=== PATIENT | female | born 1995 | race Caucasian/White ===

== ENCOUNTER 2016-11-17 00:47 | Inpatient (IN) | payer OTHER, MEDICAID ==
[~2016-11-17] VITALS: Ht 180.3 cm; Wt 94.6 kg
[2016-11-17] VITALS (20 sets, daily range): BP systolic 88–141; BP diastolic 58–81; PULSE 94–137; RESP 18–20; TEMP 97.5–99.2; O2SAT 97–100
[2016-11-17 01:10] LABS: AUTOMATED NEUTROPHIL # 8.4 TH/MM3 (1.8-7.7); BASOPHIL # 0.1 TH/MM3 (0-0.2); BASOPHIL % 0.9 % (0.0-2.0); EOSINOPHIL # 0.2 TH/MM3 (0-0.4); EOSINOPHIL % 1.4 % (0.0-4.0); HEMATOCRIT 27.2 % (35.0-46.0); HEMO FLAGS DIFF FINAL; I-STAT POTASSIUM 2.5 MMOL/L (3.5-4.9); I-STAT SODIUM 144 MMOL/L (138-146); LYMPH % 25.1 % (9.0-44.0); LYMPHOCYTE # 3.2 TH/MM3 (1.0-4.8); MEAN CELL VOLUME 86.9 FL (80.0-100.0); MEAN CORPUSCULAR HEMOGLOBIN 29.7 PG (27.0-34.0); MEAN CORPUSCULAR HGB CONC 34.2 % (32.0-36.0); MONO % 5.9 % (0.0-8.0); NEUT % 66.7 % (16.0-70.0); PLATELET COUNT 218 TH/MM3 (150-450); RED BLOOD COUNT 3.14 MIL/MM3 (4.00-5.30); RED CELL DISTRIBUTION WIDTH 13.2 % (11.6-17.2); WHITE BLOOD COUNT 12.6 TH/MM3 (4.0-11.0)
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
[2016-11-17] MEDS ORDERED: VANCOMYCIN HCL 1000 MG VIAL OTHER ONE (01:15)
[2016-11-17] MEDS ORDERED: ceFAZolin 2 GM PREMIX 50 ML IV STA (01:20)
[2016-11-17] MEDS ORDERED: HYDROmorphone HCL PF 1 MG/ML VIAL IV PUSH ONE (01:20)
[2016-11-17] MEDS ORDERED: GENTAMICIN/SOD CHL 80 MG/100 ML IV ONE (01:20)
[2016-11-17 01:21] LABS: APTT (PATIENT) 25.6 SEC (24.3-30.1); INTERNATIONAL NORMALIZED RATIO 1.1 RATIO; PROTHROMBIN TIME - PATIENT 12.1 SEC (9.8-11.6)
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
[2016-11-17 01:29] LABS: BETA HCG QUANT LESS THAN 1 MIU/ML (0-5)
[2016-11-17 01:30] LABS: ALCOHOL LESS THAN 3 MG/DL (0-5)
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
[2016-11-17] MEDS ORDERED: VANCOMYCIN HCL 1000 MG VIAL ONE (01:45)
[2016-11-17 01:46] LABS: AUTOMATED NEUTROPHIL # 11.7 TH/MM3 (1.8-7.7); BASOPHIL # 0.1 TH/MM3 (0-0.2); BASOPHIL % 0.4 % (0.0-2.0); EOSINOPHIL # 0.2 TH/MM3 (0-0.4); EOSINOPHIL % 1.1 % (0.0-4.0); HEMATOCRIT 24.7 % (35.0-46.0); HEMO FLAGS DIFF FINAL; LYMPH % 13.5 % (9.0-44.0); MEAN CELL VOLUME 87.4 FL (80.0-100.0); MEAN CORPUSCULAR HEMOGLOBIN 29.5 PG (27.0-34.0); MEAN CORPUSCULAR HGB CONC 33.8 % (32.0-36.0); MONO % 7.1 % (0.0-8.0); NEUT % 77.9 % (16.0-70.0); PLATELET COUNT 177 TH/MM3 (150-450); RED BLOOD COUNT 2.83 MIL/MM3 (4.00-5.30); RED CELL DISTRIBUTION WIDTH 13.5 % (11.6-17.2); WHITE BLOOD COUNT 15.1 TH/MM3 (4.0-11.0)
[2016-11-17 01:46] LABS: BLOOD GAS BASE EXCESS -6.2 mmol/L (-2-2); BLOOD GAS CARBOXYHEMOGLOBIN 3.1 % (0-4); BLOOD GAS HCO3 19 mmol/L (22-26); BLOOD GAS METHEMOGLOBIN 1.2 % (0-2); BLOOD GAS O2 HGB SATURATION 95 % (90-100); BLOOD GAS OXYGEN CONTENT 12.8 Vol % (12.0-20.0); BLOOD GAS PCO2 35 mmHg (38-42); BLOOD GAS PO2 234 mmHg (61-120); BLOOD GAS TOTAL HGB 9.2 G/DL (12.0-16.0); CRITICAL VALUE NO; FIO2 50 %; STAT YES; TEMP CORR TO 98.6
[2016-11-17] MEDS ORDERED: TRANEXAMIC ACID INJ 1,000 MG/10 ML AMP ONE (01:46)
[2016-11-17 02:01] LABS: APTT (PATIENT) 26.8 SEC (24.3-30.1); INTERNATIONAL NORMALIZED RATIO 1.1 RATIO; PROTHROMBIN TIME - PATIENT 12.2 SEC (9.8-11.6)
[2016-11-17 02:09] LABS: BICARBONATE 22.1 MEQ/L (21.0-32.0)
[2016-11-17 02:15] LABS: POTASSIUM 2.9 MEQ/L (3.5-5.1)
[2016-11-17 02:37] LABS: CALCIUM-PROTEIN CORRECTED 7.8 MG/DL (8.5-10.1)
[2016-11-17 02:51] LABS: BLOOD GAS BASE EXCESS -5.9 mmol/L (-2-2); BLOOD GAS CARBOXYHEMOGLOBIN 2.5 % (0-4); BLOOD GAS HCO3 19 mmol/L (22-26); BLOOD GAS METHEMOGLOBIN 1.2 % (0-2); BLOOD GAS O2 HGB SATURATION 96 % (90-100); BLOOD GAS PCO2 41 mmHg (38-42); BLOOD GAS PO2 241 mmHg (61-120); BLOOD GAS TOTAL HGB 9.2 G/DL (12.0-16.0); CRITICAL VALUE NO; DRAW SITE ALINE; FIO2 50 %; OXYGEN DEVICE VENTILATOR; STAT NO; TEMP CORR TO 98.6; ULNAR PULSE PRESENT; VENT SETTINGS OR SETTINGS
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
[2016-11-17] MEDS ORDERED: SODIUM CHLOR 0.9% 1000 ML INJ 1,000 ML IV SCH (03:47)
[2016-11-17] MEDS ORDERED: PROPOFOL 1000 MG/100 ML INJ 100 ML ONE (03:48)
[2016-11-17 03:58] LABS: BLOOD GAS BASE EXCESS -5.6 mmol/L (-2-2); BLOOD GAS CARBOXYHEMOGLOBIN 2.7 % (0-4); BLOOD GAS HCO3 20 mmol/L (22-26); BLOOD GAS METHEMOGLOBIN 1.2 % (0-2); BLOOD GAS O2 HGB SATURATION 96 % (90-100); BLOOD GAS OXYGEN CONTENT 15.1 Vol % (12.0-20.0); BLOOD GAS PCO2 42 mmHg (38-42); BLOOD GAS PO2 249 mmHg (61-120); BLOOD GAS TOTAL HGB 10.8 G/DL (12.0-16.0); CRITICAL VALUE YES; DRAW SITE ALINE; FIO2 50 %; OXYGEN DEVICE VENTILATOR; STAT NO; TEMP CORR TO 98.6; ULNAR PULSE PRESENT; VENT SETTINGS OR
[2016-11-17] MEDS ORDERED: ICU - POTASSIUM CHLORIDE/AQUEOUS SOLN 20 MEQ/100 ML IVPB IV PRN (04:00)
[2016-11-17] MEDS ORDERED: ICU - MAGNESIUM SULFATE 4 GM/NS 100 ML IV PRN ×2 (04:00)
[2016-11-17] MEDS ORDERED: NALOXONE HCL 0.4 MG/ML AMP IV PRN (04:00)
[2016-11-17] MEDS ORDERED: ONDANSETRON HCL 4 MG/2 ML VIAL IV PRN (04:00)
[2016-11-17] MEDS ORDERED: ICU - POTASSIUM PHOSPHATE MONOBASIC 500 MG TAB PO PRN (04:00)
[2016-11-17] MEDS ORDERED: ICU - POTASSIUM CHLORIDE/AQUEOUS SOLN 40 MEQ/100 ML IVPB IV PRN (04:00)
[2016-11-17] MEDS ORDERED: ICU - D/C ICU ELECTROLYTE ORDERS PRN (04:00)
[2016-11-17] MEDS ORDERED: POTASSIUM CHLORIDE 25 MEQ EFFERVESCENT TAB PO PRN (04:00)
[2016-11-17] MEDS ORDERED: SODIUM CHLORIDE 0.9% FLUSH 10 ML FLUSH IV FLUSH PRN (04:00)
[2016-11-17] MEDS ORDERED: ICU - CALL ORDERING PHYSICIAN PRN (04:00)
[2016-11-17] MEDS ORDERED: ICU - POTASSIUM PHOSPHATE 30 MMOL/NS 250 ML IV PRN ×2 (04:00)
[2016-11-17] MEDS: GENTAMICIN INJ 100 MG in SODIUM CHLORIDE 0.9% INJ 100 ML IV SCH ×3 (04:00→21:29)
[2016-11-17] MEDS ORDERED: ICU - SODIUM PHOSPHATE 30 MMOL/NS 250 ML IV PRN ×2 (04:00)
[2016-11-17] MEDS ORDERED: ICU - MAGNESIUM OXIDE 400 MG TAB PO PRN (04:00)
[2016-11-17] MEDS ORDERED: Post-op Orders (for Pharmacy) MISC XX ONE (04:00)
[2016-11-17] MEDS ORDERED: MIDAZOLAM HCL 2 MG/2 ML VIAL ONE (04:25)
[2016-11-17] MEDS ORDERED: fentaNYL CITRATE 250 MCG/5 ML AMP ONE (04:25)
[2016-11-17 04:27] LABS: HEMATOCRIT 32.3 % (35.0-46.0); PLATELET COUNT 178 TH/MM3 (150-450); REVIEW FLAG FINAL
--- NOTE | 2016-11-17 04:42 | RADRPT ---
EXAM DATE/TIME: 11/17/2016 02:28 [facility] COMPARISON: TIBIA/FIBULA RIGHT (AP/LAT), November 17, 2016, 0:41. INDICATIONS : Reduction and external fixation of aa open right tibia/Fibula fracture, MEDICAL HISTORY : None. SURGICAL HISTORY : None. ENCOUNTER: Subsequent ACUITY: 1 day PAIN SCORE: Non-responsive. LOCATION: Right tibia FINDINGS: 2 intraoperative images of the right tibia and fibula. Comminuted tibia and fibular fractures again s een. More anatomic alignment is seen than on comparison study. CONCLUSION: Comminuted tibia and fibular fractures. Avery Vaca MD on November 17, 2016 at 4:40 Board Certified Radiologist. This report was verified electronically.
--- NOTE | 2016-11-17 04:43 | RADRPT ---
EXAM DATE/TIME: 11/17/2016 02:28 [facility] COMPARISON: No previous studies available for comparison. INDICATIONS : Reduction with external fixation of an open Left Tibia/Fibula fracture. MEDICAL HISTORY : None. SURGICAL HISTORY : None. ENCOUNTER: Subsequent ACUITY: 1 day PAIN SCORE: Non-responsive. LOCATION: Left tibia FINDINGS: Single intraoperative image of the left tibia and fibula. Tibia and fibula shaft fractures again iden tified with approximately one bone width displacement. CONCLUSION: Tibia and fibula fractures again identified. Avery Vaca MD on November 17, 2016 at 4:41 Board Certified Radiologist. This report was verified electronically.
[2016-11-17 04:45] LABS: BICARBONATE 22.7 MEQ/L (21.0-32.0); POTASSIUM 3.8 MEQ/L (3.5-5.1)
[2016-11-17] MEDS: fentaNYL DRIP 250 ML IV SCH ×3 (04:47→23:07)
[2016-11-17 05:10] LABS: BLOOD GAS CARBOXYHEMOGLOBIN 1.7 % (0-4); BLOOD GAS HCO3 19 mmol/L (22-26); BLOOD GAS O2 HGB SATURATION 97 % (90-100); BLOOD GAS OXYGEN CONTENT 14.9 Vol % (12.0-20.0); BLOOD GAS PCO2 34 mmHg (38-42); BLOOD GAS PO2 299 mmHg (61-120); BLOOD GAS TOTAL HGB 10.3 G/DL (12.0-16.0); CRITICAL VALUE NO; DRAW SITE ALINE; FIO2 60 %; OXYGEN DEVICE VENTILATOR; STAT NO; TEMP CORR TO 98.6; VENT SETTINGS AC/18/550/PEEP5
--- NOTE | 2016-11-17 05:11 | RADRPT ---
EXAM DATE/TIME: 11/17/2016 04:13 [facility] COMPARISON: CHEST SINGLE AP, November 17, 2016, 0:41. INDICATIONS : Intubation. MEDICAL HISTORY : None. SURGICAL HISTORY : None. ENCOUNTER: Subsequent ACUITY: 1 day PAIN SCORE: Non-responsive. LOCATION: chest FINDINGS: Single AP view of the chest. Endotracheal tube is now in place with the tip 4.7 cm above the jace. Nasogastric tube is in place with the tip below the field of view of the radiograph. Side-port is in the distal esophagus. The lungs are clear. Cardiomediastinal silhouette within normal limits. No evid ence of pleural effusion or pneumothorax. CONCLUSION: No acute cardiopulmonary disease identified. Avery Vaca MD on November 17, 2016 at 5:08 Board Certified Radiologist. This report was verified electronically.
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
[2016-11-17 05:12] LABS: CALCIUM-PROTEIN CORRECTED 9.2 MG/DL (8.5-10.1); CKMB 24.7 NG/ML (0.5-3.6)
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
[2016-11-17] MEDS ORDERED: MIDAZOLAM HCL 5 MG/ML VIAL (1 ML) ONE ×2 (05:29→06:04)
--- NOTE | 2016-11-17 06:39 | RADRPT ---
EXAM DATE/TIME: 11/17/2016 05:45 [facility] COMPARISON: CHEST SINGLE AP, November 17, 2016, 4:13. INDICATIONS : Right subclavian central line placement. MEDICAL HISTORY : None. SURGICAL HISTORY : None. ENCOUNTER: Subsequent ACUITY: 1 day PAIN SCORE: Non-responsive. LOCATION: Right chest FINDINGS: Single AP view of the chest. Right subclavian central venous catheter is in place with the tip in the region of the cavoatrial junction. No evidence of pneumothorax. Lungs are clear. No evidence of pleu ral effusion. Endotracheal tube and nasogastric tube remain in place. CONCLUSION: Right subclavian central venous catheter in place with the tip in the region of the cavoatrial juncti on. Avery Vaca MD on November 17, 2016 at 6:36 Board Certified Radiologist. This report was verified electronically.
[2016-11-17] MEDS ORDERED: RESP: ALBUTEROL 2.5 MG/IPRATROPIUM 0.5 MG NEB (PRN) NEB (07:15)
[2016-11-17] MEDS: CHLORHEXIDINE 0.12% (ORAL KIT) 15 ML CUP MT SCH ×2 (08:00→20:00)
[2016-11-17] MEDS ORDERED: CHLORHEXIDINE 0.12% (ORAL KIT) 15 ML CUP MT SCH (08:00)
[2016-11-17] MEDS: PROPOFOL 1000 MG/100 ML INJ 100 ML IV SCH ×2 (08:26→08:28)
[2016-11-17] MEDS: MIDAZOLAM 100 MG/100 ML INJ 100 ML IV SCH (08:26)
[2016-11-17] MEDS: LACTATED RINGER'S 1000 ML INJ 1,000 ML IV SCH ×3 (09:00→22:53)
[2016-11-17] MEDS: SODIUM CHLORIDE 0.9% FLUSH 10 ML FLUSH IV FLUSH SCH ×2 (09:00→21:20)
[2016-11-17] MEDS ORDERED: LACTATED RINGER'S 1000 ML INJ 1,000 ML IV ONE ×2 (09:00→10:30)
[2016-11-17] MEDS: LACTULOSE SYRUP 20 GM/30 ML CUP PO SCH (09:00)
[2016-11-17] MEDS ORDERED: SODIUM CHLORID 0.9% 500 ML INJ 500 ML IV ONE ×2 (09:00→12:00)
[2016-11-17 10:00] LABS: AUTOMATED NEUTROPHIL # 7.7 TH/MM3 (1.8-7.7); BASOPHIL % 0.2 % (0.0-2.0); EOSINOPHIL % 0.2 % (0.0-4.0); HEMATOCRIT 27.3 % (35.0-46.0); HEMO FLAGS DIFF FINAL; LYMPH % 9.6 % (9.0-44.0); LYMPHOCYTE # 0.9 TH/MM3 (1.0-4.8); MEAN CELL VOLUME 87.8 FL (80.0-100.0); MEAN CORPUSCULAR HEMOGLOBIN 30.5 PG (27.0-34.0); MEAN CORPUSCULAR HGB CONC 34.7 % (32.0-36.0); MONO % 10.9 % (0.0-8.0); NEUT % 79.1 % (16.0-70.0); PLATELET COUNT 174 TH/MM3 (150-450); RED BLOOD COUNT 3.11 MIL/MM3 (4.00-5.30); RED CELL DISTRIBUTION WIDTH 15.1 % (11.6-17.2); WHITE BLOOD COUNT 9.8 TH/MM3 (4.0-11.0)
[2016-11-17 10:10] LABS: APTT (PATIENT) 30.4 SEC (24.3-30.1); INTERNATIONAL NORMALIZED RATIO 1.1 RATIO; PROTHROMBIN TIME - PATIENT 12.4 SEC (9.8-11.6)
[2016-11-17] MEDS ORDERED: NOREPINEPHRINE-DEXTROSE DRIP 250 ML IV ONE ×2 (10:29→14:09)
[2016-11-17] MEDS: MAGNESIUM SULFATE 1 GM PREMIX 100 ML IV ONE ×2 (10:38→11:34)
[2016-11-17] MEDS: PANTOPRAZOLE SODIUM 40 MG VIAL IV SCH (11:32)
[2016-11-17] MEDS: ENOXAPARIN SODIUM 30 MG/0.3 ML SYRINGE SQ SCH ×2 (11:33→22:55)
[2016-11-17] MEDS: CLOPIDOGREL 75 MG TAB PO SCH (11:34)
[2016-11-17] MEDS: DOCUSATE SODIUM 50 MG/SENNA 8.6 MG TAB PO SCH ×2 (11:37→21:29)
[2016-11-17] MEDS ORDERED: NORMOSOL R INJ 2,000 ML IV ONE (12:00)
[2016-11-17] MEDS ORDERED: ePHEDrine/NS 25 MG/5 ML SYR IV ONE (12:00)
[2016-11-17] MEDS ORDERED: ONDANSETRON HCL 4 MG/2 ML VIAL IV PUSH ONE (12:00)
[2016-11-17] MEDS ORDERED: CALCIUM CHLORIDE 10% SOLN 13.6 MEQ/10 ML SYR IV ONE (12:00)
[2016-11-17] MEDS ORDERED: LACTATED RINGER'S 1000 ML INJ 4,000 ML IV ONE (12:00)
[2016-11-17] MEDS ORDERED: VECURONIUM BROMIDE 10 MG VIAL IV ONE (12:00)
[2016-11-17] MEDS ORDERED: DEXMEDETOMIDINE HCL 200 MCG/2 ML VIAL IV ONE (12:00)
[2016-11-17] MEDS ORDERED: PROPOFOL 200 MG/20 ML AMP IV ONE (12:00)
[2016-11-17] MEDS ORDERED: ALBUMIN HUMAN 25% 25 GM/100 ML BAGP IV ONE (14:00)
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
[2016-11-17 16:32] LABS: BLOOD GAS VENOUS BASE EXCESS -3.1 mmol/L (-2-2); BLOOD GAS VENOUS HCO3 23 mmol/L (22-26); BLOOD GAS VENOUS O2 CONTENT 6.4 Vol % (9.0-17.0); BLOOD GAS VENOUS O2 HGB SAT 55 % (70-76); BLOOD GAS VENOUS PCO2 49 mmHg (44-48); BLOOD GAS VENOUS PO2 32 mmHg (35-40); BLOOD GAS VENOUS pH 7.29 (7.360-7.400); TEMP CORR TO 98.6
[2016-11-17 16:33] LABS: CRITICAL VALUE YES; DRAW SITE CENTRAL LINE; FIO2 40 %; OXYGEN DEVICE VENTILATOR; STAT NO; VENT SETTINGS 550/AC18/PEEP5
[2016-11-17] MEDS ORDERED: SODIUM CHLOR 0.9% 250 ML INJ 250 ML IV ONE (16:45)
[2016-11-17] MEDS ORDERED: NOREPINEPHRINE 4 MG/D5W 250 ML IV SCH (16:45)
[2016-11-17 17:02] LABS: HEMATOCRIT 23.9 % (35.0-46.0); REVIEW FLAG FINAL
[2016-11-17] MEDS: ALBUMIN HUMAN 25% 12.5 GM/50 ML BAGP IV SCH ×2 (18:33→22:55)
[2016-11-17 22:24] LABS: HEMATOCRIT 24.6 % (35.0-46.0); REVIEW FLAG FINAL
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
[2016-11-18] VITALS (18 sets, daily range): BP systolic 99–120; BP diastolic 49–64; PULSE 105–121; RESP 18; TEMP 98.4–100.1; O2SAT 98–100
[2016-11-18] MEDS ORDERED: DEXTROSE 50% IN WATER 50 ML VIAL(D50) IV PRN
[2016-11-18] MEDS ORDERED: GLUCAGON 1 MG/ML VIAL OTHER PRN
[2016-11-18] MEDS: MIDAZOLAM 100 MG/100 ML INJ 100 ML IV SCH ×2 (01:31→14:57)
[2016-11-18] MEDS: GENTAMICIN INJ 100 MG in SODIUM CHLORIDE 0.9% INJ 100 ML IV SCH ×3 (04:08→19:35)
[2016-11-18] MEDS: LACTATED RINGER'S 1000 ML INJ 1,000 ML IV SCH ×3 (04:08→18:57)
[2016-11-18] MEDS: ALBUMIN HUMAN 25% 12.5 GM/50 ML BAGP IV SCH ×4 (04:08→23:35)
[2016-11-18 05:08] LABS: AUTOMATED NEUTROPHIL # 5.6 TH/MM3 (1.8-7.7); BASOPHIL # 0.1 TH/MM3 (0-0.2); BASOPHIL % 0.7 % (0.0-2.0); EOSINOPHIL # 0.1 TH/MM3 (0-0.4); EOSINOPHIL % 1.9 % (0.0-4.0); HEMATOCRIT 22.8 % (35.0-46.0); HEMO FLAGS DIFF FINAL; LYMPH % 15.5 % (9.0-44.0); LYMPHOCYTE # 1.2 TH/MM3 (1.0-4.8); MEAN CELL VOLUME 88.2 FL (80.0-100.0); MEAN CORPUSCULAR HEMOGLOBIN 30.7 PG (27.0-34.0); MEAN CORPUSCULAR HGB CONC 34.8 % (32.0-36.0); MONO % 9.6 % (0.0-8.0); NEUT % 72.3 % (16.0-70.0); PLATELET COUNT 104 TH/MM3 (150-450); RED BLOOD COUNT 2.58 MIL/MM3 (4.00-5.30); RED CELL DISTRIBUTION WIDTH 14.7 % (11.6-17.2); WHITE BLOOD COUNT 7.8 TH/MM3 (4.0-11.0)
[2016-11-18 05:16] LABS: INTERNATIONAL NORMALIZED RATIO 1.2 RATIO; PROTHROMBIN TIME - PATIENT 13.2 SEC (9.8-11.6)
[2016-11-18 05:42] LABS: INDIRECT BILIRUBIN 0.4 MG/DL (0.0-0.8)
[2016-11-18 05:43] LABS: BICARBONATE 23.3 MEQ/L (21.0-32.0); TOTAL BILIRUBIN ADULT 0.6 MG/DL (0.2-1.0)
[2016-11-18] MEDS: INSULIN ASPART SUPPLEMENTAL SCALE SQ SCH ×5 (05:48→23:35)
[2016-11-18 06:13] LABS: CKMB 26.5 NG/ML (0.5-3.6)
[2016-11-18] MEDS: PANTOPRAZOLE SODIUM 40 MG VIAL IV SCH (06:43)
--- NOTE | 2016-11-18 06:47 | PD.ORT.PN ---
Subjective Subjective Remarks s/p open bilateral tibia fxs s/p exfix with fasciotomy - POD 1 -intubated. awake and alert. responds to commands. Objective Vitals Vital Signs Date Time Temp Pulse Resp B/P Pulse Ox O2 Delivery O2 Flow Rate FiO2 11/18/16 06:15 99.3 115 18 110/55 100 11/18/16 06:00 110/55 11/18/16 04:03 100 40 11/18/16 04:00 40 11/18/16 04:00 121 11/18/16 04:00 99.1 121 18 110/59 100 107/58 11/18/16 02:00 114 11/18/16 00:00 114 11/18/16 00:00 40 11/18/16 00:00 99.3 114 18 112/64 100 11/17/16 23:54 100 40 11/17/16 22:00 105 11/17/16 20:22 100 40 11/17/16 20:00 98.9 105 20 136/71 100 11/17/16 20:00 40 11/17/16 20:00 105 11/17/16 18:35 99.2 105 18 128/74 100 11/17/16 18:20 99.2 101 18 102/58 100 11/17/16 18:00 101 11/17/16 17:04 100 40 11/17/16 16:00 105 11/17/16 16:00 40 11/17/16 16:00 98.7 105 18 141/81 100 11/17/16 14:10 100 40 11/17/16 14:00 109 11/17/16 12:00 96 11/17/16 12:00 40 11/17/16 12:00 97.8 96 18 128/74 100 11/17/16 10:52 100 40 11/17/16 10:00 108 11/17/16 08:14 100 40 11/17/16 08:00 97.5 102 18 88/62 100 11/17/16 08:00 119 11/17/16 07:00 100 Mechanical Ventilator 60 I/O 11/17/16 11/17/16 11/17/16 11/18/16 11/18/16 11/18/16 07:00 15:00 23:00 07:00 15:00 23:00 Intake Total 7376 ml 2352 ml Output Total 425 ml 380 ml Balance 6951 ml 1972 ml Intake IV Total 7276 ml 2062 ml Albumin 100 ml Packed Cells 250 ml Other 40 ml Output Urine Total 325 ml 280 ml Gastric Drainage Total 100 ml 100 ml # Bowel Movements 0 0 Result Diagram: 11/18/16 0430 11/18/16 0430 Other Results Laboratory Tests Test 11/17/16 11/18/16 09:42 04:30 Prothrombin Time 12.4 SEC 13.2 SEC (9.8-11.6) (9.8-11.6) Prothromb Time International 1.1 RATIO 1.2 RATIO Ratio Objective Remarks LLE: +exfix. +cap refill distally. RLE: +exfix. +cap refill distally. Assessment & Plan Assessment and Plan 1) Bilateral Open Tibia Fxs s/p exfix with fasciotomy 2) Right Tibial Artery injury -Dr Jordan to take patient today for artery repair revision of right leg -plan for OR tomorrow for Bilateral tibias -NPO after MN -sign consents Onur Swain Nov 18, 2016 06:47
[2016-11-18 07:55] LABS: CALCIUM-PROTEIN CORRECTED 8.2 MG/DL (8.5-10.1)
[2016-11-18] MEDS: CHLORHEXIDINE 0.12% (ORAL KIT) 15 ML CUP MT SCH ×2 (08:37→19:35)
[2016-11-18] MEDS: DOCUSATE SODIUM 50 MG/SENNA 8.6 MG TAB PO SCH ×2 (08:37→19:36)
[2016-11-18] MEDS: SODIUM CHLORIDE 0.9% FLUSH 10 ML FLUSH IV FLUSH SCH ×2 (08:37→19:36)
[2016-11-18] MEDS: LACTULOSE SYRUP 20 GM/30 ML CUP PO SCH (08:37)
[2016-11-18] MEDS: fentaNYL DRIP 250 ML IV SCH ×2 (08:38→18:55)
[2016-11-18] MEDS ORDERED: FUROSEMIDE 40 MG/4 ML VIAL IV PUSH ONE ×2 (10:00→21:00)
[2016-11-18] MEDS: CLOPIDOGREL 75 MG TAB PO SCH (10:31)
[2016-11-18] MEDS: ENOXAPARIN SODIUM 30 MG/0.3 ML SYRINGE SQ SCH ×2 (10:31→23:35)
[2016-11-18] MEDS ORDERED: SODIUM CHLORID 0.9% 500 ML INJ 500 ML IV ONE (12:00)
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
[2016-11-18 14:19] LABS: BASOPHIL # 0.1 TH/MM3 (0-0.2); BASOPHIL % 0.6 % (0.0-2.0); EOSINOPHIL # 0.3 TH/MM3 (0-0.4); EOSINOPHIL % 3.9 % (0.0-4.0); LYMPH % 16.6 % (9.0-44.0); LYMPHOCYTE # 1.4 TH/MM3 (1.0-4.8); MEAN CORPUSCULAR HEMOGLOBIN 29.8 PG (27.0-34.0); MEAN CORPUSCULAR HGB CONC 33.9 % (32.0-36.0); MONO % 9.3 % (0.0-8.0); NEUT % 69.6 % (16.0-70.0); PLATELET COUNT 85 TH/MM3 (150-450); RED BLOOD COUNT 3.18 MIL/MM3 (4.00-5.30); RED CELL DISTRIBUTION WIDTH 15.4 % (11.6-17.2); WHITE BLOOD COUNT 8.6 TH/MM3 (4.0-11.0)
[2016-11-18 14:26] LABS: HEMO FLAGS AUTO DIFF
[2016-11-18] MEDS ORDERED: HYDROmorphone HCL PF 2 MG/ML VIAL ONE (16:35)
[2016-11-18 16:51] LABS: BANDS 17 % (0-6); EOSINOPHILS 2 % (0-4); METAMYELOCYTES 2 % (0-1); NEUTROPHIL # MANUAL DIFF 6.5 TH/MM3 (1.8-7.7); PLATELET ESTIMATE SMEAR LOW (NORMAL); PLATELET MORPHOLOGY NORMAL (NORMAL); POLYS (SEG NEUTROPHILS) 57 % (16-70); WBC DIFF SAMPLE 100
[2016-11-18 16:52] LABS: SCAN/DIFF FINAL DIFF MANUAL
[2016-11-18] MEDS ORDERED: fentaNYL CITRATE 250 MCG/5 ML AMP ONE (18:12)
[2016-11-18 19:13] LABS: HEMATOCRIT 24.6 % (35.0-46.0)
[2016-11-18 19:19] LABS: REVIEW FLAG FINAL
[2016-11-18 19:33] LABS: BICARBONATE 24.1 MEQ/L (21.0-32.0); MAGNESIUM 1.6 MG/DL (1.5-2.5); POTASSIUM 3.6 MEQ/L (3.5-5.1); TOTAL BILIRUBIN ADULT 0.8 MG/DL (0.2-1.0)
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
[2016-11-18] MEDS: ICU - MAGNESIUM SULFATE 2 GM/NS 100 ML IV PRN ×2 (20:33)
[2016-11-19] VITALS (18 sets, daily range): BP systolic 82–126; BP diastolic 45–69; PULSE 49–119; RESP 18–20; TEMP 97.5–99.4; O2SAT 100
[2016-11-19] MEDS: LACTATED RINGER'S 1000 ML INJ 1,000 ML IV SCH ×3 (01:09→17:49)
[2016-11-19 04:02] LABS: AUTOMATED NEUTROPHIL # 4.4 TH/MM3 (1.8-7.7); BASOPHIL % 0.7 % (0.0-2.0); EOSINOPHIL # 0.3 TH/MM3 (0-0.4); EOSINOPHIL % 4.8 % (0.0-4.0); HEMATOCRIT 21.7 % (35.0-46.0); LYMPH % 18.1 % (9.0-44.0); LYMPHOCYTE # 1.2 TH/MM3 (1.0-4.8); MEAN CELL VOLUME 87.7 FL (80.0-100.0); MEAN CORPUSCULAR HEMOGLOBIN 29.9 PG (27.0-34.0); MEAN CORPUSCULAR HGB CONC 34.1 % (32.0-36.0); MONO % 7.9 % (0.0-8.0); NEUT % 68.5 % (16.0-70.0); PLATELET COUNT 81 TH/MM3 (150-450); RED BLOOD COUNT 2.48 MIL/MM3 (4.00-5.30); RED CELL DISTRIBUTION WIDTH 15.2 % (11.6-17.2); WHITE BLOOD COUNT 6.5 TH/MM3 (4.0-11.0)
[2016-11-19] MEDS: ALBUMIN HUMAN 25% 12.5 GM/50 ML BAGP IV SCH (04:04)
[2016-11-19 04:06] LABS: HEMO FLAGS AUTO DIFF
[2016-11-19] MEDS ORDERED: ALBUMIN HUMAN 5% 25 GM/500 ML BOTTLE ONE (04:11)
[2016-11-19] MEDS ORDERED: ALBUMIN HUMAN 5% 25 GM/500 ML BOTTLE IV ONE (04:15)
[2016-11-19] MEDS: GENTAMICIN INJ 100 MG in SODIUM CHLORIDE 0.9% INJ 100 ML IV SCH ×3 (04:17→21:09)
[2016-11-19 05:15] LABS: BICARBONATE 29.3 MEQ/L (21.0-32.0); CALCIUM-PROTEIN CORRECTED 8.7 MG/DL (8.5-10.1); MAGNESIUM 1.9 MG/DL (1.5-2.5); POTASSIUM 3.4 MEQ/L (3.5-5.1); TOTAL BILIRUBIN ADULT 0.6 MG/DL (0.2-1.0)
[2016-11-19 05:26] LABS: PLATELET ESTIMATE SMEAR LOW (NORMAL); PLATELET MORPHOLOGY NORMAL (NORMAL); SCAN/DIFF AUTO DIFF CONFIRMED
[2016-11-19 05:37] LABS: CKMB 11.5 NG/ML (0.5-3.6)
[2016-11-19] MEDS: INSULIN ASPART SUPPLEMENTAL SCALE SQ SCH ×3 (05:54→17:49)
[2016-11-19] MEDS: ICU - MAGNESIUM SULFATE 2 GM/NS 100 ML IV PRN ×2 (06:02)
[2016-11-19 06:18] LABS: BLOOD GAS BASE EXCESS -0.4 mmol/L (-2-2); BLOOD GAS CARBOXYHEMOGLOBIN 1.6 % (0-4); BLOOD GAS HCO3 24 mmol/L (22-26); BLOOD GAS METHEMOGLOBIN 0.8 % (0-2); BLOOD GAS O2 HGB SATURATION 97 % (90-100); BLOOD GAS OXYGEN CONTENT 15.1 Vol % (12.0-20.0); BLOOD GAS PCO2 43 mmHg (38-42); BLOOD GAS PO2 173 mmHg (61-120); BLOOD GAS TOTAL HGB 10.8 G/DL (12.0-16.0); TEMP CORR TO 98.6
[2016-11-19 06:19] LABS: CRITICAL VALUE NO; OXYGEN DEVICE VENTILATOR; VENT SETTINGS AC 18/550/5 PEEP
[2016-11-19 06:20] LABS: DRAW SITE A; FIO2 35 %; STAT NO
[2016-11-19] MEDS: PANTOPRAZOLE SODIUM 40 MG VIAL IV SCH (06:38)
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
--- NOTE | 2016-11-19 06:50 | RADRPT ---
EXAM DATE/TIME: 11/19/2016 05:03 [facility] COMPARISON: CHEST SINGLE AP, November 17, 2016, 5:45. INDICATIONS : Short of breath. MEDICAL HISTORY : None. SURGICAL HISTORY : None. ENCOUNTER: Initial ACUITY: 1 day PAIN SCORE: Non-responsive. LOCATION: Bilateral chest FINDINGS: Lungs remain clear. No pleural effusion seen. No pneumothorax. Heart size stable, normal. Endotracheal tube tip is approximately 4 cm above the jace. Nasogastric tube courses into the stoma ch. There is a right subclavian central venous catheter again seen, tip in the superior vena cava. CONCLUSION: Lungs remain clear. No change lines and tubes as above. Shane Gonzalez MD on November 19, 2016 at 6:48 Board Certified Radiologist. This report was verified electronically.
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
[2016-11-19] MEDS: DOCUSATE SODIUM 50 MG/SENNA 8.6 MG TAB PO SCH ×2 (08:24→20:14)
[2016-11-19] MEDS: CHLORHEXIDINE 0.12% (ORAL KIT) 15 ML CUP MT SCH ×2 (08:24→20:00)
[2016-11-19] MEDS: LACTULOSE SYRUP 20 GM/30 ML CUP PO SCH (08:24)
[2016-11-19] MEDS: SODIUM CHLORIDE 0.9% FLUSH 10 ML FLUSH IV FLUSH SCH ×2 (08:24→20:14)
[2016-11-19] MEDS: CLOPIDOGREL 75 MG TAB PO SCH (08:45)
[2016-11-19] MEDS: ENOXAPARIN SODIUM 30 MG/0.3 ML SYRINGE SQ SCH (08:45)
[2016-11-19] MEDS: MIDAZOLAM 100 MG/100 ML INJ 100 ML IV SCH ×2 (10:02→21:09)
[2016-11-19 10:45] LABS: HEMATOCRIT 23.7 % (35.0-46.0)
[2016-11-19 10:47] LABS: REVIEW FLAG FINAL
[2016-11-19] MEDS ORDERED: PHENYLEPH/NS 1000 MCG/10 ML SYR IV ONE (12:00)
[2016-11-19] MEDS ORDERED: PROPOFOL 200 MG/20 ML AMP IV ONE (12:00)
[2016-11-19] MEDS ORDERED: ONDANSETRON HCL 4 MG/2 ML VIAL IV PUSH ONE (12:00)
[2016-11-19] MEDS ORDERED: LACTATED RINGER'S 1000 ML INJ 1,000 ML IV ONE (12:00)
[2016-11-19] MEDS: NOREPINEPHRINE 4 MG/D5W 250 ML IV SCH ×2 (12:26→21:10)
[2016-11-19] MEDS ORDERED: GENTAMICIN SULFATE 80 MG/2 ML VIAL IRRIGATION ONE (13:15)
[2016-11-19] MEDS ORDERED: ACETAMINOPHEN 1000 MG/100 ML VIAL IV ONE (13:25)
[2016-11-19] MEDS ORDERED: HYDROmorphone HCL PF 2 MG/ML VIAL ONE (13:25)
[2016-11-19] MEDS ORDERED: D5-1/2 NS + KCL 20 MEQ INJ 1,000 ML IV SCH (14:47)
--- NOTE | 2016-11-19 14:55 | PD.OP ---
cc: Emery Llanes MD Operative Report Date of Surgery: Nov 19, 2016 Preoperative Diagnosis: Open displaced left tibia shaft fracture, open fasciotomies left leg Postoperative Diagnosis: Procedure: Removal of external fixation, Irrigation debridement of open tibia fracture, intramedullary nail fixation left tibia, and complex closure left leg fasciotomies Surgeon: Emery Llanes [employer] Instructor(s): Onur Swain PA-C The surgical procedure was assisted by my physician ortho assistant. My P.A. presence was necessary throughout this case for the manipulation and positioning of the surgical extremity. My P.A. was assisting me throughout the duration of this procedure. The skill set of a physician ortho assistant was medically necessary to complete this procedure. During the surgical case the neurosurgical nurse practitioner was working at the back table and the physician ortho assistant was directly assisting me. Operation and Findings: Implants: synthes 10 mm x [405]mm tibial nail Plan of activity: Toe-touch weightbearing left leg Patient was seen and examined preoperatively. An informed consent was obtained from patients family after detailed discussion of risk and benefits. Risks of surgery include bleeding, infection, painful hardware, nonunion, malunion, leg length discrepancy, need for hardware removal, and medical complications associated with anesthesia including blood clots, stroke, heart attack, and were discussed. Operative site was marked. Patient was brought to the operating room placed on or table. Patient received IV antibiotics and was given IV sedation GETA. Timeout procedure was performed. Procedure began with removal of the external fixation. Clamps were loosened. Clamps and bars were now removed. A drill was now used to remove the pins. Next, the operative leg was prepped with alcohol Hibiclens and draped in usual sterile fashion. Procedure began with irrigation debridement of the open fracture. Skin and subcutaneous tissue and fascia were sharply debrided. Scalpel and rongeur were used to debride tissue. Curettes were used to debride the bone. Overall the wound was relatively clean. 3 L of sterile saline were now used to thoroughly irrigate soft tissue and bone. Next, attention was turned towards reduction of fracture. The tibia fracture was segmental.. Multiple clamps were placed. Traction was applied. Fractures were reduced. There was comminution of the fracture. The fracture reduced and excellent alignment was achieved. Next a 3 cm incision was made proximal to the patella. Quadriceps tendon was split in line with fibers. Cannulas were placed in the patellofemoral joint to protect the articular surface at all times. A guidepin was placed into the tibia and advanced in the tibial canal. Fluoroscopy was used to confirm appropriate guidepin placement. An opening reamer was used to open the tibial canal. A ball-tipped guidewire was advanced down the tibial canal. Guidepin was passed across the fracture site into the center of the distal tibia. Fluoroscopy confirmed guidepin placement. The nail length was now measured. The fracture was now held in a reduced position and the canal was reamed. The canal was reamed up to appropriate size. A Synthes nail was now selected. Next the nail was fully seated. Using perfect elim ira technique 3 distal interlocking screws were placed. Using the insertion handle as a guide 2 proximal interlocking screws were placed. Fluoroscopy confirmed excellent of fracture with well-placed hardware. Incisions and the knee joint were thoroughly irrigated with sterile saline. Fascia was closed with #1 PDS, subcutaneous tissues closed with 3-0 PDS and skin was closed with jonathan. Next attention was turned to closure fasciotomies. The medial fasciotomy was closed first. Subcutaneous tissues closed with 3-0 PDS. Skin was now closed with 3-0 nylon. A comminution of retention suture and vertical mattress sutures were utilized. A portion of the lateral fasciotomy was also closed. The distal portion was not completely closable. Retention sutures and vertical mattress sutures were used to reapproximate skin. Calf was palpably soft. Sterile dressings were applied. A wound VAC dressing was placed over the remaining open portion of the fasciotomy. Patient was transferred to intensive care in stable condition. Patient will need repeat irrigation debridement of right leg, possible internal fixation of right tibia, and completion of wound closure of left leg later this week. Emery Llanes MD Nov 19, 2016 14:55
[2016-11-19] MEDS ORDERED: fentaNYL CITRATE 250 MCG/5 ML AMP ONE (14:59)
--- NOTE | 2016-11-19 15:00 | RADRPT ---
EXAM DATE/TIME: 11/19/2016 14:21 [facility] COMPARISON: TIBIA/FIBULA LEFT (AP/LAT), November 17, 2016, 0:41. INDICATIONS : ORIF left tibia IM nail. MEDICAL HISTORY : None. SURGICAL HISTORY : None. ENCOUNTER: Subsequent ACUITY: 3 days PAIN SCORE: Non-responsive. LOCATION: Left tibia. CONCLUSION: Fluoroscopic images during placement of intramedullary lilliam in the left tibia fixating fractures. Fibu lar fracture is again seen. Fantasma Vargas MD on November 19, 2016 at 14:57 Board Certified Radiologist. This report was verified electronically.
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
[2016-11-19] MEDS ORDERED: IOHEXOL 350 MG/ML 10 ML VIAL (for RAD DIAG) IV ONE (17:38)
[2016-11-19] MEDS: fentaNYL DRIP 250 ML IV SCH (17:44)
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
[2016-11-19 20:01] LABS: POTASSIUM 3.7 MEQ/L (3.5-5.1)
[2016-11-19 20:06] LABS: MAGNESIUM 2.2 MG/DL (1.5-2.5)
[2016-11-19 21:21] LABS: HEMATOCRIT 25.5 % (35.0-46.0)
[2016-11-20] VITALS (15 sets, daily range): BP systolic 104–134; BP diastolic 50–74; PULSE 62–124; RESP 12–20; TEMP 97.5–98.7; O2SAT 98–100
[2016-11-20] MEDS: fentaNYL DRIP 250 ML IV SCH (01:55)
[2016-11-20] MEDS: GENTAMICIN INJ 100 MG in SODIUM CHLORIDE 0.9% INJ 100 ML IV SCH ×3 (04:36→20:31)
[2016-11-20] MEDS: PANTOPRAZOLE SODIUM 40 MG VIAL IV SCH (04:36)
[2016-11-20 05:09] LABS: AUTOMATED NEUTROPHIL # 6.7 TH/MM3 (1.8-7.7); BASOPHIL % 0.2 % (0.0-2.0); EOSINOPHIL % 0.1 % (0.0-4.0); HEMATOCRIT 24.7 % (35.0-46.0); LYMPH % 5.1 % (9.0-44.0); LYMPHOCYTE # 0.4 TH/MM3 (1.0-4.8); MEAN CELL VOLUME 85.9 FL (80.0-100.0); MEAN CORPUSCULAR HEMOGLOBIN 30.5 PG (27.0-34.0); MEAN CORPUSCULAR HGB CONC 35.5 % (32.0-36.0); MONO % 8.9 % (0.0-8.0); NEUT % 85.7 % (16.0-70.0); PLATELET COUNT 96 TH/MM3 (150-450); RED BLOOD COUNT 2.88 MIL/MM3 (4.00-5.30); RED CELL DISTRIBUTION WIDTH 16.6 % (11.6-17.2); WHITE BLOOD COUNT 7.9 TH/MM3 (4.0-11.0)
[2016-11-20 05:10] LABS: HEMO FLAGS AUTO DIFF
[2016-11-20 05:21] LABS: BLOOD GAS BASE EXCESS 1.6 mmol/L (-2-2); BLOOD GAS CARBOXYHEMOGLOBIN 1.4 % (0-4); BLOOD GAS HCO3 26 mmol/L (22-26); BLOOD GAS METHEMOGLOBIN 0.8 % (0-2); BLOOD GAS O2 HGB SATURATION 97 % (90-100); BLOOD GAS OXYGEN CONTENT 14.3 Vol % (12.0-20.0); BLOOD GAS PCO2 40 mmHg (38-42); BLOOD GAS PO2 179 mmHg (61-120); BLOOD GAS TOTAL HGB 10.2 G/DL (12.0-16.0); CRITICAL VALUE NO; DRAW SITE ART LINE; FIO2 35 %; OXYGEN DEVICE VENTILATOR; STAT NO; TEMP CORR TO 98.6; VENT SETTINGS AC/18/550/PEEP5
[2016-11-20 05:33] LABS: ALT (GPT) 19 U/L (10-53); ANION GAP 7 MEQ/L (5-15); AST (GOT) 35 U/L (15-37); BICARBONATE 29.5 MEQ/L (21.0-32.0); BLOOD UREA NITROGEN 4 MG/DL (7-18); CHLORIDE 107 MEQ/L (98-107); GLOMERULAR FILTRATION RATE 173 ML/MIN (>89); MAGNESIUM 2.2 MG/DL (1.5-2.5); POTASSIUM 3.8 MEQ/L (3.5-5.1); SODIUM (NA) 143 MEQ/L (136-145)
[2016-11-20 05:34] LABS: ALKALINE PHOSPHATASE 47 U/L (45-117); TOTAL BILIRUBIN ADULT 0.5 MG/DL (0.2-1.0)
--- NOTE | 2016-11-20 05:38 | RADRPT ---
EXAM DATE/TIME: 11/20/2016 03:57 [facility] COMPARISON: CT THORAX W CONTRAST, November 19, 2016, 17:02. CHEST SINGLE AP, November 19, 2016, 5:03. INDICATIONS : Shortness of breath. MEDICAL HISTORY : None. SURGICAL HISTORY : None. ENCOUNTER: Subsequent ACUITY: 4 - 6 days PAIN SCORE: Non-responsive. LOCATION: Bilateral chest FINDINGS: Mild consolidation medially of the left lower lobe again noted. No infiltrate seen on the right. No p leural effusion or pneumothorax demonstrated. Heart size stable, normal. Endotracheal tube tip is approximately 5 cm above the jace. There is a nasogastric tube coursing in to the stomach. Right subclavian central venous catheter remains in place, tip in the superior vena c deanne. CONCLUSION: Mild left lower lobe infiltrate. Unchanged lines and tubes. Shane Gonzalez MD on November 20, 2016 at 5:35 Board Certified Radiologist. This report was verified electronically.
[2016-11-20] MEDS: MIDAZOLAM 100 MG/100 ML INJ 100 ML IV SCH (06:48)
[2016-11-20] MEDS ORDERED: BISACODYL 10 MG SUPP RECTAL ONE (07:15)
[2016-11-20] MEDS ORDERED: DEXMEDETOMIDINE INJ 200 MCG in SODIUM CHLORIDE 0.9% INJ 50 ML IV SCH (07:30)
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
--- NOTE | 2016-11-20 07:57 | PD.ORT.PN ---
Subjective Subjective Remarks POD 1 s/p IMN with partial wound closure left leg s/p right tibia fx with vascular and significant soft tissue injury intubated. no changes Objective Vitals Vital Signs Date Time Temp Pulse Resp B/P Pulse Ox O2 Delivery O2 Flow Rate FiO2 11/20/16 06:00 79 11/20/16 04:00 66 11/20/16 04:00 35 11/20/16 04:00 98.7 66 18 134/74 100 11/20/16 03:53 100 35 11/20/16 02:00 62 11/20/16 01:43 100 35 11/20/16 00:00 67 11/20/16 00:00 98.7 67 18 126/67 100 11/20/16 00:00 35 11/19/16 22:00 49 11/19/16 20:26 100 35 11/19/16 20:00 98.9 67 18 126/69 100 11/19/16 20:00 35 11/19/16 20:00 67 11/19/16 18:00 64 11/19/16 17:00 35 11/19/16 17:00 97.5 78 18 112/62 100 11/19/16 16:30 100 11/19/16 12:30 100 11/19/16 12:00 35 11/19/16 12:00 99.2 99 18 105/51 100 11/19/16 12:00 99 11/19/16 10:00 99 11/19/16 09:59 100 35 11/19/16 08:00 95 11/19/16 08:00 98.6 95 19 104/53 100 I/O 11/19/16 11/19/16 11/19/16 11/20/16 11/20/16 11/20/16 07:00 15:00 23:00 07:00 15:00 23:00 Intake Total 2327 ml 1111 ml 541 ml 589 ml Output Total 1350 ml 2475 ml 1350 ml 1075 ml Balance 977 ml -1364 ml -809 ml -486 ml Intake IV Total 1477 ml 861 ml 541 ml 589 ml Albumin 600 ml Packed Cells 250 ml 250 ml Output Urine Total 1000 ml 2200 ml 700 ml 750 ml Gastric Drainage Total 100 ml 150 ml 0 ml 25 ml Drainage Total 250 ml 125 ml 650 ml 300 ml # Bowel Movements 0 0 0 Result Diagram: 11/20/1644411/20/16444 Imaging Last 24 hours Impressions Chest X-Ray 11/20/16 0600 Signed Impressions: Service Date/Time: Sunday, November 20, 2016 03:57 - CONCLUSION: Mild left lower lobe infiltrate. Unchanged lines and tubes. Shane Gonzalez MD Objective Remarks LLE: dressings clean and dry. intact. +cap refill. +vac with good seal RLE: +exfix. +cap refill distally. +vac with good seal Assessment & Plan Assessment and Plan 1) Left Open Tibial Shaft Fxs with fasciotomies s/p IMN with partial wound closure - POD 1 2) Right Open Tibial Shaft Fx with vascular injury s/p exfix and vac application 3) Right Tibial Artery injury -plan for surgery Friday or Friday for wound closure of left leg -Gwen out of town til friday. Will talk with Denard about management of left leg and potential surgery for right leg. -earliest patient would go back to OR would be Friday -maintain dressings/vac at all time on Onur Rosario Nov 20, 2016 07:56
[2016-11-20] MEDS: CHLORHEXIDINE 0.12% (ORAL KIT) 15 ML CUP MT SCH (08:00)
[2016-11-20 08:31] LABS: BANDS 18 % (0-6); PLATELET ESTIMATE SMEAR LOW (NORMAL); PLATELET MORPHOLOGY NORMAL (NORMAL); POLYS (SEG NEUTROPHILS) 71 % (16-70); SCAN/DIFF FINAL DIFF MANUAL; WBC DIFF SAMPLE 100
[2016-11-20] MEDS: SODIUM CHLORIDE 0.9% FLUSH 10 ML FLUSH IV FLUSH SCH ×2 (09:00→20:31)
[2016-11-20] MEDS ORDERED: LORazepam 2 MG/ML VIAL IV PUSH PRN (10:30)
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
[2016-11-20] MEDS: ENOXAPARIN SODIUM 30 MG/0.3 ML SYRINGE SQ SCH ×2 (11:30→23:17)
[2016-11-20] MEDS: LACTULOSE SYRUP 20 GM/30 ML CUP PO SCH (11:31)
[2016-11-20] MEDS: fentaNYL 50 MCG/HR PATCH T-DERMAL SCH (11:31)
[2016-11-20] MEDS: DOCUSATE SODIUM 50 MG/SENNA 8.6 MG TAB PO SCH ×2 (11:31→20:31)
[2016-11-20] MEDS: SERTRALINE HCL 100 MG TAB PO SCH (11:37)
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
[2016-11-20] MEDS: MORPHINE SULFATE 4 MG/ML INJ IV PUSH PRN ×3 (14:23→23:16)
[2016-11-20] MEDS: MAGNESIUM HYDROXIDE SUSP 30 ML CUP PO SCH (20:31)
[2016-11-20] MEDS: HALOPERIDOL LACTATE 5 MG/ML AMP IV PUSH SCH (20:53)
[2016-11-21] VITALS (10 sets, daily range): BP systolic 92–115; BP diastolic 47–64; PULSE 92–132; RESP 12–19; TEMP 98.3–100.8; O2SAT 93–99
--- NOTE | 2016-11-21 03:25 | RADRPT ---
EXAM DATE/TIME: 11/21/2016 02:25 [facility] COMPARISON: CHEST SINGLE AP, November 20, 2016, 3:57. INDICATIONS : Shortness of breath MEDICAL HISTORY : None. SURGICAL HISTORY : None. ENCOUNTER: Subsequent ACUITY: 1 week PAIN SCORE: Non-responsive. LOCATION: Bilateral chest FINDINGS: Mild bibasilar airspace opacities now seen. No pleural effusion. No pneumothorax. Patient has been extubated. Nasogastric tube also out. Right subclavian central venous catheter has b een removed. CONCLUSION: Mild bibasilar consolidation. Interim extubation and removal of nasogastric tube and right subclavian central venous line. Shane Gonzalez MD on November 21, 2016 at 3:23 Board Certified Radiologist. This report was verified electronically.
[2016-11-21] MEDS: HALOPERIDOL LACTATE 5 MG/ML AMP IV PUSH SCH ×4 (03:29→19:52)
[2016-11-21] MEDS: GENTAMICIN INJ 100 MG in SODIUM CHLORIDE 0.9% INJ 100 ML IV SCH ×3 (03:50→19:52)
[2016-11-21 04:22] LABS: AUTOMATED NEUTROPHIL # 4.1 TH/MM3 (1.8-7.7); BASOPHIL % 0.2 % (0.0-2.0); EOSINOPHIL # 0.2 TH/MM3 (0-0.4); EOSINOPHIL % 3.4 % (0.0-4.0); HEMATOCRIT 24.3 % (35.0-46.0); HEMO FLAGS DIFF FINAL; LYMPH % 16.3 % (9.0-44.0); MEAN CELL VOLUME 87.5 FL (80.0-100.0); MEAN CORPUSCULAR HEMOGLOBIN 30.3 PG (27.0-34.0); MEAN CORPUSCULAR HGB CONC 34.6 % (32.0-36.0); MONO % 10.9 % (0.0-8.0); NEUT % 69.2 % (16.0-70.0); PLATELET COUNT 121 TH/MM3 (150-450); RED BLOOD COUNT 2.77 MIL/MM3 (4.00-5.30); RED CELL DISTRIBUTION WIDTH 16.1 % (11.6-17.2); WHITE BLOOD COUNT 5.9 TH/MM3 (4.0-11.0)
[2016-11-21 04:29] LABS: ANION GAP 8 MEQ/L (5-15); AST (GOT) 39 U/L (15-37); BICARBONATE 30.2 MEQ/L (21.0-32.0); BLOOD UREA NITROGEN 6 MG/DL (7-18); CHLORIDE 104 MEQ/L (98-107); GLOMERULAR FILTRATION RATE 126 ML/MIN (>89); MAGNESIUM 2.1 MG/DL (1.5-2.5); POTASSIUM 3.4 MEQ/L (3.5-5.1); SODIUM (NA) 142 MEQ/L (136-145)
[2016-11-21 04:39] LABS: ALKALINE PHOSPHATASE 46 U/L (45-117); ALT (GPT) 19 U/L (10-53); TOTAL BILIRUBIN ADULT 0.5 MG/DL (0.2-1.0)
[2016-11-21] MEDS: PANTOPRAZOLE SODIUM 40 MG VIAL IV SCH (05:37)
[2016-11-21 06:04] LABS: BLOOD GAS BASE EXCESS 4.3 mmol/L (-2-2); BLOOD GAS CARBOXYHEMOGLOBIN 1.7 % (0-4); BLOOD GAS HCO3 29 mmol/L (22-26); BLOOD GAS METHEMOGLOBIN 0.9 % (0-2); BLOOD GAS O2 HGB SATURATION 97 % (90-100); BLOOD GAS PCO2 47 mmHg (38-42); BLOOD GAS PO2 94 mmHg (61-120); CRITICAL VALUE NO; DRAW SITE RT RADIAL; LITER FLOW 3 L/M; NUMBER OF ARTERIAL PUNCTURES 1; OXYGEN DEVICE NASAL CANNULA; STAT NO; TEMP CORR TO 98.6; ULNAR PULSE PRESENT
[2016-11-21] MEDS: MORPHINE SULFATE 4 MG/ML INJ IV PUSH PRN ×7 (07:38→22:37)
[2016-11-21] MEDS: SERTRALINE HCL 100 MG TAB PO SCH (08:24)
[2016-11-21] MEDS: DOCUSATE SODIUM 50 MG/SENNA 8.6 MG TAB PO SCH ×2 (08:24→19:52)
[2016-11-21] MEDS: SODIUM CHLORIDE 0.9% FLUSH 10 ML FLUSH IV FLUSH SCH ×2 (08:24→19:53)
[2016-11-21] MEDS: CLOPIDOGREL 75 MG TAB PO SCH (08:24)
[2016-11-21] MEDS: LACTULOSE SYRUP 20 GM/30 ML CUP PO SCH (08:24)
[2016-11-21] MEDS ORDERED: BISACODYL 10 MG SUPP RECTAL ONE (08:45)
[2016-11-21] MEDS ORDERED: BISACODYL EC 5 MG TABEC PO ONE (08:45)
[2016-11-21] MEDS ORDERED: QUEtiapine FUMARATE 25 MG TAB PO SCH (09:30)
[2016-11-21] MEDS: oxyCODONE/ACETAMINOPHEN 7.5 MG/325 MG TAB PO PRN ×2 (09:57→19:53)
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
[2016-11-21] MEDS: ENOXAPARIN SODIUM 30 MG/0.3 ML SYRINGE SQ SCH (11:48)
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
[2016-11-21] MEDS: QUEtiapine FUMARATE 100 MG TAB PO SCH ×2 (13:07→21:55)
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
[2016-11-21 16:13] LABS: POTASSIUM 3.5 MEQ/L (3.5-5.1)
[2016-11-21] MEDS: MAGNESIUM HYDROXIDE SUSP 30 ML CUP PO SCH (19:52)
[2016-11-22] MEDS: oxyCODONE/ACETAMINOPHEN 7.5 MG/325 MG TAB PO PRN ×2 (00:08→08:57)
[2016-11-22 00:25] VITALS: BP 115/52; PULSE 115; RESP 19; TEMP 99.9; O2SAT 93
[2016-11-22] MEDS ORDERED: INSULIN HUMAN REGULAR 1,000 UNITS/10 ML VIAL SQ PRN (02:00)
[2016-11-22] MEDS ORDERED: SODIUM CHLORID 0.9% 500 ML IV PRN (02:00)
[2016-11-22] MEDS ORDERED: LACTATED RINGER'S 1000 ML IV PRN (02:00)
[2016-11-22] MEDS ORDERED: CHLORHEXIDINE GLUCONATE 2 % 1 PACK (2 CLOTHS) TOPICAL PRN (02:00)
[2016-11-22] MEDS ORDERED: POVIDONE IODINE 5% (ANTISEPSIS KIT) 4 APPLICATIONS EACH NARE PRN (02:00)
[2016-11-22] MEDS: HALOPERIDOL LACTATE 5 MG/ML AMP IV PUSH SCH ×4 (03:09→20:30)
[2016-11-22] MEDS: GENTAMICIN INJ 100 MG in SODIUM CHLORIDE 0.9% INJ 100 ML IV SCH ×3 (03:10→21:36)
[2016-11-22 04:25] VITALS: BP 108/58; PULSE 112; RESP 19; TEMP 99.7; O2SAT 92
[2016-11-22] MEDS: QUEtiapine FUMARATE 100 MG TAB PO SCH ×3 (05:32→21:36)
[2016-11-22] MEDS: PANTOPRAZOLE SODIUM 40 MG VIAL IV SCH (05:33)
[2016-11-22] MEDS: MORPHINE SULFATE 4 MG/ML INJ IV PUSH PRN (05:33)
--- NOTE | 2016-11-22 07:02 | PD.ORT.PN ---
Subjective Subjective Remarks Awake and alert. No new complaints Objective Vitals Vital Signs Date Time Temp Pulse Resp B/P Pulse Ox O2 Delivery O2 Flow Rate FiO2 11/22/16 04:25 99.7 112 19 108/58 92 11/22/16 00:25 99.9 115 19 115/52 93 11/21/16 20:40 99.7 124 19 92/47 93 11/21/16 20:34 93 Nasal Cannula 2.00 11/21/16 16:00 100.8 132 17 108/60 94 11/21/16 12:54 98.8 114 18 115/58 98 11/21/16 10:00 101 11/21/16 08:00 101 11/21/16 08:00 98.7 108 12 101/64 98 I/O 11/21/16 11/21/16 11/21/16 11/22/16 11/22/16 11/22/16 07:00 15:00 23:00 07:00 15:00 23:00 Intake Total 443 ml 300 ml 0 ml Output Total 1660 ml 1820 ml 2750 ml 2450 ml Balance -1217 ml -1820 ml -2450 ml -2450 ml Intake Oral 240 ml 300 ml 0 ml IV Total 203 ml Output Urine Total 1400 ml 1550 ml 2750 ml 2450 ml Drainage Total 260 ml 270 ml # Bowel Movements 0 0 0 Result Diagram: 11/21/16 0357 11/21/16 1539 Imaging Last 24 hours Impressions Chest X-Ray 11/20/16 0600 Signed Impressions: Service Date/Time: Sunday, November 20, 2016 03:57 - CONCLUSION: Mild left lower lobe infiltrate. Unchanged lines and tubes. Shane Gonzalez MD Objective Remarks LLE: dressings clean and dry. intact. +cap refill. +vac with good seal RLE: +exfix. +cap refill distally. +vac with good seal Assessment & Plan Assessment and Plan 1) Left Open Tibial Shaft Fxs with fasciotomies s/p IMN with partial wound closure - POD 3 2) Right Open Tibial Shaft Fx with vascular injury s/p exfix and vac application 3) Right Tibial Artery injury -plan for OR today for I&D and wound closure left leg and I&D right leg with Dr Keita. tentatively scheduled for 2pm -sign consents -NPO -hold lovenox -maintain dressings/vac at all time on BLE Angel Arias Jr. Nov 22, 2016 07:02
[2016-11-22 07:34] LABS: AUTOMATED NEUTROPHIL # 3.8 TH/MM3 (1.8-7.7); BASOPHIL % 0.7 % (0.0-2.0); EOSINOPHIL # 0.4 TH/MM3 (0-0.4); EOSINOPHIL % 6.8 % (0.0-4.0); HEMATOCRIT 23.1 % (35.0-46.0); HEMO FLAGS DIFF FINAL; LYMPH % 19.5 % (9.0-44.0); LYMPHOCYTE # 1.2 TH/MM3 (1.0-4.8); MEAN CELL VOLUME 86.9 FL (80.0-100.0); MEAN CORPUSCULAR HEMOGLOBIN 30.5 PG (27.0-34.0); MEAN CORPUSCULAR HGB CONC 35.1 % (32.0-36.0); MONO % 10.8 % (0.0-8.0); NEUT % 62.2 % (16.0-70.0); PLATELET COUNT 156 TH/MM3 (150-450); RED BLOOD COUNT 2.66 MIL/MM3 (4.00-5.30); RED CELL DISTRIBUTION WIDTH 15.6 % (11.6-17.2); WHITE BLOOD COUNT 6.1 TH/MM3 (4.0-11.0)
[2016-11-22 07:44] LABS: ALT (GPT) 24 U/L (10-53); ANION GAP 10 MEQ/L (5-15); AST (GOT) 49 U/L (15-37); BICARBONATE 27.4 MEQ/L (21.0-32.0); BLOOD UREA NITROGEN 6 MG/DL (7-18); CHLORIDE 103 MEQ/L (98-107); GLOMERULAR FILTRATION RATE 115 ML/MIN (>89); MAGNESIUM 1.9 MG/DL (1.5-2.5); POTASSIUM 3.2 MEQ/L (3.5-5.1); SODIUM (NA) 140 MEQ/L (136-145)
[2016-11-22 07:46] LABS: ALKALINE PHOSPHATASE 48 U/L (45-117); TOTAL BILIRUBIN ADULT 0.7 MG/DL (0.2-1.0)
[2016-11-22 08:00] VITALS: BP 119/62; PULSE 115; RESP 16; TEMP 97.6; O2SAT 94
[2016-11-22] MEDS ORDERED: POTASSIUM CHLORIDE 20 MEQ CONTROLLED RELEASE TAB PO ONE (08:30)
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
[2016-11-22] MEDS: SODIUM CHLORIDE 0.9% FLUSH 10 ML FLUSH IV FLUSH SCH ×3 (08:57→21:00)
[2016-11-22] MEDS: DOCUSATE SODIUM 50 MG/SENNA 8.6 MG TAB PO SCH ×2 (08:58→21:36)
[2016-11-22] MEDS: LACTULOSE SYRUP 20 GM/30 ML CUP PO SCH (08:59)
[2016-11-22] MEDS: CLOPIDOGREL 75 MG TAB PO SCH (09:00)
[2016-11-22] MEDS: SERTRALINE HCL 100 MG TAB PO SCH (09:00)
[2016-11-22 10:08] VITALS: O2SAT 92
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
[2016-11-22 12:00] VITALS: BP 111/67; PULSE 110; RESP 16; TEMP 99.4; O2SAT 95
[2016-11-22] MEDS ORDERED: LACTATED RINGER'S 1000 ML INJ 1,000 ML IV ONE (12:00)
[2016-11-22] MEDS ORDERED: MAGNESIUM CITRATE SOLN 300 ML BTL PO ONE (12:00)
[2016-11-22] MEDS ORDERED: NEOSTIGMINE 3 MG/3 ML SYR IV ONE (12:00)
[2016-11-22] MEDS ORDERED: ONDANSETRON HCL 4 MG/2 ML VIAL IV PUSH ONE (12:00)
[2016-11-22] MEDS ORDERED: PROPOFOL 200 MG/20 ML AMP IV ONE (12:00)
[2016-11-22] MEDS ORDERED: GENTAMICIN SULFATE 80 MG/2 ML VIAL ONE (16:05)
[2016-11-22] MEDS ORDERED: HYDROmorphone HCL PF 2 MG/ML VIAL ONE (16:17)
[2016-11-22] MEDS ORDERED: POTASSIUM CHLORIDE 10 MEQ CONTROLLED RELEASE TAB PO ONE (18:00)
--- NOTE | 2016-11-22 18:39 | PD.ORT.PN ---
Subjective Subjective Remarks no issues Objective Vitals Vital Signs Date Time Temp Pulse Resp B/P Pulse Ox O2 Delivery O2 Flow Rate FiO2 11/22/16 12:00 99.4 110 16 111/67 95 11/22/16 10:08 92 Nasal Cannula 2.00 11/22/16 08:00 97.6 115 16 119/62 94 11/22/16 04:25 99.7 112 19 108/58 92 11/22/16 00:25 99.9 115 19 115/52 93 11/21/16 20:40 99.7 124 19 92/47 93 11/21/16 20:34 93 Nasal Cannula 2.00 I/O 11/21/16 11/21/16 11/21/16 11/22/16 11/22/16 11/22/16 07:00 15:00 23:00 07:00 15:00 23:00 Intake Total 443 ml 300 ml 0 ml Output Total 1660 ml 1820 ml 2750 ml 2450 ml Balance -1217 ml -1820 ml -2450 ml -2450 ml Intake Oral 240 ml 300 ml 0 ml IV Total 203 ml Output Urine Total 1400 ml 1550 ml 2750 ml 2450 ml Drainage Total 260 ml 270 ml # Bowel Movements 0 0 0 Result Diagram: 11/22/1661711/22/16617 Imaging Last 24 hours Impressions Chest X-Ray 11/20/16 06 Signed Impressions: Service Date/Time: Sunday, November 20, 2016 03:57 - CONCLUSION: Mild left lower lobe infiltrate. Unchanged lines and tubes. Shane Gonzalez MD Objective Remarks LLE: dressings clean and dry. intact. +cap refill RLE: +exfix. +cap refill distally. +vac with good seal Assessment & Plan Assessment and Plan 1) Left Open Tibial Shaft Fxs with fasciotomies s/p IMN with wound closure - POD 3, 0 2) Right Open Tibial Shaft Fx with vascular injury -s/p exfix, I&D and vac application POD -0 3) Right Tibial Artery injury -plan for OR next week for Right leg wound closure -NPO friday night, hold lovenox -maintain dressings/vac at all time on BLE -NWB BLE -lovenox -iv abx Vargas Keita Jr., MD Nov 22, 2016 18:39
--- NOTE | 2016-11-22 18:41 | PD.OP ---
cc: Vargas Keita Jr., MD Operative Report Date of Surgery: Nov 22, 2016 Preoperative Diagnosis: Bilateral grade 3 open tibia fracture Postoperative Diagnosis: Same Procedure: #1 left leg wound closure #2 right leg irrigation and debridement #3 right leg revision external fixation #4 right leg irrigation and debridement #5 right leg wound VAC application Anesthesia: Gen. Surgeon: Vargas Keita Truck Engine Technician(s): Les Swain PA-C The surgical procedure was assisted by my physician physiotherapy assistant. My physician physiotherapy assistant presence was necessary throughout this case for the manipulation and positioning of the surgical extremity. My physician physiotherapy assistant was assisting me throughout the duration of this procedure. The skill set of a physician physiotherapy assistant was medically necessary to complete this procedure. During the surgical case, the surgical physician assistant was working at the back table and the physician physiotherapy assistant was directly assisting me. Operation and Findings: This patient sustained severe injury to her bilateral lower legs resulting in grade 3 open tibia fracture. Risk and benefits of surgery were discussed in depth with the patient and consent was confirmed. Surgical site was marked. Patient was brought to operating room and placed on the OR table. Patient was given IV sedation and GETA. Patient received IV antibiotics and timeout procedure was performed. the Wound VAC sponges were removed from the RIGHT leg. Operative leg was prepped and draped in the usual sterile fashion. The LEFT leg fasciotomy incision at the lateral tibia which was previously approximated was cleaned, thoroughly irrigated and closed primarily. The Patient had good pulses and cap refill with soft compartments after wound closure. Attention was now turned to the RIGHT leg. The external fixator was revised to provide additional stability to the tibial shaft fracture. 2 additional pins were placed in the proximal and distal fragments. Soft tissue was dissected bluntly. Cannulas were placed down to the cortex of bone. Pin sites were predrilled. Fluoroscopy was used to confirm appropriate pin placement. An external fixator construct was now created with clamps and bars. Next attention was turned to reduction. Traction was applied. Fracture was manipulated. Good alignment of the fracture was obtained. Fluoroscopy was used to confirm appropriate alignment of fracture. The external fixator was now tightened to hold reduction. The soft tissue quality was poor with early signs of skin necrosis at the edges of the skin flaps covering the posterior aspect of the tibia. The wound was still very contaminated with dirt and debris. The skin edges were debrided back to somewhat healthier and bleeding edges. The wound was thoroughly debrided with a pituitary rongeur and irrigated. There is no purulence or signs of deep infection. The underlying muscle In the posterior superficial and posterior deep compartments appeared viable and contractile. The anterior wounds were also thoroughly debrided and cleaned. The fracture was also sharply debrided and cleaned the extent of periosteal stripping. A wound VAC was reapplied to the large posterior soft tissue defect area overlying the majority of the posterior compartment of the leg. Patient was awakened and transferred to recovery room in stable condition. Vargas Keita Jr., MD Nov 22, 2016 18:41
[2016-11-22] MEDS ORDERED: MORPHINE SULFATE 8 MG/ML INJ IV PUSH PRN (18:45)
[2016-11-22] MEDS ORDERED: SODIUM CHLORIDE 0.9% FLUSH 10 ML FLUSH IV FLUSH PRN (18:45)
[2016-11-22] MEDS ORDERED: Post-op Orders (for Pharmacy) MISC XX ONE (18:45)
[2016-11-22] MEDS ORDERED: PROMETHAZINE HCL 25 MG TAB PO PRN (18:45)
[2016-11-22] MEDS ORDERED: LACTULOSE SYRUP 20 GM/30 ML CUP PO PRN (18:45)
[2016-11-22] MEDS ORDERED: fentaNYL CITRATE 250 MCG/5 ML AMP ONE (18:52)
[2016-11-22] MEDS ORDERED: DO NOT ADM ANY ANTICOAGULANT DRUGS PRN (19:00)
[2016-11-22] MEDS ORDERED: *MEPERIDINE 25 MG INJ VIAL PERIprocedural Use ONLY ONE (19:22)
[2016-11-22] MEDS ORDERED: *morphine SULFATE 8 MG/ML PERIprocedure ONLY ONE (19:52)
[2016-11-22 20:40] VITALS: BP 98/63; PULSE 102; RESP 18; TEMP 96.2; O2SAT 99
[2016-11-22] MEDS ORDERED: DOCUSATE SODIUM 50 MG/SENNA 8.6 MG TAB PO SCH (21:00)
[2016-11-22] MEDS: MAGNESIUM HYDROXIDE SUSP 30 ML CUP PO SCH (21:35)
[2016-11-22] MEDS ORDERED: MAGNESIUM CITRATE SOLN 300 ML BTL PO SCH (23:30)
[2016-11-23] VITALS (7 sets, daily range): BP systolic 108–114; BP diastolic 56–66; PULSE 85–107; RESP 17–19; TEMP 97.2–97.9; O2SAT 92–99
[2016-11-23] MEDS: VANCOMYCIN INJ 1,000 MG in SODIUM CHLOR 0.9% 250 ML INJ 250 ML IV SCH ×3 (00:02→22:55)
[2016-11-23] MEDS: MORPHINE SULFATE 4 MG/ML INJ IV PUSH PRN ×2 (01:37→17:41)
[2016-11-23] MEDS: HALOPERIDOL LACTATE 5 MG/ML AMP IV PUSH SCH (02:30)
[2016-11-23] MEDS: GENTAMICIN INJ 100 MG in SODIUM CHLORIDE 0.9% INJ 100 ML IV SCH ×3 (04:38→20:05)
[2016-11-23] MEDS: PANTOPRAZOLE SODIUM 40 MG VIAL IV SCH (05:30)
[2016-11-23] MEDS: QUEtiapine FUMARATE 100 MG TAB PO SCH ×3 (05:30→22:55)
--- NOTE | 2016-11-23 07:13 | RADRPT ---
EXAM DATE/TIME: 11/22/2016 17:17 [facility] COMPARISON: TIBIA/FIBULA RIGHT (AP/LAT), November 17, 2016, 2:28. INDICATIONS : Right ex fix tibia/fibula adjustment. MEDICAL HISTORY : None. SURGICAL HISTORY : ORIF left tibia IM nail. ENCOUNTER: Subsequent ACUITY: 1 week PAIN SCORE: Non-responsive. LOCATION: Right tibia/fibula FINDINGS: There continues to be multiple fractures involving the tibia and fibula. There has been no significan t change in alignment or position of the fracture fragments compared to the prior study of 11/17/2006. CONCLUSION: No significant change in the alignment or position of fracture fragments compared to the prior study. Chinmay Leon MD on November 23, 2016 at 7:10 Board Certified Radiologist. This report was verified electronically.
[2016-11-23] MEDS: ENOXAPARIN SODIUM 30 MG/0.3 ML SYRINGE SQ SCH ×2 (07:18→18:15)
[2016-11-23] MEDS: DOCUSATE SODIUM 50 MG/SENNA 8.6 MG TAB PO SCH ×2 (08:15→20:01)
[2016-11-23] MEDS: CLOPIDOGREL 75 MG TAB PO SCH (08:16)
[2016-11-23] MEDS: SERTRALINE HCL 100 MG TAB PO SCH (08:16)
[2016-11-23] MEDS: oxyCODONE/ACETAMINOPHEN 7.5 MG/325 MG TAB PO PRN ×4 (08:22→23:59)
[2016-11-23] MEDS ORDERED: HALOPERIDOL LACTATE 5 MG/ML AMP IV PUSH PRN (08:30)
[2016-11-23] MEDS ORDERED: BISACODYL EC 5 MG TABEC PO ONE ×2 (08:30→15:15)
[2016-11-23] MEDS ORDERED: BISACODYL 10 MG SUPP RECTAL ONE ×2 (08:30→15:15)
--- NOTE | 2016-11-23 08:52 | PD.ORT.PN ---
Subjective Subjective Remarks Patient resting in bed with moderate pain to the bilateral lower extremities. Patient is c/o right shoulder and right foot pain. Patient also struggling with depression. RN aware and addressing depression. Objective Vitals Vital Signs Date Time Temp Pulse Resp B/P Pulse Ox O2 Delivery O2 Flow Rate FiO2 11/23/16 07:47 97.2 107 19 108/59 92 11/23/16 04:25 97.5 103 17 113/62 99 11/23/16 00:50 97.9 100 18 109/66 95 11/22/16 20:53 Nasal Cannula 2.00 11/22/16 20:40 96.2 102 18 98/63 99 11/22/16 20:15 98.0 87 16 107/56 100 Nasal Cannula 3 11/22/16 20:00 101 19 112/51 100 Nasal Cannula 3 11/22/16 19:45 88 17 113/56 100 Nasal Cannula 3 11/22/16 19:30 97 19 115/59 100 Nasal Cannula 3 11/22/16 19:17 97.8 111 18 117/57 95 Nasal Cannula 3 11/22/16 12:00 99.4 110 16 111/67 95 11/22/16 10:08 92 Nasal Cannula 2.00 I/O 11/22/16 11/22/16 11/22/16 11/23/16 11/23/16 11/23/16 07:00 15:00 23:00 07:00 15:00 23:00 Intake Total 0 ml 1370 ml 420 ml Output Total 2450 ml 800 ml 1850 ml Balance -2450 ml 570 ml -1430 ml Intake Oral 0 ml 170 ml 240 ml IV Total 180 ml Other 1200 ml Output Urine Total 2450 ml 600 ml 1550 ml Drainage Total 300 ml Estimated Blood Loss 200 ml # Bowel Movements 0 0 Result Diagram: 11/22/1661711/22/1618 Imaging Last 24 hours Impressions Chest X-Ray 11/20/16 06 Signed Impressions: Service Date/Time: Sunday, November 20, 2016 03:57 - CONCLUSION: Mild left lower lobe infiltrate. Unchanged lines and tubes. Shane Gonzalez MD Objective Remarks LLE: dressings clean and dry. intact. +cap refill, + NVI. + SILT RLE: +exfix. +cap refill distally. +vac with good seal, + NIV, + SILT. Moderate swelling and tenderness to the right foot RUE: Patient has localized swelling and moderate tenderness to the right shoulder. Patient has mildly limited AROM with pain. + NVI. + SILT x 5. Assessment & Plan Assessment and Plan 1) Left Open Tibial Shaft Fxs with fasciotomies s/p IMN with wound closure - POD 4, 0 2) Right Open Tibial Shaft Fx with vascular injury -s/p exfix, I&D and vac application POD -1 3) Right Tibial Artery injury 4. Right foot pain r/o fracture 5. Right shoulder pain and swelling r/o fracture or dislocated AC joint -plan for OR next week for Right leg wound closure -NPO friday night, hold lovenox -maintain dressings/vac at all time on BLE -NWB BLE -lovenox XR ordered for right shoulder and left foot to r/o fracture -iv abx -pin care daily [place] Nov 23, 2016 08:52
[2016-11-23] MEDS: LACTULOSE SYRUP 20 GM/30 ML CUP PO SCH (09:00)
[2016-11-23] MEDS: SODIUM CHLORIDE 0.9% FLUSH 10 ML FLUSH IV FLUSH SCH ×4 (09:00→20:59)
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
[2016-11-23] MEDS: REMOVE OLD DURAGESIC (FENTANYL) PATCH T-DERMAL SCH (11:00)
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
[2016-11-23 11:42] LABS: HEMATOCRIT 21.2 % (35.0-46.0); MEAN CELL VOLUME 88.4 FL (80.0-100.0); MEAN CORPUSCULAR HEMOGLOBIN 29.3 PG (27.0-34.0); MEAN CORPUSCULAR HGB CONC 33.1 % (32.0-36.0); PLATELET COUNT 213 TH/MM3 (150-450); RED CELL DISTRIBUTION WIDTH 15.8 % (11.6-17.2); REVIEW FLAG FINAL; WHITE BLOOD COUNT 8.1 TH/MM3 (4.0-11.0)
[2016-11-23 12:16] LABS: ALKALINE PHOSPHATASE 86 U/L (45-117); ALT (GPT) 31 U/L (10-53); ANION GAP 9 MEQ/L (5-15); AST (GOT) 45 U/L (15-37); BICARBONATE 27.3 MEQ/L (21.0-32.0); BLOOD UREA NITROGEN 12 MG/DL (7-18); CHLORIDE 103 MEQ/L (98-107); GLOMERULAR FILTRATION RATE 124 ML/MIN (>89); MAGNESIUM 2.4 MG/DL (1.5-2.5); POTASSIUM 4.1 MEQ/L (3.5-5.1); SODIUM (NA) 139 MEQ/L (136-145); TOTAL BILIRUBIN ADULT 0.6 MG/DL (0.2-1.0)
[2016-11-23] MEDS: fentaNYL 50 MCG/HR PATCH T-DERMAL SCH (12:26)
[2016-11-23] MEDS: GABAPENTIN 300 MG CAP PO SCH (17:20)
[2016-11-23] MEDS ORDERED: CITA20TA4 PO (17:55)
[2016-11-23] MEDS: MULTIVITAMINS/MINERALS THERAPEUTIC TAB PO SCH (20:00)
[2016-11-23] MEDS: MAGNESIUM HYDROXIDE SUSP 30 ML CUP PO SCH (20:01)
[2016-11-24] VITALS (10 sets, daily range): BP systolic 99–131; BP diastolic 58–66; PULSE 76–102; RESP 14–18; TEMP 97.1–100.4; O2SAT 93–99
[2016-11-24] MEDS: ZOLPIDEM TARTRATE 5 MG TAB PO PRN ×2 (00:05→22:39)
[2016-11-24] MEDS: GENTAMICIN INJ 100 MG in SODIUM CHLORIDE 0.9% INJ 100 ML IV SCH ×3 (03:47→19:57)
[2016-11-24] MEDS: QUEtiapine FUMARATE 100 MG TAB PO SCH ×3 (07:03→22:07)
[2016-11-24] MEDS: ENOXAPARIN SODIUM 30 MG/0.3 ML SYRINGE SQ SCH ×2 (07:04→07:45)
[2016-11-24] MEDS: PANTOPRAZOLE SODIUM 40 MG VIAL IV SCH (07:04)
[2016-11-24 07:43] LABS: AUTOMATED NEUTROPHIL # 5.7 TH/MM3 (1.8-7.7); BASOPHIL % 0.5 % (0.0-2.0); EOSINOPHIL # 0.3 TH/MM3 (0-0.4); EOSINOPHIL % 3.9 % (0.0-4.0); LYMPH % 16.3 % (9.0-44.0); LYMPHOCYTE # 1.3 TH/MM3 (1.0-4.8); MEAN CELL VOLUME 87.8 FL (80.0-100.0); MEAN CORPUSCULAR HEMOGLOBIN 30.4 PG (27.0-34.0); MEAN CORPUSCULAR HGB CONC 34.6 % (32.0-36.0); MONO % 9.1 % (0.0-8.0); NEUT % 70.2 % (16.0-70.0); PLATELET COUNT 258 TH/MM3 (150-450); RED BLOOD COUNT 2.17 MIL/MM3 (4.00-5.30); RED CELL DISTRIBUTION WIDTH 15.9 % (11.6-17.2); WHITE BLOOD COUNT 8.2 TH/MM3 (4.0-11.0)
[2016-11-24 07:59] LABS: HEMO FLAGS DIFF FINAL
[2016-11-24 08:03] LABS: ALT (GPT) 25 U/L (10-53); ANION GAP 11 MEQ/L (5-15); AST (GOT) 29 U/L (15-37); BICARBONATE 25.3 MEQ/L (21.0-32.0); BLOOD UREA NITROGEN 12 MG/DL (7-18); CHLORIDE 101 MEQ/L (98-107); GLOMERULAR FILTRATION RATE 153 ML/MIN (>89); POTASSIUM 3.5 MEQ/L (3.5-5.1); SODIUM (NA) 137 MEQ/L (136-145)
[2016-11-24 08:06] LABS: ALKALINE PHOSPHATASE 66 U/L (45-117); TOTAL BILIRUBIN ADULT 0.5 MG/DL (0.2-1.0)
[2016-11-24] MEDS ORDERED: FUROSEMIDE 20 MG/2 ML VIAL IV PRN (08:15)
[2016-11-24] MEDS ORDERED: SODIUM CHLOR 0.9% 250 ML INJ 250 ML IV ONE (08:15)
[2016-11-24] MEDS: SERTRALINE HCL 100 MG TAB PO SCH (08:20)
[2016-11-24] MEDS: oxyCODONE/ACETAMINOPHEN 7.5 MG/325 MG TAB PO PRN ×2 (08:21→14:01)
[2016-11-24] MEDS: DOCUSATE SODIUM 50 MG/SENNA 8.6 MG TAB PO SCH ×2 (08:22→19:59)
[2016-11-24] MEDS: GABAPENTIN 300 MG CAP PO SCH ×3 (08:22→16:22)
[2016-11-24] MEDS: MULTIVITAMINS/MINERALS THERAPEUTIC TAB PO SCH ×2 (08:22→19:58)
[2016-11-24] MEDS: CLOPIDOGREL 75 MG TAB PO SCH (08:53)
[2016-11-24] MEDS ORDERED: POTASSIUM CHLORIDE 20 MEQ CONTROLLED RELEASE TAB PO ONE (09:00)
[2016-11-24] MEDS: SODIUM CHLORIDE 0.9% FLUSH 10 ML FLUSH IV FLUSH SCH ×4 (09:00→20:00)
[2016-11-24] MEDS: LACTULOSE SYRUP 20 GM/30 ML CUP PO SCH (09:00)
[2016-11-24] MEDS: VANCOMYCIN INJ 1,000 MG in SODIUM CHLOR 0.9% 250 ML INJ 250 ML IV SCH ×2 (09:47→23:08)
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
--- NOTE | 2016-11-24 10:47 | PD.ORT.PN ---
Subjective Subjective Remarks Patient resting in bed with moderate pain to the bilateral lower extremities. Patient is c/o right shoulder and right foot pain. Patient's right shoulder pain better with sling. Patient has had some problems with wound vac. The device was changed out and is now functioning appropriately. Objective Vitals Vital Signs Date Time Temp Pulse Resp B/P Pulse Ox O2 Delivery O2 Flow Rate FiO2 11/24/16 09:40 16 11/24/16 04:00 98.2 102 16 99/58 93 11/24/16 00:00 97.1 97 17 114/58 95 11/23/16 19:50 97.3 98 17 108/61 96 11/23/16 15:37 97.4 85 19 111/57 96 11/23/16 12:00 97.7 95 19 114/56 97 11/23/16 10:41 98 21 I/O 11/23/16 11/23/16 11/23/16 11/24/16 11/24/16 11/24/16 07:00 15:00 23:00 07:00 15:00 23:00 Intake Total 420 ml 1984 ml 720 ml 240 ml Output Total 1850 ml 2050 ml 1000 ml 700 ml Balance -1430 ml -66 ml -280 ml -460 ml Intake Oral 240 ml 700 ml 720 ml 240 ml IV Total 180 ml 1284 ml Output Urine Total 1550 ml 1925 ml 1000 ml 700 ml Drainage Total 300 ml 125 ml # Bowel Movements 0 0 1 0 Result Diagram: 11/24/16 0715 11/24/16 0715 Imaging Last 24 hours Impressions Chest X-Ray 11/20/16 0600 Signed Impressions: Service Date/Time: Sunday, November 20, 2016 03:57 - CONCLUSION: Mild left lower lobe infiltrate. Unchanged lines and tubes. Shane Gonzalez MD Objective Remarks Last 48 hours Impressions Shoulder X-Ray 11/23/16 0000 Signed Impressions: Service Date/Time: Wednesday, November 23, 2016 09:05 - CONCLUSION: Grade 4 a.c. joint separation. Chinmay Leon MD Foot X-Ray 11/23/16 0000 Signed Impressions: Service Date/Time: Wednesday, November 23, 2016 09:01 - CONCLUSION: 1. Nonspecific soft tissue swelling around the foot. 2. Mild irregularity involving the base of the proximal phalanx. Recommend correlation with point tenderness for nondisplaced fracture. Chinmay Leon MD LLE: dressings clean and dry. intact. +cap refill, + NVI. + SILT RLE: +exfix. +cap refill distally. +vac with good seal, + NIV, + SILT. Moderate swelling and tenderness to the right foot. Mild drainage to RLE dressings. RUE: Patient has localized swelling and moderate tenderness to the right shoulder. Patient has mildly limited AROM with pain. + NVI. + SILT x 5. Sling in [address] I reviewed the xray images of the right shoulder and right foot and agree with the radiologist's interpretation. Assessment & Plan Assessment and Plan 1) Left Open Tibial Shaft Fxs with fasciotomies s/p IMN with wound closure - POD 5, 0 2) Right Open Tibial Shaft Fx with vascular injury -s/p exfix, I&D and vac application POD -2 3) Right Tibial Artery injury 4. Right foot pain r/o fracture 5. Right shoulder pain and swelling r/o fracture or dislocated AC joint -plan for OR next week for Right leg wound closure -NPO friday night, hold lovenox (order placed) -maintain dressings/vac at all time on BLE -NWB BLE -lovenox -iv abx -pin care daily Anemic with HGB of 6.6. Patient to be transfused 2 litters PRBCs Right Shoulder Grade 4 AC Separation - Sling and swath to the right upper extremity. - Dr. Keita to address this tomorrow. Patient could potentially require surgical management. Right foot nondisplaced 5th proximal phalanx fracture -Post op shoe to right foot - It does appear that this fracture can be managed conservatively. Patient is non-weightbearing currently on the right LE. I discussed the results of the x-rays for the right shoulder and the right foot. All questions were answered. Patient aware of current POC. Ryne Beach Nov 24, 2016 10:47
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
[2016-11-24] MEDS: MORPHINE SULFATE 4 MG/ML INJ IV PUSH PRN ×2 (16:22→22:07)
[2016-11-24] MEDS: FAMOTIDINE 20 MG TAB PO SCH (19:59)
[2016-11-24] MEDS: MAGNESIUM HYDROXIDE SUSP 30 ML CUP PO SCH (19:59)
[2016-11-25 00:50] VITALS: BP 124/69; PULSE 106; RESP 14; TEMP 99.7; O2SAT 93
[2016-11-25 01:10] VITALS: BP 128/60; PULSE 102; RESP 16; TEMP 100.4
[2016-11-25 02:55] VITALS: BP 128/70; PULSE 98; RESP 16; TEMP 99.6; O2SAT 93
[2016-11-25] MEDS: GENTAMICIN INJ 100 MG in SODIUM CHLORIDE 0.9% INJ 100 ML IV SCH ×3 (03:51→20:41)
[2016-11-25 05:17] LABS: HEMATOCRIT 27.5 % (35.0-46.0); REVIEW FLAG FINAL
[2016-11-25] MEDS: QUEtiapine FUMARATE 100 MG TAB PO SCH ×3 (05:40→20:41)
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
[2016-11-25 08:00] VITALS: BP 143/73; PULSE 87; RESP 18; TEMP 98.2; O2SAT 96
[2016-11-25] MEDS: oxyCODONE/ACETAMINOPHEN 7.5 MG/325 MG TAB PO PRN ×2 (08:50→23:37)
[2016-11-25] MEDS: MULTIVITAMINS/MINERALS THERAPEUTIC TAB PO SCH ×2 (08:51→20:42)
[2016-11-25] MEDS: SERTRALINE HCL 100 MG TAB PO SCH (08:51)
[2016-11-25] MEDS: DOCUSATE SODIUM 50 MG/SENNA 8.6 MG TAB PO SCH ×2 (08:52→20:42)
[2016-11-25] MEDS: SODIUM CHLORIDE 0.9% FLUSH 10 ML FLUSH IV FLUSH SCH ×4 (08:52→20:43)
[2016-11-25] MEDS: LACTULOSE SYRUP 20 GM/30 ML CUP PO SCH (08:52)
[2016-11-25] MEDS: GABAPENTIN 300 MG CAP PO SCH ×3 (08:52→17:35)
[2016-11-25] MEDS: VANCOMYCIN INJ 1,000 MG in SODIUM CHLOR 0.9% 250 ML INJ 250 ML IV SCH ×2 (11:28→21:54)
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
[2016-11-25 12:00] VITALS: BP 126/78; PULSE 94; RESP 18; TEMP 99; O2SAT 93
[2016-11-25] MEDS: MORPHINE SULFATE 4 MG/ML INJ IV PUSH PRN ×2 (12:57→18:10)
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
[2016-11-25 16:00] VITALS: BP 131/67; PULSE 101; RESP 18; TEMP 100.4; O2SAT 96
[2016-11-25] MEDS ORDERED: MAGN400S PO (19:58)
[2016-11-25] MEDS ORDERED: SENN1TAB PO (19:58)
[2016-11-25] MEDS: FAMOTIDINE 20 MG TAB PO SCH (20:41)
[2016-11-25] MEDS: traZODone HCL 50 MG TAB PO SCH (20:41)
[2016-11-25] MEDS: MAGNESIUM HYDROXIDE SUSP 30 ML CUP PO SCH (20:42)
[2016-11-25] MEDS: ZOLPIDEM TARTRATE 5 MG TAB PO PRN (22:49)
[2016-11-26] VITALS: BP 116/63; PULSE 103; RESP 16; TEMP 99.8; O2SAT 95
[2016-11-26] MEDS ORDERED: LACTATED RINGER'S 1000 ML IV PRN (02:15)
[2016-11-26] MEDS ORDERED: POVIDONE IODINE 5% (ANTISEPSIS KIT) 4 APPLICATIONS EACH NARE PRN (02:15)
[2016-11-26] MEDS ORDERED: INSULIN HUMAN REGULAR 1,000 UNITS/10 ML VIAL SQ PRN (02:15)
[2016-11-26] MEDS ORDERED: CHLORHEXIDINE GLUCONATE 2 % 1 PACK (2 CLOTHS) TOPICAL PRN (02:15)
[2016-11-26] MEDS ORDERED: SODIUM CHLORID 0.9% 500 ML IV PRN (02:15)
[2016-11-26 03:33] LABS: AUTOMATED NEUTROPHIL # 13.1 TH/MM3 (1.8-7.7); BASOPHIL # 0.1 TH/MM3 (0-0.2); BASOPHIL % 0.6 % (0.0-2.0); EOSINOPHIL # 0.4 TH/MM3 (0-0.4); EOSINOPHIL % 2.2 % (0.0-4.0); LYMPH % 11.3 % (9.0-44.0); LYMPHOCYTE # 1.9 TH/MM3 (1.0-4.8); MEAN CELL VOLUME 85.3 FL (80.0-100.0); MEAN CORPUSCULAR HEMOGLOBIN 28.7 PG (27.0-34.0); MEAN CORPUSCULAR HGB CONC 33.7 % (32.0-36.0); MONO % 6.9 % (0.0-8.0); PLATELET COUNT 390 TH/MM3 (150-450); RED BLOOD COUNT 3.16 MIL/MM3 (4.00-5.30); RED CELL DISTRIBUTION WIDTH 16.9 % (11.6-17.2); WHITE BLOOD COUNT 16.5 TH/MM3 (4.0-11.0)
[2016-11-26 03:34] LABS: HEMO FLAGS AUTO DIFF
[2016-11-26 03:40] LABS: APTT (PATIENT) 28.5 SEC (24.3-30.1); PROTHROMBIN TIME - PATIENT 10.5 SEC (9.8-11.6)
[2016-11-26 04:00] VITALS: BP_SYST 120; BP_SYST 131; BP_DIAS 61; BP_DIAS 67; PULSE 101; PULSE 103; RESP 18; RESP 20; TEMP 99.4; TEMP 99.8; O2SAT 96; O2SAT 98
[2016-11-26 04:10] LABS: ALKALINE PHOSPHATASE 84 U/L (45-117); ALT (GPT) 60 U/L (10-53); ANION GAP 8 MEQ/L (5-15); AST (GOT) 62 U/L (15-37); BICARBONATE 29.3 MEQ/L (21.0-32.0); BLOOD UREA NITROGEN 10 MG/DL (7-18); CHLORIDE 100 MEQ/L (98-107); GLOMERULAR FILTRATION RATE 97 ML/MIN (>89); POTASSIUM 4.2 MEQ/L (3.5-5.1); SODIUM (NA) 137 MEQ/L (136-145); TOTAL BILIRUBIN ADULT 0.5 MG/DL (0.2-1.0)
[2016-11-26] MEDS: GENTAMICIN INJ 100 MG in SODIUM CHLORIDE 0.9% INJ 100 ML IV SCH ×3 (05:04→19:45)
[2016-11-26] MEDS: QUEtiapine FUMARATE 100 MG TAB PO SCH ×3 (05:04→20:43)
[2016-11-26 05:21] LABS: BANDS 16 % (0-6); EOSINOPHILS 3 % (0-4); METAMYELOCYTES 2 % (0-1); NEUTROPHIL # MANUAL DIFF 13.4 TH/MM3 (1.8-7.7); POLYS (SEG NEUTROPHILS) 63 % (16-70); SCAN/DIFF FINAL DIFF MANUAL; WBC DIFF SAMPLE 100
[2016-11-26 05:22] LABS: PLATELET ESTIMATE SMEAR NORMAL (NORMAL); PLATELET MORPHOLOGY NORMAL (NORMAL); TOXIC GRANULATION 1+ (NORMAL)
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
[2016-11-26 08:00] VITALS: BP 120/63; PULSE 98; RESP 18; TEMP 99.2; O2SAT 95
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
[2016-11-26] MEDS: SERTRALINE HCL 100 MG TAB PO SCH (08:41)
[2016-11-26] MEDS: MULTIVITAMINS/MINERALS THERAPEUTIC TAB PO SCH ×2 (08:41→19:45)
[2016-11-26] MEDS: GABAPENTIN 300 MG CAP PO SCH ×3 (08:41→18:00)
[2016-11-26] MEDS: SODIUM CHLORIDE 0.9% FLUSH 10 ML FLUSH IV FLUSH SCH ×4 (08:42→19:46)
[2016-11-26] MEDS: DOCUSATE SODIUM 50 MG/SENNA 8.6 MG TAB PO SCH ×2 (08:43→19:46)
[2016-11-26] MEDS: LACTULOSE SYRUP 20 GM/30 ML CUP PO SCH (08:43)
[2016-11-26] MEDS: oxyCODONE/ACETAMINOPHEN 7.5 MG/325 MG TAB PO PRN ×2 (08:47→19:43)
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
[2016-11-26] MEDS: REMOVE OLD DURAGESIC (FENTANYL) PATCH T-DERMAL SCH (11:00)
[2016-11-26] MEDS: VANCOMYCIN INJ 1,000 MG in SODIUM CHLOR 0.9% 250 ML INJ 250 ML IV SCH (11:11)
[2016-11-26 11:59] VITALS: BP 119/69; PULSE 94; RESP 18; TEMP 98.9; O2SAT 96
[2016-11-26] MEDS ORDERED: ONDANSETRON HCL 4 MG/2 ML VIAL IV PUSH ONE (12:00)
[2016-11-26] MEDS ORDERED: LACTATED RINGER'S 1000 ML INJ 1,000 ML IV ONE (12:00)
[2016-11-26] MEDS ORDERED: LACTATED RINGER'S 1000 ML INJ 2,000 ML IV ONE (12:00)
[2016-11-26] MEDS ORDERED: ePHEDrine/NS 25 MG/5 ML SYR IV ONE (12:00)
[2016-11-26] MEDS ORDERED: PHENYLEPHRINE HCL 10 MG/ML VIAL IV ONE (12:00)
[2016-11-26] MEDS ORDERED: NS 500 ML (EXCEL BAG) INJ 500 ML IV ONE (12:00)
[2016-11-26] MEDS ORDERED: PROPOFOL 200 MG/20 ML AMP IV ONE (12:00)
[2016-11-26] MEDS ORDERED: SODIUM CHLOR 0.9% 250 ML INJ 250 ML IV ONE (12:00)
[2016-11-26] MEDS ORDERED: PHENYLEPH/NS 1000 MCG/10 ML SYR IV ONE (12:00)
[2016-11-26] MEDS ORDERED: GENTAMICIN SULFATE 80 MG/2 ML VIAL ONE (12:53)
[2016-11-26] MEDS ORDERED: BACITRACIN TOP OINT 15 GM TUBE ONE (12:53)
[2016-11-26] MEDS ORDERED: ACETAMINOPHEN 1000 MG/100 ML VIAL IV ONE (13:10)
[2016-11-26] MEDS ORDERED: MIDAZOLAM HCL 2 MG/2 ML VIAL ONE ×2 (13:10→18:24)
[2016-11-26] MEDS ORDERED: HYDROmorphone HCL PF 2 MG/ML VIAL ONE (14:50)
[2016-11-26] MEDS ORDERED: BUPIVACAINE HCL PF 0.25% 30 ML VIAL ONE (15:50)
--- NOTE | 2016-11-26 16:36 | HHI.PR ---
cc: Emery Llanes MD Immediate Post Op Note Procedure Date: Nov 26, 2016 Pre Op Diagnosis: Right shoulder acromioclavicular joint dislocation, open right tibia fracture Post Op Diagnosis: Surgeon: Emery Llanes Scarf Gluer(s): Onur Swain PA-C The surgical procedure was assisted by my physician energy assistant. My P.A. presence was necessary throughout this case for the manipulation and positioning of the surgical extremity. My P.A. was assisting me throughout the duration of this procedure. The skill set of a physician energy assistant was medically necessary to complete this procedure. During the surgical case the rn medical surgical was working at the back table and the physician energy assistant was directly assisting me. Procedure: Open reduction internal fixation right acromioclavicular joint with allograft ligament reconstruction Irrigation debridement of open right tibia fracture Revision of external fixation right leg Application wound VAC dressing Estimated blood loss: 200 mL Anesthesia: General Drains: None Patient to: PACU Patient Condition: Good Emery Llanes MD Nov 26, 2016 16:36
--- NOTE | 2016-11-26 16:46 | RADRPT ---
EXAM DATE/TIME: 11/26/2016 15:46 [facility] COMPARISON: SHOULDER RIGHT LTD (2VWS), November 23, 2016, 9:05. INDICATIONS : AC Joint plate. MEDICAL HISTORY : None. SURGICAL HISTORY : None. ENCOUNTER: Initial ACUITY: 1 day PAIN SCORE: 0/10 LOCATION: Right shoulder FINDINGS: Two intraoperative fluoroscopic images of the right shoulder demonstrate interval plate and screw fix ation of the right a.c. joint separation. Hardware appears intact. There is anatomic alignment of the a.c. joint. No significant bony fractures. CONCLUSION: 1. Status post plate and screw fixation of right a.c. joint separation in near anatomic alignment wit hout significant fracture. Zackary Piper MD on November 26, 2016 at 16:41 Board Certified Radiologist. This report was verified electronically.
--- NOTE | 2016-11-26 17:02 | RADRPT ---
EXAM DATE/TIME: 11/26/2016 16:13 [facility] COMPARISON: TIBIA/FIBULA RIGHT (AP/LAT), November 22, 2016, 17:17. INDICATIONS : Hardware removal. MEDICAL HISTORY : None. SURGICAL HISTORY : None. ENCOUNTER: Initial ACUITY: 1 day PAIN SCORE: 0/10 LOCATION: Right tibfib FINDINGS: Single spot intraoperative fluoroscopic view of the right tibia and fibula demonstrate an oblique fra cture through the tibia and heavily comminuted fracture of the mid fibular shaft. CONCLUSION: Tibia and fibular fractures are noted as above. Sesar Howell MD on November 26, 2016 at 16:59 Board Certified Radiologist. This report was verified electronically.
[2016-11-26] MEDS ORDERED: *MEPERIDINE 25 MG INJ VIAL PERIprocedural Use ONLY ONE (18:22)
[2016-11-26] MEDS ORDERED: MORPHINE SULFATE 4 MG/ML INJ ONE (18:25)
[2016-11-26] MEDS ORDERED: *morphine SULFATE 8 MG/ML PERIprocedure ONLY ONE (18:50)
[2016-11-26 19:16] LABS: HEMATOCRIT 31.1 % (35.0-46.0)
[2016-11-26 19:36] VITALS: BP 114/81; PULSE 101; RESP 20; TEMP 97.8; O2SAT 100
[2016-11-26] MEDS: fentaNYL 50 MCG/HR PATCH T-DERMAL SCH (19:43)
[2016-11-26] MEDS: traZODone HCL 50 MG TAB PO SCH (19:45)
[2016-11-26] MEDS: FAMOTIDINE 20 MG TAB PO SCH (19:45)
[2016-11-26] MEDS: MAGNESIUM HYDROXIDE SUSP 30 ML CUP PO SCH (19:46)
[2016-11-26] MEDS: MORPHINE SULFATE 4 MG/ML INJ IV PUSH PRN ×2 (20:44→23:20)
[2016-11-26] MEDS: ZOLPIDEM TARTRATE 5 MG TAB PO PRN (20:44)
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
[2016-11-27] VITALS: BP 104/52; PULSE 96; RESP 16; TEMP 98; O2SAT 96
[2016-11-27] MEDS: oxyCODONE/ACETAMINOPHEN 7.5 MG/325 MG TAB PO PRN ×5 (00:48→23:36)
[2016-11-27 04:00] VITALS: BP 111/64; PULSE 90; RESP 16; TEMP 97.4; O2SAT 95
[2016-11-27] MEDS: QUEtiapine FUMARATE 100 MG TAB PO SCH ×3 (05:50→23:36)
[2016-11-27] MEDS: GENTAMICIN INJ 100 MG in SODIUM CHLORIDE 0.9% INJ 100 ML IV SCH ×3 (05:50→20:31)
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
[2016-11-27 08:00] VITALS: BP 112/63; PULSE 94; RESP 18; TEMP 97.8; O2SAT 96
[2016-11-27] MEDS: SERTRALINE HCL 100 MG TAB PO SCH (08:45)
[2016-11-27] MEDS: GABAPENTIN 300 MG CAP PO SCH ×3 (08:45→17:41)
[2016-11-27] MEDS: MULTIVITAMINS/MINERALS THERAPEUTIC TAB PO SCH ×2 (08:45→20:32)
[2016-11-27] MEDS: SODIUM CHLORIDE 0.9% FLUSH 10 ML FLUSH IV FLUSH SCH ×3 (08:46→21:00)
[2016-11-27] MEDS: LACTULOSE SYRUP 20 GM/30 ML CUP PO SCH (08:46)
[2016-11-27] MEDS: DOCUSATE SODIUM 50 MG/SENNA 8.6 MG TAB PO SCH ×2 (08:46→20:32)
[2016-11-27] MEDS: MORPHINE SULFATE 4 MG/ML INJ IV PUSH PRN ×5 (08:50→20:32)
[2016-11-27 12:00] VITALS: BP 114/71; PULSE 92; RESP 18; TEMP 97.5; O2SAT 100
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
[2016-11-27 14:30] LABS: REVIEW FLAG FINAL
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
[2016-11-27 16:00] VITALS: BP 129/71; PULSE 100; RESP 19; TEMP 98.2; O2SAT 98
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
[2016-11-27] MEDS: CITALOPRAM HYDROBROMIDE 20 MG TAB PO SCH (20:31)
[2016-11-27] MEDS: traZODone HCL 50 MG TAB PO SCH (20:31)
[2016-11-27] MEDS: FAMOTIDINE 20 MG TAB PO SCH (20:32)
[2016-11-27] MEDS ORDERED: DESMOPRESSIN ACETATE 0.2 MG TAB PO SCH ×2 (22:00→22:30)
[2016-11-27] MEDS: ENOXAPARIN SODIUM 30 MG/0.3 ML SYRINGE SQ SCH (23:36)
[2016-11-27] MEDS: ZOLPIDEM TARTRATE 5 MG TAB PO PRN (23:36)
[2016-11-28] VITALS: BP 129/70; PULSE 105; RESP 16; TEMP 98.4; O2SAT 92
[2016-11-28] MEDS: GENTAMICIN INJ 100 MG in SODIUM CHLORIDE 0.9% INJ 100 ML IV SCH ×3 (02:03→20:11)
[2016-11-28] MEDS: MORPHINE SULFATE 4 MG/ML INJ IV PUSH PRN ×7 (02:04→20:24)
[2016-11-28] MEDS: SENNOSIDES 8.6 MG TAB PO PRN (03:45)
[2016-11-28] MEDS: MAGNESIUM HYDROXIDE SUSP 30 ML CUP PO PRN (03:45)
[2016-11-28] MEDS: QUEtiapine FUMARATE 100 MG TAB PO SCH ×3 (05:55→22:45)
[2016-11-28] MEDS: oxyCODONE/ACETAMINOPHEN 7.5 MG/325 MG TAB PO PRN ×3 (05:55→15:53)
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
[2016-11-28 08:00] VITALS: BP 106/59; PULSE 118; RESP 18; TEMP 99.4; O2SAT 98
[2016-11-28] MEDS: CITALOPRAM HYDROBROMIDE 20 MG TAB PO SCH ×2 (08:29→20:11)
[2016-11-28] MEDS: MULTIVITAMINS/MINERALS THERAPEUTIC TAB PO SCH ×2 (08:29→20:11)
[2016-11-28] MEDS: GABAPENTIN 300 MG CAP PO SCH (08:29)
[2016-11-28] MEDS: DOCUSATE SODIUM 50 MG/SENNA 8.6 MG TAB PO SCH ×2 (08:30→20:12)
[2016-11-28] MEDS: SODIUM CHLORIDE 0.9% FLUSH 10 ML FLUSH IV FLUSH SCH ×2 (08:32→20:11)
[2016-11-28] MEDS: LACTULOSE SYRUP 20 GM/30 ML CUP PO SCH (08:32)
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
[2016-11-28] MEDS ORDERED: hydrOXYzine PAMOATE 25 MG CAP PO ONE (11:30)
[2016-11-28 12:03] VITALS: BP 119/66; PULSE 104; RESP 18; TEMP 98.5; O2SAT 96
[2016-11-28] MEDS: GABAPENTIN 400 MG CAP PO SCH ×2 (12:15→18:22)
[2016-11-28 12:38] LABS: HEMATOCRIT 23.9 % (35.0-46.0); REVIEW FLAG FINAL
[2016-11-28 13:01] LABS: BICARBONATE 30.9 MEQ/L (21.0-32.0); MAGNESIUM 2.2 MG/DL (1.5-2.5); POTASSIUM 3.9 MEQ/L (3.5-5.1)
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
[2016-11-28 16:05] VITALS: BP 126/72; PULSE 101; RESP 18; TEMP 98.5; O2SAT 98
[2016-11-28 20:00] VITALS: BP 136/69; PULSE 108; RESP 16; TEMP 99.6; O2SAT 95
[2016-11-28] MEDS: FAMOTIDINE 20 MG TAB PO SCH (20:11)
[2016-11-28] MEDS: traZODone HCL 50 MG TAB PO SCH (20:12)
[2016-11-29] VITALS (12 sets, daily range): BP systolic 101–126; BP diastolic 58–82; PULSE 85–111; RESP 16–22; TEMP 97.6–100.6; O2SAT 94–100
[2016-11-29] MEDS: ZOLPIDEM TARTRATE 5 MG TAB PO PRN ×2 (02:19→21:10)
[2016-11-29] MEDS: MORPHINE SULFATE 4 MG/ML INJ IV PUSH PRN ×4 (02:19→19:48)
[2016-11-29] MEDS: GENTAMICIN INJ 100 MG in SODIUM CHLORIDE 0.9% INJ 100 ML IV SCH ×4 (03:05→19:50)
[2016-11-29] MEDS: oxyCODONE/ACETAMINOPHEN 7.5 MG/325 MG TAB PO PRN ×2 (03:05→16:24)
[2016-11-29] MEDS: QUEtiapine FUMARATE 100 MG TAB PO SCH ×3 (04:24→21:10)
--- NOTE | 2016-11-29 06:50 | PD.ORT.PN ---
Subjective Subjective Remarks Awake and alert. No new complaints Objective Vitals Vital Signs Date Time Temp Pulse Resp B/P Pulse Ox O2 Delivery O2 Flow Rate FiO2 11/29/16 04:00 99.5 108 16 124/65 95 11/29/16 00:00 100.6 109 18 126/76 95 11/28/16 20:00 99.6 108 16 136/69 95 11/28/16 16:05 98.5 101 18 126/72 98 11/28/16 12:03 98.5 104 18 119/66 96 11/28/16 08:00 99.4 118 18 106/59 98 I/O 11/28/16 11/28/16 11/28/16 11/29/16 11/29/16 11/29/16 07:00 15:00 23:00 07:00 15:00 23:00 Intake Total 480 ml 1270 ml 480 ml 0 ml Output Total 3150 ml 3700 ml 2710 ml 1350 ml Balance -2670 ml -2430 ml -2230 ml -1350 ml Intake Oral 480 ml 1270 ml 480 ml 0 ml Output Urine Total 3000 ml 3450 ml 2650 ml 1350 ml Drainage Total 150 ml 250 ml 60 ml # Bowel Movements 0 0 0 0 Result Diagram: 11/28/16 1139 11/28/16 1139 Imaging Last 24 hours Impressions Chest X-Ray 11/20/16 0600 Signed Impressions: Service Date/Time: Sunday, November 20, 2016 03:57 - CONCLUSION: Mild left lower lobe infiltrate. Unchanged lines and tubes. Shane Gonzalez MD Objective Remarks Last 48 hours Impressions Shoulder X-Ray 11/23/16 0000 Signed Impressions: Service Date/Time: Wednesday, November 23, 2016 09:05 - CONCLUSION: Grade 4 a.c. joint separation. Chinmay Leon MD Foot X-Ray 11/23/16 0000 Signed Impressions: Service Date/Time: Wednesday, November 23, 2016 09:01 - CONCLUSION: 1. Nonspecific soft tissue swelling around the foot. 2. Mild irregularity involving the base of the proximal phalanx. Recommend correlation with point tenderness for nondisplaced fracture. Chinmay Leon MD LLE: dressings clean and dry. intact. +cap refill, + NVI. RLE: +exfix. +cap refill distally. +vac with good seal to both vac pumps. + NVI. Moderate swelling and tenderness to the right foot. +sensation to big toe but decreased sensation to lateral foot RUE: dressings clean and dry. intact. +sling. NVI with full sensation to median /ulnar nerve distribution. full radial nerve function. Assessment & Plan Assessment and Plan 1) Left Open Tibial Shaft Fxs with fasciotomies s/p IMN with wound closure - POD 10 2) Right Open Tibial Shaft Fx with vascular injury -s/p exfix, I&D and vac application POD 3 3) Right Tibial Artery injury 4) Right foot 5th Phalynx fx - nonop 5) Right shoulder AC joint separation s/p ORIF - POD 3 RLE: maintain vac dressings and soft dressings at all times. vac pump settings on intermittent, 100mmHg, high, 3:1. LLE: daily dressing changes to left leg. NWB. RUE: daily dressing changes POD 2. NWB. maintain sling. -plan for surgery today for re-eval of right leg. potential rotational flap with IMN vs I&D and vac change -NPO and hold lovenox -sign consents. on chart. -plan for surgery today Angel Arias Jr. Nov 29, 2016 06:50
[2016-11-29 07:41] LABS: HEMATOCRIT 21.5 % (35.0-46.0); REVIEW FLAG FINAL
[2016-11-29 08:11] LABS: BICARBONATE 33.4 MEQ/L (21.0-32.0); POTASSIUM 3.8 MEQ/L (3.5-5.1)
[2016-11-29] MEDS ORDERED: GENTAMICIN SULFATE 80 MG/2 ML VIAL ONE (08:58)
[2016-11-29] MEDS ORDERED: ceFAZolin 2 GM PREMIX 50 ML ONE (08:58)
[2016-11-29] MEDS: GABAPENTIN 400 MG CAP PO SCH ×3 (09:00→17:45)
[2016-11-29] MEDS: CITALOPRAM HYDROBROMIDE 20 MG TAB PO SCH ×2 (09:00→19:49)
[2016-11-29] MEDS: SODIUM CHLORIDE 0.9% FLUSH 10 ML FLUSH IV FLUSH SCH ×2 (09:00→19:50)
[2016-11-29] MEDS: DOCUSATE SODIUM 50 MG/SENNA 8.6 MG TAB PO SCH ×2 (09:00→19:49)
[2016-11-29] MEDS: MULTIVITAMINS/MINERALS THERAPEUTIC TAB PO SCH ×2 (09:00→19:48)
[2016-11-29] MEDS: LACTULOSE SYRUP 20 GM/30 ML CUP PO SCH (09:00)
[2016-11-29] MEDS ORDERED: MINERAL OIL 10 ML VIAL ONE (09:22)
[2016-11-29] MEDS ORDERED: LIDOCAINE 2% JELLY 30 ML TUBE ONE (09:22)
[2016-11-29] MEDS ORDERED: HYDROmorphone HCL PF 2 MG/ML VIAL ONE (09:22)
[2016-11-29] MEDS ORDERED: fentaNYL CITRATE 250 MCG/5 ML AMP ONE (09:23)
[2016-11-29] MEDS ORDERED: ACETAMINOPHEN 1000 MG/100 ML VIAL IV ONE (09:24)
[2016-11-29] MEDS ORDERED: MIDAZOLAM HCL 2 MG/2 ML VIAL ONE (09:24)
[2016-11-29] MEDS ORDERED: BACITRACIN TOP OINT 15 GM TUBE ONE (09:56)
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
[2016-11-29] MEDS: REMOVE OLD DURAGESIC (FENTANYL) PATCH T-DERMAL SCH (11:00)
[2016-11-29] MEDS ORDERED: MAGNESIUM CITRATE SOLN 300 ML BTL PO ONE ×2 (11:00→19:00)
[2016-11-29 11:10] LABS: REVIEW FLAG FINAL
[2016-11-29] MEDS: LACTATED RINGER'S 1000 ML INJ 1,000 ML IV SCH ×2 (11:37→19:50)
[2016-11-29] MEDS ORDERED: ALBUMIN HUMAN 5% 12.5 GM/250 ML BOTTLE IV ONE (11:39)
--- NOTE | 2016-11-29 11:48 | PD.OP ---
cc: Emery Llanes MD Operative Report Date of Surgery: Nov 29, 2016 Preoperative Diagnosis: Open right tibia fracture Postoperative Diagnosis: Procedure: Irrigation and debridement of open right tibia fracture, removal of external fixation, intramedullary nail fixation right tibia, soleus muscle rotational flap, application wound VAC dressing Surgeon: Emery Llanes Grocery Clerk(s): SALLY Reynoso PA-C The surgical procedure was assisted by my physician quality control assistant. My P.A. presence was necessary throughout this case for the manipulation and positioning of the surgical extremity. My P.A. was assisting me throughout the duration of this procedure. The skill set of a physician quality control assistant was medically necessary to complete this procedure. During the surgical case the surgical elastic knitter hand frame was working at the back table and the physician quality control assistant was directly assisting me. Operation and Findings: Implants: synthes [10]mm x [390]mm tibial nail Plan of activity: Nonweightbearing Patient was seen and examined preoperatively. An informed consent was obtained from patient after detailed discussion of risk and benefits. Risks of surgery include bleeding, infection, painful hardware, nonunion, malunion, leg length discrepancy, need for hardware removal, and medical complications associated with anesthesia including blood clots, stroke, heart attack, and were discussed. Operative site was marked. Patient was brought to the operating room placed on or table. Patient received IV antibiotics and was given IV sedation GETA. Operative leg was prepped with alcohol Hibiclens and draped in usual sterile fashion. Timeout procedure was performed Procedure began with irrigation and debridement of open fracture. Skin and subcutaneous tissue fascia and muscle were sharply debrided. Most of the soft tissue appeared to be healthy. There was an area of skin along the posterior calf which was debrided. Curettes were used to debride the bone. Overall the wound appeared to be clean. Soft tissue and bone were now thoroughly irrigated with sterile saline. Next attention was turned to removal excellent fixation. Clamps were loosened. Clamps and bars were now removed. Pins were now removed as well. Pin sites were cleaned with curettes and then thoroughly irrigated. Next attention was turned towards reduction of fracture. Traction was applied. Fracture was reduced. There was comminution of the fracture. The fracture reduced and excellent alignment was achieved. Fracture clamp was used to aid in reduction. Next a 3 cm incision was made proximal to the patella. Quadriceps tendon was split in line with fibers. Cannulas were placed in the patellofemoral joint to protect the articular surface at all times. A guidepin was placed into the tibia and advanced in the tibial canal. Fluoroscopy was used to confirm appropriate guidepin placement. An opening reamer was used to open the tibial canal. A ball-tipped guidewire was advanced down the tibial canal. Guidepin was passed across the fracture site into the center of the distal tibia. Fluoroscopy confirmed guidepin placement. The nail length was now measured. The fracture was now held in a reduced position and the canal was reamed. The canal was reamed up to appropriate size. A Synthes nail was now selected. Next the nail was fully seated. Using perfect ione technique 2 distal interlocking screws were placed. Using the insertion handle as a guide 2 proximal interlocking screws were placed. Fluoroscopy confirmed excellent of fracture with well-placed hardware. Incisions and the knee joint were thoroughly irrigated with sterile saline. Next attention was turned to soft tissue coverage. The soleus muscle was identified. The soleus muscle was visibly intact and viable. The soleus muscle and the gastrocnemius muscle were . Care was taken to avoid injury to the posterior tibial nerve and arteries. The soleus muscle was mobilized. The soleus muscle was now split midline. Distally the lateral portion of the soleus was released. The soleus muscle was carefully mobilized. Care was taken to avoid devascularization of the muscle. The lateral half of the soleus muscle was placed anteriorly over the fracture site. The muscle was sutured in place using #1 PDS and 3-0 PDS sutures. The fracture was completely covered. The surgical incisions were closed with #1 PDS, 3-0 PDS and jonathan. Next attention was turned to wound VAC dressing. There was still a large defect in the skin around the leg. An extra-large wound VAC was cut to fit the wound. The open wound was completely covered. VAC dressing was sealed appropriately. Patient was placed into a posterior splint as well. Sterile dressings were applied. Patient was awakened and transferred to recovery in stable condition. Emery Llanes MD Nov 29, 2016 11:48
[2016-11-29] MEDS ORDERED: PROPOFOL 200 MG/20 ML AMP IV ONE (12:00)
[2016-11-29] MEDS ORDERED: NORMOSOL R INJ 1,000 ML IV ONE (12:00)
[2016-11-29] MEDS ORDERED: PHENYLEPH/NS 1000 MCG/10 ML SYR IV ONE (12:00)
[2016-11-29] MEDS ORDERED: NEOSTIGMINE 3 MG/3 ML SYR IV ONE (12:00)
[2016-11-29] MEDS ORDERED: ONDANSETRON HCL 4 MG/2 ML VIAL IV PUSH ONE (12:00)
[2016-11-29] MEDS ORDERED: MINERAL OIL 10 ML VIAL TOPICAL ONE (12:00)
[2016-11-29] MEDS ORDERED: DO NOT ADM ANY ANTICOAGULANT DRUGS PRN (12:45)
[2016-11-29] MEDS ORDERED: *HYDROmorphone PF 1 MG VIAL PERIprocedural Use ONLY ONE ×3 (12:50→13:28)
[2016-11-29] MEDS ORDERED: *MEPERIDINE 25 MG INJ VIAL PERIprocedural Use ONLY ONE (13:12)
[2016-11-29] MEDS ORDERED: LORazepam 2 MG/ML VIAL ONE (13:15)
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
--- NOTE | 2016-11-29 15:28 | RADRPT ---
EXAM DATE/TIME: 11/29/2016 11:11 [facility] COMPARISON: TIBIA/FIBULA RIGHT (AP/LAT), November 22, 2016, 17:17. INDICATIONS : Open reduction internal fixation right tibia. MEDICAL HISTORY : None. SURGICAL HISTORY : None. ENCOUNTER: Initial ACUITY: 1 day PAIN SCORE: Non-responsive. LOCATION: Right Tibia. FINDINGS: Intramedullary lilliam is seen bridging the tibial fracture in anatomic alignment. The fibular fracture remains without fixation. CONCLUSION: Anatomic alignment across the tibial fracture. Izaiah John MD FACR on November 29, 2016 at 15:24 Board Certified Radiologist. This report was verified electronically.
[2016-11-29] MEDS: fentaNYL 50 MCG/HR PATCH T-DERMAL SCH (16:32)
[2016-11-29] MEDS: FAMOTIDINE 20 MG TAB PO SCH (19:49)
[2016-11-29] MEDS: traZODone HCL 50 MG TAB PO SCH (19:49)
[2016-11-29] MEDS: CYCLOBENZAPRINE HCL 10 MG TAB PO PRN (21:13)
[2016-11-30] VITALS (9 sets, daily range): BP systolic 116–121; BP diastolic 60–85; PULSE 95–105; RESP 13–22; TEMP 96.6–99.7; O2SAT 93–99
[2016-11-30] MEDS: GENTAMICIN INJ 100 MG in SODIUM CHLORIDE 0.9% INJ 100 ML IV SCH ×3 (03:54→19:49)
[2016-11-30] MEDS: oxyCODONE/ACETAMINOPHEN 7.5 MG/325 MG TAB PO PRN ×6 (03:55→23:37)
[2016-11-30] MEDS: QUEtiapine FUMARATE 100 MG TAB PO SCH ×2 (04:44→19:51)
[2016-11-30] MEDS: MORPHINE SULFATE 4 MG/ML INJ IV PUSH PRN ×3 (04:45→11:32)
[2016-11-30] MEDS: LACTATED RINGER'S 1000 ML INJ 1,000 ML IV SCH (07:37)
[2016-11-30] MEDS: LACTULOSE SYRUP 20 GM/30 ML CUP PO SCH (08:24)
[2016-11-30] MEDS: CITALOPRAM HYDROBROMIDE 20 MG TAB PO SCH ×2 (08:24→19:50)
[2016-11-30] MEDS: MULTIVITAMINS/MINERALS THERAPEUTIC TAB PO SCH ×2 (08:24→19:50)
[2016-11-30] MEDS: DOCUSATE SODIUM 50 MG/SENNA 8.6 MG TAB PO SCH ×2 (08:24→19:51)
[2016-11-30] MEDS: CYCLOBENZAPRINE HCL 10 MG TAB PO PRN ×2 (08:25→23:37)
[2016-11-30] MEDS: GABAPENTIN 400 MG CAP PO SCH (08:25)
[2016-11-30] MEDS: SODIUM CHLORIDE 0.9% FLUSH 10 ML FLUSH IV FLUSH SCH ×2 (08:25→19:49)
[2016-11-30 09:41] LABS: HEMATOCRIT 20.4 % (35.0-46.0); REVIEW FLAG FINAL
[2016-11-30 09:50] LABS: ANION GAP 5 MEQ/L (5-15); BICARBONATE 31.8 MEQ/L (21.0-32.0); BLOOD UREA NITROGEN 11 MG/DL (7-18); CHLORIDE 95 MEQ/L (98-107); GLOMERULAR FILTRATION RATE 115 ML/MIN (>89); POTASSIUM 3.5 MEQ/L (3.5-5.1); SODIUM (NA) 132 MEQ/L (136-145)
[2016-11-30 09:52] LABS: ALT (GPT) 53 U/L (10-53); AST (GOT) 52 U/L (15-37)
[2016-11-30 09:53] LABS: ALKALINE PHOSPHATASE 82 U/L (45-117); TOTAL BILIRUBIN ADULT 0.3 MG/DL (0.2-1.0)
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
[2016-11-30] MEDS: GABAPENTIN 300 MG CAP PO SCH ×2 (13:13→16:36)
--- NOTE | 2016-11-30 14:20 | PD.ORT.PN ---
Subjective Subjective Remarks Patient comfortable. Pain controlled. NAD. Objective Vitals Vital Signs Date Time Temp Pulse Resp B/P Pulse Ox O2 Delivery O2 Flow Rate FiO2 11/30/16 13:25 98.5 101 22 120/71 99 11/30/16 13:10 97.4 103 16 116/62 98 11/30/16 12:00 97.4 103 16 116/62 98 11/30/16 08:00 97.9 95 13 118/62 97 11/30/16 00:00 99.7 103 20 119/60 93 11/29/16 19:35 98.4 103 20 113/61 98 11/29/16 17:58 97 Nasal Cannula 2.00 11/29/16 16:25 98.6 97 18 120/68 97 11/29/16 16:20 98.3 96 20 114/72 96 11/29/16 16:15 97.8 94 19 122/67 96 11/29/16 16:00 97.6 85 18 125/82 95 11/29/16 14:48 94 Nasal Cannula 1.00 I/O 11/29/16 11/29/16 11/29/16 11/30/16 11/30/16 11/30/16 07:00 15:00 23:00 07:00 15:00 23:00 Intake Total 0 ml 5050 ml 1115 ml 350 ml Output Total 1350 ml 1100 ml 825 ml 1625 ml Balance -1350 ml 3950 ml 290 ml -1275 ml Intake Oral 0 ml 150 ml 790 ml 350 ml IV Total 800 ml Albumin 250 ml Packed Cells 250 ml 325 ml Other 3600 ml Output Urine Total 1350 ml 600 ml 600 ml 1300 ml Drainage Total 225 ml 325 ml Estimated Blood Loss 400 ml Other 100 ml # Bowel Movements 0 0 0 0 Result Diagram: 11/30/16 0844 11/30/16 0844 Imaging Last 24 hours Impressions Chest X-Ray 11/20/16 0600 Signed Impressions: Service Date/Time: Sunday, November 20, 2016 03:57 - CONCLUSION: Mild left lower lobe infiltrate. Unchanged lines and tubes. Shane Gonzalez MD Objective Remarks Last 48 hours Impressions Shoulder X-Ray 11/23/16 0000 Signed Impressions: Service Date/Time: Wednesday, November 23, 2016 09:05 - CONCLUSION: Grade 4 a.c. joint separation. Chinmay Leon MD Foot X-Ray 11/23/16 0000 Signed Impressions: Service Date/Time: Wednesday, November 23, 2016 09:01 - CONCLUSION: 1. Nonspecific soft tissue swelling around the foot. 2. Mild irregularity involving the base of the proximal phalanx. Recommend correlation with point tenderness for nondisplaced fracture. Chinmay Leon MD LLE: dressings clean and dry. intact. +cap refill, + NVI. RLE: +exfix. +cap refill distally. +vac with good seal to both vac pumps. + NVI. Moderate swelling and tenderness to the right foot. +sensation to big toe but decreased sensation to lateral foot, minimal movement of toes RUE: dressings clean and dry. intact. +sling. NVI with full sensation to median /ulnar nerve distribution. full radial nerve function. Assessment & Plan Assessment and Plan 1) Left Open Tibial Shaft Fxs with fasciotomies s/p IMN with wound closure - POD 11 2) I&D of open Right Tibia Fx, removal of external fixation, intramedullary nail fixation right tibia, soleus muscle rotation flap, application of wound VAC dressing - POD 1 3) Right Tibial Artery injury 4) Right foot 5th Phalynx fx - nonop 5) Right shoulder AC joint separation s/p ORIF - POD 4 RLE: maintain vac dressings and soft dressings at all times. vac pump settings on intermittent, 100mmHg, high, 3:1. LLE: daily dressing changes to left leg. NWB. RUE: daily dressing changes POD 2. NWB. maintain sling. Dr. Amato spoke and evaluated patient. Sonido Juarez Nov 30, 2016 14:20
[2016-11-30] MEDS: traZODone HCL 50 MG TAB PO SCH (19:49)
[2016-11-30] MEDS: LACTOBACILLUS ACIDOPHILUS TAB PO SCH (19:49)
[2016-11-30] MEDS: FAMOTIDINE 20 MG TAB PO SCH (19:50)
[2016-11-30] MEDS: SENNOSIDES 8.6 MG TAB PO PRN (19:50)
[2016-11-30] MEDS: ZOLPIDEM TARTRATE 5 MG TAB PO PRN (23:37)
[2016-11-30] MEDS: ENOXAPARIN SODIUM 30 MG/0.3 ML SYRINGE SQ SCH (23:38)
[2016-12-01] VITALS: BP 132/64; PULSE 111; RESP 20; TEMP 100.4; O2SAT 95
[2016-12-01 01:00] VITALS: TEMP 98.8
[2016-12-01] MEDS: oxyCODONE/ACETAMINOPHEN 7.5 MG/325 MG TAB PO PRN ×6 (04:04→20:07)
[2016-12-01] MEDS: MORPHINE SULFATE 4 MG/ML INJ IV PUSH PRN ×2 (04:09→07:48)
[2016-12-01] MEDS: GENTAMICIN INJ 100 MG in SODIUM CHLORIDE 0.9% INJ 100 ML IV SCH ×3 (04:37→20:06)
[2016-12-01] MEDS: CLOPIDOGREL 75 MG TAB PO SCH (07:45)
[2016-12-01] MEDS: QUEtiapine FUMARATE 100 MG TAB PO SCH ×2 (07:45→20:07)
[2016-12-01] MEDS: CITALOPRAM HYDROBROMIDE 20 MG TAB PO SCH ×2 (07:45→20:07)
[2016-12-01] MEDS: GABAPENTIN 300 MG CAP PO SCH ×3 (07:45→17:01)
[2016-12-01] MEDS: LACTOBACILLUS ACIDOPHILUS TAB PO SCH ×2 (07:45→20:07)
[2016-12-01] MEDS: LACTULOSE SYRUP 20 GM/30 ML CUP PO SCH (07:45)
[2016-12-01] MEDS: DOCUSATE SODIUM 50 MG/SENNA 8.6 MG TAB PO SCH ×2 (07:45→20:07)
[2016-12-01] MEDS: MULTIVITAMINS/MINERALS THERAPEUTIC TAB PO SCH ×2 (07:45→20:07)
[2016-12-01 08:00] VITALS: BP 125/70; PULSE 102; RESP 17; TEMP 100.9; O2SAT 95
[2016-12-01] MEDS: CYCLOBENZAPRINE HCL 10 MG TAB PO PRN (08:13)
--- NOTE | 2016-12-01 08:49 | PD.ORT.PN ---
Subjective Subjective Remarks Patient c/o right foot pain. Left foot and right shoulder pain controlled. Objective Vitals Vital Signs Date Time Temp Pulse Resp B/P Pulse Ox O2 Delivery O2 Flow Rate FiO2 12/01/16 01:00 98.8 12/01/16 00:00 100.4 111 20 132/64 95 11/30/16 21:09 98.9 99 22 119/85 94 11/30/16 17:50 98.6 101 18 121/72 98 11/30/16 17:35 96.6 105 20 120/68 96 11/30/16 16:00 98.9 105 16 121/69 97 11/30/16 13:25 98.5 101 22 120/71 99 11/30/16 13:10 97.4 103 16 116/62 98 11/30/16 12:00 97.4 103 16 116/62 98 I/O 11/30/16 11/30/16 11/30/16 12/01/16 12/01/16 12/01/16 07:00 15:00 23:00 07:00 15:00 23:00 Intake Total 350 ml 2510 ml 800 ml 780 ml Output Total 1625 ml 4475 ml 1500 ml 2125 ml Balance -1275 ml -1965 ml -700 ml -1345 ml Intake Oral 350 ml 2160 ml 800 ml 780 ml IV Total 350 ml Output Urine Total 1300 ml 4125 ml 1400 ml 2000 ml Drainage Total 325 ml 350 ml 100 ml 125 ml # Bowel Movements 0 0 0 Result Diagram: 11/30/16 0844 11/30/16 0844 Imaging Last 24 hours Impressions Chest X-Ray 11/20/16 0600 Signed Impressions: Service Date/Time: Sunday, November 20, 2016 03:57 - CONCLUSION: Mild left lower lobe infiltrate. Unchanged lines and tubes. Shane Gonzalez MD Objective Remarks Last 48 hours Impressions Shoulder X-Ray 11/23/16 0000 Signed Impressions: Service Date/Time: Wednesday, November 23, 2016 09:05 - CONCLUSION: Grade 4 a.c. joint separation. Chinmay Leon MD Foot X-Ray 11/23/16 0000 Signed Impressions: Service Date/Time: Wednesday, November 23, 2016 09:01 - CONCLUSION: 1. Nonspecific soft tissue swelling around the foot. 2. Mild irregularity involving the base of the proximal phalanx. Recommend correlation with point tenderness for nondisplaced fracture. Chinmay Leon MD LLE: dressings clean and dry. intact. +cap refill, + NVI. RLE: +cap refill distally. +vac with good seal to both vac pumps. + NVI. Moderate swelling and tenderness to the right foot. +sensation to big toe but decreased sensation to lateral foot, minimal movement of toes RUE: dressings clean and dry. intact. +sling. NVI with full sensation to median /ulnar nerve distribution. full radial nerve function. Assessment & Plan Assessment and Plan 1) Left Open Tibial Shaft Fxs with fasciotomies s/p IMN with wound closure - POD 12 2) I&D of open Right Tibia Fx, removal of external fixation, intramedullary nail fixation right tibia, soleus muscle rotation flap, application of wound VAC dressing - POD 2 3) Right Tibial Artery injury 4) Right foot 5th Phalynx fx - nonop 5) Right shoulder AC joint separation s/p ORIF - POD 5 RLE: maintain vac dressings and soft dressings at all times. vac pump settings on intermittent, 100mmHg, high, 3:1. LLE: daily dressing changes to left leg. NWB. RUE: daily dressing changes POD 2. NWB. maintain sling. Sonido Juarez Dec 01, 2016 08:49
[2016-12-01] MEDS: SODIUM CHLORIDE 0.9% FLUSH 10 ML FLUSH IV FLUSH SCH ×2 (09:00→20:08)
[2016-12-01 12:00] VITALS: BP 114/63; PULSE 105; RESP 16; TEMP 99.4; O2SAT 97
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
[2016-12-01 12:28] LABS: BICARBONATE 28.6 MEQ/L (21.0-32.0); POTASSIUM 3.6 MEQ/L (3.5-5.1)
[2016-12-01] MEDS: ENOXAPARIN SODIUM 30 MG/0.3 ML SYRINGE SQ SCH ×2 (12:30→20:08)
[2016-12-01 16:00] VITALS: BP 110/66; PULSE 101; RESP 18; TEMP 100.1; O2SAT 97
[2016-12-01] MEDS: CYCLOBENZAPRINE HCL 10 MG TAB PO SCH (17:01)
[2016-12-01 18:24] LABS: AUTOMATED NEUTROPHIL # 13.4 TH/MM3 (1.8-7.7); BASOPHIL # 0.1 TH/MM3 (0-0.2); BASOPHIL % 0.4 % (0.0-2.0); EOSINOPHIL # 0.1 TH/MM3 (0-0.4); EOSINOPHIL % 0.9 % (0.0-4.0); HEMATOCRIT 25.2 % (35.0-46.0); HEMO FLAGS DIFF FINAL; LYMPH % 10.3 % (9.0-44.0); LYMPHOCYTE # 1.7 TH/MM3 (1.0-4.8); MEAN CELL VOLUME 84.7 FL (80.0-100.0); MEAN CORPUSCULAR HEMOGLOBIN 28.3 PG (27.0-34.0); MEAN CORPUSCULAR HGB CONC 33.5 % (32.0-36.0); MONO % 9.5 % (0.0-8.0); NEUT % 78.9 % (16.0-70.0); PLATELET COUNT 500 TH/MM3 (150-450); RED BLOOD COUNT 2.97 MIL/MM3 (4.00-5.30); RED CELL DISTRIBUTION WIDTH 15.8 % (11.6-17.2); WHITE BLOOD COUNT 16.9 TH/MM3 (4.0-11.0)
[2016-12-01] MEDS: HYDROmorphone HCL PF 1 MG/ML VIAL IV PUSH PRN (18:55)
[2016-12-01 19:35] VITALS: BP 112/68; PULSE 108; RESP 16; TEMP 101.6; O2SAT 96
[2016-12-01] MEDS: MAGNESIUM HYDROXIDE SUSP 30 ML CUP PO PRN (20:06)
[2016-12-01] MEDS: SENNOSIDES 8.6 MG TAB PO PRN (20:07)
[2016-12-01] MEDS: traZODone HCL 50 MG TAB PO SCH (20:07)
[2016-12-01] MEDS: FAMOTIDINE 20 MG TAB PO SCH (20:07)
[2016-12-02] VITALS: BP 112/67; PULSE 99; RESP 16; TEMP 99.3; O2SAT 95
[2016-12-02] MEDS: ZOLPIDEM TARTRATE 5 MG TAB PO PRN (01:58)
[2016-12-02] MEDS: oxyCODONE/ACETAMINOPHEN 7.5 MG/325 MG TAB PO PRN ×5 (01:59→23:04)
[2016-12-02] MEDS: GENTAMICIN INJ 100 MG in SODIUM CHLORIDE 0.9% INJ 100 ML IV SCH ×3 (04:04→20:03)
--- NOTE | 2016-12-02 06:35 | PD.ORT.PN ---
Subjective Subjective Remarks POD 13 s/p IMN with partial wound closure left leg s/p right tibia fx with vascular and significant soft tissue injury s/p removal of exfix with IMN and rotation soleus graft right tibia - POD 3 s/p right shoulder AC joint repair - POD 6 doing well. reports right pain in right leg. vac pumps have been doing ok but recently started alarming that occlusion was present Objective Vitals Vital Signs Date Time Temp Pulse Resp B/P Pulse Ox O2 Delivery O2 Flow Rate FiO2 12/02/16 00:00 99.3 99 16 112/67 95 12/01/16 19:35 101.6 108 16 112/68 96 12/01/16 16:00 100.1 101 18 110/66 97 12/01/16 12:00 99.4 105 16 114/63 97 12/01/16 08:00 100.9 102 17 125/70 95 I/O 12/01/16 12/01/16 12/01/16 12/02/16 12/02/16 12/02/16 07:00 15:00 23:00 07:00 15:00 23:00 Intake Total 780 ml 1540 ml 300 ml Output Total 2125 ml 200 ml 5925 ml 1000 ml Balance -1345 ml -200 ml -4385 ml -700 ml Intake Oral 780 ml 1540 ml 300 ml Output Urine Total 2000 ml 5925 ml 1000 ml Drainage Total 125 ml 200 ml # Voids 1 # Bowel Movements 0 0 0 Result Diagram: 12/01/16 1806 12/01/16 1154 Imaging Last 24 hours Impressions Chest X-Ray 11/20/16 0600 Signed Impressions: Service Date/Time: Sunday, November 20, 2016 03:57 - CONCLUSION: Mild left lower lobe infiltrate. Unchanged lines and tubes. Shane Gonzalez MD Objective Remarks Last 48 hours Impressions Shoulder X-Ray 11/23/16 0000 Signed Impressions: Service Date/Time: Wednesday, November 23, 2016 09:05 - CONCLUSION: Grade 4 a.c. joint separation. Chinmay Leon MD Foot X-Ray 11/23/16 0000 Signed Impressions: Service Date/Time: Wednesday, November 23, 2016 09:01 - CONCLUSION: 1. Nonspecific soft tissue swelling around the foot. 2. Mild irregularity involving the base of the proximal phalanx. Recommend correlation with point tenderness for nondisplaced fracture. hCinmay Leon MD LLE: dressings clean and dry. intact. +cap refill, + NVI. RLE: +cap refill distally. +vac with good seal to both vac pumps. + NVI. Moderate swelling and tenderness to the right foot. +sensation to big toe but decreased sensation to lateral foot, minimal movement of toes RUE: dressings clean and dry. intact. +sling. NVI with full sensation to median /ulnar nerve distribution. full radial nerve function. Assessment & Plan Assessment and Plan 1) Left Open Tibial Shaft Fxs with fasciotomies s/p IMN with wound closure - POD 13 2) I&D of open Right Tibia Fx, removal of external fixation, intramedullary nail fixation right tibia, soleus muscle rotation flap, application of wound VAC dressing - POD 3 3) Right Tibial Artery injury 4) Right foot 5th Phalynx fx - nonop 5) Right shoulder AC joint separation s/p ORIF - POD 6 RLE: maintain vac dressings and soft dressings at all times. vac pump settings on intermittent, 100mmHg, high, 3:1. LLE: daily dressing changes to left leg. NWB. RUE: daily dressing changes. NWB. maintain sling. -sign consents -npo -surgery today for I&D right leg Onur Swain Dec 02, 2016 06:35
[2016-12-02] MEDS ORDERED: ACETAMINOPHEN 1000 MG/100 ML VIAL IV ONE (07:14)
[2016-12-02] MEDS ORDERED: MAGNESIUM CITRATE SOLN 300 ML BTL PO ONE ×2 (07:45→16:30)
[2016-12-02] MEDS ORDERED: VANCOMYCIN HCL 1000 MG VIAL ONE (07:51)
[2016-12-02] MEDS ORDERED: ceFAZolin 2 GM PREMIX 50 ML ONE (07:51)
[2016-12-02] MEDS: CYCLOBENZAPRINE HCL 10 MG TAB PO SCH ×4 (08:00→23:04)
[2016-12-02] MEDS ORDERED: GENTAMICIN SULFATE 80 MG/2 ML VIAL IRRIGATION ONE (08:04)
[2016-12-02] MEDS ORDERED: diphenhydrAMINE HCL 25 MG CAP PO PRN (08:30)
[2016-12-02] MEDS ORDERED: SODIUM CHLORIDE 0.9% FLUSH 10 ML FLUSH IV FLUSH PRN (08:30)
[2016-12-02] MEDS ORDERED: Post-op Orders (for Pharmacy) MISC XX ONE (08:30)
--- NOTE | 2016-12-02 08:33 | PD.OP ---
cc: Emery Llanes MD Operative Report Date of Surgery: Dec 02, 2016 Preoperative Diagnosis: Open right tibia fracture Postoperative Diagnosis: Procedure: Irrigation and debridement of right leg, application wound VAC dressing Anesthesia: Gen. Surgeon: Emery Llanes Gift Shop Manager(s): SALLY Reynoso PA-C The surgical procedure was assisted by my physician patient support assistant. My P.A. presence was necessary throughout this case for the manipulation and positioning of the surgical extremity. My P.A. was assisting me throughout the duration of this procedure. The skill set of a physician patient support assistant was medically necessary to complete this procedure. During the surgical case the certified surgical technician was working at the back table and the physician patient support assistant was directly assisting me. Operation and Findings: Inessa is well-known to me from multiple previous surgeries. Informed consent was obtained preoperatively and operative site was marked. She was given IV sedation and general anesthesia. She received IV antibiotics. Timeout procedure was performed. Right leg was prepped with alcohol followed by Hibiclens and draped in the usual sterile fashion. Procedure began with debridement of the wound. The soleus muscle flap over the fracture site appeared to be healthy and viable. The fracture site is completely covered with muscle. Areas of the lateral gastroc muscle were necrotic and debrided. Skin and subcutaneous tissue fascia and muscle were sharply debrided with rongeur and scalpel. Curettes were also used to debride the edges of the bone. Overall wound was clean. Wound was now thoroughly irrigated with sterile saline. Next attention was turned to wound VAC dressing. An extra large VAC dressing was cut to fit the wound. VAC dressing was stapled into place to help hold it in place. Using Ioban the Vac dressing was sealed. A good seal was obtained. VAC settings were 100 mmHg intermittent 3 and 1. Patient was awakened and transferred to recovery room in stable condition. Emery Llanes MD Dec 02, 2016 08:33
[2016-12-02] MEDS: LACTULOSE SYRUP 20 GM/30 ML CUP PO SCH ×2 (09:00→11:49)
[2016-12-02] MEDS ORDERED: DO NOT ADM ANY ANTICOAGULANT DRUGS PRN (09:00)
[2016-12-02] MEDS: LACTOBACILLUS ACIDOPHILUS TAB PO SCH ×2 (09:00→20:04)
[2016-12-02] MEDS: LACTATED RINGER'S 1000 ML INJ 1,000 ML IV SCH ×2 (09:00→18:09)
[2016-12-02] MEDS: DOCUSATE SODIUM 50 MG/SENNA 8.6 MG TAB PO SCH ×2 (09:00→20:04)
[2016-12-02] MEDS: MULTIVITAMINS/MINERALS THERAPEUTIC TAB PO SCH ×2 (09:00→20:04)
[2016-12-02] MEDS ORDERED: MIDAZOLAM HCL 2 MG/2 ML VIAL ONE (09:36)
[2016-12-02] MEDS ORDERED: fentaNYL CITRATE 250 MCG/5 ML AMP ONE (09:37)
[2016-12-02] MEDS ORDERED: *morphine SULFATE 8 MG/ML PERIprocedure ONLY ONE (09:39)
[2016-12-02] MEDS: HYDROmorphone HCL PF 1 MG/ML VIAL IV PUSH PRN (09:50)
[2016-12-02] MEDS: QUEtiapine FUMARATE 100 MG TAB PO SCH ×2 (10:26→18:06)
[2016-12-02] MEDS: CITALOPRAM HYDROBROMIDE 20 MG TAB PO SCH ×2 (10:26→20:04)
[2016-12-02] MEDS: GABAPENTIN 300 MG CAP PO SCH ×3 (10:26→18:06)
[2016-12-02] MEDS: SODIUM CHLORIDE 0.9% FLUSH 10 ML FLUSH IV FLUSH SCH ×2 (10:26→20:05)
[2016-12-02] MEDS: REMOVE OLD DURAGESIC (FENTANYL) PATCH T-DERMAL SCH (10:28)
[2016-12-02] MEDS: fentaNYL 50 MCG/HR PATCH T-DERMAL SCH (10:28)
[2016-12-02 11:44] VITALS: BP 100/68; PULSE 127; RESP 20; TEMP 96.1; O2SAT 97
[2016-12-02] MEDS: ENOXAPARIN SODIUM 30 MG/0.3 ML SYRINGE SQ SCH ×2 (11:49→23:05)
[2016-12-02] MEDS ORDERED: ONDANSETRON HCL 4 MG/2 ML VIAL IV PUSH ONE (12:00)
[2016-12-02] MEDS ORDERED: LACTATED RINGER'S 1000 ML INJ 1,000 ML IV ONE (12:00)
[2016-12-02] MEDS ORDERED: PROPOFOL 200 MG/20 ML AMP IV ONE (12:00)
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
[2016-12-02 14:00] VITALS: O2SAT 97
[2016-12-02] MEDS: ceFAZolin 2 GM PREMIX 50 ML IV SCH ×2 (15:30→23:05)
[2016-12-02 15:31] VITALS: BP 101/63; PULSE 119; RESP 17; TEMP 100.7; O2SAT 93
[2016-12-02] MEDS: FAMOTIDINE 20 MG TAB PO SCH (20:04)
[2016-12-02 20:05] VITALS: BP 107/59; PULSE 102; RESP 16; TEMP 101.2; O2SAT 98
[2016-12-02] MEDS: traZODone HCL 50 MG TAB PO SCH (20:38)
[2016-12-02 23:05] VITALS: BP 118/58; PULSE 113; RESP 16; TEMP 99.1; O2SAT 96
[2016-12-03] VITALS (12 sets, daily range): BP systolic 88–123; BP diastolic 41–67; PULSE 77–137; RESP 16–48; TEMP 98.6–100.6; O2SAT 94–99
[2016-12-03] MEDS: QUEtiapine FUMARATE 100 MG TAB PO SCH ×3 (02:41→17:48)
[2016-12-03] MEDS: LACTATED RINGER'S 1000 ML INJ 1,000 ML IV SCH ×3 (02:42→23:46)
[2016-12-03] MEDS: GENTAMICIN INJ 100 MG in SODIUM CHLORIDE 0.9% INJ 100 ML IV SCH ×3 (04:24→22:07)
[2016-12-03] MEDS: oxyCODONE/ACETAMINOPHEN 7.5 MG/325 MG TAB PO PRN ×3 (05:02→22:44)
[2016-12-03] MEDS: ceFAZolin 2 GM PREMIX 50 ML IV SCH ×3 (05:02→22:07)
[2016-12-03] MEDS: SODIUM CHLORIDE 0.9% FLUSH 10 ML FLUSH IV FLUSH SCH ×2 (09:00→22:07)
[2016-12-03] MEDS: DOCUSATE SODIUM 50 MG/SENNA 8.6 MG TAB PO SCH ×2 (09:00→22:07)
[2016-12-03] MEDS: ENOXAPARIN SODIUM 30 MG/0.3 ML SYRINGE SQ SCH ×2 (09:11→22:07)
[2016-12-03] MEDS: GABAPENTIN 300 MG CAP PO SCH ×3 (09:12→17:48)
[2016-12-03] MEDS: LACTULOSE SYRUP 20 GM/30 ML CUP PO SCH (09:12)
[2016-12-03] MEDS: CITALOPRAM HYDROBROMIDE 20 MG TAB PO SCH ×2 (09:12→22:06)
[2016-12-03] MEDS: MULTIVITAMINS/MINERALS THERAPEUTIC TAB PO SCH ×2 (09:12→22:06)
[2016-12-03] MEDS: LACTOBACILLUS ACIDOPHILUS TAB PO SCH ×2 (09:12→22:06)
[2016-12-03] MEDS: CYCLOBENZAPRINE HCL 10 MG TAB PO SCH ×3 (09:12→22:44)
[2016-12-03] MEDS: HYDROmorphone HCL PF 1 MG/ML VIAL IV PUSH PRN ×3 (10:16→17:48)
[2016-12-03 10:57] LABS: REVIEW FLAG FINAL
[2016-12-03 11:03] LABS: HEMATOCRIT 16.4 % (35.0-46.0)
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
[2016-12-03] MEDS: BISACODYL 10 MG SUPP RECTAL PRN (13:40)
--- NOTE | 2016-12-03 15:13 | PD.ORT.PN ---
Subjective Subjective Remarks Patient states her pain is controlled. NAD. Objective Vitals Vital Signs Date Time Temp Pulse Resp B/P Pulse Ox O2 Delivery O2 Flow Rate FiO2 12/03/16 12:00 98.6 137 18 110/62 97 12/03/16 08:00 99.8 107 18 88/41 94 12/02/16 23:05 99.1 113 16 118/58 96 12/02/16 20:05 101.2 102 16 107/59 98 12/02/16 15:31 100.7 119 17 101/63 93 I/O 12/02/16 12/02/16 12/02/16 12/03/16 12/03/16 12/03/16 07:00 15:00 23:00 07:00 15:00 23:00 Intake Total 300 ml 800 ml 1500 ml Output Total 1200 ml 350 ml 100 ml 2000 ml 200 ml Balance -900 ml 450 ml -100 ml -500 ml -200 ml Intake Oral 300 ml 800 ml 1500 ml Output Urine Total 1000 ml 200 ml 1850 ml Drainage Total 200 ml 150 ml 100 ml 150 ml 200 ml # Bowel Movements 0 0 Result Diagram: 12/03/16 1031 12/01/16 1154 Imaging Last 24 hours Impressions Chest X-Ray 11/20/16 0600 Signed Impressions: Service Date/Time: Sunday, November 20, 2016 03:57 - CONCLUSION: Mild left lower lobe infiltrate. Unchanged lines and tubes. Shane Gonzalez MD Objective Remarks Last 48 hours Impressions Shoulder X-Ray 11/23/16 0000 Signed Impressions: Service Date/Time: Wednesday, November 23, 2016 09:05 - CONCLUSION: Grade 4 a.c. joint separation. Chinmay Leon MD Foot X-Ray 11/23/16 0000 Signed Impressions: Service Date/Time: Wednesday, November 23, 2016 09:01 - CONCLUSION: 1. Nonspecific soft tissue swelling around the foot. 2. Mild irregularity involving the base of the proximal phalanx. Recommend correlation with point tenderness for nondisplaced fracture. Chinmay Leon MD LLE: dressings clean and dry. intact. +cap refill, + NVI. RLE: +cap refill distally. +vac with good seal to both vac pumps. + NVI. Moderate swelling and tenderness to the right foot. minimal sensation to big toe but decreased sensation to lateral foot, minimal movement of toes RUE: dressings clean and dry. intact. +sling. NVI with full sensation to median /ulnar nerve distribution. full radial nerve function. Assessment & Plan Assessment and Plan 1) Left Open Tibial Shaft Fxs with fasciotomies s/p IMN with wound closure - POD 14 2) I&D of open Right Tibia Fx, removal of external fixation, intramedullary nail fixation right tibia, soleus muscle rotation flap, application of wound VAC dressing - POD 4 3) Right Tibial Artery injury 4) Right foot 5th Phalynx fx - nonop 5) Right shoulder AC joint separation s/p ORIF - POD 6 6) Irrigation and debridement of right leg, application wound VAC dressing POD 1 Today Hgb 5.5. Orders for blood transfusion in place. Pain management DVT prophylaxis - Lovenox Monitor RLE: maintain vac dressings and soft dressings at all times. vac pump settings on intermittent, 100mmHg, high, 3:1. LLE: daily dressing changes to left leg. NWB. RUE: daily dressing changes. NWB. maintain sling. Sonido Juarez Dec 03, 2016 15:13
[2016-12-03] MEDS ORDERED: IOHEXOL 350 MG/ML 10 ML VIAL (for RAD DIAG) IV ONE (16:32)
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
[2016-12-03] MEDS: ACETAMINOPHEN 325 MG TAB PO PRN (18:30)
[2016-12-03] MEDS: traZODone HCL 50 MG TAB PO SCH (22:06)
[2016-12-03] MEDS: FAMOTIDINE 20 MG TAB PO SCH (22:06)
[2016-12-04] VITALS (9 sets, daily range): BP systolic 104–116; BP diastolic 58–71; PULSE 98–114; RESP 16–18; TEMP 97.8–101.4; O2SAT 93–99
[2016-12-04] MEDS: ACETAMINOPHEN 325 MG TAB PO PRN (02:21)
[2016-12-04] MEDS: GENTAMICIN INJ 100 MG in SODIUM CHLORIDE 0.9% INJ 100 ML IV SCH ×3 (02:46→21:34)
[2016-12-04] MEDS: oxyCODONE/ACETAMINOPHEN 7.5 MG/325 MG TAB PO PRN ×4 (02:46→21:02)
[2016-12-04] MEDS: QUEtiapine FUMARATE 100 MG TAB PO SCH ×3 (02:46→18:23)
[2016-12-04] MEDS: ceFAZolin 2 GM PREMIX 50 ML IV SCH ×3 (06:09→23:05)
--- NOTE | 2016-12-04 06:51 | PD.ORT.PN ---
Subjective Subjective Remarks s/p IMN with partial wound closure left leg - POD 15 s/p right tibia fx with vascular and significant soft tissue injury s/p removal of exfix with IMN and rotation soleus graft right tibia - POD 5 s/p right shoulder AC joint repair - POD 8 s/p I&D right leg - POD 2 doing well. no changes Objective Vitals Vital Signs Date Time Temp Pulse Resp B/P Pulse Ox O2 Delivery O2 Flow Rate FiO2 12/04/16 03:28 98.3 12/04/16 02:13 100.8 12/04/16 02:10 101.4 112 16 112/58 93 12/04/16 00:00 100.2 110 16 113/60 95 12/03/16 23:25 99.4 107 17 111/62 98 12/03/16 23:00 99.4 107 17 111/62 98 12/03/16 21:45 100.6 104 16 121/62 96 12/03/16 21:43 100.6 104 16 121/62 96 12/03/16 19:15 77 16 123/53 97 12/03/16 19:03 100.0 113 18 115/67 99 12/03/16 18:48 100.3 119 48 115/64 97 12/03/16 17:59 97 21 12/03/16 17:55 100.3 12/03/16 16:00 100.6 119 18 115/64 97 12/03/16 12:00 98.6 137 18 110/62 97 12/03/16 08:00 99.8 107 18 88/41 94 I/O 12/03/16 12/03/16 12/03/16 12/04/16 12/04/16 12/04/16 07:00 15:00 23:00 07:00 15:00 23:00 Intake Total 1500 ml 1250 ml 1600 ml 960 ml Output Total 2000 ml 3600 ml 2150 ml 2075 ml Balance -500 ml -2350 ml -550 ml -1115 ml Intake Oral 1500 ml 1250 ml 1600 ml 960 ml Output Urine Total 1850 ml 3400 ml 2150 ml 1800 ml Drainage Total 150 ml 200 ml 275 ml # Bowel Movements 1 Result Diagram: 12/03/16 1031 12/01/16 1154 Imaging Last 24 hours Impressions Chest X-Ray 11/20/16 0600 Signed Impressions: Service Date/Time: Sunday, November 20, 2016 03:57 - CONCLUSION: Mild left lower lobe infiltrate. Unchanged lines and tubes. Shane Gonzalez MD Objective Remarks Last 48 hours Impressions Shoulder X-Ray 11/23/16 0000 Signed Impressions: Service Date/Time: Wednesday, November 23, 2016 09:05 - CONCLUSION: Grade 4 a.c. joint separation. Chinmay Leon MD Foot X-Ray 11/23/16 0000 Signed Impressions: Service Date/Time: Wednesday, November 23, 2016 09:01 - CONCLUSION: 1. Nonspecific soft tissue swelling around the foot. 2. Mild irregularity involving the base of the proximal phalanx. Recommend correlation with point tenderness for nondisplaced fracture. Chinmay Leon MD LLE: dressings clean and dry. intact. +cap refill, + NVI. RLE: +cap refill distally. +vac with good seal. + NVI. Moderate swelling and tenderness to the right foot. minimal sensation to big toe but decreased sensation to lateral foot, minimal movement of toes RUE: dressings clean and dry. intact. +sling. NVI with full sensation to median /ulnar nerve distribution. full radial nerve function. Assessment & Plan Assessment and Plan 1) Left Open Tibial Shaft Fxs with fasciotomies s/p IMN with wound closure - POD 15 2) I&D of open Right Tibia Fx, removal of external fixation, intramedullary nail fixation right tibia, soleus muscle rotation flap, application of wound VAC dressing - POD 5 3) Right Tibial Artery injury 4) Right foot 5th Phalynx fx - nonop 5) Right shoulder AC joint separation s/p ORIF - POD 6 6) Irrigation and debridement of right leg, application wound VAC dressing POD 2 Pain management DVT prophylaxis - Lovenox Monitor RLE: maintain vac dressings and soft dressings at all times. vac pump settings on intermittent, 100mmHg, high, 3:1. LLE: daily dressing changes to left leg. NWB. RUE: daily dressing changes. NWB. maintain sling. -NPO after MN -sign consents -plan for surgery tomorrow Onur Swain Dec 04, 2016 06:51
[2016-12-04] MEDS: CITALOPRAM HYDROBROMIDE 20 MG TAB PO SCH ×2 (08:18→21:01)
[2016-12-04] MEDS: CYCLOBENZAPRINE HCL 10 MG TAB PO SCH ×2 (08:19→16:42)
[2016-12-04] MEDS: GABAPENTIN 300 MG CAP PO SCH ×3 (08:19→18:23)
[2016-12-04] MEDS: LACTULOSE SYRUP 20 GM/30 ML CUP PO SCH (08:19)
[2016-12-04] MEDS: MULTIVITAMINS/MINERALS THERAPEUTIC TAB PO SCH ×2 (08:19→21:01)
[2016-12-04] MEDS: LACTOBACILLUS ACIDOPHILUS TAB PO SCH ×2 (08:19→21:00)
[2016-12-04] MEDS: SODIUM CHLORIDE 0.9% FLUSH 10 ML FLUSH IV FLUSH SCH ×2 (08:19→21:41)
[2016-12-04] MEDS: DOCUSATE SODIUM 50 MG/SENNA 8.6 MG TAB PO SCH ×2 (08:22→21:01)
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
[2016-12-04] MEDS: HYDROmorphone HCL PF 1 MG/ML VIAL IV PUSH PRN ×3 (09:36→16:44)
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
[2016-12-04 15:48] LABS: HEMATOCRIT 22.9 % (35.0-46.0); MEAN CORPUSCULAR HEMOGLOBIN 27.9 PG (27.0-34.0); MEAN CORPUSCULAR HGB CONC 32.9 % (32.0-36.0); PLATELET COUNT 513 TH/MM3 (150-450); RED BLOOD COUNT 2.69 MIL/MM3 (4.00-5.30); RED CELL DISTRIBUTION WIDTH 15.1 % (11.6-17.2); REVIEW FLAG FINAL; WHITE BLOOD COUNT 13.3 TH/MM3 (4.0-11.0)
[2016-12-04] MEDS: traZODone HCL 50 MG TAB PO SCH (21:01)
[2016-12-04] MEDS: FAMOTIDINE 20 MG TAB PO SCH (21:01)
[2016-12-05] VITALS (7 sets, daily range): BP systolic 104–125; BP diastolic 55–88; PULSE 85–107; RESP 16–20; TEMP 97.6–99.5; O2SAT 93–100
[2016-12-05] MEDS: QUEtiapine FUMARATE 100 MG TAB PO SCH ×3 (02:00→16:40)
[2016-12-05] MEDS: HYDROmorphone HCL PF 1 MG/ML VIAL IV PUSH PRN ×3 (04:09→21:42)
[2016-12-05] MEDS: ceFAZolin 2 GM PREMIX 50 ML IV SCH ×3 (04:09→20:41)
[2016-12-05] MEDS: GENTAMICIN INJ 100 MG in SODIUM CHLORIDE 0.9% INJ 100 ML IV SCH ×3 (04:09→21:42)
[2016-12-05 06:06] LABS: BASOPHIL # 0.1 TH/MM3 (0-0.2); BASOPHIL % 0.7 % (0.0-2.0); EOSINOPHIL # 0.3 TH/MM3 (0-0.4); EOSINOPHIL % 2.3 % (0.0-4.0); LYMPH % 12.3 % (9.0-44.0); LYMPHOCYTE # 1.5 TH/MM3 (1.0-4.8); MEAN CELL VOLUME 84.6 FL (80.0-100.0); MEAN CORPUSCULAR HGB CONC 33.1 % (32.0-36.0); MONO % 9.3 % (0.0-8.0); NEUT % 75.4 % (16.0-70.0); PLATELET COUNT 452 TH/MM3 (150-450); RED BLOOD COUNT 2.46 MIL/MM3 (4.00-5.30); RED CELL DISTRIBUTION WIDTH 15.1 % (11.6-17.2)
[2016-12-05 06:16] LABS: HEMO FLAGS DIFF FINAL
[2016-12-05 06:18] LABS: HEMATOCRIT 20.8 % (35.0-46.0)
[2016-12-05 06:25] LABS: ALT (GPT) 93 U/L (10-53); ANION GAP 6 MEQ/L (5-15); AST (GOT) 88 U/L (15-37); BICARBONATE 32.2 MEQ/L (21.0-32.0); BLOOD UREA NITROGEN 7 MG/DL (7-18); CHLORIDE 98 MEQ/L (98-107); GLOMERULAR FILTRATION RATE 149 ML/MIN (>89); POTASSIUM 3.4 MEQ/L (3.5-5.1); SODIUM (NA) 136 MEQ/L (136-145)
[2016-12-05 06:27] LABS: ALKALINE PHOSPHATASE 132 U/L (45-117); TOTAL BILIRUBIN ADULT 0.2 MG/DL (0.2-1.0)
[2016-12-05] MEDS ORDERED: FAMOTIDINE 20 MG/2 ML VIAL ONE (06:35)
--- NOTE | 2016-12-05 06:41 | PD.ORT.PN ---
Subjective Subjective Remarks s/p IMN with partial wound closure left leg - POD 16 s/p right tibia fx with vascular and significant soft tissue injury s/p removal of exfix with IMN and rotation soleus graft right tibia - POD 6 s/p right shoulder AC joint repair - POD 9 s/p I&D right leg - POD 3 doing well. significant issues with vac of right leg yesterday and last night. keeps saying "blockage". had to monorail hooker to wall suction last night. Objective Vitals Vital Signs Date Time Temp Pulse Resp B/P Pulse Ox O2 Delivery O2 Flow Rate FiO2 12/05/16 04:15 99.1 107 17 104/58 95 12/04/16 20:15 101.3 114 18 116/58 98 12/04/16 19:42 Room Air 12/04/16 16:00 98.7 108 18 116/71 99 12/04/16 12:00 98.3 100 18 114/69 99 12/04/16 09:04 99 21 12/04/16 08:00 97.8 98 18 104/59 96 I/O 12/04/16 12/04/16 12/04/16 12/05/16 12/05/16 12/05/16 07:00 15:00 23:00 07:00 15:00 23:00 Intake Total 960 ml 1260 ml 1020 ml Output Total 2075 ml 2700 ml 1950 ml 225 ml Balance -1115 ml -1440 ml -930 ml -225 ml Intake Oral 960 ml 1260 ml 1020 ml Output Urine Total 1800 ml 2600 ml 1750 ml Drainage Total 275 ml 100 ml 200 ml 225 ml # Bowel Movements 0 0 Result Diagram: 12/05/16 0542 12/05/16 0542 Imaging Last 24 hours Impressions Chest X-Ray 11/20/16 0600 Signed Impressions: Service Date/Time: Sunday, November 20, 2016 03:57 - CONCLUSION: Mild left lower lobe infiltrate. Unchanged lines and tubes. Shane Gonzalez MD Objective Remarks Last 48 hours Impressions Shoulder X-Ray 11/23/16 0000 Signed Impressions: Service Date/Time: Wednesday, November 23, 2016 09:05 - CONCLUSION: Grade 4 a.c. joint separation. Chinmay Leon MD Foot X-Ray 11/23/16 0000 Signed Impressions: Service Date/Time: Wednesday, November 23, 2016 09:01 - CONCLUSION: 1. Nonspecific soft tissue swelling around the foot. 2. Mild irregularity involving the base of the proximal phalanx. Recommend correlation with point tenderness for nondisplaced fracture. Chinmay Leon MD LLE: dressings clean and dry. intact. +cap refill, + NVI. RLE: +cap refill distally. +vac with good seal hooked to wall suction. + NVI. Moderate swelling and tenderness to the right foot. minimal sensation to big toe but decreased sensation to lateral foot, minimal movement of toes RUE: dressings clean and dry. intact. +sling. NVI with full sensation to median /ulnar nerve distribution. full radial nerve function. Assessment & Plan Assessment and Plan 1) Left Open Tibial Shaft Fxs with fasciotomies s/p IMN with wound closure - POD 16 2) I&D of open Right Tibia Fx, removal of external fixation, intramedullary nail fixation right tibia, soleus muscle rotation flap, application of wound VAC dressing - POD 6 3) Right Tibial Artery injury 4) Right foot 5th Phalynx fx - nonop 5) Right shoulder AC joint separation s/p ORIF - POD 9 6) Irrigation and debridement of right leg, application wound VAC dressing POD 3 Pain management DVT prophylaxis - Lovenox Monitor RLE: maintain vac dressings and soft dressings at all times. vac pump settings on intermittent, 100mmHg, high, 3:1. LLE: daily dressing changes to left leg. NWB. RUE: daily dressing changes. NWB. maintain sling. -surgery today for I&D and vac change Onur Swain Dec 05, 2016 06:41
[2016-12-05] MEDS ORDERED: ACETAMINOPHEN 1000 MG/100 ML VIAL IV ONE (06:54)
[2016-12-05] MEDS ORDERED: GENTAMICIN SULFATE 80 MG/2 ML VIAL ONE (06:55)
[2016-12-05] MEDS: CYCLOBENZAPRINE HCL 10 MG TAB PO SCH ×3 (08:00→16:41)
--- NOTE | 2016-12-05 08:12 | PD.OP ---
cc: Emery Llanes MD Operative Report Date of Surgery: Dec 05, 2016 Preoperative Diagnosis: Open right tibia fracture Postoperative Diagnosis: Procedure: Irrigation and debridement of right leg and tibia, application wound VAC dressing Anesthesia: Gen. Surgeon: Emery Llanes Striper(s): SALLY Reynoso PA-C The surgical procedure was assisted by my physician assistant laboratory director. My P.A. presence was necessary throughout this case for the manipulation and positioning of the surgical extremity. My P.A. was assisting me throughout the duration of this procedure. The skill set of a physician assistant laboratory director was medically necessary to complete this procedure. During the surgical case the certified surgical first assistant was working at the back table and the physician assistant laboratory director was directly assisting me. Operation and Findings: Inessa is well-known to me from multiple previous surgeries. Informed consent was obtained preoperatively and operative site was marked. She was given IV sedation and general anesthesia. She received IV antibiotics. Timeout procedure was performed. Right leg was prepped with alcohol followed by Hibiclens and draped in the usual sterile fashion. Procedure began with debridement of the wound. The soleus muscle flap over the fracture site appeared to be healthy and viable. The fracture site is completely covered with muscle. Small areas of gastrocnemius muscle were debrided. Skin and subcutaneous tissue fascia and muscle were sharply debrided with rongeur and scalpel. Curettes were also used to debride the edges of the bone. Overall wound was clean. Wound was now thoroughly irrigated with sterile saline. The muscular interval between the gastrocnemius and soleus muscle was closed with 3-0 PDS suture. Next attention was turned to wound VAC dressing. An extra large VAC dressing was cut to fit the wound. VAC dressing was stapled into place to help hold it in place. Using Ioban the Vac dressing was sealed. A good seal was obtained. VAC settings were 125 mmHg intermittent 3 and 1. Patient was awakened and transferred to recovery room in stable condition. Emery Llanes MD Dec 05, 2016 08:12
[2016-12-05] MEDS ORDERED: SODIUM CHLOR 0.9% 250 ML INJ 250 ML IV ONE (08:15)
[2016-12-05] MEDS ORDERED: GENTAMICIN 80 MG PREMIX 100 ML IV SCH (08:15)
[2016-12-05] MEDS: ERGOCALCIFEROL (VIT D2) 50,000 UNIT CAP PO SCH (09:00)
[2016-12-05] MEDS: MULTIVITAMINS/MINERALS THERAPEUTIC TAB PO SCH ×2 (09:00→20:41)
[2016-12-05] MEDS ORDERED: DO NOT ADM ANY ANTICOAGULANT DRUGS PRN (09:00)
[2016-12-05] MEDS: LACTULOSE SYRUP 20 GM/30 ML CUP PO SCH (09:00)
[2016-12-05] MEDS: SODIUM CHLORIDE 0.9% FLUSH 10 ML FLUSH IV FLUSH SCH ×2 (09:00→21:00)
[2016-12-05] MEDS: DOCUSATE SODIUM 50 MG/SENNA 8.6 MG TAB PO SCH ×2 (09:00→21:00)
[2016-12-05] MEDS: CITALOPRAM HYDROBROMIDE 20 MG TAB PO SCH ×3 (09:00→20:41)
[2016-12-05] MEDS: LACTOBACILLUS ACIDOPHILUS TAB PO SCH ×2 (09:00→20:41)
[2016-12-05] MEDS: GABAPENTIN 300 MG CAP PO SCH ×3 (09:00→16:40)
[2016-12-05] MEDS: LACTATED RINGER'S 1000 ML INJ 1,000 ML IV SCH ×2 (09:05→18:02)
[2016-12-05] MEDS ORDERED: MIDAZOLAM HCL 2 MG/2 ML VIAL ONE (09:08)
[2016-12-05] MEDS ORDERED: fentaNYL CITRATE 250 MCG/5 ML AMP ONE (09:09)
[2016-12-05] MEDS ORDERED: *HYDROmorphone PF 1 MG VIAL PERIprocedural Use ONLY ONE ×2 (09:10→10:14)
[2016-12-05] MEDS: REMOVE OLD DURAGESIC (FENTANYL) PATCH T-DERMAL SCH (11:00)
[2016-12-05] MEDS: fentaNYL 50 MCG/HR PATCH T-DERMAL SCH (11:43)
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
[2016-12-05] MEDS ORDERED: ONDANSETRON HCL 4 MG/2 ML VIAL IV PUSH ONE (12:00)
[2016-12-05] MEDS ORDERED: PROPOFOL 200 MG/20 ML AMP IV ONE (12:00)
[2016-12-05] MEDS ORDERED: POTASSIUM CHLORIDE 20 MEQ CONTROLLED RELEASE TAB PO ONE (12:00)
[2016-12-05] MEDS: oxyCODONE/ACETAMINOPHEN 7.5 MG/325 MG TAB PO PRN ×2 (16:08→19:29)
[2016-12-05] MEDS: traZODone HCL 50 MG TAB PO SCH (20:41)
[2016-12-05] MEDS: FAMOTIDINE 20 MG TAB PO SCH (20:41)
[2016-12-05] MEDS ORDERED: POTASSIUM CHLORIDE 10 MEQ CONTROLLED RELEASE TAB PO ONE (21:00)
[2016-12-06] MEDS: CYCLOBENZAPRINE HCL 10 MG TAB PO SCH ×4 (00:30→22:45)
[2016-12-06] MEDS: QUEtiapine FUMARATE 100 MG TAB PO SCH ×3 (00:30→16:31)
[2016-12-06] MEDS: oxyCODONE/ACETAMINOPHEN 7.5 MG/325 MG TAB PO PRN ×6 (00:31→20:44)
[2016-12-06 00:46] VITALS: BP 109/58; PULSE 97; RESP 16; TEMP 97.1; O2SAT 96
[2016-12-06] MEDS: GENTAMICIN INJ 100 MG in SODIUM CHLORIDE 0.9% INJ 100 ML IV SCH ×3 (03:30→20:34)
[2016-12-06] MEDS: ceFAZolin 2 GM PREMIX 50 ML IV SCH ×3 (03:31→20:34)
[2016-12-06] MEDS: LACTATED RINGER'S 1000 ML INJ 1,000 ML IV SCH ×3 (04:02→23:20)
--- NOTE | 2016-12-06 06:46 | PD.ORT.PN ---
Subjective Subjective Remarks Awake and alert. No new complaints Objective Vitals Vital Signs Date Time Temp Pulse Resp B/P Pulse Ox O2 Delivery O2 Flow Rate FiO2 12/06/16 00:46 97.1 97 16 109/58 96 12/05/16 19:35 97.9 99 16 104/55 95 12/05/16 19:00 Room Air 12/05/16 17:17 16 12/05/16 16:15 99.5 92 16 106/62 100 12/05/16 15:50 99.5 85 16 114/88 100 12/05/16 15:41 99.1 103 20 115/70 99 12/05/16 14:02 16 12/05/16 14:01 16 12/05/16 13:50 95 21 12/05/16 11:46 97.6 103 19 125/61 93 12/05/16 10:15 97.7 97 12 114/70 96 Room Air 12/05/16 10:00 102 12 122/66 96 Room Air 12/05/16 09:45 103 11 120/64 95 Room Air 12/05/16 09:30 111 14 114/60 95 Room Air 12/05/16 09:15 109 16 115/70 95 Room Air 12/05/16 09:02 98.6 122 26 112/59 97 Room Air I/O 12/05/16 12/05/16 12/05/16 12/06/16 12/06/16 12/06/16 07:00 15:00 23:00 07:00 15:00 23:00 Intake Total 240 ml 1850 ml 1531 ml 800 ml Output Total 925 ml 665 ml 150 ml 175 ml Balance -685 ml 1185 ml 1381 ml 625 ml Intake Oral 240 ml 700 ml 600 ml 800 ml IV Total 400 ml 250 ml Packed Cells 250 ml 681 ml Other 500 ml Output Urine Total 700 ml 645 ml Drainage Total 225 ml 150 ml 175 ml Estimated Blood Loss 20 ml # Voids 4 4 # Bowel Movements 0 0 0 0 Result Diagram: 12/05/16 0542 12/05/16 0542 Imaging Last 24 hours Impressions Chest X-Ray 11/20/16 0600 Signed Impressions: Service Date/Time: Sunday, November 20, 2016 03:57 - CONCLUSION: Mild left lower lobe infiltrate. Unchanged lines and tubes. Shane Gonzalez MD Objective Remarks Last 48 hours Impressions Shoulder X-Ray 11/23/16 0000 Signed Impressions: Service Date/Time: Wednesday, November 23, 2016 09:05 - CONCLUSION: Grade 4 a.c. joint separation. Chinmay Leon MD Foot X-Ray 11/23/16 0000 Signed Impressions: Service Date/Time: Wednesday, November 23, 2016 09:01 - CONCLUSION: 1. Nonspecific soft tissue swelling around the foot. 2. Mild irregularity involving the base of the proximal phalanx. Recommend correlation with point tenderness for nondisplaced fracture. Chinmay Leon MD LLE: dressings clean and dry. intact. +cap refill, + NVI. RLE: +cap refill distally. +vac with good seal. + NVI. Moderate swelling and tenderness to the right foot. minimal sensation to big toe but decreased sensation to lateral foot, minimal movement of toes RUE: dressings clean and dry. intact. +sling. NVI with full sensation to median /ulnar nerve distribution. full radial nerve function. Assessment & Plan Assessment and Plan 1) Left Open Tibial Shaft Fxs with fasciotomies s/p IMN with wound closure - POD 17 2) I&D of open Right Tibia Fx, removal of external fixation, intramedullary nail fixation right tibia, soleus muscle rotation flap, application of wound VAC dressing - POD 7 3) Right Tibial Artery injury 4) Right foot 5th Phalynx fx - nonop 5) Right shoulder AC joint separation s/p ORIF - POD 10 6) Irrigation and debridement of right leg, application wound VAC dressing POD 1 Pain management DVT prophylaxis - Lovenox Monitor RLE: maintain vac dressings and soft dressings at all times. vac pump settings on intermittent, 100mmHg, high, 3:1. LLE: daily dressing changes to left leg. NWB. RUE: daily dressing changes. NWB. maintain sling. -surgery plan for Friday for I&D and vac change Nothing by mouth after midnight Friday night Angel Arias Jr. Dec 06, 2016 06:46
[2016-12-06 07:24] LABS: AUTOMATED NEUTROPHIL # 8.5 TH/MM3 (1.8-7.7); BASOPHIL # 0.1 TH/MM3 (0-0.2); BASOPHIL % 0.9 % (0.0-2.0); EOSINOPHIL # 0.1 TH/MM3 (0-0.4); EOSINOPHIL % 1.1 % (0.0-4.0); HEMATOCRIT 22.3 % (35.0-46.0); HEMO FLAGS DIFF FINAL; LYMPH % 15.5 % (9.0-44.0); LYMPHOCYTE # 1.8 TH/MM3 (1.0-4.8); MEAN CELL VOLUME 85.6 FL (80.0-100.0); MEAN CORPUSCULAR HEMOGLOBIN 29.1 PG (27.0-34.0); MEAN CORPUSCULAR HGB CONC 34.1 % (32.0-36.0); MONO % 10.6 % (0.0-8.0); NEUT % 71.9 % (16.0-70.0); PLATELET COUNT 466 TH/MM3 (150-450); RED CELL DISTRIBUTION WIDTH 14.5 % (11.6-17.2); WHITE BLOOD COUNT 11.8 TH/MM3 (4.0-11.0)
[2016-12-06 07:37] LABS: APTT (PATIENT) 29.7 SEC (24.3-30.1); PROTHROMBIN TIME - PATIENT 10.6 SEC (9.8-11.6)
[2016-12-06 07:42] LABS: ALT (GPT) 88 U/L (10-53); ANION GAP 6 MEQ/L (5-15); AST (GOT) 74 U/L (15-37); BICARBONATE 32.9 MEQ/L (21.0-32.0); BLOOD UREA NITROGEN 8 MG/DL (7-18); CHLORIDE 99 MEQ/L (98-107); GLOMERULAR FILTRATION RATE 173 ML/MIN (>89); POTASSIUM 3.5 MEQ/L (3.5-5.1); SODIUM (NA) 138 MEQ/L (136-145)
[2016-12-06 07:53] VITALS: BP 103/62; PULSE 93; RESP 19; TEMP 97.1; O2SAT 98
[2016-12-06 07:53] LABS: ALKALINE PHOSPHATASE 118 U/L (45-117); TOTAL BILIRUBIN ADULT 0.3 MG/DL (0.2-1.0)
[2016-12-06] MEDS: SODIUM CHLORIDE 0.9% FLUSH 10 ML FLUSH IV FLUSH SCH ×2 (09:00→20:35)
[2016-12-06] MEDS: LACTULOSE SYRUP 20 GM/30 ML CUP PO SCH (09:00)
[2016-12-06] MEDS: DOCUSATE SODIUM 50 MG/SENNA 8.6 MG TAB PO SCH ×2 (09:17→20:35)
[2016-12-06] MEDS: CITALOPRAM HYDROBROMIDE 20 MG TAB PO SCH ×2 (09:17→20:35)
[2016-12-06] MEDS: LACTOBACILLUS ACIDOPHILUS TAB PO SCH ×2 (09:18→20:35)
[2016-12-06] MEDS: GABAPENTIN 300 MG CAP PO SCH ×3 (09:19→16:32)
[2016-12-06] MEDS: MULTIVITAMINS/MINERALS THERAPEUTIC TAB PO SCH ×2 (09:22→20:35)
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
[2016-12-06] MEDS: HYDROmorphone HCL PF 1 MG/ML VIAL IV PUSH PRN ×3 (11:39→22:45)
[2016-12-06 11:45] VITALS: BP 108/61; PULSE 116; RESP 19; TEMP 97.2; O2SAT 98
[2016-12-06] MEDS: ENOXAPARIN SODIUM 30 MG/0.3 ML SYRINGE SQ SCH ×2 (11:57→22:45)
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
[2016-12-06 16:00] VITALS: BP 109/62; PULSE 107; RESP 18; TEMP 98.3; O2SAT 98
[2016-12-06 19:00] VITALS: BP 113/67; PULSE 108; RESP 17; TEMP 98.4; O2SAT 96
[2016-12-06] MEDS: traZODone HCL 50 MG TAB PO SCH (20:35)
[2016-12-06] MEDS: FAMOTIDINE 20 MG TAB PO SCH (20:35)
[2016-12-07] MEDS: oxyCODONE/ACETAMINOPHEN 7.5 MG/325 MG TAB PO PRN ×6 (00:25→21:47)
[2016-12-07] MEDS: QUEtiapine FUMARATE 100 MG TAB PO SCH ×3 (00:25→18:01)
[2016-12-07] MEDS: HYDROmorphone HCL PF 1 MG/ML VIAL IV PUSH PRN ×7 (02:16→23:05)
[2016-12-07] MEDS: ceFAZolin 2 GM PREMIX 50 ML IV SCH ×3 (03:35→21:46)
[2016-12-07] MEDS: GENTAMICIN INJ 100 MG in SODIUM CHLORIDE 0.9% INJ 100 ML IV SCH ×3 (03:35→21:46)
[2016-12-07] MEDS ORDERED: MAGNESIUM CITRATE SOLN 300 ML BTL PO ONE (07:30)
[2016-12-07 08:00] VITALS: BP 106/59; PULSE 107; RESP 18; TEMP 97.5; O2SAT 98
--- NOTE | 2016-12-07 08:37 | PD.ORT.PN ---
Subjective Subjective Remarks Still struggling with pain issues but 'they come and go'. She states her right leg feels very heavy and she can't move her toes well. Her right leg is ' making progress'. There were issues with her wound VAC last night. No right UE complaints. Questions about her condition. Objective Vitals Vital Signs Date Time Temp Pulse Resp B/P Pulse Ox O2 Delivery O2 Flow Rate FiO2 12/06/16 19:00 98.4 108 17 113/67 96 12/06/16 17:39 16 12/06/16 16:00 98.3 107 18 109/62 98 12/06/16 12:46 16 12/06/16 11:45 97.2 116 19 108/61 98 I/O 12/06/16 12/06/16 12/06/16 12/07/16 12/07/16 12/07/16 07:00 15:00 23:00 07:00 15:00 23:00 Intake Total 800 ml 850 ml 480 ml 240 ml Output Total 175 ml 100 ml 105 ml Balance 625 ml 850 ml 380 ml 135 ml Intake Oral 800 ml 850 ml 480 ml 240 ml Drainage Total 175 ml 100 ml 105 ml # Voids 4 6 6 6 # Bowel Movements 0 0 0 0 Result Diagram: 12/06/16 0632 12/06/16 0632 Imaging Last 24 hours Impressions Chest X-Ray 11/20/16 0600 Signed Impressions: Service Date/Time: Sunday, November 20, 2016 03:57 - CONCLUSION: Mild left lower lobe infiltrate. Unchanged lines and tubes. Shane Gonzalez MD Objective Remarks Sitting up in bed, Both leg elevated. NAD VSS Shoulder X-Ray 11/23/16 0000 Signed Impressions: Service Date/Time: Wednesday, November 23, 2016 09:05 - CONCLUSION: Grade 4 a.c. joint separation. Chinmay Leon MD Foot X-Ray 11/23/16 0000 Signed Impressions: Service Date/Time: Wednesday, November 23, 2016 09:01 - CONCLUSION: 1. Nonspecific soft tissue swelling around the foot. 2. Mild irregularity involving the base of the proximal phalanx. Recommend correlation with point tenderness for nondisplaced fracture. Chinmay Leon MD LLE: Dressing/splint intact, mild swelling foot, Wiggles toes freely, sensation intact, +cap refill, +nvi RLE: Splint in place, VAC in place with wall attachment to suction, Continues to have moderate right foot swelling w mild ecchymosis, Limited sensation, no movement toes on todays exam, +nvi, +cap refill RUE: Dressing/sling in place, Mild swelling hand, Good sensation hand and fingers, median/ulnar nerve distribution fully intact, +motor brachiorad and thumb extension Assessment & Plan Assessment and Plan 1) Left Open Tibial Shaft Fxs with fasciotomies s/p IMN with wound closure - POD 17 2) I&D of open Right Tibia Fx, removal of external fixation, intramedullary nail fixation right tibia, soleus muscle rotation flap, application of wound VAC dressing - POD 7 3) Right Tibial Artery injury 4) Right foot 5th Phalynx fx - nonop 5) Right shoulder AC joint separation s/p ORIF - POD 10 6) Irrigation and debridement of right leg, application wound VAC dressing POD 1 RLE VAC was changed to wall suction last night. Continue as there are issues w KCl Unit. Pain management DVT prophylaxis - Lovenox Monitor RLE: maintain vac dressings and soft dressings at all times. vac pump settings on intermittent, 100mmHg, high, 3:1. LLE: daily dressing changes to left leg. NWB. RUE: daily dressing changes. NWB. maintain sling. -surgery plan for Friday for I&D and vac change Nothing by mouth after midnight Friday night Jennifer Tadeo Dec 07, 2016 08:37
[2016-12-07] MEDS: GABAPENTIN 300 MG CAP PO SCH ×3 (09:07→18:01)
[2016-12-07] MEDS: DOCUSATE SODIUM 50 MG/SENNA 8.6 MG TAB PO SCH ×2 (09:07→21:46)
[2016-12-07] MEDS: MULTIVITAMINS/MINERALS THERAPEUTIC TAB PO SCH ×2 (09:07→21:46)
[2016-12-07] MEDS: CITALOPRAM HYDROBROMIDE 20 MG TAB PO SCH ×2 (09:08→21:46)
[2016-12-07] MEDS: LACTULOSE SYRUP 20 GM/30 ML CUP PO SCH (09:08)
[2016-12-07] MEDS: LACTOBACILLUS ACIDOPHILUS TAB PO SCH ×2 (09:08→21:46)
[2016-12-07] MEDS: CYCLOBENZAPRINE HCL 10 MG TAB PO SCH ×3 (09:08→23:05)
[2016-12-07] MEDS: SODIUM CHLORIDE 0.9% FLUSH 10 ML FLUSH IV FLUSH SCH ×2 (09:16→20:01)
[2016-12-07 09:41] LABS: HEMATOCRIT 21.6 % (35.0-46.0); MEAN CELL VOLUME 87.1 FL (80.0-100.0); MEAN CORPUSCULAR HEMOGLOBIN 28.7 PG (27.0-34.0); PLATELET COUNT 433 TH/MM3 (150-450); RED BLOOD COUNT 2.48 MIL/MM3 (4.00-5.30); RED CELL DISTRIBUTION WIDTH 15.1 % (11.6-17.2); REVIEW FLAG FINAL; WHITE BLOOD COUNT 10.8 TH/MM3 (4.0-11.0)
[2016-12-07] MEDS: LACTATED RINGER'S 1000 ML INJ 1,000 ML IV SCH ×2 (09:51→20:02)
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
[2016-12-07 10:08] LABS: BICARBONATE 32.5 MEQ/L (21.0-32.0); POTASSIUM 3.5 MEQ/L (3.5-5.1)
[2016-12-07] MEDS: ENOXAPARIN SODIUM 30 MG/0.3 ML SYRINGE SQ SCH ×2 (11:03→23:05)
[2016-12-07 12:00] VITALS: BP 115/71; PULSE 104; RESP 18; TEMP 97.4; O2SAT 98
[2016-12-07 16:00] VITALS: BP 110/62; PULSE 112; RESP 18; TEMP 98.5; O2SAT 99
[2016-12-07 19:35] VITALS: BP 122/56; PULSE 110; RESP 18; TEMP 97.5; O2SAT 95
[2016-12-07] MEDS: traZODone HCL 50 MG TAB PO SCH (21:46)
[2016-12-07] MEDS: FAMOTIDINE 20 MG TAB PO SCH (21:46)
[2016-12-08 00:36] VITALS: BP 117/75; PULSE 110; RESP 18; TEMP 99.1; O2SAT 96
[2016-12-08] MEDS: QUEtiapine FUMARATE 100 MG TAB PO SCH ×2 (02:00→08:33)
[2016-12-08] MEDS: LACTATED RINGER'S 1000 ML INJ 1,000 ML IV SCH (03:08)
[2016-12-08] MEDS: GENTAMICIN INJ 100 MG in SODIUM CHLORIDE 0.9% INJ 100 ML IV SCH ×3 (03:30→19:39)
[2016-12-08] MEDS: ceFAZolin 2 GM PREMIX 50 ML IV SCH ×3 (03:30→19:38)
[2016-12-08] MEDS: HYDROmorphone HCL PF 1 MG/ML VIAL IV PUSH PRN ×2 (03:31→10:20)
[2016-12-08 08:00] VITALS: BP 114/57; PULSE 107; RESP 18; TEMP 98.6; O2SAT 98
[2016-12-08] MEDS: LACTULOSE SYRUP 20 GM/30 ML CUP PO SCH (08:32)
[2016-12-08] MEDS: DOCUSATE SODIUM 50 MG/SENNA 8.6 MG TAB PO SCH ×2 (08:33→19:39)
[2016-12-08] MEDS: CITALOPRAM HYDROBROMIDE 20 MG TAB PO SCH ×2 (08:33→19:39)
[2016-12-08] MEDS: MULTIVITAMINS/MINERALS THERAPEUTIC TAB PO SCH ×2 (08:33→19:39)
[2016-12-08] MEDS: CYCLOBENZAPRINE HCL 10 MG TAB PO SCH (08:33)
[2016-12-08] MEDS: LACTOBACILLUS ACIDOPHILUS TAB PO SCH ×2 (08:33→19:38)
[2016-12-08] MEDS: oxyCODONE/ACETAMINOPHEN 7.5 MG/325 MG TAB PO PRN (08:33)
[2016-12-08] MEDS: GABAPENTIN 300 MG CAP PO SCH (08:33)
[2016-12-08] MEDS: SODIUM CHLORIDE 0.9% FLUSH 10 ML FLUSH IV FLUSH SCH ×2 (08:34→19:39)
[2016-12-08] MEDS: ENOXAPARIN SODIUM 30 MG/0.3 ML SYRINGE SQ SCH ×2 (10:17→22:24)
[2016-12-08] MEDS: REMOVE OLD DURAGESIC (FENTANYL) PATCH T-DERMAL SCH (10:19)
[2016-12-08] MEDS: fentaNYL 50 MCG/HR PATCH T-DERMAL SCH (10:19)
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
[2016-12-08] MEDS ORDERED: PILL SPLITTER OTHER PRN (11:45)
[2016-12-08 12:00] VITALS: BP 119/74; PULSE 109; RESP 18; TEMP 98.8; O2SAT 95
[2016-12-08] MEDS: HYDROmorphone HCL 4 MG TAB PO PRN ×3 (12:13→19:38)
[2016-12-08] MEDS: METHOCARBAMOL 500 MG TAB PO SCH ×2 (14:31→22:24)
[2016-12-08] MEDS: PREGABALIN 100 MG CAP PO SCH ×2 (14:31→22:24)
[2016-12-08] MEDS: IBUPROFEN 800 MG TAB PO SCH ×2 (14:31→22:24)
[2016-12-08] MEDS: ACETAMINOPHEN 1000 MG/100 ML VIAL IV SCH ×2 (15:49→22:24)
[2016-12-08 16:00] VITALS: BP 119/74; PULSE 107; RESP 18; TEMP 99.1; O2SAT 97
[2016-12-08] MEDS: QUEtiapine FUMARATE 25 MG TAB PO SCH (18:15)
[2016-12-08] MEDS: traZODone HCL 50 MG TAB PO SCH (19:39)
[2016-12-08 20:43] LABS: HEMATOCRIT 23.4 % (35.0-46.0); MEAN CELL VOLUME 86.5 FL (80.0-100.0); MEAN CORPUSCULAR HEMOGLOBIN 29.2 PG (27.0-34.0); MEAN CORPUSCULAR HGB CONC 33.8 % (32.0-36.0); PLATELET COUNT 521 TH/MM3 (150-450); RED BLOOD COUNT 2.71 MIL/MM3 (4.00-5.30); RED CELL DISTRIBUTION WIDTH 14.9 % (11.6-17.2); REVIEW FLAG FINAL; WHITE BLOOD COUNT 10.7 TH/MM3 (4.0-11.0)
[2016-12-08 20:45] VITALS: BP 109/62; PULSE 99; RESP 18; TEMP 97.6; O2SAT 98
[2016-12-08 20:56] LABS: BICARBONATE 35.7 MEQ/L (21.0-32.0); MAGNESIUM 2.1 MG/DL (1.5-2.5); POTASSIUM 3.3 MEQ/L (3.5-5.1)
[2016-12-09 00:21] VITALS: BP 103/59; PULSE 100; RESP 18; TEMP 97; O2SAT 96
[2016-12-09] MEDS: HYDROmorphone HCL 4 MG TAB PO PRN ×7 (00:56→23:38)
[2016-12-09] MEDS: QUEtiapine FUMARATE 25 MG TAB PO SCH ×3 (00:57→18:12)
[2016-12-09] MEDS: ZOLPIDEM TARTRATE 5 MG TAB PO PRN (01:58)
[2016-12-09] MEDS ORDERED: POVIDONE IODINE 5% (ANTISEPSIS KIT) 4 APPLICATIONS EACH NARE PRN (02:45)
[2016-12-09] MEDS ORDERED: SODIUM CHLORID 0.9% 500 ML IV PRN (02:45)
[2016-12-09] MEDS ORDERED: INSULIN HUMAN REGULAR 1,000 UNITS/10 ML VIAL SQ PRN (02:45)
[2016-12-09] MEDS ORDERED: CHLORHEXIDINE GLUCONATE 2 % 1 PACK (2 CLOTHS) TOPICAL PRN (02:45)
[2016-12-09] MEDS ORDERED: LACTATED RINGER'S 1000 ML IV PRN (02:45)
[2016-12-09] MEDS: ACETAMINOPHEN 1000 MG/100 ML VIAL IV SCH ×3 (03:40→17:16)
[2016-12-09] MEDS: IBUPROFEN 800 MG TAB PO SCH ×2 (03:41→18:12)
[2016-12-09] MEDS: PREGABALIN 100 MG CAP PO SCH ×2 (03:41→18:13)
[2016-12-09] MEDS: METHOCARBAMOL 500 MG TAB PO SCH ×2 (03:41→18:13)
[2016-12-09] MEDS: GENTAMICIN INJ 100 MG in SODIUM CHLORIDE 0.9% INJ 100 ML IV SCH (04:05)
[2016-12-09] MEDS: ceFAZolin 2 GM PREMIX 50 ML IV SCH ×3 (05:07→17:15)
--- NOTE | 2016-12-09 06:45 | PD.ORT.PN ---
Subjective Subjective Remarks s/p IMN with partial wound closure left leg - POD 20 s/p right tibia fx with vascular and significant soft tissue injury s/p removal of exfix with IMN and rotation soleus graft right tibia - POD 10 s/p right shoulder AC joint repair - POD 13 s/p I&D right leg - POD 4 vac had issues over weekend. otherwise, doing well. Objective Vitals Vital Signs Date Time Temp Pulse Resp B/P Pulse Ox O2 Delivery O2 Flow Rate FiO2 12/09/16 00:21 97.0 100 18 103/59 96 12/08/16 20:45 97.6 99 18 109/62 98 12/08/16 16:00 99.1 107 18 119/74 97 12/08/16 12:00 98.8 109 18 119/74 95 12/08/16 08:00 98.6 107 18 114/57 98 I/O 12/08/16 12/08/16 12/08/16 12/09/16 12/09/16 12/09/16 07:00 15:00 23:00 07:00 15:00 23:00 Intake Total 827 ml 960 ml 240 ml Output Total 50 ml 25 ml 25 ml Balance 827 ml 910 ml 215 ml -25 ml Intake Oral 480 ml 960 ml 240 ml IV Total 347 ml Drainage Total 50 ml 25 ml 25 ml # Voids 2 7 2 1 # Bowel Movements 0 0 0 Result Diagram: 12/08/16201412/08/162014 Imaging Last 24 hours Impressions Chest X-Ray 11/20/16 0600 Signed Impressions: Service Date/Time: Sunday, November 20, 2016 03:57 - CONCLUSION: Mild left lower lobe infiltrate. Unchanged lines and tubes. Shane Gonzalez MD Objective Remarks Sitting up in bed, Both leg elevated. NAD VSS Shoulder X-Ray 11/23/16 0000 Signed Impressions: Service Date/Time: Wednesday, November 23, 2016 09:05 - CONCLUSION: Grade 4 a.c. joint separation. Chinmay Leon MD Foot X-Ray 11/23/16 0000 Signed Impressions: Service Date/Time: Wednesday, November 23, 2016 09:01 - CONCLUSION: 1. Nonspecific soft tissue swelling around the foot. 2. Mild irregularity involving the base of the proximal phalanx. Recommend correlation with point tenderness for nondisplaced fracture. Chinmay Leon MD LLE: Dressing/splint intact, mild swelling foot, Wiggles toes freely, sensation intact, +cap refill, +nvi RLE: Splint in place, VAC in place with wall attachment to suction, Continues to have moderate right foot swelling w mild ecchymosis, Limited sensation, no movement toes on todays exam, +nvi, +cap refill RUE: Dressing/sling in place, Mild swelling hand, Good sensation hand and fingers, median/ulnar nerve distribution fully intact, +motor brachiorad and thumb extension Assessment & Plan Assessment and Plan 1) Left Open Tibial Shaft Fxs with fasciotomies s/p IMN with wound closure - POD 20 2) I&D of open Right Tibia Fx, removal of external fixation, intramedullary nail fixation right tibia, soleus muscle rotational flap - POD 10 3) Right Tibial Artery injury 4) Right foot 5th Phalynx fx - nonop 5) Right shoulder AC joint separation s/p ORIF - POD 13 6) Irrigation and debridement of right leg, application wound VAC dressing POD 4 RLE VAC was changed to wall suction last night. Continue as there are issues w KCl Unit. Pain management DVT prophylaxis - Lovenox Monitor RLE: maintain vac dressings and soft dressings at all times. vac pump settings on intermittent, 100mmHg, high, 3:1. LLE: daily dressing changes to left leg. NWB. RUE: daily dressing changes. NWB. maintain sling. -surgery this AM for I&d and vac change right leg Onur Swain Dec 09, 2016 06:45
[2016-12-09] MEDS ORDERED: MIDAZOLAM HCL 2 MG/2 ML VIAL ONE (06:56)
[2016-12-09] MEDS ORDERED: fentaNYL CITRATE 250 MCG/5 ML AMP ONE (06:56)
[2016-12-09] MEDS ORDERED: ceFAZolin INJ 1,000 MG VIAL ONE (07:01)
[2016-12-09] MEDS ORDERED: GENTAMICIN SULFATE 80 MG/2 ML VIAL ONE (07:01)
[2016-12-09] MEDS ORDERED: FAMOTIDINE 20 MG/2 ML VIAL ONE (07:02)
[2016-12-09] MEDS ORDERED: ACETAMINOPHEN 1000 MG/100 ML VIAL IV ONE ×2 (07:11→12:00)
[2016-12-09] MEDS ORDERED: VASOPRESSIN 20 UNITS/ML VIAL (IVTITR) ONE (07:52)
--- NOTE | 2016-12-09 08:03 | PD.OP ---
cc: Emery Llanes MD Operative Report Date of Surgery: Dec 09, 2016 Preoperative Diagnosis: Open right tibia fracture Postoperative Diagnosis: Procedure: Irrigation and debridement of right tibia, application wound VAC dressing Surgeon: Emery Llanes Retail Planning Manager(s): SALLY Reynoso PA-C The surgical procedure was assisted by my physician nurseryman assistant. My P.A. presence was necessary throughout this case for the manipulation and positioning of the surgical extremity. My P.A. was assisting me throughout the duration of this procedure. The skill set of a physician nurseryman assistant was medically necessary to complete this procedure. During the surgical case the registered nurse surgical services was working at the back table and the physician nurseryman assistant was directly assisting me. 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 Informed consent was obtained preoperatively and operative site was marked. She was given IV sedation and general anesthesia. She received IV antibiotics. Timeout procedure was performed. Right leg was prepped with alcohol followed by Hibiclens and draped in the usual sterile fashion. Procedure began with debridement of the wound. The soleus muscle flap over the fracture site appeared to be healthy and viable. The fracture site is completely covered with muscle. Small areas of gastrocnemius and anterior tibialis muscle were debrided. Skin and subcutaneous tissue fascia and muscle were sharply debrided with rongeur and scalpel. Curettes were also used to debride the edges of the bone. Overall wound was clean. Wound was now thoroughly irrigated with sterile saline. Next attention was turned to wound VAC dressing. An extra large VAC dressing was cut to fit the wound. VAC dressing was stapled into place to help hold it in place. Using Ioban the Vac dressing was sealed. A good seal was obtained. VAC settings were 125 mmHg intermittent 3 and 1. Patient was awakened and transferred to recovery room in stable condition. Emery Llanes MD Dec 09, 2016 08:03
[2016-12-09] MEDS ORDERED: DO NOT ADM ANY ANTICOAGULANT DRUGS PRN (08:57)
[2016-12-09] MEDS ORDERED: *morphine SULFATE 8 MG/ML PERIprocedure ONLY ONE ×3 (08:57→09:17)
[2016-12-09] MEDS: DOCUSATE SODIUM 50 MG/SENNA 8.6 MG TAB PO SCH ×2 (09:00→20:33)
[2016-12-09] MEDS: LACTULOSE SYRUP 20 GM/30 ML CUP PO SCH (09:00)
[2016-12-09] MEDS ORDERED: PREGABALIN 100 MG CAP PO SCH (09:45)
[2016-12-09] MEDS ORDERED: IBUPROFEN 800 MG TAB PO SCH (09:45)
[2016-12-09] MEDS ORDERED: METHOCARBAMOL 500 MG TAB PO SCH (09:45)
[2016-12-09] MEDS: MULTIVITAMINS/MINERALS THERAPEUTIC TAB PO SCH ×2 (10:09→20:33)
[2016-12-09] MEDS: CITALOPRAM HYDROBROMIDE 20 MG TAB PO SCH ×2 (10:09→20:33)
[2016-12-09] MEDS: LACTOBACILLUS ACIDOPHILUS TAB PO SCH ×2 (10:09→20:33)
[2016-12-09] MEDS: SODIUM CHLORIDE 0.9% FLUSH 10 ML FLUSH IV FLUSH SCH ×2 (10:10→20:34)
[2016-12-09 10:11] VITALS: BP 105/70; PULSE 124; RESP 19; TEMP 97.5; O2SAT 99
[2016-12-09] MEDS: LACTATED RINGER'S 1000 ML INJ 1,000 ML IV SCH ×2 (10:11→19:00)
[2016-12-09] MEDS: ENOXAPARIN SODIUM 30 MG/0.3 ML SYRINGE SQ SCH ×2 (11:20→23:38)
[2016-12-09] MEDS: GENTAMICIN 80 MG PREMIX 100 ML IV SCH ×2 (11:25→20:00)
[2016-12-09 12:00] VITALS: BP 111/68; PULSE 120; RESP 18; TEMP 97.6; O2SAT 99
[2016-12-09] MEDS ORDERED: fentaNYL CITRATE 250 MCG/5 ML AMP IV ONE (12:00)
[2016-12-09] MEDS ORDERED: ONDANSETRON HCL 4 MG/2 ML VIAL IV PUSH ONE (12:00)
[2016-12-09] MEDS ORDERED: PHENYLEPH/NS 1000 MCG/10 ML SYR IV ONE (12:00)
[2016-12-09] MEDS ORDERED: LACTATED RINGER'S 1000 ML INJ 1,000 ML IV ONE (12:00)
[2016-12-09] MEDS ORDERED: PROPOFOL 200 MG/20 ML AMP IV ONE (12:00)
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
[2016-12-09 13:21] LABS: MEAN CELL VOLUME 87.6 FL (80.0-100.0); MEAN CORPUSCULAR HEMOGLOBIN 27.4 PG (27.0-34.0); MEAN CORPUSCULAR HGB CONC 31.3 % (32.0-36.0); PLATELET COUNT 488 TH/MM3 (150-450); RED BLOOD COUNT 2.31 MIL/MM3 (4.00-5.30); WHITE BLOOD COUNT 18.7 TH/MM3 (4.0-11.0)
[2016-12-09 13:27] LABS: REVIEW FLAG FINAL
[2016-12-09 13:31] LABS: HEMATOCRIT 20.3 % (35.0-46.0)
[2016-12-09 14:00] LABS: BICARBONATE 34.1 MEQ/L (21.0-32.0); POTASSIUM 4.4 MEQ/L (3.5-5.1)
[2016-12-09] MEDS ORDERED: SODIUM CHLOR 0.9% 250 ML INJ 250 ML IV ONE (14:00)
[2016-12-09 16:00] VITALS: BP 116/73; PULSE 113; RESP 20; TEMP 99.2; O2SAT 98
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
[2016-12-09 20:19] VITALS: BP 105/58; PULSE 113; RESP 18; TEMP 99.2; O2SAT 97; O2SAT 99
[2016-12-09] MEDS: traZODone HCL 50 MG TAB PO SCH (20:34)
[2016-12-09 20:35] VITALS: BP 104/57; PULSE 114; RESP 18; TEMP 100; O2SAT 98
[2016-12-10] VITALS (14 sets, daily range): BP systolic 99–119; BP diastolic 55–84; PULSE 93–118; RESP 16–20; TEMP 96.3–100.7; O2SAT 95–98
[2016-12-10] MEDS: ZOLPIDEM TARTRATE 5 MG TAB PO PRN (01:17)
[2016-12-10] MEDS: METHOCARBAMOL 500 MG TAB PO SCH ×3 (01:41→16:59)
[2016-12-10] MEDS: PREGABALIN 100 MG CAP PO SCH ×3 (01:41→16:58)
[2016-12-10] MEDS: QUEtiapine FUMARATE 25 MG TAB PO SCH ×3 (01:41→16:58)
[2016-12-10] MEDS: IBUPROFEN 800 MG TAB PO SCH ×3 (01:43→16:58)
[2016-12-10] MEDS: ceFAZolin 2 GM PREMIX 50 ML IV SCH ×3 (01:49→17:51)
[2016-12-10] MEDS: HYDROmorphone HCL 4 MG TAB PO PRN ×5 (02:35→21:48)
[2016-12-10] MEDS: GENTAMICIN 80 MG PREMIX 100 ML IV SCH ×3 (04:49→21:49)
[2016-12-10] MEDS: LACTATED RINGER'S 1000 ML INJ 1,000 ML IV SCH ×2 (05:00→15:00)
[2016-12-10 05:57] LABS: HEMATOCRIT 20.7 % (35.0-46.0); REVIEW FLAG FINAL
--- NOTE | 2016-12-10 06:54 | PD.ORT.PN ---
Subjective Subjective Remarks s/p IMN with partial wound closure left leg - POD 21 s/p right tibia fx with vascular and significant soft tissue injury s/p removal of exfix with IMN and rotation soleus graft right tibia - POD 11 s/p right shoulder AC joint repair - POD 14 s/p I&D right leg - POD 1 doing well no changes. Objective Vitals Vital Signs Date Time Temp Pulse Resp B/P Pulse Ox O2 Delivery O2 Flow Rate FiO2 12/10/16 03:50 99.1 113 18 119/63 97 12/10/16 03:35 18 12/10/16 02:41 18 12/10/16 02:41 18 12/10/16 01:35 100.7 115 18 119/63 97 12/10/16 01:20 99.6 116 18 110/76 97 12/10/16 00:15 99.8 118 18 104/59 97 12/09/16 20:35 100.0 114 18 104/57 98 12/09/16 20:19 99 21 12/09/16 20:19 99.2 113 18 105/58 97 12/09/16 16:00 99.2 113 20 116/73 98 12/09/16 12:00 97.6 120 18 111/68 99 12/09/16 10:11 97.5 124 19 105/70 99 12/09/16 09:30 97.9 112 17 127/60 100 Nasal Cannula 3 12/09/16 09:15 114 17 117/58 100 Nasal Cannula 3 12/09/16 09:00 110 17 94/55 100 Nasal Cannula 3 12/09/16 08:54 97.7 115 18 121/73 100 Nasal Cannula 3 I/O 12/09/16 12/09/16 12/09/16 12/10/16 12/10/16 12/10/16 07:00 15:00 23:00 07:00 15:00 23:00 Intake Total 1250 ml 1971 ml 920 ml Output Total 25 ml 175 ml 225 ml 50 ml Balance -25 ml 1075 ml 1746 ml 870 ml Intake Oral 1520 ml 720 ml IV Total 250 ml 451 ml 200 ml Other 1000 ml Output Urine Total 0 ml Drainage Total 25 ml 75 ml 225 ml 50 ml Estimated Blood Loss 100 ml # Voids 3 8 5 # Bowel Movements 0 0 0 Result Diagram: 12/10/16 0427 12/09/16 1254 Imaging Last 24 hours Impressions Chest X-Ray 11/20/16 0600 Signed Impressions: Service Date/Time: Sunday, November 20, 2016 03:57 - CONCLUSION: Mild left lower lobe infiltrate. Unchanged lines and tubes. Shane Gonzalez MD Objective Remarks Sitting up in bed, Both leg elevated. NAD VSS Shoulder X-Ray 11/23/16 0000 Signed Impressions: Service Date/Time: Wednesday, November 23, 2016 09:05 - CONCLUSION: Grade 4 a.c. joint separation. Chinmay Leon MD Foot X-Ray 11/23/16 0000 Signed Impressions: Service Date/Time: Wednesday, November 23, 2016 09:01 - CONCLUSION: 1. Nonspecific soft tissue swelling around the foot. 2. Mild irregularity involving the base of the proximal phalanx. Recommend correlation with point tenderness for nondisplaced fracture. Chinmay Leon MD LLE: Dressing intact, mild swelling foot, Wiggles toes freely, sensation intact, +cap refill, +nvi. slight plantar contraction present RLE: Splint in place, VAC in place with with good seal and pump running appropriately Continues to have moderate right foot swelling w mild ecchymosis, Limited sensation, no movement toes on todays exam, +nvi, +cap refill RUE: Dressing/sling in place, Mild swelling hand, Good sensation hand and fingers, median/ulnar nerve distribution fully intact, +motor brachiorad and thumb extension Assessment & Plan Assessment and Plan 1) Left Open Tibial Shaft Fxs with fasciotomies s/p IMN with wound closure - POD 21 2) I&D of open Right Tibia Fx, removal of external fixation, intramedullary nail fixation right tibia, soleus muscle rotational flap - POD 11 3) Right Tibial Artery injury 4) Right foot 5th Phalynx fx - nonop 5) Right shoulder AC joint separation s/p ORIF - POD 14 6) Irrigation and debridement of right leg, application wound VAC dressing POD 1 RLE VAC running well. maintain intermittent, 125mmHg, high, 3:1. if vac fails, hook to wall suction Pain management DVT prophylaxis - Lovenox Monitor will DC jonathan and sutures from left leg and right shoulder today. will order PODUS boot for left ankle will plan for OR on AM for repeat I&D with vac change. Onur Swain Dec 10, 2016 06:54
[2016-12-10] MEDS: SODIUM CHLORIDE 0.9% FLUSH 10 ML FLUSH IV FLUSH SCH ×2 (09:00→21:00)
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
[2016-12-10] MEDS: CITALOPRAM HYDROBROMIDE 20 MG TAB PO SCH ×2 (10:28→21:49)
[2016-12-10] MEDS: MULTIVITAMINS/MINERALS THERAPEUTIC TAB PO SCH ×2 (10:29→21:49)
[2016-12-10] MEDS: DOCUSATE SODIUM 50 MG/SENNA 8.6 MG TAB PO SCH ×2 (10:29→21:49)
[2016-12-10] MEDS: LACTULOSE SYRUP 20 GM/30 ML CUP PO SCH (10:30)
[2016-12-10] MEDS: LACTOBACILLUS ACIDOPHILUS TAB PO SCH ×2 (10:30→21:49)
[2016-12-10] MEDS: ENOXAPARIN SODIUM 30 MG/0.3 ML SYRINGE SQ SCH ×2 (10:42→23:00)
[2016-12-10 11:11] LABS: HEMATOCRIT 21.8 % (35.0-46.0); REVIEW FLAG FINAL
[2016-12-10] MEDS: traZODone HCL 50 MG TAB PO SCH (21:49)
[2016-12-11] VITALS (7 sets, daily range): BP systolic 102–108; BP diastolic 55–67; PULSE 95–113; RESP 15–17; TEMP 98.3–99.5; O2SAT 95–96
[2016-12-11] MEDS: LACTATED RINGER'S 1000 ML INJ 1,000 ML IV SCH ×3 (01:00→21:44)
[2016-12-11] MEDS: ceFAZolin 2 GM PREMIX 50 ML IV SCH ×3 (01:41→17:32)
[2016-12-11] MEDS: METHOCARBAMOL 500 MG TAB PO SCH ×3 (01:42→17:32)
[2016-12-11] MEDS: PREGABALIN 100 MG CAP PO SCH ×3 (01:42→17:33)
[2016-12-11] MEDS: IBUPROFEN 800 MG TAB PO SCH ×3 (01:42→17:33)
[2016-12-11] MEDS: QUEtiapine FUMARATE 25 MG TAB PO SCH ×3 (01:43→17:32)
[2016-12-11] MEDS: HYDROmorphone HCL 4 MG TAB PO PRN ×6 (02:26→21:04)
[2016-12-11] MEDS ORDERED: BACITRACIN TOP OINT 15 GM TUBE TOPICAL PRN (02:30)
[2016-12-11] MEDS: GENTAMICIN 80 MG PREMIX 100 ML IV SCH ×3 (03:48→21:00)
[2016-12-11] MEDS ORDERED: LACTATED RINGER'S 1000 ML IV PRN (05:45)
[2016-12-11] MEDS ORDERED: POVIDONE IODINE 5% (ANTISEPSIS KIT) 4 APPLICATIONS EACH NARE PRN (05:45)
[2016-12-11] MEDS ORDERED: SODIUM CHLORID 0.9% 500 ML IV PRN (05:45)
[2016-12-11] MEDS ORDERED: CHLORHEXIDINE GLUCONATE 2 % 1 PACK (2 CLOTHS) TOPICAL PRN (05:45)
--- NOTE | 2016-12-11 06:42 | PD.ORT.PN ---
Subjective Subjective Remarks s/p IMN with partial wound closure left leg - POD 22 s/p right tibia fx with vascular and significant soft tissue injury s/p removal of exfix with IMN and rotation soleus graft right tibia - POD 12 s/p right shoulder AC joint repair - POD 15 s/p I&D right leg - POD 2 doing well no changes. jonathan removed from right shoulder and left leg yesterday. one staple was unable to be removed from left knee Objective Vitals Vital Signs Date Time Temp Pulse Resp B/P Pulse Ox O2 Delivery O2 Flow Rate FiO2 12/11/16 04:00 98.3 99 17 106/55 96 12/11/16 03:26 18 12/11/16 02:42 18 12/11/16 02:42 18 12/11/16 00:00 99.0 113 16 107/67 95 12/10/16 20:00 98.1 109 19 113/84 95 12/10/16 19:15 99.3 111 18 111/63 98 12/10/16 18:00 98 21 12/10/16 16:00 99.3 107 18 113/59 98 12/10/16 15:36 99.0 108 16 103/61 98 12/10/16 15:20 99.3 107 16 113/59 12/10/16 12:00 99.6 104 20 106/57 97 12/10/16 11:30 98 21 12/10/16 08:00 96.3 93 20 99/56 97 I/O 12/10/16 12/10/16 12/10/16 12/11/16 12/11/16 12/11/16 07:00 15:00 23:00 07:00 15:00 23:00 Intake Total 920 ml 780 ml 200 ml Output Total 50 ml 100 ml Balance 870 ml -100 ml 780 ml 200 ml Intake Oral 720 ml 780 ml 200 ml IV Total 200 ml Drainage Total 50 ml 100 ml # Voids 5 3 2 2 # Bowel Movements 0 1 0 0 Result Diagram: 12/10/16 1039 12/09/16 1254 Imaging Last 24 hours Impressions Chest X-Ray 11/20/16 0600 Signed Impressions: Service Date/Time: Sunday, November 20, 2016 03:57 - CONCLUSION: Mild left lower lobe infiltrate. Unchanged lines and tubes. Shane Gonzalez MD Objective Remarks Shoulder X-Ray 11/23/16 0000 Signed Impressions: Service Date/Time: Wednesday, November 23, 2016 09:05 - CONCLUSION: Grade 4 a.c. joint separation. Chinmay Leon MD Foot X-Ray 11/23/16 0000 Signed Impressions: Service Date/Time: Wednesday, November 23, 2016 09:01 - CONCLUSION: 1. Nonspecific soft tissue swelling around the foot. 2. Mild irregularity involving the base of the proximal phalanx. Recommend correlation with point tenderness for nondisplaced fracture. Chinmay Leno LLE: Dressing intact, mild swelling foot, Wiggles toes freely, sensation intact, +cap refill, +nvi. slight plantar contraction present. podus boot in place. knee incision covered with tegaderm and single staple remaining. RLE: Splint in place, VAC in place with with good seal and pump running appropriately Continues to have moderate right foot swelling w mild ecchymosis, Limited sensation, no movement toes on todays exam, +nvi, +cap refill RUE: Dressing/sling in place, Mild swelling hand, Good sensation hand and fingers, median/ulnar nerve distribution fully intact, +motor brachiorad and thumb extension Assessment & Plan Assessment and Plan 1) Left Open Tibial Shaft Fxs with fasciotomies s/p IMN with wound closure - POD 22 2) I&D of open Right Tibia Fx, removal of external fixation, intramedullary nail fixation right tibia, soleus muscle rotational flap - POD 12 3) Right Tibial Artery injury 4) Right foot 5th Phalynx fx - nonop 5) Right shoulder AC joint separation s/p ORIF - POD 15 6) Irrigation and debridement of right leg, application wound VAC dressing POD 2 RLE VAC running well. maintain intermittent, 125mmHg, high, 3:1. if vac fails, hook to wall suction Pain management DVT prophylaxis - Lovenox Monitor OR Thurs AM for I&D and vac change. will also remove last remaining staple at that time sign consents npo after Onur Ma Dec 11, 2016 06:42
[2016-12-11] MEDS: LACTOBACILLUS ACIDOPHILUS TAB PO SCH ×2 (09:13→21:00)
[2016-12-11] MEDS: MULTIVITAMINS/MINERALS THERAPEUTIC TAB PO SCH ×2 (09:13→21:00)
[2016-12-11] MEDS: DOCUSATE SODIUM 50 MG/SENNA 8.6 MG TAB PO SCH ×2 (09:14→21:00)
[2016-12-11] MEDS: CITALOPRAM HYDROBROMIDE 20 MG TAB PO SCH ×2 (09:14→21:00)
[2016-12-11] MEDS: LACTULOSE SYRUP 20 GM/30 ML CUP PO SCH (09:22)
[2016-12-11] MEDS: SODIUM CHLORIDE 0.9% FLUSH 10 ML FLUSH IV FLUSH SCH ×2 (09:26→21:00)
[2016-12-11] MEDS: REMOVE OLD DURAGESIC (FENTANYL) PATCH T-DERMAL SCH (11:00)
[2016-12-11] MEDS: fentaNYL 50 MCG/HR PATCH T-DERMAL SCH (11:29)
[2016-12-11] MEDS: ENOXAPARIN SODIUM 30 MG/0.3 ML SYRINGE SQ SCH ×2 (11:30→20:55)
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
[2016-12-11] MEDS: FERROUS SULFATE 325 MG (65 MG ELEMENTAL IRON) TAB PO SCH (21:00)
[2016-12-11] MEDS: traZODone HCL 50 MG TAB PO SCH (21:00)
[2016-12-12] VITALS: BP 103/59; PULSE 98; RESP 15; TEMP 96.5; O2SAT 96
[2016-12-12] MEDS: IBUPROFEN 800 MG TAB PO SCH ×3 (01:44→18:24)
[2016-12-12] MEDS: HYDROmorphone HCL 4 MG TAB PO PRN ×6 (01:44→21:29)
[2016-12-12] MEDS: METHOCARBAMOL 500 MG TAB PO SCH ×3 (01:44→18:24)
[2016-12-12] MEDS: PREGABALIN 100 MG CAP PO SCH ×3 (01:44→18:24)
[2016-12-12] MEDS: QUEtiapine FUMARATE 25 MG TAB PO SCH ×3 (01:44→18:24)
[2016-12-12] MEDS: ceFAZolin 2 GM PREMIX 50 ML IV SCH ×4 (01:45→23:21)
[2016-12-12] MEDS: GENTAMICIN 80 MG PREMIX 100 ML IV SCH ×3 (04:27→23:22)
[2016-12-12] MEDS: LACTATED RINGER'S 1000 ML INJ 1,000 ML IV SCH ×2 (06:28→18:00)
--- NOTE | 2016-12-12 06:40 | PD.ORT.PN ---
Subjective Subjective Remarks s/p IMN with partial wound closure left leg - POD 23 s/p right tibia fx with vascular and significant soft tissue injury s/p removal of exfix with IMN and rotation soleus graft right tibia - POD 13 s/p right shoulder AC joint repair - POD 16 s/p I&D right leg - POD 3 doing well no changes. Objective Vitals Vital Signs Date Time Temp Pulse Resp B/P Pulse Ox O2 Delivery O2 Flow Rate FiO2 12/12/16 00:00 96.5 98 15 103/59 96 12/11/16 20:00 99.5 108 15 102/62 95 12/11/16 15:56 98.4 102 17 108/65 95 12/11/16 12:00 99.0 101 17 103/58 95 12/11/16 09:46 95 21 12/11/16 08:00 98.4 95 17 103/59 95 I/O 12/11/16 12/11/16 12/11/16 12/12/16 12/12/16 12/12/16 07:00 15:00 23:00 07:00 15:00 23:00 Intake Total 731 ml 1157 ml 780 ml 240 ml Output Total 50 ml 150 ml 175 ml Balance 681 ml 1157 ml 630 ml 65 ml Intake Oral 200 ml 700 ml 780 ml 240 ml IV Total 531 ml 457 ml Drainage Total 50 ml 150 ml 175 ml # Voids 2 6 3 3 # Bowel Movements 0 0 0 1 Result Diagram: 12/10/16 1039 12/09/16 1254 Imaging Last 24 hours Impressions Chest X-Ray 11/20/16 0600 Signed Impressions: Service Date/Time: Sunday, November 20, 2016 03:57 - CONCLUSION: Mild left lower lobe infiltrate. Unchanged lines and tubes. Shane Gonzalez MD Objective Remarks Shoulder X-Ray 11/23/16 0000 Signed Impressions: Service Date/Time: Wednesday, November 23, 2016 09:05 - CONCLUSION: Grade 4 a.c. joint separation. Chinmay Leon MD Foot X-Ray 11/23/16 0000 Signed Impressions: Service Date/Time: Wednesday, November 23, 2016 09:01 - CONCLUSION: 1. Nonspecific soft tissue swelling around the foot. 2. Mild irregularity involving the base of the proximal phalanx. Recommend correlation with point tenderness for nondisplaced fracture. Chinmay Leon LLE: Dressing intact, mild swelling foot, Wiggles toes freely, sensation intact, +cap refill, +nvi. slight plantar contraction present. podus boot in place. knee incision covered with tegaderm and single staple remaining. RLE: Splint in place, VAC in place with with good seal and pump running appropriately Continues to have moderate right foot swelling w mild ecchymosis, Limited sensation, no movement toes on todays exam, +nvi, +cap refill RUE: Dressing/sling in place, Mild swelling hand, Good sensation hand and fingers, median/ulnar nerve distribution fully intact, +motor brachiorad and thumb extension Assessment & Plan Assessment and Plan 1) Left Open Tibial Shaft Fxs with fasciotomies s/p IMN with wound closure - POD 23 2) I&D of open Right Tibia Fx, removal of external fixation, intramedullary nail fixation right tibia, soleus muscle rotational flap - POD 13 3) Right Tibial Artery injury 4) Right foot 5th Phalynx fx - nonop 5) Right shoulder AC joint separation s/p ORIF - POD 16 6) Irrigation and debridement of right leg, application wound VAC dressing POD 3 RLE VAC running well. maintain intermittent, 125mmHg, high, 3:1. if vac fails, hook to wall suction Pain management DVT prophylaxis - Lovenox Monitor OR today for vac change Onur Swain Dec 12, 2016 06:40
[2016-12-12] MEDS ORDERED: GENTAMICIN SULFATE 80 MG/2 ML VIAL ONE (06:46)
[2016-12-12] MEDS ORDERED: HYDROmorphone HCL PF 2 MG/ML VIAL ONE (06:48)
[2016-12-12] MEDS ORDERED: FAMOTIDINE 20 MG/2 ML VIAL ONE (06:48)
[2016-12-12] MEDS ORDERED: MIDAZOLAM HCL 2 MG/2 ML VIAL ONE (06:48)
[2016-12-12] MEDS ORDERED: ACETAMINOPHEN 1000 MG/100 ML VIAL IV ONE (06:48)
[2016-12-12] MEDS ORDERED: fentaNYL CITRATE 250 MCG/5 ML AMP ONE (06:48)
--- NOTE | 2016-12-12 07:45 | PD.OP ---
cc: Emery Llanes MD Operative Report Date of Surgery: Dec 12, 2016 Preoperative Diagnosis: Open right tibia fracture with large open wound Postoperative Diagnosis: Procedure: Irrigation and debridement of right leg and tibia, application of wound VAC dressing Anesthesia: Gen. Surgeon: Emery Llanes Granulizing Machine Operator(s): SALLY Reynoso PA-C The surgical procedure was assisted by my physician temporary administrative assistant. My P.A. presence was necessary throughout this case for the manipulation and positioning of the surgical extremity. My P.A. was assisting me throughout the duration of this procedure. The skill set of a physician temporary administrative assistant was medically necessary to complete this procedure. During the surgical case the surgical scrub technologist was working at the back table and the physician temporary administrative assistant was directly assisting me. 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 Informed consent was obtained preoperatively and operative site was marked. She was given IV sedation and general anesthesia. She received IV antibiotics. Timeout procedure was performed. Right leg was prepped with alcohol followed by Hibiclens and draped in the usual sterile fashion. Procedure began with debridement of the wound. The soleus muscle flap over the fracture site appeared to be healthy and viable. The fracture site is completely covered with muscle. Small areas of gastrocnemius muscle was debrided. There were small areas of necrotic skin. Skin and subcutaneous tissue fascia and muscle were sharply debrided with rongeur and scalpel. Curettes were also used to debride the edges of the bone. Overall wound was clean. Wound was now thoroughly irrigated with sterile saline. Next attention was turned to wound VAC dressing. An extra large VAC dressing was cut to fit the wound. VAC dressing was stapled into place to help hold it in place. Using Ioban the Vac dressing was sealed. A good seal was obtained. VAC settings were 125 mmHg intermittent 3 and 1. Patient was awakened and transferred to recovery room in stable condition. Emery Llanes MD Dec 12, 2016 07:45
[2016-12-12] MEDS ORDERED: DO NOT ADM ANY ANTICOAGULANT DRUGS PRN (08:35)
[2016-12-12] MEDS: ENOXAPARIN SODIUM 30 MG/0.3 ML SYRINGE SQ SCH ×2 (11:00→23:22)
[2016-12-12] MEDS: LACTULOSE SYRUP 20 GM/30 ML CUP PO SCH (11:35)
[2016-12-12] MEDS: CITALOPRAM HYDROBROMIDE 20 MG TAB PO SCH ×2 (11:35→20:29)
[2016-12-12] MEDS: MULTIVITAMINS/MINERALS THERAPEUTIC TAB PO SCH ×2 (11:35→20:28)
[2016-12-12] MEDS: ERGOCALCIFEROL (VIT D2) 50,000 UNIT CAP PO SCH (11:36)
[2016-12-12] MEDS: LACTOBACILLUS ACIDOPHILUS TAB PO SCH ×2 (11:36→20:28)
[2016-12-12] MEDS: FERROUS SULFATE 325 MG (65 MG ELEMENTAL IRON) TAB PO SCH ×2 (11:36→20:28)
[2016-12-12] MEDS: DOCUSATE SODIUM 50 MG/SENNA 8.6 MG TAB PO SCH ×2 (11:37→20:28)
[2016-12-12] MEDS: SODIUM CHLORIDE 0.9% FLUSH 10 ML FLUSH IV FLUSH SCH ×2 (11:37→20:29)
[2016-12-12 11:51] VITALS: BP 107/65; PULSE 101; RESP 19; TEMP 97.6; O2SAT 97
[2016-12-12] MEDS ORDERED: PROPOFOL 200 MG/20 ML AMP IV ONE (12:00)
[2016-12-12] MEDS ORDERED: ONDANSETRON HCL 4 MG/2 ML VIAL IV PUSH ONE (12:00)
[2016-12-12] MEDS ORDERED: HYDROmorphone HCL PF 2 MG/ML VIAL IV ONE (12:00)
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
[2016-12-12 16:00] VITALS: BP 112/61; PULSE 97; RESP 19; TEMP 98.4; O2SAT 97
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
[2016-12-12 18:55] LABS: HEMATOCRIT 23.8 % (35.0-46.0); MEAN CELL VOLUME 86.9 FL (80.0-100.0); MEAN CORPUSCULAR HEMOGLOBIN 27.8 PG (27.0-34.0); PLATELET COUNT 468 TH/MM3 (150-450); RED BLOOD COUNT 2.74 MIL/MM3 (4.00-5.30); RED CELL DISTRIBUTION WIDTH 14.6 % (11.6-17.2); REVIEW FLAG FINAL; WHITE BLOOD COUNT 17.1 TH/MM3 (4.0-11.0)
[2016-12-12 19:00] VITALS: BP 97/49; PULSE 98; RESP 16; TEMP 98.6; O2SAT 98
[2016-12-12 19:14] LABS: BICARBONATE 31.1 MEQ/L (21.0-32.0); MAGNESIUM 1.9 MG/DL (1.5-2.5); POTASSIUM 4.5 MEQ/L (3.5-5.1)
[2016-12-12 19:24] VITALS: O2SAT 97
[2016-12-12] MEDS: traZODone HCL 50 MG TAB PO SCH (20:29)
[2016-12-13] MEDS: QUEtiapine FUMARATE 25 MG TAB PO SCH ×3 (02:10→18:39)
[2016-12-13] MEDS: METHOCARBAMOL 500 MG TAB PO SCH ×3 (02:10→18:39)
[2016-12-13] MEDS: IBUPROFEN 800 MG TAB PO SCH ×3 (02:10→18:39)
[2016-12-13] MEDS: PREGABALIN 100 MG CAP PO SCH ×3 (02:11→18:39)
[2016-12-13] MEDS: LACTATED RINGER'S 1000 ML INJ 1,000 ML IV SCH (04:00)
[2016-12-13] MEDS: HYDROmorphone HCL 4 MG TAB PO PRN ×6 (06:06→22:17)
[2016-12-13] MEDS: ceFAZolin 2 GM PREMIX 50 ML IV SCH ×3 (06:06→22:16)
--- NOTE | 2016-12-13 06:45 | PD.ORT.PN ---
Subjective Subjective Remarks s/p IMN with partial wound closure left leg - POD 24 s/p right tibia fx with vascular and significant soft tissue injury s/p removal of exfix with IMN and rotation soleus graft right tibia - POD 14 s/p right shoulder AC joint repair - POD 17 s/p I&D right leg with vac change - POD 1 doing well no changes. MRI of left knee performed yesterday. states pain is improving. Objective Vitals Vital Signs Date Time Temp Pulse Resp B/P Pulse Ox O2 Delivery O2 Flow Rate FiO2 12/12/16 20:00 98 Room Air 12/12/16 19:24 97 21 12/12/16 19:00 98.6 98 16 97/49 98 12/12/16 16:00 98.4 97 19 112/61 97 12/12/16 11:51 97.6 101 19 107/65 97 12/12/16 09:15 98.2 97 22 119/65 97 Room Air 12/12/16 09:00 96 24 121/66 97 Nasal Cannula 1 12/12/16 08:45 102 18 122/68 99 Nasal Cannula 1 12/12/16 08:35 97.6 100 22 117/66 100 Nasal Cannula 3 I/O 12/12/16 12/12/16 12/12/16 12/13/16 12/13/16 12/13/16 07:00 15:00 23:00 07:00 15:00 23:00 Intake Total 240 ml 1850 ml 644 ml 480 ml Output Total 175 ml 130 ml 75 ml 50 ml Balance 65 ml 1720 ml 569 ml 430 ml Intake Oral 240 ml 850 ml 480 ml 480 ml IV Total 164 ml Other 1000 ml Drainage Total 175 ml 80 ml 75 ml 50 ml Estimated Blood Loss 50 ml # Voids 3 3 4 4 # Bowel Movements 1 0 0 0 Result Diagram: 12/12/16 [id number] Imaging Last 24 hours Impressions Chest X-Ray 11/20/16 0600 Signed Impressions: Service Date/Time: Sunday, November 20, 2016 03:57 - CONCLUSION: Mild left lower lobe infiltrate. Unchanged lines and tubes. Shane Gonzalez MD Objective Remarks LLE: Dressing intact, mild swelling foot, +splint. intact. Wiggles toes freely, sensation intact, +cap refill, +nvi. RLE: Splint in place, VAC in place with with good seal and pump running appropriately Continues to have moderate right foot swelling w mild ecchymosis, Limited sensation, no movement toes on todays exam, +cap refill RUE: Dressing/sling in place, Mild swelling hand, Good sensation hand and fingers, median/ulnar nerve distribution fully intact, +motor brachiorad and thumb extension Assessment & Plan Assessment and Plan 1) Left Open Tibial Shaft Fxs with fasciotomies s/p IMN with wound closure - POD 24 2) Right shoulder AC joint separation s/p ORIF - POD 17 3) I&D of open Right Tibia Fx, removal of external fixation, intramedullary nail fixation right tibia, soleus muscle rotational flap - POD 14 4) Irrigation and debridement of right leg, application wound VAC dressing POD 1 5) Right foot 5th Phalynx fx - nonop 6) Right Tibial Artery injury s/p Repair by Dr Jordan. JOSLYN VAC running well. maintain intermittent, 125mmHg, high, 3:1. if vac fails, hook to wall suction maintain bilateral short leg splints at all time MRI of left knee reviewed. Shows ACL sprain. ligaments grossly intact. no surgical intervention needed PT - ROM of knees to prevent contractures/stiffness. NWB BLE/RUE. Pain management DVT prophylaxis - Lovenox NPO after MN on friday plan for OR for vac change friday with Dr Hidalgo -XRAYS of right shoulder and right tibia are ordered and will be performed today Onur Swain Dec 13, 2016 06:45
[2016-12-13 07:32] VITALS: BP 103/60; PULSE 97; RESP 19; TEMP 97.5; O2SAT 96
[2016-12-13] MEDS: SODIUM CHLORIDE 0.9% FLUSH 10 ML FLUSH IV FLUSH SCH ×2 (09:00→22:16)
[2016-12-13] MEDS: ENOXAPARIN SODIUM 30 MG/0.3 ML SYRINGE SQ SCH ×2 (09:24→22:16)
[2016-12-13] MEDS: MULTIVITAMINS/MINERALS THERAPEUTIC TAB PO SCH ×2 (09:24→20:46)
[2016-12-13] MEDS: DOCUSATE SODIUM 50 MG/SENNA 8.6 MG TAB PO SCH ×2 (09:25→20:46)
[2016-12-13] MEDS: LACTULOSE SYRUP 20 GM/30 ML CUP PO SCH (09:25)
[2016-12-13] MEDS: FERROUS SULFATE 325 MG (65 MG ELEMENTAL IRON) TAB PO SCH ×2 (09:25→20:46)
[2016-12-13] MEDS: CITALOPRAM HYDROBROMIDE 20 MG TAB PO SCH ×2 (09:26→20:46)
[2016-12-13] MEDS: GENTAMICIN 80 MG PREMIX 100 ML IV SCH ×3 (09:27→23:02)
[2016-12-13] MEDS: LACTOBACILLUS ACIDOPHILUS TAB PO SCH ×2 (09:27→20:46)
[2016-12-13 11:14] VITALS: O2SAT 98
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
[2016-12-13 12:00] VITALS: BP 102/65; PULSE 108; RESP 19; TEMP 97.6; O2SAT 97
[2016-12-13] MEDS: EPOETIN ALFA 10,000 UNITS/ML VIAL SQ SCH (12:01)
--- NOTE | 2016-12-13 12:27 | RADRPT ---
EXAM DATE/TIME: 12/13/2016 11:29 [facility] COMPARISON: SHOULDER RIGHT LTD (2VWS), November 23, 2016, 9:05. SHOULDER RIGHT LTD (2VWS), November 26, 2016, 15:46. INDICATIONS : Evaluate fracture MEDICAL HISTORY : None. SURGICAL HISTORY : Shoulder surgery ENCOUNTER: Subsequent ACUITY: 1 month PAIN SCORE: 0/10 LOCATION: Right Clavicle FINDINGS: Side plate and multiple screws traverse the right clavicle and A/C joint with excellent anatomical al ignment of the fracture fragments. The A/C joint is aligned. CONCLUSION: A/C joint appears aligned. Abhijit Fernandes MD on December 13, 2016 at 12:13 Board Certified Radiologist. This report was verified electronically.
--- NOTE | 2016-12-13 12:28 | RADRPT ---
EXAM DATE/TIME: 12/13/2016 11:33 [facility] COMPARISON: No previous studies available for comparison. INDICATIONS : Evaluate tibia fracture MEDICAL HISTORY : None. SURGICAL HISTORY : Tibia surgery ENCOUNTER: Subsequent ACUITY: 1 month PAIN SCORE: 0/10 LOCATION: Right Tibia FINDINGS: Intramedullary lilliam is present traversing the tibia with fixation screws proximally and distally. Ther e is gross anatomical alignment of the fracture fragments. Comminuted and complex mid fibular fractur e is present with displaced fragments not aligned. CONCLUSION: Comminuted mid fibular fractures are not aligned, however tibial fractures are aligne d. K. Jeremiah Fernandes MD on December 13, 2016 at 12:26 Board Certified Radiologist. This report was verified electronically.
[2016-12-13 15:37] VITALS: BP 109/61; PULSE 111; RESP 19; TEMP 97.5; O2SAT 98
[2016-12-13 19:00] VITALS: BP 114/69; PULSE 107; RESP 17; TEMP 99.4; O2SAT 95
[2016-12-13] MEDS: BISACODYL 10 MG SUPP RECTAL PRN (19:35)
[2016-12-13] MEDS: traZODone HCL 50 MG TAB PO SCH (20:46)
[2016-12-13] MEDS: MAGNESIUM HYDROXIDE SUSP 30 ML CUP PO PRN (20:46)
[2016-12-14] MEDS: METHOCARBAMOL 500 MG TAB PO SCH ×3 (01:35→16:44)
[2016-12-14] MEDS: PREGABALIN 100 MG CAP PO SCH ×3 (01:35→16:44)
[2016-12-14] MEDS: QUEtiapine FUMARATE 25 MG TAB PO SCH ×3 (01:35→16:44)
[2016-12-14] MEDS: IBUPROFEN 800 MG TAB PO SCH ×3 (01:39→16:43)
[2016-12-14] MEDS: ceFAZolin 2 GM PREMIX 50 ML IV SCH ×3 (06:14→23:01)
[2016-12-14] MEDS: HYDROmorphone HCL 4 MG TAB PO PRN ×6 (06:15→23:00)
[2016-12-14 08:00] VITALS: BP 113/58; PULSE 103; RESP 18; TEMP 98.1; O2SAT 98
[2016-12-14] MEDS: SODIUM CHLORIDE 0.9% FLUSH 10 ML FLUSH IV FLUSH SCH ×2 (09:00→21:21)
[2016-12-14] MEDS: LACTULOSE SYRUP 20 GM/30 ML CUP PO SCH (09:21)
[2016-12-14] MEDS: LACTOBACILLUS ACIDOPHILUS TAB PO SCH ×2 (09:21→21:18)
[2016-12-14] MEDS: CITALOPRAM HYDROBROMIDE 20 MG TAB PO SCH ×2 (09:21→21:19)
[2016-12-14] MEDS: FERROUS SULFATE 325 MG (65 MG ELEMENTAL IRON) TAB PO SCH ×2 (09:21→21:19)
[2016-12-14] MEDS: MULTIVITAMINS/MINERALS THERAPEUTIC TAB PO SCH ×2 (09:22→21:19)
[2016-12-14] MEDS: DOCUSATE SODIUM 50 MG/SENNA 8.6 MG TAB PO SCH ×2 (09:22→21:19)
[2016-12-14] MEDS: GENTAMICIN 80 MG PREMIX 100 ML IV SCH ×2 (09:24→16:45)
[2016-12-14] MEDS: LACTATED RINGER'S 1000 ML INJ 1,000 ML IV SCH ×3 (10:00→23:11)
--- NOTE | 2016-12-14 10:29 | PD.ORT.PN ---
Subjective Subjective Remarks s/p IMN with partial wound closure left leg - POD 25 s/p right tibia fx with vascular and significant soft tissue injury s/p removal of exfix with IMN and rotation soleus graft right tibia - POD 15 s/p right shoulder AC joint repair - POD 18 s/p I&D right leg with vac change - POD 2 Pt is requesting PT twice a day - she is very pleased and excited about her progress - she demonstrates pulling her legs up towards her chest. No new changes. states pain is improving. X-rays of right clavicle and right tibia yesterday. Objective Vitals Vital Signs Date Time Temp Pulse Resp B/P Pulse Ox O2 Delivery O2 Flow Rate FiO2 12/13/16 20:00 95 Room Air 12/13/16 19:00 99.4 107 17 114/69 95 12/13/16 15:37 97.5 111 19 109/61 98 12/13/16 12:00 97.6 108 19 102/65 97 12/13/16 11:14 98 21 I/O 12/13/16 12/13/16 12/13/16 12/14/16 12/14/16 12/14/16 07:00 15:00 23:00 07:00 15:00 23:00 Intake Total 650 ml 1000 ml 480 ml 480 ml Output Total 100 ml 60 ml 50 ml Balance 550 ml 940 ml 480 ml 430 ml Intake Oral 480 ml 1000 ml 480 ml 480 ml IV Total 170 ml Drainage Total 100 ml 60 ml 50 ml # Voids 4 3 3 5 # Bowel Movements 0 0 2 1 Result Diagram: 12/12/16 1748 12/12/16 1748 Imaging Last Impressions Tibia/Fibula X-Ray 12/13/16 0000 Signed Impressions: Service Date/Time: Tuesday, December 13, 2016 11:33 - CONCLUSION: Comminuted mid fibular fractures are not aligned, however tibial fractures are aligned. Abhijit Fernandes MD Clavicle X-Ray 12/13/16 0000 Signed Impressions: Service Date/Time: Tuesday, December 13, 2016 11:29 - CONCLUSION: A/C joint appears aligned. Abhijit Fernandes MD Knee MRI 12/12/16 0000 Signed Impressions: Service Date/Time: November 15:35 - CONCLUSION: Inhomogeneous area of bright signal on T2 sequence in the distal femoral diaphysis probably areas of contusion and possible mild sprain of the ACL involving the femoral attachment site. Abhijit Fernandes MD Abdomen/Pelvis CT 12/03/16 0000 Signed Impressions: Service Date/Time: Saturday, December 03, 2016 16:29 - CONCLUSION: 1. Trace pleural fluid. Mild free fluid in the pelvis. Mild anasarca. 2. No acute traumatic injury identified within the abdomen and pelvis. 3. Moderate constipation. Mild ileus. Marshall Samaniego MD Shoulder X-Ray 11/26/16 0000 Signed Impressions: Service Date/Time: Saturday, November 26, 2016 15:46 - CONCLUSION: 1. Status post plate and screw fixation of right a.c. joint separation in near anatomic alignment without significant fracture. Zackary Piper MD Foot X-Ray 11/23/16 0000 Signed Impressions: Service Date/Time: Wednesday, November 23, 2016 09:01 - CONCLUSION: 1. Nonspecific soft tissue swelling around the foot. 2. Mild irregularity involving the base of the proximal phalanx. Recommend correlation with point tenderness for nondisplaced fracture. Chinmay Leon MD Chest X-Ray 11/21/16 0600 Signed Impressions: Service Date/Time: October 02:25 - CONCLUSION: Mild bibasilar consolidation. Interim extubation and removal of nasogastric tube and right subclavian central venous line. Shane Gonzalez MD Gall Bladder Ultrasound 11/20/16 0000 Signed Impressions: Service Date/Time: Sunday, November 20, 2016 09:42 - CONCLUSION: Distended gallbladder without stones or gallbladder wall thickening. Shane Fernandes MD Head CT 11/19/16 0000 Signed Impressions: Service Date/Time: Saturday, November 19, 2016 16:51 - CONCLUSION: 1. No intracranial abnormality. 2. Scalp injuries. Shane Fernandes MD Chest CT 11/19/16 0000 Signed Impressions: Service Date/Time: Saturday, November 19, 2016 17:02 - CONCLUSION: Areas of consolidation/contusion or atelectasis in the posterior mid and lower lungs. Shane Fernandes MD Cervical Spine CT 11/19/16 0000 Signed Impressions: Service Date/Time: Saturday, November 19, 2016 16:51 - CONCLUSION: Reversal of the normal C-spine lordosis. No acute bony injury is seen. Shane Fernandes MD Pelvis X-Ray 11/17/16 0058 Signed Impressions: Service Date/Time: Thursday, November 17, 2016 00:41 - CONCLUSION: No evidence of fracture. Avery Vaca MD Objective Remarks LLE: Dressing intact, mild swelling foot, +splint. intact. Wiggles toes freely, sensation intact, +cap refill, +nvi. RLE: Splint in place, VAC in place with with good seal and pump running appropriately Continues to have moderate right foot swelling w mild ecchymosis, Limited sensation, can move toes minimally on todays exam, +cap refill RUE: Dressing/sling in place, Mild swelling hand, Good sensation hand and fingers, median/ulnar nerve distribution fully intact, +motor brachiorad and thumb extension Assessment & Plan Assessment and Plan 1) Left Open Tibial Shaft Fxs with fasciotomies s/p IMN with wound closure - POD 24 2) Right shoulder AC joint separation s/p ORIF - POD 17 3) I&D of open Right Tibia Fx, removal of external fixation, intramedullary nail fixation right tibia, soleus muscle rotational flap - POD 14 4) Irrigation and debridement of right leg, application wound VAC dressing POD 1 5) Right foot 5th Phalynx fx - nonop 6) Right Tibial Artery injury s/p Repair by Dr Quintin JORGENSEN VAC running well. maintain intermittent, 125mmHg, high, 3:1. if vac fails, hook to wall suction maintain bilateral short leg splints at all time MRI of left knee reviewed. Shows ACL sprain. ligaments grossly intact. no surgical intervention needed Xrays of right tibia/ and right clavicle reviewed- demonstrates good fixation of components and well aligned fracture site. PT - ROM of knees to prevent contractures/stiffness. NWB BLE/RUE. Pain management DVT prophylaxis - Lovenox NPO after MN on friday plan for OR for vac change friday with Dr Gwen Vicente,Leisa REY Dec 14, 2016 10:29
[2016-12-14] MEDS: REMOVE OLD DURAGESIC (FENTANYL) PATCH T-DERMAL SCH (11:00)
[2016-12-14] MEDS: ENOXAPARIN SODIUM 30 MG/0.3 ML SYRINGE SQ SCH ×2 (11:47→23:00)
[2016-12-14] MEDS: fentaNYL 50 MCG/HR PATCH T-DERMAL SCH (11:48)
[2016-12-14 16:00] VITALS: BP 119/70; PULSE 112; RESP 18; TEMP 98.1; O2SAT 96
[2016-12-14 20:00] VITALS: BP 107/60; PULSE 107; RESP 20; TEMP 99.2; O2SAT 96
[2016-12-14] MEDS: traZODone HCL 50 MG TAB PO SCH (21:19)
[2016-12-15] VITALS: BP 115/69; PULSE 69; RESP 16; TEMP 100.2; O2SAT 97
[2016-12-15] MEDS: GENTAMICIN 80 MG PREMIX 100 ML IV SCH ×3 (00:13→15:13)
[2016-12-15] MEDS: PREGABALIN 100 MG CAP PO SCH ×3 (01:59→18:11)
[2016-12-15] MEDS: IBUPROFEN 800 MG TAB PO SCH ×3 (01:59→18:11)
[2016-12-15] MEDS: QUEtiapine FUMARATE 25 MG TAB PO SCH ×3 (01:59→18:11)
[2016-12-15] MEDS: METHOCARBAMOL 500 MG TAB PO SCH ×3 (02:00→18:11)
[2016-12-15] MEDS: HYDROmorphone HCL 4 MG TAB PO PRN ×6 (02:04→21:23)
[2016-12-15] MEDS: ceFAZolin 2 GM PREMIX 50 ML IV SCH ×3 (07:37→23:24)
[2016-12-15 08:00] VITALS: BP 112/65; PULSE 102; RESP 18; TEMP 97.1; O2SAT 98
[2016-12-15] MEDS: LACTULOSE SYRUP 20 GM/30 ML CUP PO SCH (09:00)
[2016-12-15] MEDS: SODIUM CHLORIDE 0.9% FLUSH 10 ML FLUSH IV FLUSH SCH ×2 (09:00→21:00)
[2016-12-15] MEDS: LACTATED RINGER'S 1000 ML INJ 1,000 ML IV SCH ×2 (09:17→15:46)
[2016-12-15] MEDS: LACTOBACILLUS ACIDOPHILUS TAB PO SCH ×2 (10:03→21:28)
[2016-12-15] MEDS: DOCUSATE SODIUM 50 MG/SENNA 8.6 MG TAB PO SCH ×2 (10:03→21:23)
[2016-12-15] MEDS: CITALOPRAM HYDROBROMIDE 20 MG TAB PO SCH ×2 (10:04→21:24)
[2016-12-15] MEDS: MULTIVITAMINS/MINERALS THERAPEUTIC TAB PO SCH ×2 (10:04→21:22)
[2016-12-15] MEDS: FERROUS SULFATE 325 MG (65 MG ELEMENTAL IRON) TAB PO SCH ×2 (10:04→21:24)
[2016-12-15] MEDS: ENOXAPARIN SODIUM 30 MG/0.3 ML SYRINGE SQ SCH ×2 (10:08→23:24)
[2016-12-15 12:00] VITALS: BP 105/63; PULSE 109; RESP 18; TEMP 99.6; O2SAT 96
[2016-12-15 16:00] VITALS: BP 98/56; PULSE 109; RESP 18; TEMP 96.8; O2SAT 98
[2016-12-15] MEDS: traZODone HCL 50 MG TAB PO SCH (21:24)
[2016-12-16] VITALS (11 sets, daily range): BP systolic 103–116; BP diastolic 56–77; PULSE 90–100; RESP 15–16; TEMP 96.3–98.2; O2SAT 96–99
[2016-12-16] MEDS: GENTAMICIN 80 MG PREMIX 100 ML IV SCH ×3 (01:14→21:25)
[2016-12-16] MEDS: METHOCARBAMOL 500 MG TAB PO SCH ×3 (02:09→16:20)
[2016-12-16] MEDS: IBUPROFEN 800 MG TAB PO SCH ×3 (02:09→16:21)
[2016-12-16] MEDS: PREGABALIN 100 MG CAP PO SCH ×3 (02:09→16:20)
[2016-12-16] MEDS: QUEtiapine FUMARATE 25 MG TAB PO SCH ×3 (02:09→16:20)
[2016-12-16] MEDS: HYDROmorphone HCL 4 MG TAB PO PRN ×5 (02:10→21:21)
[2016-12-16] MEDS: LACTATED RINGER'S 1000 ML INJ 1,000 ML IV SCH ×5 (02:11→21:26)
[2016-12-16] MEDS ORDERED: POVIDONE IODINE 5% (ANTISEPSIS KIT) 4 APPLICATIONS EACH NARE PRN (03:30)
[2016-12-16] MEDS ORDERED: CHLORHEXIDINE GLUCONATE 2 % 1 PACK (2 CLOTHS) TOPICAL PRN (03:30)
[2016-12-16] MEDS ORDERED: METOPROLOL TARTRATE 25 MG TAB PO PRN (03:30)
[2016-12-16] MEDS ORDERED: LACTATED RINGER'S 1000 ML IV PRN (03:30)
[2016-12-16] MEDS ORDERED: SODIUM CHLORID 0.9% 500 ML IV PRN (03:30)
[2016-12-16] MEDS ORDERED: INSULIN HUMAN REGULAR 1,000 UNITS/10 ML VIAL SQ PRN (03:30)
[2016-12-16] MEDS: ceFAZolin 2 GM PREMIX 50 ML IV SCH ×3 (06:36→21:24)
--- NOTE | 2016-12-16 06:42 | PD.ORT.PN ---
Subjective Subjective Remarks s/p IMN with partial wound closure left leg - POD 27 s/p right tibia fx with vascular and significant soft tissue injury s/p removal of exfix with IMN and rotation soleus graft right tibia - POD 17 s/p right shoulder AC joint repair - POD 20 s/p I&D right leg with vac change - POD 4 doing well no changes. vac failed yesterday and hooked to wall suction Objective Vitals Vital Signs Date Time Temp Pulse Resp B/P Pulse Ox O2 Delivery O2 Flow Rate FiO2 12/15/16 21:25 18 12/15/16 16:00 96.8 109 18 98/56 98 12/15/16 12:00 99.6 109 18 105/63 96 12/15/16 08:00 97.1 102 18 112/65 98 I/O 12/15/16 12/15/16 12/15/16 12/16/16 12/16/16 12/16/16 07:00 15:00 23:00 07:00 15:00 23:00 Intake Total 1440 ml 1350 ml 480 ml Output Total 50 ml Balance 1440 ml 1300 ml 480 ml Intake Oral 1440 ml 1200 ml 480 ml IV Total 150 ml Drainage Total 50 ml # Voids 4 6 5 # Bowel Movements 1 0 0 Result Diagram: 12/12/16 1748 12/12/16 1748 Imaging Last Impressions Tibia/Fibula X-Ray 12/13/16 0000 Signed Impressions: Service Date/Time: Tuesday, December 13, 2016 11:33 - CONCLUSION: Comminuted mid fibular fractures are not aligned, however tibial fractures are aligned. Abhijit Fernandes MD Clavicle X-Ray 12/13/16 0000 Signed Impressions: Service Date/Time: Tuesday, December 13, 2016 11:29 - CONCLUSION: A/C joint appears aligned. Abhijit Fernandes MD Knee MRI 12/12/16 0000 Signed Impressions: Service Date/Time: November 15:35 - CONCLUSION: Inhomogeneous area of bright signal on T2 sequence in the distal femoral diaphysis probably areas of contusion and possible mild sprain of the ACL involving the femoral attachment site. Abhijit Fernandes MD Abdomen/Pelvis CT 12/03/16 0000 Signed Impressions: Service Date/Time: Saturday, December 03, 2016 16:29 - CONCLUSION: 1. Trace pleural fluid. Mild free fluid in the pelvis. Mild anasarca. 2. No acute traumatic injury identified within the abdomen and pelvis. 3. Moderate constipation. Mild ileus. Marshall Samaniego MD Shoulder X-Ray 11/26/16 0000 Signed Impressions: Service Date/Time: Saturday, November 26, 2016 15:46 - CONCLUSION: 1. Status post plate and screw fixation of right a.c. joint separation in near anatomic alignment without significant fracture. Zackary Piper MD Foot X-Ray 11/23/16 0000 Signed Impressions: Service Date/Time: Wednesday, November 23, 2016 09:01 - CONCLUSION: 1. Nonspecific soft tissue swelling around the foot. 2. Mild irregularity involving the base of the proximal phalanx. Recommend correlation with point tenderness for nondisplaced fracture. Chinmay Leon MD Chest X-Ray 11/21/16 0600 Signed Impressions: Service Date/Time: October 02:25 - CONCLUSION: Mild bibasilar consolidation. Interim extubation and removal of nasogastric tube and right subclavian central venous line. Shane Gonzalez MD Gall Bladder Ultrasound 11/20/16 0000 Signed Impressions: Service Date/Time: Sunday, November 20, 2016 09:42 - CONCLUSION: Distended gallbladder without stones or gallbladder wall thickening. Shane Fernandes MD Head CT 11/19/16 0000 Signed Impressions: Service Date/Time: Saturday, November 19, 2016 16:51 - CONCLUSION: 1. No intracranial abnormality. 2. Scalp injuries. Shane Fernandes MD Chest CT 11/19/16 0000 Signed Impressions: Service Date/Time: Saturday, November 19, 2016 17:02 - CONCLUSION: Areas of consolidation/contusion or atelectasis in the posterior mid and lower lungs. Shane Fernandes MD Cervical Spine CT 11/19/16 0000 Signed Impressions: Service Date/Time: Saturday, November 19, 2016 16:51 - CONCLUSION: Reversal of the normal C-spine lordosis. No acute bony injury is seen. Shane Fernandes MD Pelvis X-Ray 11/17/16 0058 Signed Impressions: Service Date/Time: Thursday, November 17, 2016 00:41 - CONCLUSION: No evidence of fracture. Avery Vaca MD Objective Remarks LLE: Dressing intact, mild swelling foot, +splint. intact. Wiggles toes freely, sensation intact, +cap refill, +nvi. RLE: Splint in place, VAC in place and hooked to wall suction Continues to have moderate right foot swelling w mild ecchymosis, Limited sensation, can move toes minimally on todays exam, +cap refill RUE: Dressing/sling in place, Mild swelling hand, Good sensation hand and fingers, median/ulnar nerve distribution fully intact, +motor brachiorad and thumb extension Assessment & Plan Assessment and Plan 1) Left Open Tibial Shaft Fxs with fasciotomies s/p IMN with wound closure - POD 27 2) Right shoulder AC joint separation s/p ORIF - POD 20 3) I&D of open Right Tibia Fx, removal of external fixation, intramedullary nail fixation right tibia, soleus muscle rotational flap - POD 17 4) Irrigation and debridement of right leg, application wound VAC dressing POD 4 5) Right foot 5th Phalynx fx - nonop 6) Right Tibial Artery injury s/p Repair by Dr Jordan. JOSLYN VAC hook to wall suction maintain bilateral short leg splints at all time Xrays of right tibia/ and right clavicle reviewed- demonstrates good fixation of components and well aligned fracture site. PT - ROM of knees to prevent contractures/stiffness. NWB RUE. WBAT BLE for transfers. Pain management DVT prophylaxis - [facility] surgery today for I&D/vac change Onur Swain Dec 16, 2016 06:42
[2016-12-16] MEDS ORDERED: ACETAMINOPHEN 1000 MG/100 ML VIAL IV ONE (07:01)
[2016-12-16] MEDS ORDERED: ceFAZolin INJ 1,000 MG VIAL ONE (07:07)
[2016-12-16] MEDS ORDERED: GENTAMICIN SULFATE 80 MG/2 ML VIAL ONE (07:07)
[2016-12-16] MEDS ORDERED: VANCOMYCIN HCL 1000 MG VIAL ONE (07:08)
[2016-12-16] MEDS ORDERED: MIDAZOLAM HCL 2 MG/2 ML VIAL ONE (07:33)
[2016-12-16] MEDS ORDERED: FAMOTIDINE 20 MG/2 ML VIAL ONE (07:33)
[2016-12-16] MEDS ORDERED: DEXAMETHASONE SOD PHOS 4 MG/ML VIAL ONE (07:33)
[2016-12-16] MEDS: SODIUM CHLORIDE 0.9% FLUSH 10 ML FLUSH IV FLUSH SCH ×2 (07:38→21:25)
[2016-12-16] MEDS: FERROUS SULFATE 325 MG (65 MG ELEMENTAL IRON) TAB PO SCH ×2 (07:38→21:20)
[2016-12-16] MEDS: DOCUSATE SODIUM 50 MG/SENNA 8.6 MG TAB PO SCH ×2 (07:39→21:00)
[2016-12-16] MEDS: LACTULOSE SYRUP 20 GM/30 ML CUP PO SCH (07:39)
[2016-12-16] MEDS: LACTOBACILLUS ACIDOPHILUS TAB PO SCH ×2 (07:39→21:19)
[2016-12-16] MEDS: MULTIVITAMINS/MINERALS THERAPEUTIC TAB PO SCH ×2 (07:39→21:20)
[2016-12-16] MEDS ORDERED: GENTAMICIN SULFATE 80 MG/2 ML VIAL IRRIGATION ONE (08:13)
--- NOTE | 2016-12-16 08:34 | PD.OP ---
cc: Emery Llanes MD Operative Report Date of Surgery: Dec 16, 2016 Preoperative Diagnosis: Right tibia fracture with near amputation Postoperative Diagnosis: Procedure: Irrigation debridement of right leg, application of wound VAC dressing Anesthesia: Gen. Surgeon: Emery Llanes Ironworker Apprentice(s): SALLY Reynoso PA-C The surgical procedure was assisted by my physician medication assistant. My P.A. presence was necessary throughout this case for the manipulation and positioning of the surgical extremity. My P.A. was assisting me throughout the duration of this procedure. The skill set of a physician medication assistant was medically necessary to complete this procedure. During the surgical case the surgical pathologist was working at the back table and the physician medication assistant was directly assisting me. 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 Informed consent was obtained preoperatively and operative site was marked. She was given IV sedation and general anesthesia. She received IV antibiotics. Timeout procedure was performed. Right leg was prepped with alcohol followed by Hibiclens and draped in the usual sterile fashion. Procedure began with debridement of the wound. The soleus muscle flap over the fracture site appeared to be healthy and viable. There is significant granulation tissue forming around the wound. The fracture site is completely covered with muscle. Small areas of gastrocnemius muscle was debrided. There were small areas of necrotic skin. Skin and subcutaneous tissue fascia and muscle were sharply debrided with rongeur and scalpel. Curettes were also used to debride the edges of the bone. Overall wound was clean. Wound was now thoroughly irrigated with sterile saline. Next attention was turned to wound VAC dressing. An extra large VAC dressing was cut to fit the wound. VAC dressing was stapled into place to help hold it in place. Using Ioban the Vac dressing was sealed. A good seal was obtained. VAC settings were 125 mmHg intermittent 3 and 1. Patient was awakened and transferred to recovery room in stable condition. Emery Llanes MD Dec 16, 2016 08:34
[2016-12-16 08:50] LABS: HEMATOCRIT 17.8 % (35.0-46.0)
[2016-12-16] MEDS: EPOETIN ALFA 10,000 UNITS/ML VIAL SQ SCH (09:00)
[2016-12-16] MEDS ORDERED: DO NOT ADM ANY ANTICOAGULANT DRUGS PRN (09:23)
[2016-12-16] MEDS ORDERED: fentaNYL CITRATE 250 MCG/5 ML AMP ONE (09:35)
[2016-12-16] MEDS ORDERED: *morphine SULFATE 8 MG/ML PERIprocedure ONLY ONE ×2 (09:38→09:59)
[2016-12-16] MEDS ORDERED: *MEPERIDINE 25 MG INJ VIAL PERIprocedural Use ONLY ONE (09:48)
[2016-12-16] MEDS ORDERED: GENTAMICIN 80 MG PREMIX 100 ML IV SCH (10:00)
[2016-12-16] MEDS: CITALOPRAM HYDROBROMIDE 20 MG TAB PO SCH ×2 (11:25→21:19)
[2016-12-16] MEDS ORDERED: ONDANSETRON HCL 4 MG/2 ML VIAL IV PUSH ONE (12:00)
[2016-12-16] MEDS ORDERED: LACTATED RINGER'S 1000 ML INJ 1,000 ML IV ONE (12:00)
[2016-12-16] MEDS ORDERED: PROPOFOL 200 MG/20 ML AMP IV ONE (12:00)
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
[2016-12-16] MEDS: traZODone HCL 50 MG TAB PO SCH (21:21)
[2016-12-17] VITALS (7 sets, daily range): BP systolic 91–114; BP diastolic 30–67; PULSE 89–109; RESP 16; TEMP 97.5–97.8; O2SAT 96–98
[2016-12-17] MEDS: IBUPROFEN 800 MG TAB PO SCH ×3 (03:05→17:56)
[2016-12-17] MEDS: METHOCARBAMOL 500 MG TAB PO SCH ×3 (03:05→17:56)
[2016-12-17] MEDS: PREGABALIN 100 MG CAP PO SCH ×3 (03:05→17:55)
[2016-12-17] MEDS: QUEtiapine FUMARATE 25 MG TAB PO SCH ×3 (03:05→17:56)
[2016-12-17] MEDS: GENTAMICIN 80 MG PREMIX 100 ML IV SCH ×3 (03:06→21:08)
[2016-12-17] MEDS: LACTATED RINGER'S 1000 ML INJ 1,000 ML IV SCH ×5 (03:08→21:02)
[2016-12-17] MEDS: HYDROmorphone HCL 4 MG TAB PO PRN ×6 (04:23→21:09)
[2016-12-17] MEDS: ceFAZolin 2 GM PREMIX 50 ML IV SCH ×2 (04:25→17:55)
--- NOTE | 2016-12-17 06:28 | PD.ORT.PN ---
Subjective Subjective Remarks s/p IMN with partial wound closure left leg - POD 28 s/p right tibia fx with vascular and significant soft tissue injury s/p removal of exfix with IMN and rotation soleus graft right tibia - POD 18 s/p right shoulder AC joint repair - POD 21 s/p I&D right leg with vac change - POD 1 doing well no changes. states pain in right leg. Objective Vitals Vital Signs Date Time Temp Pulse Resp B/P Pulse Ox O2 Delivery O2 Flow Rate FiO2 12/16/16 21:15 97.7 100 16 111/67 96 12/16/16 21:15 97.7 100 16 111/67 96 12/16/16 18:10 97.0 94 16 107/60 98 12/16/16 17:30 97.0 94 16 107/60 98 12/16/16 17:06 97.3 96 16 115/65 97 12/16/16 15:59 97.3 96 16 115/65 97 12/16/16 15:56 99 21 12/16/16 12:08 99 12/16/16 11:16 96.3 99 16 116/77 99 12/16/16 10:45 98.1 88 16 112/66 95 Room Air 12/16/16 10:30 92 16 112/66 95 Room Air 12/16/16 10:15 90 16 116/65 98 12/16/16 10:15 93 15 116/65 99 Nasal Cannula 2 12/16/16 10:10 98.3 92 15 115/70 98 12/16/16 10:04 15 12/16/16 10:00 92 15 115/68 99 Nasal Cannula 2 12/16/16 09:52 98.2 91 15 115/64 99 12/16/16 09:45 96 15 115/64 98 Nasal Cannula 2 12/16/16 09:43 15 12/16/16 09:33 98.3 101 16 110/64 99 Nasal Cannula 3 12/16/16 07:00 Room Air 12/16/16 06:55 96.9 100 16 103/56 96 I/O 12/16/16 12/16/16 12/16/16 12/17/16 12/17/16 12/17/16 07:00 15:00 23:00 07:00 15:00 23:00 Intake Total 1720 ml 480 ml Output Total 230 ml Balance 1490 ml 480 ml Intake Oral 720 ml 480 ml IV Total 100 ml Other 900 ml Drainage Total 30 ml Estimated Blood Loss 200 ml # Voids 2 2 # Bowel Movements 0 0 Result Diagram: 12/16/16 0828 Imaging Last Impressions Tibia/Fibula X-Ray 12/13/16 0000 Signed Impressions: Service Date/Time: Tuesday, December 13, 2016 11:33 - CONCLUSION: Comminuted mid fibular fractures are not aligned, however tibial fractures are aligned. Abhijit Fernandes MD Clavicle X-Ray 12/13/16 0000 Signed Impressions: Service Date/Time: Tuesday, December 13, 2016 11:29 - CONCLUSION: A/C joint appears aligned. Abhijit Fernandes MD Knee MRI 12/12/16 0000 Signed Impressions: Service Date/Time: November 15:35 - CONCLUSION: Inhomogeneous area of bright signal on T2 sequence in the distal femoral diaphysis probably areas of contusion and possible mild sprain of the ACL involving the femoral attachment site. Abhijit Fernandes MD Abdomen/Pelvis CT 12/03/16 0000 Signed Impressions: Service Date/Time: Saturday, December 03, 2016 16:29 - CONCLUSION: 1. Trace pleural fluid. Mild free fluid in the pelvis. Mild anasarca. 2. No acute traumatic injury identified within the abdomen and pelvis. 3. Moderate constipation. Mild ileus. Marshall Samaniego MD Shoulder X-Ray 11/26/16 0000 Signed Impressions: Service Date/Time: Saturday, November 26, 2016 15:46 - CONCLUSION: 1. Status post plate and screw fixation of right a.c. joint separation in near anatomic alignment without significant fracture. Zackary Piper MD Foot X-Ray 11/23/16 0000 Signed Impressions: Service Date/Time: Wednesday, November 23, 2016 09:01 - CONCLUSION: 1. Nonspecific soft tissue swelling around the foot. 2. Mild irregularity involving the base of the proximal phalanx. Recommend correlation with point tenderness for nondisplaced fracture. Chinmay Leon MD Chest X-Ray 11/21/16 0600 Signed Impressions: Service Date/Time: October 02:25 - CONCLUSION: Mild bibasilar consolidation. Interim extubation and removal of nasogastric tube and right subclavian central venous line. Shane Gonzalez MD Gall Bladder Ultrasound 11/20/16 0000 Signed Impressions: Service Date/Time: Sunday, November 20, 2016 09:42 - CONCLUSION: Distended gallbladder without stones or gallbladder wall thickening. Shane Fernandes MD Head CT 11/19/16 Signed Impressions: Service Date/Time: Saturday, November 19, 2016 16:51 - CONCLUSION: 1. No intracranial abnormality. 2. Scalp injuries. Shane Fernandes MD Chest CT 11/19/16 Signed Impressions: Service Date/Time: Saturday, November 19, 2016 17:02 - CONCLUSION: Areas of consolidation/contusion or atelectasis in the posterior mid and lower lungs. Shane Fernandes MD Cervical Spine CT 11/19/16 Signed Impressions: Service Date/Time: Saturday, November 19, 2016 16:51 - CONCLUSION: Reversal of the normal C-spine lordosis. No acute bony injury is seen. Shane Fernandes MD Pelvis X-Ray 11/17/16 0058 Signed Impressions: Service Date/Time: Thursday, November 17, 2016 00:41 - CONCLUSION: No evidence of fracture. Avery Vaca MD Objective Remarks LLE: Dressing intact, mild swelling foot, +splint. intact. Wiggles toes freely, sensation intact, +cap refill, +nvi. RLE: Splint in place, VAC in place. good seal. maintaining. Continues to have moderate right foot swelling w mild ecchymosis, Limited sensation, can move toes minimally on todays exam, +cap refill RUE: Dressing/sling in place, Mild swelling hand, Good sensation hand and fingers, median/ulnar nerve distribution fully intact, +motor brachiorad and thumb extension Assessment & Plan Assessment and Plan 1) Left Open Tibial Shaft Fxs with fasciotomies s/p IMN with wound closure - POD 28 2) Right shoulder AC joint separation s/p ORIF - POD 21 3) I&D of open Right Tibia Fx, removal of external fixation, intramedullary nail fixation right tibia, soleus muscle rotational flap - POD 18 4) Irrigation and debridement of right leg, application wound VAC dressing POD 1 5) Right foot 5th Phalynx fx - nonop 6) Right Tibial Artery injury s/p Repair by Dr Quintin JORGENSEN VAC on 150mmHg, intermittent, 3:1. maintain bilateral short leg splints at all time PT - ROM of knees to prevent contractures/stiffness. NWB RUE. WBAT BLE for transfers. Pain management DVT prophylaxis - Lovenox plan for surgery /friday for I&D with vac change Onur Swain Dec 17, 2016 06:28
[2016-12-17] MEDS: LACTULOSE SYRUP 20 GM/30 ML CUP PO SCH (08:39)
[2016-12-17] MEDS: LACTOBACILLUS ACIDOPHILUS TAB PO SCH ×2 (08:39→21:08)
[2016-12-17] MEDS: FERROUS SULFATE 325 MG (65 MG ELEMENTAL IRON) TAB PO SCH ×2 (08:39→21:09)
[2016-12-17] MEDS: SODIUM CHLORIDE 0.9% FLUSH 10 ML FLUSH IV FLUSH SCH ×2 (08:40→21:02)
[2016-12-17] MEDS: ENOXAPARIN SODIUM 40 MG/0.4 ML SYRINGE SQ SCH (08:40)
[2016-12-17] MEDS: MULTIVITAMINS/MINERALS THERAPEUTIC TAB PO SCH ×2 (08:41→21:08)
[2016-12-17] MEDS: CITALOPRAM HYDROBROMIDE 20 MG TAB PO SCH ×2 (08:41→21:08)
[2016-12-17] MEDS: DOCUSATE SODIUM 50 MG/SENNA 8.6 MG TAB PO SCH ×2 (08:51→21:09)
[2016-12-17] MEDS: fentaNYL 50 MCG/HR PATCH T-DERMAL SCH (12:06)
[2016-12-17] MEDS: REMOVE OLD DURAGESIC (FENTANYL) PATCH T-DERMAL SCH (15:58)
[2016-12-17] MEDS: traZODone HCL 50 MG TAB PO SCH (21:08)
[2016-12-18] VITALS (10 sets, daily range): BP systolic 105–123; BP diastolic 56–67; PULSE 96–111; RESP 15–18; TEMP 96.8–98.9; O2SAT 96–100
[2016-12-18] MEDS: LACTATED RINGER'S 1000 ML INJ 1,000 ML IV SCH ×5 (01:51→23:54)
[2016-12-18] MEDS: PREGABALIN 100 MG CAP PO SCH ×3 (02:18→17:45)
[2016-12-18] MEDS: QUEtiapine FUMARATE 25 MG TAB PO SCH ×3 (02:18→17:45)
[2016-12-18] MEDS: METHOCARBAMOL 500 MG TAB PO SCH ×3 (02:18→17:45)
[2016-12-18] MEDS: IBUPROFEN 800 MG TAB PO SCH ×3 (02:19→17:45)
[2016-12-18] MEDS: ceFAZolin 2 GM PREMIX 50 ML IV SCH ×3 (02:20→21:23)
[2016-12-18] MEDS: GENTAMICIN 80 MG PREMIX 100 ML IV SCH ×3 (04:01→21:18)
[2016-12-18] MEDS: HYDROmorphone HCL 4 MG TAB PO PRN ×6 (04:01→21:18)
--- NOTE | 2016-12-18 06:38 | PD.ORT.PN ---
Subjective Subjective Remarks s/p IMN with partial wound closure left leg - POD 29 s/p right tibia fx with vascular and significant soft tissue injury s/p removal of exfix with IMN and rotation soleus graft right tibia - POD 19 s/p right shoulder AC joint repair - POD 22 s/p I&D right leg with vac change - POD 2 doing well. vac reported blockage yesterday and switched to wall suction Objective Vitals Vital Signs Date Time Temp Pulse Resp B/P Pulse Ox O2 Delivery O2 Flow Rate FiO2 12/18/16 02:20 98.1 102 18 108/62 99 12/17/16 20:42 97 21 12/17/16 20:05 97.6 104 16 114/66 97 Manual Cuff/Auscultation 12/17/16 16:00 97.5 109 16 102/67 97 12/17/16 12:00 97.7 105 16 94/51 97 12/17/16 08:45 110/30 12/17/16 08:15 98 12/17/16 08:00 97.8 89 16 91/50 96 I/O 12/17/16 12/17/16 12/17/16 12/18/16 12/18/16 12/18/16 07:00 15:00 23:00 07:00 15:00 23:00 Intake Total 1312 ml 720 ml 801 ml 729 ml Output Total 450 ml 200 ml Balance 1312 ml 720 ml 351 ml 529 ml Intake Oral 480 ml 720 ml 720 ml 480 ml IV Total 832 ml 81 ml 249 ml Drainage Total 450 ml 200 ml # Voids 2 3 1 3 # Bowel Movements 0 0 0 0 Result Diagram: 12/16/16 0828 Imaging Last Impressions Tibia/Fibula X-Ray 12/13/16 0000 Signed Impressions: Service Date/Time: Tuesday, December 13, 2016 11:33 - CONCLUSION: Comminuted mid fibular fractures are not aligned, however tibial fractures are aligned. Abhijit Fernandes MD Clavicle X-Ray 12/13/16 0000 Signed Impressions: Service Date/Time: Tuesday, December 13, 2016 11:29 - CONCLUSION: A/C joint appears aligned. Abhijit Fernandes MD Knee MRI 12/12/16 0000 Signed Impressions: Service Date/Time: November 15:35 - CONCLUSION: Inhomogeneous area of bright signal on T2 sequence in the distal femoral diaphysis probably areas of contusion and possible mild sprain of the ACL involving the femoral attachment site. Abhijit Fernandes MD Abdomen/Pelvis CT 12/03/16 0000 Signed Impressions: Service Date/Time: Saturday, December 03, 2016 16:29 - CONCLUSION: 1. Trace pleural fluid. Mild free fluid in the pelvis. Mild anasarca. 2. No acute traumatic injury identified within the abdomen and pelvis. 3. Moderate constipation. Mild ileus. Marshall Samaniego MD Shoulder X-Ray 11/26/16 0000 Signed Impressions: Service Date/Time: Saturday, November 26, 2016 15:46 - CONCLUSION: 1. Status post plate and screw fixation of right a.c. joint separation in near anatomic alignment without significant fracture. Zackary Piper MD Foot X-Ray 11/23/16 0000 Signed Impressions: Service Date/Time: Wednesday, November 23, 2016 09:01 - CONCLUSION: 1. Nonspecific soft tissue swelling around the foot. 2. Mild irregularity involving the base of the proximal phalanx. Recommend correlation with point tenderness for nondisplaced fracture. Chinmay Leon MD Chest X-Ray 11/21/16 0600 Signed Impressions: Service Date/Time: October 02:25 - CONCLUSION: Mild bibasilar consolidation. Interim extubation and removal of nasogastric tube and right subclavian central venous line. Shane Gonzalez MD Gall Bladder Ultrasound 11/20/16 0000 Signed Impressions: Service Date/Time: Sunday, November 20, 2016 09:42 - CONCLUSION: Distended gallbladder without stones or gallbladder wall thickening. Shane Fernandes MD Head CT 11/19/16 0000 Signed Impressions: Service Date/Time: Saturday, November 19, 2016 16:51 - CONCLUSION: 1. No intracranial abnormality. 2. Scalp injuries. Shane Fernandes MD Chest CT 11/19/16 0000 Signed Impressions: Service Date/Time: Saturday, November 19, 2016 17:02 - CONCLUSION: Areas of consolidation/contusion or atelectasis in the posterior mid and lower lungs. Shane Fernandes MD Cervical Spine CT 11/19/16 0000 Signed Impressions: Service Date/Time: Saturday, November 19, 2016 16:51 - CONCLUSION: Reversal of the normal C-spine lordosis. No acute bony injury is seen. Shane Fernandes MD Pelvis X-Ray 11/17/16 0058 Signed Impressions: Service Date/Time: Thursday, November 17, 2016 00:41 - CONCLUSION: No evidence of fracture. Avery Vaca MD Objective Remarks LLE: Dressing intact, mild swelling foot, +splint. intact. Wiggles toes freely, sensation intact, +cap refill, +nvi. RLE: Splint in place, VAC in place. connected to wall suction Continues to have moderate right foot swelling w mild ecchymosis, Limited sensation, can move toes minimally on todays exam, +cap refill RUE: Dressing/sling in place, Mild swelling hand, Good sensation hand and fingers, median/ulnar nerve distribution fully intact, +motor brachiorad and thumb extension Assessment & Plan Assessment and Plan 1) Left Open Tibial Shaft Fxs with fasciotomies s/p IMN with wound closure - POD 29 2) Right shoulder AC joint separation s/p ORIF - POD 22 3) I&D of open Right Tibia Fx, removal of external fixation, intramedullary nail fixation right tibia, soleus muscle rotational flap - POD 19 4) Irrigation and debridement of right leg, application wound VAC dressing POD 2 5) Right foot 5th Phalynx fx - nonop 6) Right Tibial Artery injury s/p Repair by Dr Jordan. JOSLYN VAC connected to wall suction maintain bilateral short leg splints at all time PT - ROM of knees to prevent contractures/stiffness. NWB RUE. WBAT BLE for transfers. Pain management DVT prophylaxis - Lovenox plan for surgery /friday for I&D with vac change -will change track pads today at bedside to correct blockage problem of vac Onur Swain Dec 18, 2016 06:38
[2016-12-18 07:58] LABS: REVIEW FLAG FINAL
[2016-12-18 08:03] LABS: HEMATOCRIT 19.3 % (35.0-46.0)
[2016-12-18] MEDS: MULTIVITAMINS/MINERALS THERAPEUTIC TAB PO SCH ×2 (08:13→21:18)
[2016-12-18] MEDS: DOCUSATE SODIUM 50 MG/SENNA 8.6 MG TAB PO SCH ×2 (08:13→21:18)
[2016-12-18] MEDS: FERROUS SULFATE 325 MG (65 MG ELEMENTAL IRON) TAB PO SCH ×2 (08:13→21:18)
[2016-12-18] MEDS: CITALOPRAM HYDROBROMIDE 20 MG TAB PO SCH ×2 (08:13→21:18)
[2016-12-18] MEDS: LACTOBACILLUS ACIDOPHILUS TAB PO SCH ×2 (08:14→21:18)
[2016-12-18] MEDS: ENOXAPARIN SODIUM 40 MG/0.4 ML SYRINGE SQ SCH (08:14)
[2016-12-18] MEDS: LACTULOSE SYRUP 20 GM/30 ML CUP PO SCH (08:14)
[2016-12-18] MEDS: SODIUM CHLORIDE 0.9% FLUSH 10 ML FLUSH IV FLUSH SCH ×2 (08:24→21:19)
[2016-12-18] MEDS: EPOETIN ALFA 10,000 UNITS/ML VIAL SQ SCH (09:00)
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
[2016-12-18] MEDS ORDERED: INSULIN HUMAN REGULAR 1,000 UNITS/10 ML VIAL SQ PRN (20:45)
[2016-12-18] MEDS ORDERED: METOPROLOL TARTRATE 25 MG TAB PO PRN (20:45)
[2016-12-18] MEDS ORDERED: POVIDONE IODINE 5% (ANTISEPSIS KIT) 4 APPLICATIONS EACH NARE PRN (20:45)
[2016-12-18] MEDS ORDERED: LACTATED RINGER'S 1000 ML IV PRN (20:45)
[2016-12-18] MEDS ORDERED: SODIUM CHLORID 0.9% 500 ML IV PRN (20:45)
[2016-12-18] MEDS ORDERED: CHLORHEXIDINE GLUCONATE 2 % 1 PACK (2 CLOTHS) TOPICAL PRN (20:45)
[2016-12-18] MEDS: traZODone HCL 50 MG TAB PO SCH (21:18)
[2016-12-19 00:18] LABS: HEMATOCRIT 25.6 % (35.0-46.0); REVIEW FLAG FINAL
[2016-12-19] MEDS: HYDROmorphone HCL 4 MG TAB PO PRN ×6 (01:19→22:04)
[2016-12-19] MEDS: ceFAZolin 2 GM PREMIX 50 ML IV SCH ×3 (03:02→17:21)
[2016-12-19] MEDS: IBUPROFEN 800 MG TAB PO SCH ×3 (03:03→17:22)
[2016-12-19] MEDS: PREGABALIN 100 MG CAP PO SCH ×3 (03:03→17:22)
[2016-12-19] MEDS: QUEtiapine FUMARATE 25 MG TAB PO SCH ×3 (03:03→17:22)
[2016-12-19] MEDS: METHOCARBAMOL 500 MG TAB PO SCH ×3 (03:03→17:22)
[2016-12-19] MEDS: GENTAMICIN 80 MG PREMIX 100 ML IV SCH ×3 (03:10→22:06)
[2016-12-19 04:05] VITALS: BP 109/63; PULSE 94; RESP 18; TEMP 99.5; O2SAT 97
[2016-12-19] MEDS: LACTATED RINGER'S 1000 ML INJ 1,000 ML IV SCH ×4 (04:19→22:11)
--- NOTE | 2016-12-19 06:29 | PD.ORT.PN ---
Subjective Subjective Remarks s/p IMN with partial wound closure left leg - POD 30 s/p right tibia fx with vascular and significant soft tissue injury s/p removal of exfix with IMN and rotation soleus graft right tibia - POD 20 s/p right shoulder AC joint repair - POD 23 s/p I&D right leg with vac change - POD 3 doing well. vac reported blockage last night. Objective Vitals Vital Signs Date Time Temp Pulse Resp B/P Pulse Ox O2 Delivery O2 Flow Rate FiO2 12/19/16 04:05 99.5 94 18 109/63 97 12/18/16 22:35 98.5 99 18 123/65 96 12/18/16 20:10 98.9 106 18 111/64 98 12/18/16 20:10 98.9 106 18 111/64 98 12/18/16 19:23 97.7 111 15 110/56 98 12/18/16 16:00 97.7 105 18 105/57 98 12/18/16 15:38 98.3 105 16 112/56 98 12/18/16 15:09 98.3 102 16 112/56 98 12/18/16 11:45 98.7 97 16 113/64 100 12/18/16 10:07 97 21 12/18/16 08:00 96.8 96 16 116/67 97 I/O 12/18/16 12/18/16 12/18/16 12/19/16 12/19/16 12/19/16 07:00 15:00 23:00 07:00 15:00 23:00 Intake Total 729 ml 720 ml 982 ml 362 ml Output Total 200 ml 200 ml 0 ml Balance 529 ml 720 ml 782 ml 362 ml Intake Oral 480 ml 720 ml 360 ml IV Total 249 ml 57 ml 362 ml Packed Cells 565 ml Drainage Total 200 ml 200 ml 0 ml # Voids 3 3 2 # Bowel Movements 0 0 0 Result Diagram: 12/18/16 2356 Imaging Last Impressions Tibia/Fibula X-Ray 12/13/16 0000 Signed Impressions: Service Date/Time: Tuesday, December 13, 2016 11:33 - CONCLUSION: Comminuted mid fibular fractures are not aligned, however tibial fractures are aligned. Abhijit Fernandes MD Clavicle X-Ray 12/13/16 0000 Signed Impressions: Service Date/Time: Tuesday, December 13, 2016 11:29 - CONCLUSION: A/C joint appears aligned. Abhijit Fernandes MD Knee MRI 12/12/16 0000 Signed Impressions: Service Date/Time: November 15:35 - CONCLUSION: Inhomogeneous area of bright signal on T2 sequence in the distal femoral diaphysis probably areas of contusion and possible mild sprain of the ACL involving the femoral attachment site. Abhijit Fernandes MD Abdomen/Pelvis CT 12/03/16 0000 Signed Impressions: Service Date/Time: Saturday, December 03, 2016 16:29 - CONCLUSION: 1. Trace pleural fluid. Mild free fluid in the pelvis. Mild anasarca. 2. No acute traumatic injury identified within the abdomen and pelvis. 3. Moderate constipation. Mild ileus. Marshall Samaniego MD Shoulder X-Ray 11/26/16 0000 Signed Impressions: Service Date/Time: Saturday, November 26, 2016 15:46 - CONCLUSION: 1. Status post plate and screw fixation of right a.c. joint separation in near anatomic alignment without significant fracture. Zackary Piper MD Foot X-Ray 11/23/16 0000 Signed Impressions: Service Date/Time: Wednesday, November 23, 2016 09:01 - CONCLUSION: 1. Nonspecific soft tissue swelling around the foot. 2. Mild irregularity involving the base of the proximal phalanx. Recommend correlation with point tenderness for nondisplaced fracture. Chinmay Leon MD Chest X-Ray 11/21/16 0600 Signed Impressions: Service Date/Time: October 02:25 - CONCLUSION: Mild bibasilar consolidation. Interim extubation and removal of nasogastric tube and right subclavian central venous line. Shane Gonzalez MD Gall Bladder Ultrasound 11/20/16 0000 Signed Impressions: Service Date/Time: Sunday, November 20, 2016 09:42 - CONCLUSION: Distended gallbladder without stones or gallbladder wall thickening. Shane Fernandes MD Head CT 11/19/16 0000 Signed Impressions: Service Date/Time: Saturday, November 19, 2016 16:51 - CONCLUSION: 1. No intracranial abnormality. 2. Scalp injuries. Shane Fernandes MD Chest CT 11/19/16 0000 Signed Impressions: Service Date/Time: Saturday, November 19, 2016 17:02 - CONCLUSION: Areas of consolidation/contusion or atelectasis in the posterior mid and lower lungs. Shane Fernandes MD Cervical Spine CT 11/19/16 0000 Signed Impressions: Service Date/Time: Saturday, November 19, 2016 16:51 - CONCLUSION: Reversal of the normal C-spine lordosis. No acute bony injury is seen. Shane Fernandes MD Pelvis X-Ray 11/17/16 0058 Signed Impressions: Service Date/Time: Thursday, November 17, 2016 00:41 - CONCLUSION: No evidence of fracture. Avery Vaca MD Objective Remarks LLE: Dressing intact, mild swelling foot, +splint. intact. Wiggles toes freely, sensation intact, +cap refill, +nvi. RLE: Splint in place, VAC in place. reporting blockage. Continues to have moderate right foot swelling w mild ecchymosis, Limited sensation, can move toes minimally on todays exam, +cap refill RUE: Dressing/sling in place, Mild swelling hand, Good sensation hand and fingers, median/ulnar nerve distribution fully intact, +motor brachiorad and thumb extension Assessment & Plan Assessment and Plan 1) Left Open Tibial Shaft Fxs with fasciotomies s/p IMN with wound closure - POD 30 2) Right shoulder AC joint separation s/p ORIF - POD 23 3) I&D of open Right Tibia Fx, removal of external fixation, intramedullary nail fixation right tibia, soleus muscle rotational flap - POD 20 4) Irrigation and debridement of right leg, application wound VAC dressing POD 3 5) Right foot 5th Phalynx fx - nonop 6) Right Tibial Artery injury s/p Repair by Dr Quintin JORGENSEN VAC reporting blockage. trac pad changed at bedside this AM. working again. VAC SETTINGS: 150mmHg, intermittent, 5:1 maintain bilateral short leg splints at all time PT - ROM of knees to prevent contractures/stiffness. NWB RUE. WBAT BLE for transfers. Pain management DVT prophylaxis - Lovenox -->hold lovenox after AM dose today plan for surgery tomorrow for I&D vac change sign consents NPO after MN -will change track pads today at bedside to correct blockage problem of vac Onur Swain Dec 19, 2016 06:29
[2016-12-19 07:46] VITALS: BP 109/70; PULSE 92; RESP 17; TEMP 97.5; O2SAT 98
[2016-12-19] MEDS: SODIUM CHLORIDE 0.9% FLUSH 10 ML FLUSH IV FLUSH SCH ×2 (09:00→22:06)
[2016-12-19] MEDS: LACTULOSE SYRUP 20 GM/30 ML CUP PO SCH (10:18)
[2016-12-19] MEDS: ERGOCALCIFEROL (VIT D2) 50,000 UNIT CAP PO SCH (10:18)
[2016-12-19] MEDS: FERROUS SULFATE 325 MG (65 MG ELEMENTAL IRON) TAB PO SCH ×2 (10:19→22:05)
[2016-12-19] MEDS: CITALOPRAM HYDROBROMIDE 20 MG TAB PO SCH ×2 (10:19→22:04)
[2016-12-19] MEDS: MULTIVITAMINS/MINERALS THERAPEUTIC TAB PO SCH ×2 (10:19→22:05)
[2016-12-19] MEDS: LACTOBACILLUS ACIDOPHILUS TAB PO SCH ×2 (10:19→22:05)
[2016-12-19] MEDS: DOCUSATE SODIUM 50 MG/SENNA 8.6 MG TAB PO SCH ×2 (10:19→22:05)
[2016-12-19 12:00] VITALS: BP 102/74; PULSE 98; RESP 17; TEMP 98.7; O2SAT 98
[2016-12-19 20:30] VITALS: BP 99/54; PULSE 100; RESP 18; TEMP 100.3; O2SAT 97
[2016-12-19] MEDS: traZODone HCL 50 MG TAB PO SCH (22:05)
[2016-12-20 00:19] VITALS: BP 104/60; PULSE 96; RESP 17; TEMP 99.4; O2SAT 96
[2016-12-20] MEDS: LACTATED RINGER'S 1000 ML INJ 1,000 ML IV SCH ×7 (02:29→19:29)
[2016-12-20] MEDS: METHOCARBAMOL 500 MG TAB PO SCH ×3 (03:24→17:26)
[2016-12-20] MEDS: HYDROmorphone HCL 4 MG TAB PO PRN ×4 (03:25→19:19)
[2016-12-20] MEDS: IBUPROFEN 800 MG TAB PO SCH (03:25)
[2016-12-20] MEDS: PREGABALIN 100 MG CAP PO SCH ×3 (03:25→17:24)
[2016-12-20] MEDS: ceFAZolin 2 GM PREMIX 50 ML IV SCH ×3 (03:26→19:18)
[2016-12-20] MEDS: GENTAMICIN 80 MG PREMIX 100 ML IV SCH ×3 (03:26→17:29)
[2016-12-20] MEDS: QUEtiapine FUMARATE 25 MG TAB PO SCH ×3 (03:26→17:25)
[2016-12-20 04:40] VITALS: BP 113/61; PULSE 105; RESP 18; TEMP 99.2; O2SAT 98
[2016-12-20] MEDS: ACETAMINOPHEN 325 MG TAB PO PRN (06:31)
--- NOTE | 2016-12-20 06:33 | PD.ORT.PN ---
Subjective Subjective Remarks s/p IMN with partial wound closure left leg - POD 31 s/p right tibia fx with vascular and significant soft tissue injury s/p removal of exfix with IMN and rotation soleus graft right tibia - POD 21 s/p right shoulder AC joint repair - POD 24 s/p I&D right leg with vac change - POD 4 doing well. vac reported blockage last night and has been malfunctioning Objective Vitals Vital Signs Date Time Temp Pulse Resp B/P Pulse Ox O2 Delivery O2 Flow Rate FiO2 12/20/16 04:40 99.2 105 18 113/61 98 12/20/16 00:19 99.4 96 17 104/60 96 12/19/16 20:30 100.3 100 18 99/54 97 12/19/16 18:58 Room Air 12/19/16 12:00 98.7 98 17 102/74 98 12/19/16 07:46 97.5 92 17 109/70 98 I/O 12/19/16 12/19/16 12/19/16 12/20/16 12/20/16 12/20/16 07:00 15:00 23:00 07:00 15:00 23:00 Intake Total 362 ml 960 ml 240 ml Output Total 0 ml 100 ml Balance 362 ml 960 ml 140 ml Intake Oral 960 ml 240 ml IV Total 362 ml Drainage Total 0 ml 100 ml # Voids 1 3 1 # Bowel Movements 0 2 0 Result Diagram: 12/18/16 2356 Imaging Last Impressions Tibia/Fibula X-Ray 12/13/16 0000 Signed Impressions: Service Date/Time: Tuesday, December 13, 2016 11:33 - CONCLUSION: Comminuted mid fibular fractures are not aligned, however tibial fractures are aligned. Abhijit Fernandes MD Clavicle X-Ray 12/13/16 0000 Signed Impressions: Service Date/Time: Tuesday, December 13, 2016 11:29 - CONCLUSION: A/C joint appears aligned. Abhijit Fernandes MD Knee MRI 12/12/16 0000 Signed Impressions: Service Date/Time: November 15:35 - CONCLUSION: Inhomogeneous area of bright signal on T2 sequence in the distal femoral diaphysis probably areas of contusion and possible mild sprain of the ACL involving the femoral attachment site. Abhijit Fernandes MD Abdomen/Pelvis CT 12/03/16 0000 Signed Impressions: Service Date/Time: Saturday, December 03, 2016 16:29 - CONCLUSION: 1. Trace pleural fluid. Mild free fluid in the pelvis. Mild anasarca. 2. No acute traumatic injury identified within the abdomen and pelvis. 3. Moderate constipation. Mild ileus. Marshall Samaniego MD Shoulder X-Ray 11/26/16 0000 Signed Impressions: Service Date/Time: Saturday, November 26, 2016 15:46 - CONCLUSION: 1. Status post plate and screw fixation of right a.c. joint separation in near anatomic alignment without significant fracture. Zackary Piper MD Foot X-Ray 11/23/16 0000 Signed Impressions: Service Date/Time: Wednesday, November 23, 2016 09:01 - CONCLUSION: 1. Nonspecific soft tissue swelling around the foot. 2. Mild irregularity involving the base of the proximal phalanx. Recommend correlation with point tenderness for nondisplaced fracture. Chinmay Leon MD Chest X-Ray 11/21/16 0600 Signed Impressions: Service Date/Time: October 02:25 - CONCLUSION: Mild bibasilar consolidation. Interim extubation and removal of nasogastric tube and right subclavian central venous line. Shane Gonzalez MD Gall Bladder Ultrasound 11/20/16 0000 Signed Impressions: Service Date/Time: Sunday, November 20, 2016 09:42 - CONCLUSION: Distended gallbladder without stones or gallbladder wall thickening. Shane Fernandes MD Head CT 11/19/16 0000 Signed Impressions: Service Date/Time: Saturday, November 19, 2016 16:51 - CONCLUSION: 1. No intracranial abnormality. 2. Scalp injuries. Shane Fernandes MD Chest CT 11/19/16 0000 Signed Impressions: Service Date/Time: Saturday, November 19, 2016 17:02 - CONCLUSION: Areas of consolidation/contusion or atelectasis in the posterior mid and lower lungs. Shane Fernandes MD Cervical Spine CT 11/19/16 0000 Signed Impressions: Service Date/Time: Saturday, November 19, 2016 16:51 - CONCLUSION: Reversal of the normal C-spine lordosis. No acute bony injury is seen. Shane Fernandes MD Pelvis X-Ray 11/17/16 0058 Signed Impressions: Service Date/Time: Thursday, November 17, 2016 00:41 - CONCLUSION: No evidence of fracture. Avery Vaca MD Objective Remarks LLE: Dressing intact, mild swelling foot, +splint. intact. Wiggles toes freely, sensation intact, +cap refill, +nvi. RLE: Splint in place, VAC in place. reporting blockage. Continues to have moderate right foot swelling w mild ecchymosis, Limited sensation, can move toes minimally on todays exam, +cap refill RUE: Dressing/sling in place, Mild swelling hand, Good sensation hand and fingers, median/ulnar nerve distribution fully intact, +motor brachiorad and thumb extension Assessment & Plan Assessment and Plan 1) Left Open Tibial Shaft Fxs with fasciotomies s/p IMN with wound closure - POD 31 2) Right shoulder AC joint separation s/p ORIF - POD 24 3) I&D of open Right Tibia Fx, removal of external fixation, intramedullary nail fixation right tibia, soleus muscle rotational flap - POD 21 4) Irrigation and debridement of right leg, application wound VAC dressing POD 4 5) Right foot 5th Phalynx fx - nonop 6) Right Tibial Artery injury s/p Repair by Dr Quintin JORGENSEN VAC reporting blockage. trac pad changed at bedside this yesterday but malfunctioning again. VAC SETTINGS: 150mmHg, intermittent, 5:1 maintain bilateral short leg splints at all time PT - ROM of knees to prevent contractures/stiffness. NWB RUE. WBAT BLE for transfers. Pain management DVT prophylaxis - Lovenox -->hold lovenox after AM dose today plan for surgery tomorrow for I&D vac change sign consents NPO after MN -surgery today Onur Swain Dec 20, 2016 06:33
[2016-12-20 07:41] VITALS: BP 103/59; PULSE 84; RESP 16; TEMP 97.7; O2SAT 93
[2016-12-20] MEDS: CITALOPRAM HYDROBROMIDE 20 MG TAB PO SCH ×2 (09:00→19:19)
[2016-12-20] MEDS: MULTIVITAMINS/MINERALS THERAPEUTIC TAB PO SCH ×2 (09:00→19:19)
[2016-12-20] MEDS: LACTOBACILLUS ACIDOPHILUS TAB PO SCH ×2 (09:00→19:18)
[2016-12-20] MEDS: FERROUS SULFATE 325 MG (65 MG ELEMENTAL IRON) TAB PO SCH ×2 (09:00→19:18)
[2016-12-20] MEDS: DOCUSATE SODIUM 50 MG/SENNA 8.6 MG TAB PO SCH ×2 (09:00→19:19)
[2016-12-20] MEDS: SODIUM CHLORIDE 0.9% FLUSH 10 ML FLUSH IV FLUSH SCH ×2 (09:00→19:45)
[2016-12-20] MEDS: LACTULOSE SYRUP 20 GM/30 ML CUP PO SCH (09:00)
[2016-12-20] MEDS ORDERED: GENTAMICIN SULFATE 80 MG/2 ML VIAL ONE ×2 (09:44→10:13)
[2016-12-20] MEDS ORDERED: MINERAL OIL 10 ML VIAL ONE (09:44)
[2016-12-20] MEDS ORDERED: LIDOCAINE 2% JELLY 30 ML TUBE ONE (09:44)
[2016-12-20] MEDS ORDERED: fentaNYL CITRATE 250 MCG/5 ML AMP ONE ×2 (09:46→12:17)
[2016-12-20] MEDS ORDERED: FAMOTIDINE 20 MG/2 ML VIAL ONE (09:46)
[2016-12-20] MEDS ORDERED: ceFAZolin INJ 1,000 MG VIAL IV ONE (10:20)
[2016-12-20] MEDS: REMOVE OLD DURAGESIC (FENTANYL) PATCH T-DERMAL SCH (11:00)
--- NOTE | 2016-12-20 11:12 | PD.OP ---
cc: Emery Llanes MD Operative Report Date of Surgery: Dec 20, 2016 Preoperative Diagnosis: Open right tibia fracture with near amputation Postoperative Diagnosis: Procedure: Irrigation and debridement of right leg and tibia, split-thickness skin graft 400 cm, application of wound VAC dressing Surgeon: Emery Llanes [employer] Front Office Manager(s): SALLY Reynoso PA-C The surgical procedure was assisted by my physician senior sales assistant. My P.A. presence was necessary throughout this case for the manipulation and positioning of the surgical extremity. My P.A. was assisting me throughout the duration of this procedure. The skill set of a physician senior sales assistant was medically necessary to complete this procedure. During the surgical case the surgical services assistant was working at the back table and the physician senior sales assistant was directly assisting me. Operation and Findings: Inessa is well-known to me from multiple previous surgeries related to bilateral tibial fractures, right shoulder AC joint dislocation, and near amputation of right leg. Informed consent was obtained preoperatively and operative site was marked. She was given IV sedation and general anesthesia. She received IV antibiotics. Timeout procedure was performed. Right leg was prepped with alcohol followed by Hibiclens and draped in the usual sterile fashion. Procedure began with debridement of the wound. The soleus muscle flap over the fracture site appeared to be healthy and viable. There is significant granulation tissue forming around the wound. The fracture site is completely covered with muscle. Small areas of muscle was debrided. Skin and subcutaneous tissue fascia and muscle were sharply debrided with rongeur and scalpel. Curettes were also used to debride the edges of the bone. Overall wound was clean. Wound was now thoroughly irrigated with sterile saline. Next was turned to skin grafting. Using the Geetha dermatome with a 4 inch guard set at 0.015 skin graft was obtained from the thigh. Skin graft was now meshed at a ratio of 1-2. The skin graft was now placed over the open wound. Skin graft was stapled into position. The open wound was mostly covered. There was a portion of the wound that was not completely ready for skin graft. Additional skin graft will be necessary next week. Skin graft was now covered with Xeroform. A VAC dressing was cut to fit over the wound. VAC dressing was sealed appropriately. A compressive dressing was applied. VAC dressing was set on continuous. Patient was awakened and transferred to recovery in stable condition. Next attention was turned to wound VAC dressing. An extra large VAC dressing was cut to fit the wound. VAC dressing was stapled into place to help hold it in place. Using Ioban the Vac dressing was sealed. A good seal was obtained. VAC settings were 125 mmHg intermittent 3 and 1. Patient was awakened and transferred to recovery room in stable condition. Emery Llanes MD Dec 20, 2016 11:12
[2016-12-20] MEDS ORDERED: ONDANSETRON HCL 4 MG/2 ML VIAL IV PUSH ONE (12:00)
[2016-12-20] MEDS ORDERED: PROPOFOL 200 MG/20 ML AMP IV ONE (12:00)
[2016-12-20] MEDS ORDERED: DO NOT ADM ANY ANTICOAGULANT DRUGS PRN (12:05)
[2016-12-20] MEDS ORDERED: *MEPERIDINE 25 MG INJ VIAL PERIprocedural Use ONLY ONE (12:13)
[2016-12-20] MEDS ORDERED: MIDAZOLAM HCL 2 MG/2 ML VIAL ONE (12:17)
[2016-12-20] MEDS ORDERED: *HYDROmorphone PF 1 MG VIAL PERIprocedural Use ONLY ONE (12:32)
[2016-12-20] MEDS ORDERED: HYDROmorphone HCL PF 1 MG/ML VIAL IV PUSH PRN (13:00)
[2016-12-20 13:24] VITALS: BP 122/68; PULSE 68; RESP 16; TEMP 96.3; O2SAT 96
[2016-12-20] MEDS: KETOROLAC TROMETHAMINE 30 MG/ML (IVP) VIAL IVP SCH ×2 (14:18→19:29)
[2016-12-20] MEDS: EPOETIN ALFA 10,000 UNITS/ML VIAL SQ SCH (14:20)
[2016-12-20] MEDS: fentaNYL 50 MCG/HR PATCH T-DERMAL SCH (14:20)
[2016-12-20 17:35] VITALS: BP 105/57; PULSE 90; RESP 16; TEMP 98.5; O2SAT 98
[2016-12-20] MEDS: traZODone HCL 50 MG TAB PO SCH (19:19)
[2016-12-20 20:45] VITALS: BP 97/57; PULSE 92; RESP 18; TEMP 98.6; O2SAT 98
[2016-12-21] VITALS (7 sets, daily range): BP systolic 101–127; BP diastolic 56–66; PULSE 81–105; RESP 16–18; TEMP 96.2–100.1; O2SAT 96–100
[2016-12-21] MEDS: GENTAMICIN 80 MG PREMIX 100 ML IV SCH ×3 (00:55→17:54)
[2016-12-21] MEDS: METHOCARBAMOL 500 MG TAB PO SCH ×3 (00:55→17:53)
[2016-12-21] MEDS: QUEtiapine FUMARATE 25 MG TAB PO SCH ×3 (00:55→17:53)
[2016-12-21] MEDS: HYDROmorphone HCL 4 MG TAB PO PRN ×6 (00:55→20:48)
[2016-12-21] MEDS: PREGABALIN 100 MG CAP PO SCH ×3 (00:55→17:53)
[2016-12-21] MEDS: LACTATED RINGER'S 1000 ML INJ 1,000 ML IV SCH ×7 (00:56→20:16)
[2016-12-21] MEDS: ceFAZolin 2 GM PREMIX 50 ML IV SCH ×3 (03:09→20:51)
[2016-12-21] MEDS: KETOROLAC TROMETHAMINE 30 MG/ML (IVP) VIAL IVP SCH ×3 (06:32→21:48)
--- NOTE | 2016-12-21 07:02 | PD.ORT.PN ---
Subjective Subjective Remarks s/p IMN with partial wound closure left leg - POD 32 s/p right tibia fx with vascular and significant soft tissue injury s/p removal of exfix with IMN and rotation soleus graft right tibia - POD 22 s/p right shoulder AC joint repair - POD 24 s/p I&D right leg with skin grafting partial leg and vac change - POD 1 doing well. states pain at harvest site but otherwise no complaints. Objective Vitals Vital Signs Date Time Temp Pulse Resp B/P Pulse Ox O2 Delivery O2 Flow Rate FiO2 12/21/16 00:55 96.2 86 18 104/61 100 12/20/16 20:45 98.6 92 18 97/57 98 12/20/16 18:40 Room Air 12/20/16 17:35 98.5 90 16 105/57 98 12/20/16 13:24 96.3 68 16 122/68 96 12/20/16 13:02 15 12/20/16 13:02 15 12/20/16 13:00 97.7 93 15 126/74 99 Nasal Cannula 2 12/20/16 12:45 82 15 130/73 99 Nasal Cannula 2 12/20/16 12:30 88 14 133/69 98 Nasal Cannula 2 12/20/16 12:15 99 13 133/76 98 Nasal Cannula 2 12/20/16 12:05 97.6 98 12 144/77 97 Nasal Cannula 2 12/20/16 07:41 97.7 84 16 103/59 93 I/O 12/20/16 12/20/16 12/20/16 12/21/16 12/21/16 12/21/16 07:00 15:00 23:00 07:00 15:00 23:00 Intake Total 698 ml 1480 ml 360 ml Output Total 50 ml 700 ml 100 ml Balance 648 ml 780 ml 260 ml Intake Oral 480 ml 360 ml IV Total 698 ml 50 ml Other 950 ml Output Urine Total 500 ml Drainage Total 50 ml 100 ml Estimated Blood Loss 200 ml # Voids 4 2 2 # Bowel Movements 0 0 1 Result Diagram: 12/18/16 2356 Imaging Last Impressions Tibia/Fibula X-Ray 12/13/16 0000 Signed Impressions: Service Date/Time: Tuesday, December 13, 2016 11:33 - CONCLUSION: Comminuted mid fibular fractures are not aligned, however tibial fractures are aligned. Abhijit Fernandes MD Clavicle X-Ray 12/13/16 0000 Signed Impressions: Service Date/Time: Tuesday, December 13, 2016 11:29 - CONCLUSION: A/C joint appears aligned. Abhijit Fernandes MD Knee MRI 12/12/16 0000 Signed Impressions: Service Date/Time: November 15:35 - CONCLUSION: Inhomogeneous area of bright signal on T2 sequence in the distal femoral diaphysis probably areas of contusion and possible mild sprain of the ACL involving the femoral attachment site. Abhijit Fernandes MD Abdomen/Pelvis CT 12/03/16 0000 Signed Impressions: Service Date/Time: Saturday, December 03, 2016 16:29 - CONCLUSION: 1. Trace pleural fluid. Mild free fluid in the pelvis. Mild anasarca. 2. No acute traumatic injury identified within the abdomen and pelvis. 3. Moderate constipation. Mild ileus. Marshall Samaniego MD Shoulder X-Ray 11/26/16 0000 Signed Impressions: Service Date/Time: Saturday, November 26, 2016 15:46 - CONCLUSION: 1. Status post plate and screw fixation of right a.c. joint separation in near anatomic alignment without significant fracture. Zackary Piper MD Foot X-Ray 11/23/16 0000 Signed Impressions: Service Date/Time: Wednesday, November 23, 2016 09:01 - CONCLUSION: 1. Nonspecific soft tissue swelling around the foot. 2. Mild irregularity involving the base of the proximal phalanx. Recommend correlation with point tenderness for nondisplaced fracture. Chinmay Leon MD Chest X-Ray 11/21/16 0600 Signed Impressions: Service Date/Time: October 02:25 - CONCLUSION: Mild bibasilar consolidation. Interim extubation and removal of nasogastric tube and right subclavian central venous line. Shane Gonzalez MD Gall Bladder Ultrasound 11/20/16 0000 Signed Impressions: Service Date/Time: Sunday, November 20, 2016 09:42 - CONCLUSION: Distended gallbladder without stones or gallbladder wall thickening. Shane Fernandes MD Head CT 11/19/16 0000 Signed Impressions: Service Date/Time: Saturday, November 19, 2016 16:51 - CONCLUSION: 1. No intracranial abnormality. 2. Scalp injuries. Shane Fernandes MD Chest CT 11/19/16 0000 Signed Impressions: Service Date/Time: Saturday, November 19, 2016 17:02 - CONCLUSION: Areas of consolidation/contusion or atelectasis in the posterior mid and lower lungs. Shane Fernandes MD Cervical Spine CT 11/19/16 0000 Signed Impressions: Service Date/Time: Saturday, November 19, 2016 16:51 - CONCLUSION: Reversal of the normal C-spine lordosis. No acute bony injury is seen. Shane Fernandes MD Pelvis X-Ray 11/17/16 0058 Signed Impressions: Service Date/Time: Thursday, November 17, 2016 00:41 - CONCLUSION: No evidence of fracture. Avery Vaca MD Objective Remarks LLE: Dressing intact, mild swelling foot, Wiggles toes freely, sensation intact, +cap refill, +nvi. RLE: Splint in place, VAC in place. good seal. running appropriately. Continues to have moderate right foot swelling w mild ecchymosis, Limited sensation, can move toes minimally on todays exam, +cap refill RUE: Dressing/sling in place, Mild swelling hand, Good sensation hand and fingers, median/ulnar nerve distribution fully intact, +motor brachiorad and thumb extension Assessment & Plan Assessment and Plan 1) Left Open Tibial Shaft Fxs with fasciotomies s/p IMN with wound closure - POD 32 2) Right shoulder AC joint separation s/p ORIF - POD 25 3) I&D of open Right Tibia Fx, removal of external fixation, intramedullary nail fixation right tibia, soleus muscle rotational flap - POD 22 4) Irrigation and debridement of right leg, application wound VAC dressing, STSG of partial leg - POD 1 5) Right foot 5th Phalynx fx - nonop 6) Right Tibial Artery injury s/p Repair by Dr Jordan. VAC SETTINGS: 150mmHg, continuous. if malfunctions, connect to wall suction on continuous. maintain right leg short leg splints at all time PT - ROM of knees to prevent contractures/stiffness. NWB RUE. WBAT BLE for transfers. Pain management DVT prophylaxis - Lovenox plan for surgery friday/ of next week for vac change and potential grafting of remaining leg consents on chart npo after MN tues hold lovenox after Tues AM dose Onur Swain Dec 21, 2016 07:02
[2016-12-21] MEDS: LACTULOSE SYRUP 20 GM/30 ML CUP PO SCH (09:00)
[2016-12-21] MEDS: DOCUSATE SODIUM 50 MG/SENNA 8.6 MG TAB PO SCH ×2 (09:26→20:50)
[2016-12-21] MEDS: MULTIVITAMINS/MINERALS THERAPEUTIC TAB PO SCH ×2 (09:26→20:49)
[2016-12-21] MEDS: LACTOBACILLUS ACIDOPHILUS TAB PO SCH ×2 (09:26→20:49)
[2016-12-21] MEDS: CITALOPRAM HYDROBROMIDE 20 MG TAB PO SCH ×2 (09:26→20:49)
[2016-12-21] MEDS: FERROUS SULFATE 325 MG (65 MG ELEMENTAL IRON) TAB PO SCH ×2 (09:26→20:50)
[2016-12-21] MEDS: SODIUM CHLORIDE 0.9% FLUSH 10 ML FLUSH IV FLUSH SCH ×2 (09:30→20:53)
[2016-12-21] MEDS: CLOPIDOGREL 75 MG TAB PO SCH (10:22)
[2016-12-21] MEDS: traZODone HCL 50 MG TAB PO SCH (20:49)
[2016-12-21] MEDS: NYSTATIN 100,000 UNIT/GM CREAM 15 GM TOPICAL SCH (21:48)
[2016-12-22 00:08] VITALS: BP 98/58; PULSE 84; RESP 17; TEMP 98.4; O2SAT 98
[2016-12-22] MEDS: METHOCARBAMOL 500 MG TAB PO SCH ×3 (01:58→17:21)
[2016-12-22] MEDS: GENTAMICIN 80 MG PREMIX 100 ML IV SCH ×3 (01:58→17:21)
[2016-12-22] MEDS: PREGABALIN 100 MG CAP PO SCH ×3 (01:58→17:21)
[2016-12-22] MEDS: QUEtiapine FUMARATE 25 MG TAB PO SCH ×3 (01:59→17:20)
[2016-12-22] MEDS: ceFAZolin 2 GM PREMIX 50 ML IV SCH ×3 (03:57→20:35)
[2016-12-22] MEDS: KETOROLAC TROMETHAMINE 30 MG/ML (IVP) VIAL IVP SCH (06:00)
[2016-12-22] MEDS: HYDROmorphone HCL 4 MG TAB PO PRN ×5 (06:36→20:35)
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
[2016-12-22 08:00] VITALS: BP 109/69; PULSE 82; RESP 20; TEMP 98.6; O2SAT 98
[2016-12-22] MEDS: LACTULOSE SYRUP 20 GM/30 ML CUP PO SCH (09:00)
[2016-12-22] MEDS: SODIUM CHLORIDE 0.9% FLUSH 10 ML FLUSH IV FLUSH SCH ×2 (09:00→20:37)
[2016-12-22] MEDS: FERROUS SULFATE 325 MG (65 MG ELEMENTAL IRON) TAB PO SCH ×2 (09:52→20:35)
[2016-12-22] MEDS: CITALOPRAM HYDROBROMIDE 20 MG TAB PO SCH ×2 (09:52→20:36)
[2016-12-22] MEDS: DOCUSATE SODIUM 50 MG/SENNA 8.6 MG TAB PO SCH ×2 (09:52→20:36)
[2016-12-22] MEDS: LACTOBACILLUS ACIDOPHILUS TAB PO SCH ×2 (09:52→20:35)
[2016-12-22] MEDS: MULTIVITAMINS/MINERALS THERAPEUTIC TAB PO SCH ×2 (09:53→20:36)
[2016-12-22] MEDS: CLOPIDOGREL 75 MG TAB PO SCH (09:53)
[2016-12-22] MEDS: NYSTATIN 100,000 UNIT/GM CREAM 15 GM TOPICAL SCH ×2 (09:55→20:37)
[2016-12-22 12:00] VITALS: BP 115/71; PULSE 98; RESP 20; TEMP 97.6; O2SAT 97
[2016-12-22] MEDS: LACTATED RINGER'S 1000 ML INJ 1,000 ML IV SCH ×4 (13:01→23:01)
[2016-12-22] MEDS: ENOXAPARIN SODIUM 40 MG/0.4 ML SYRINGE SQ SCH (13:57)
[2016-12-22 16:00] VITALS: BP 130/70; PULSE 105; RESP 18; TEMP 98.7; O2SAT 100
[2016-12-22 20:21] VITALS: BP 135/73; PULSE 103; RESP 18; TEMP 99; O2SAT 98
[2016-12-22] MEDS: traZODone HCL 50 MG TAB PO SCH (21:54)
[2016-12-23] MEDS: LACTATED RINGER'S 1000 ML INJ 1,000 ML IV SCH ×7 (00:29→21:10)
[2016-12-23] MEDS: GENTAMICIN 80 MG PREMIX 100 ML IV SCH ×3 (02:00→17:12)
[2016-12-23] MEDS: PREGABALIN 100 MG CAP PO SCH ×3 (02:00→17:12)
[2016-12-23] MEDS: QUEtiapine FUMARATE 25 MG TAB PO SCH ×3 (02:00→17:11)
[2016-12-23] MEDS: METHOCARBAMOL 500 MG TAB PO SCH ×3 (02:00→17:11)
[2016-12-23] MEDS: ceFAZolin 2 GM PREMIX 50 ML IV SCH ×3 (04:00→20:58)
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
[2016-12-23 07:57] VITALS: BP 108/60; PULSE 94; RESP 17; TEMP 99.5; O2SAT 95
[2016-12-23] MEDS: SODIUM CHLORIDE 0.9% FLUSH 10 ML FLUSH IV FLUSH SCH ×2 (09:00→20:58)
[2016-12-23] MEDS: LACTULOSE SYRUP 20 GM/30 ML CUP PO SCH (09:33)
[2016-12-23] MEDS: LACTOBACILLUS ACIDOPHILUS TAB PO SCH ×2 (09:33→20:59)
[2016-12-23] MEDS: fentaNYL 50 MCG/HR PATCH T-DERMAL SCH (09:33)
[2016-12-23] MEDS: MULTIVITAMINS/MINERALS THERAPEUTIC TAB PO SCH ×2 (09:33→20:59)
[2016-12-23] MEDS: DOCUSATE SODIUM 50 MG/SENNA 8.6 MG TAB PO SCH ×2 (09:34→20:59)
[2016-12-23] MEDS: CLOPIDOGREL 75 MG TAB PO SCH (09:34)
[2016-12-23] MEDS: FERROUS SULFATE 325 MG (65 MG ELEMENTAL IRON) TAB PO SCH ×2 (09:34→20:59)
[2016-12-23] MEDS: CITALOPRAM HYDROBROMIDE 20 MG TAB PO SCH ×2 (09:34→20:59)
[2016-12-23] MEDS: HYDROmorphone HCL 4 MG TAB PO PRN ×3 (09:34→17:12)
[2016-12-23] MEDS: EPOETIN ALFA 10,000 UNITS/ML VIAL SQ SCH (09:35)
[2016-12-23] MEDS: NYSTATIN 100,000 UNIT/GM CREAM 15 GM TOPICAL SCH ×2 (09:35→20:59)
[2016-12-23] MEDS: REMOVE OLD DURAGESIC (FENTANYL) PATCH T-DERMAL SCH (09:37)
[2016-12-23 11:38] VITALS: BP 129/87; PULSE 91; RESP 17; TEMP 98.2; O2SAT 99
[2016-12-23 15:35] VITALS: BP 119/68; PULSE 95; RESP 17; TEMP 97.9; O2SAT 98
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
[2016-12-23] MEDS: ACETAMINOPHEN 325 MG TAB PO PRN (18:20)
[2016-12-23 19:00] VITALS: BP 110/67; PULSE 92; RESP 17; TEMP 99.9; O2SAT 97
[2016-12-23] MEDS: traZODone HCL 50 MG TAB PO SCH (20:59)
[2016-12-23] MEDS: HYDROmorphone HCL 2 MG TAB PO PRN (21:01)
[2016-12-24] MEDS: LACTATED RINGER'S 1000 ML INJ 1,000 ML IV SCH ×9 (00:47→21:27)
[2016-12-24] MEDS: GENTAMICIN 80 MG PREMIX 100 ML IV SCH ×2 (02:54→15:35)
[2016-12-24] MEDS: METHOCARBAMOL 500 MG TAB PO SCH ×3 (03:04→17:00)
[2016-12-24] MEDS: PREGABALIN 100 MG CAP PO SCH ×3 (03:04→16:59)
[2016-12-24] MEDS: QUEtiapine FUMARATE 25 MG TAB PO SCH ×3 (03:04→17:00)
[2016-12-24 04:00] VITALS: BP 119/56; PULSE 98; RESP 16; TEMP 99.7; O2SAT 96
[2016-12-24] MEDS: ceFAZolin 2 GM PREMIX 50 ML IV SCH ×3 (04:00→21:27)
[2016-12-24] MEDS ORDERED: fentaNYL CITRATE 250 MCG/5 ML AMP ONE (06:13)
[2016-12-24] MEDS ORDERED: MIDAZOLAM HCL 2 MG/2 ML VIAL ONE (06:13)
[2016-12-24] MEDS ORDERED: GENTAMICIN SULFATE 80 MG/2 ML VIAL ONE (06:20)
--- NOTE | 2016-12-24 06:33 | PD.ORT.PN ---
Subjective Subjective Remarks s/p IMN with partial wound closure left leg - POD 35 s/p right tibia fx with vascular and significant soft tissue injury s/p removal of exfix with IMN and rotation soleus graft right tibia - POD 25 s/p right shoulder AC joint repair - POD 28 s/p I&D right leg with skin grafting partial leg and vac change - POD 4 doing well. states pain at harvest site but improving. Objective Vitals Vital Signs Date Time Temp Pulse Resp B/P Pulse Ox O2 Delivery O2 Flow Rate FiO2 12/24/16 04:00 99.7 98 16 119/56 96 12/23/16 19:09 Room Air 12/23/16 19:00 99.9 92 17 110/67 97 12/23/16 15:35 97.9 95 17 119/68 98 12/23/16 11:38 98.2 91 17 129/87 99 12/23/16 07:57 99.5 94 17 108/60 95 I/O 12/23/16 12/23/16 12/23/16 12/24/16 12/24/16 12/24/16 06:59 14:59 22:59 06:59 14:59 22:59 Intake Total 360 ml 900 ml 480 ml 480 ml Output Total 100 ml 0 ml Balance 360 ml 800 ml 480 ml 480 ml Intake Oral 360 ml 900 ml 480 ml 480 ml Drainage Total 100 ml 0 ml # Voids 4 3 5 4 # Bowel Movements 0 1 0 Imaging Last Impressions Tibia/Fibula X-Ray 12/13/16 0000 Signed Impressions: Service Date/Time: Tuesday, December 13, 2016 11:33 - CONCLUSION: Comminuted mid fibular fractures are not aligned, however tibial fractures are aligned. Abhijit Fernandes MD Clavicle X-Ray 12/13/16 0000 Signed Impressions: Service Date/Time: Tuesday, December 13, 2016 11:29 - CONCLUSION: A/C joint appears aligned. Abhijit Fernandes MD Knee MRI 12/12/16 0000 Signed Impressions: Service Date/Time: November 15:35 - CONCLUSION: Inhomogeneous area of bright signal on T2 sequence in the distal femoral diaphysis probably areas of contusion and possible mild sprain of the ACL involving the femoral attachment site. Abhijit Fernandes MD Abdomen/Pelvis CT 12/03/16 0000 Signed Impressions: Service Date/Time: Saturday, December 03, 2016 16:29 - CONCLUSION: 1. Trace pleural fluid. Mild free fluid in the pelvis. Mild anasarca. 2. No acute traumatic injury identified within the abdomen and pelvis. 3. Moderate constipation. Mild ileus. Marshall Samaniego MD Shoulder X-Ray 11/26/16 0000 Signed Impressions: Service Date/Time: Saturday, November 26, 2016 15:46 - CONCLUSION: 1. Status post plate and screw fixation of right a.c. joint separation in near anatomic alignment without significant fracture. Zackary Piper MD Foot X-Ray 11/23/16 0000 Signed Impressions: Service Date/Time: Wednesday, November 23, 2016 09:01 - CONCLUSION: 1. Nonspecific soft tissue swelling around the foot. 2. Mild irregularity involving the base of the proximal phalanx. Recommend correlation with point tenderness for nondisplaced fracture. Chinmay Leon MD Chest X-Ray 11/21/16 0600 Signed Impressions: Service Date/Time: October 02:25 - CONCLUSION: Mild bibasilar consolidation. Interim extubation and removal of nasogastric tube and right subclavian central venous line. Shane Gonzalez MD Gall Bladder Ultrasound 11/20/16 0000 Signed Impressions: Service Date/Time: Sunday, November 20, 2016 09:42 - CONCLUSION: Distended gallbladder without stones or gallbladder wall thickening. Shane Fernandes MD Head CT 11/19/16 0000 Signed Impressions: Service Date/Time: Saturday, November 19, 2016 16:51 - CONCLUSION: 1. No intracranial abnormality. 2. Scalp injuries. Shane Fernandes MD Chest CT 11/19/16 0000 Signed Impressions: Service Date/Time: Saturday, November 19, 2016 17:02 - CONCLUSION: Areas of consolidation/contusion or atelectasis in the posterior mid and lower lungs. Shane Fernandes MD Cervical Spine CT 11/19/16 0000 Signed Impressions: Service Date/Time: Saturday, November 19, 2016 16:51 - CONCLUSION: Reversal of the normal C-spine lordosis. No acute bony injury is seen. Shane Fernandes MD Pelvis X-Ray 11/17/16 0058 Signed Impressions: Service Date/Time: Thursday, November 17, 2016 00:41 - CONCLUSION: No evidence of fracture. Avery Vaca MD Objective Remarks LLE: Dressing intact, mild swelling foot, Wiggles toes freely, sensation intact, +cap refill, +nvi. RLE: Splint in place, VAC in place. good seal. running appropriately. Continues to have moderate right foot swelling w mild ecchymosis, Limited sensation, can move toes minimally on todays exam, +cap refill RUE: Dressing/sling in place, Mild swelling hand, Good sensation hand and fingers, median/ulnar nerve distribution fully intact, +motor brachiorad and thumb extension Assessment & Plan Assessment and Plan 1) Left Open Tibial Shaft Fxs with fasciotomies s/p IMN with wound closure - POD 35 2) Right shoulder AC joint separation s/p ORIF - POD 28 3) I&D of open Right Tibia Fx, removal of external fixation, intramedullary nail fixation right tibia, soleus muscle rotational flap - POD 25 4) Irrigation and debridement of right leg, application wound VAC dressing, STSG of partial leg - POD 4 5) Right foot 5th Phalynx fx - nonop 6) Right Tibial Artery injury s/p Repair by Dr Jordan. VAC SETTINGS: 150mmHg, continuous. if malfunctions, connect to wall suction on continuous. maintain right leg short leg splints at all time PT - ROM of knees to prevent contractures/stiffness. NWB RUE. WBAT BLE for transfers. Pain management [facility] Onur Swain Dec 24, 2016 06:33
[2016-12-24] MEDS ORDERED: ACETAMINOPHEN 1000 MG/100 ML VIAL IV ONE (06:52)
[2016-12-24] MEDS ORDERED: FAMOTIDINE 20 MG/2 ML VIAL ONE (06:55)
[2016-12-24] MEDS ORDERED: ceFAZolin INJ 1,000 MG VIAL ONE (07:06)
--- NOTE | 2016-12-24 07:46 | PD.OP ---
cc: Emery Llanes MD Operative Report Date of Surgery: Dec 24, 2016 Preoperative Diagnosis: Open right tibia fracture with near amputation Postoperative Diagnosis: Procedure: Irrigation and debridement, wound VAC change Anesthesia: Gen. Surgeon: Emery Llanes Medical Social Worker(s): SALLY Reynoso PA-C The surgical procedure was assisted by my physician child development assistant. My P.A. presence was necessary throughout this case for the manipulation and positioning of the surgical extremity. My P.A. was assisting me throughout the duration of this procedure. The skill set of a physician child development assistant was medically necessary to complete this procedure. During the surgical case the restoration technician was working at the back table and the physician child development assistant was directly assisting me. Operation and Findings: Patient brought to operating room and given IV sedation and general anesthesia. Timeout procedure was performed. IV antibiotics were administered. The operative extremity was prepped with alcohol followed by Hibiclens and draped in usual sterile fashion. Procedure began with irrigation and debridement of the open wound. Skin subcutaneous tissue and fascia were sharply debrided. Overall the wound was healthy. A excisional debridement was performed. Muscle appeared be healthy and viable. There was increased granulation tissue forming. The previous skin graft appeared to be taking very well Wound was now thoroughly irrigated with sterile saline. Next attention was turned to VAC dressing. An extra-large VAC dressing was cut to fit over the wound. Xeroform was placed over the skin grafted area. VAC dressing was sealed appropriately. A compressive dressing was applied. VAC dressing was set on continuous. A well molded, well-padded splint was applied area Patient was awakened and transferred to recovery in stable condition. Emery Llanes MD Dec 24, 2016 07:46
[2016-12-24 08:00] VITALS: BP 109/60; PULSE 89; RESP 18; TEMP 97.3; O2SAT 100
[2016-12-24] MEDS: CLOPIDOGREL 75 MG TAB PO SCH (09:00)
[2016-12-24] MEDS: NYSTATIN 100,000 UNIT/GM CREAM 15 GM TOPICAL SCH ×2 (09:00→21:26)
[2016-12-24] MEDS ORDERED: DO NOT ADM ANY ANTICOAGULANT DRUGS PRN (09:30)
[2016-12-24] MEDS: LACTOBACILLUS ACIDOPHILUS TAB PO SCH ×2 (09:35→21:26)
[2016-12-24] MEDS: FERROUS SULFATE 325 MG (65 MG ELEMENTAL IRON) TAB PO SCH ×2 (09:35→21:26)
[2016-12-24] MEDS: CITALOPRAM HYDROBROMIDE 20 MG TAB PO SCH ×2 (09:35→21:26)
[2016-12-24] MEDS: DOCUSATE SODIUM 50 MG/SENNA 8.6 MG TAB PO SCH ×2 (09:35→21:26)
[2016-12-24] MEDS: HYDROmorphone HCL 4 MG TAB PO PRN ×2 (09:36→13:31)
[2016-12-24] MEDS: MULTIVITAMINS/MINERALS THERAPEUTIC TAB PO SCH ×2 (09:37→21:26)
[2016-12-24] MEDS: SODIUM CHLORIDE 0.9% FLUSH 10 ML FLUSH IV FLUSH SCH ×2 (09:37→21:27)
[2016-12-24] MEDS: LACTULOSE SYRUP 20 GM/30 ML CUP PO SCH (09:37)
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
[2016-12-24 12:00] VITALS: BP 114/66; PULSE 99; RESP 18; TEMP 98.8; O2SAT 98
[2016-12-24] MEDS ORDERED: ONDANSETRON HCL 4 MG/2 ML VIAL IV PUSH ONE (12:00)
[2016-12-24] MEDS ORDERED: PROPOFOL 200 MG/20 ML AMP IV ONE (12:00)
[2016-12-24 16:00] VITALS: BP 126/66; PULSE 97; RESP 18; TEMP 101.1; O2SAT 97
[2016-12-24] MEDS: ACETAMINOPHEN 325 MG TAB PO PRN (16:59)
[2016-12-24] MEDS: HYDROmorphone HCL 2 MG TAB PO PRN (17:06)
[2016-12-24 20:45] VITALS: BP 101/58; PULSE 99; RESP 18; TEMP 99.1; O2SAT 97
[2016-12-24] MEDS: traZODone HCL 50 MG TAB PO SCH (21:26)
[2016-12-25] MEDS: LACTATED RINGER'S 1000 ML INJ 1,000 ML IV SCH ×12 (00:43→23:38)
[2016-12-25] MEDS: GENTAMICIN 80 MG PREMIX 100 ML IV SCH ×3 (00:44→15:26)
[2016-12-25 00:55] VITALS: BP 96/59; PULSE 100; RESP 18; TEMP 100.3; O2SAT 99
[2016-12-25] MEDS: QUEtiapine FUMARATE 25 MG TAB PO SCH ×3 (02:33→18:52)
[2016-12-25] MEDS: PREGABALIN 100 MG CAP PO SCH ×3 (02:33→18:52)
[2016-12-25] MEDS: METHOCARBAMOL 500 MG TAB PO SCH ×3 (02:33→18:52)
[2016-12-25] MEDS: ceFAZolin 2 GM PREMIX 50 ML IV SCH ×3 (06:48→22:23)
--- NOTE | 2016-12-25 06:58 | PD.ORT.PN ---
Subjective Subjective Remarks s/p IMN with partial wound closure left leg - POD 36 s/p right tibia fx with vascular and significant soft tissue injury s/p removal of exfix with IMN and rotation soleus graft right tibia - POD 26 s/p right shoulder AC joint repair - POD 29 s/p I&D right leg with skin grafting partial leg - POD 5 s/p I&D vac Change right leg - POD 1 doing well. states pain at harvest site but improving. Objective Vitals Vital Signs Date Time Temp Pulse Resp B/P Pulse Ox O2 Delivery O2 Flow Rate FiO2 12/25/16 00:55 100.3 100 18 96/59 99 12/24/16 20:45 99.1 99 18 101/58 97 12/24/16 19:40 Room Air 12/24/16 16:00 101.1 97 18 126/66 97 12/24/16 12:00 98.8 99 18 114/66 98 12/24/16 09:00 98.5 80 12 108/66 98 Nasal Cannula 2 12/24/16 08:45 81 7 104/69 98 Nasal Cannula 2 12/24/16 08:34 98.5 85 8 104/60 98 Nasal Cannula 2 12/24/16 08:00 97.3 89 18 109/60 100 I/O 12/24/16 12/24/16 12/24/16 12/25/16 12/25/16 12/25/16 07:00 15:00 23:00 07:00 15:00 23:00 Intake Total 480 ml 2312 ml 1075 ml Output Total 100 ml 50 ml Balance 480 ml 2212 ml 1025 ml Intake Oral 480 ml 1250 ml 360 ml IV Total 662 ml 715 ml Other 400 ml Drainage Total 100 ml 50 ml # Voids 4 3 2 # Bowel Movements 0 0 0 Imaging Last Impressions Tibia/Fibula X-Ray 12/13/16 0000 Signed Impressions: Service Date/Time: Tuesday, December 13, 2016 11:33 - CONCLUSION: Comminuted mid fibular fractures are not aligned, however tibial fractures are aligned. Abhijit Fernandes MD Clavicle X-Ray 12/13/16 0000 Signed Impressions: Service Date/Time: Tuesday, December 13, 2016 11:29 - CONCLUSION: A/C joint appears aligned. Abhijit Fernandes MD Knee MRI 12/12/16 0000 Signed Impressions: Service Date/Time: November 15:35 - CONCLUSION: Inhomogeneous area of bright signal on T2 sequence in the distal femoral diaphysis probably areas of contusion and possible mild sprain of the ACL involving the femoral attachment site. Abhijit Fernandes MD Abdomen/Pelvis CT 12/03/16 0000 Signed Impressions: Service Date/Time: Saturday, December 03, 2016 16:29 - CONCLUSION: 1. Trace pleural fluid. Mild free fluid in the pelvis. Mild anasarca. 2. No acute traumatic injury identified within the abdomen and pelvis. 3. Moderate constipation. Mild ileus. Marshall Samaniego MD Shoulder X-Ray 11/26/16 0000 Signed Impressions: Service Date/Time: Saturday, November 26, 2016 15:46 - CONCLUSION: 1. Status post plate and screw fixation of right a.c. joint separation in near anatomic alignment without significant fracture. Zackary Piper MD Foot X-Ray 11/23/16 0000 Signed Impressions: Service Date/Time: Wednesday, November 23, 2016 09:01 - CONCLUSION: 1. Nonspecific soft tissue swelling around the foot. 2. Mild irregularity involving the base of the proximal phalanx. Recommend correlation with point tenderness for nondisplaced fracture. Chinmay Leon MD Chest X-Ray 11/21/16 0600 Signed Impressions: Service Date/Time: October 02:25 - CONCLUSION: Mild bibasilar consolidation. Interim extubation and removal of nasogastric tube and right subclavian central venous line. Shane Gonzalez MD Gall Bladder Ultrasound 11/20/16 0000 Signed Impressions: Service Date/Time: Sunday, November 20, 2016 09:42 - CONCLUSION: Distended gallbladder without stones or gallbladder wall thickening. Shane Fernandes MD Head CT 11/19/16 0000 Signed Impressions: Service Date/Time: Saturday, November 19, 2016 16:51 - CONCLUSION: 1. No intracranial abnormality. 2. Scalp injuries. Shane Fernandes MD Chest CT 11/19/16 0000 Signed Impressions: Service Date/Time: Saturday, November 19, 2016 17:02 - CONCLUSION: Areas of consolidation/contusion or atelectasis in the posterior mid and lower lungs. Shane Fernandes MD Cervical Spine CT 11/19/16 0000 Signed Impressions: Service Date/Time: Saturday, November 19, 2016 16:51 - CONCLUSION: Reversal of the normal C-spine lordosis. No acute bony injury is seen. Shane Fernandes MD Pelvis X-Ray 11/17/16 0058 Signed Impressions: Service Date/Time: Thursday, November 17, 2016 00:41 - CONCLUSION: No evidence of fracture. Avery Vaca MD Objective Remarks LLE: Dressing intact, mild swelling foot, Wiggles toes freely, sensation intact, +cap refill, +nvi. RLE: Splint in place, VAC in place. good seal. running appropriately. Continues to have moderate right foot swelling w mild ecchymosis, Limited sensation, can move toes minimally on todays exam, +cap refill RUE: Dressing/sling in place, Mild swelling hand, Good sensation hand and fingers, median/ulnar nerve distribution fully intact, +motor brachiorad and thumb extension Assessment & Plan Assessment and Plan 1) Left Open Tibial Shaft Fxs with fasciotomies s/p IMN with wound closure - POD 36 2) Right shoulder AC joint separation s/p ORIF - POD 29 3) I&D of open Right Tibia Fx, removal of external fixation, intramedullary nail fixation right tibia, soleus muscle rotational flap - POD 26 4) Irrigation and debridement of right leg, application wound VAC dressing, STSG of partial leg - POD 5 5) Right foot 5th Phalynx fx - nonop 6) Right Tibial Artery injury s/p Repair by Dr Jordan. VAC SETTINGS: 150mmHg, continuous. if malfunctions, connect to wall suction on continuous. maintain right leg short leg splints at all time PT - ROM of knees to prevent contractures/stiffness. NWB RUE. WBAT BLE for transfers. Pain management DVT prophylaxis - Lovenox NPO after MN plan for surgery Friday for final skin grafting nOur Swain Dec 25, 2016 06:58
[2016-12-25 08:04] VITALS: BP 105/54; PULSE 88; RESP 16; TEMP 99.8; O2SAT 96
[2016-12-25] MEDS: MULTIVITAMINS/MINERALS THERAPEUTIC TAB PO SCH ×2 (08:28→20:53)
[2016-12-25] MEDS: LACTULOSE SYRUP 20 GM/30 ML CUP PO SCH (08:28)
[2016-12-25] MEDS: LACTOBACILLUS ACIDOPHILUS TAB PO SCH ×2 (08:28→20:53)
[2016-12-25] MEDS: HYDROmorphone HCL 4 MG TAB PO PRN ×5 (08:28→22:23)
[2016-12-25] MEDS: DOCUSATE SODIUM 50 MG/SENNA 8.6 MG TAB PO SCH ×2 (08:29→20:54)
[2016-12-25] MEDS: CITALOPRAM HYDROBROMIDE 20 MG TAB PO SCH ×2 (08:29→20:54)
[2016-12-25] MEDS: CLOPIDOGREL 75 MG TAB PO SCH (08:29)
[2016-12-25] MEDS: FERROUS SULFATE 325 MG (65 MG ELEMENTAL IRON) TAB PO SCH ×2 (08:29→20:54)
[2016-12-25] MEDS: ENOXAPARIN SODIUM 40 MG/0.4 ML SYRINGE SQ SCH (08:30)
[2016-12-25] MEDS: SODIUM CHLORIDE 0.9% FLUSH 10 ML FLUSH IV FLUSH SCH ×2 (08:31→20:54)
[2016-12-25] MEDS: NYSTATIN 100,000 UNIT/GM CREAM 15 GM TOPICAL SCH ×2 (08:32→22:26)
[2016-12-25 11:15] VITALS: BP 109/60; PULSE 100; RESP 16; TEMP 99.8; O2SAT 98
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
[2016-12-25 13:55] VITALS: O2SAT 98
[2016-12-25 15:59] VITALS: BP 118/57; PULSE 101; RESP 16; TEMP 99.3; O2SAT 97
[2016-12-25] MEDS: EPOETIN ALFA 10,000 UNITS/ML VIAL SQ SCH (16:58)
[2016-12-25 20:45] VITALS: BP 107/59; PULSE 100; RESP 18; TEMP 99.1; O2SAT 99
[2016-12-25] MEDS: traZODone HCL 50 MG TAB PO SCH (20:54)
[2016-12-26] VITALS (7 sets, daily range): BP systolic 106–114; BP diastolic 57–74; PULSE 91–99; RESP 16–18; TEMP 97.6–100.9; O2SAT 96–99
[2016-12-26] MEDS: GENTAMICIN 80 MG PREMIX 100 ML IV SCH ×4 (00:16→21:56)
[2016-12-26] MEDS: PREGABALIN 100 MG CAP PO SCH ×3 (02:24→17:43)
[2016-12-26] MEDS: METHOCARBAMOL 500 MG TAB PO SCH ×3 (02:24→17:43)
[2016-12-26] MEDS: QUEtiapine FUMARATE 25 MG TAB PO SCH ×3 (02:25→17:43)
--- NOTE | 2016-12-26 06:33 | PD.ORT.PN ---
Subjective Subjective Remarks s/p IMN with partial wound closure left leg - POD 37 s/p right tibia fx with vascular and significant soft tissue injury s/p removal of exfix with IMN and rotation soleus graft right tibia - POD 27 s/p right shoulder AC joint repair - POD 30 s/p I&D right leg with skin grafting partial leg - POD 6 s/p I&D vac Change right leg - POD 2 doing well. states pain at harvest site but improving. vac reports blockage yesterday Objective Vitals Vital Signs Date Time Temp Pulse Resp B/P Pulse Ox O2 Delivery O2 Flow Rate FiO2 12/26/16 04:06 99.0 92 18 108/58 99 12/26/16 00:10 99.4 91 18 109/58 96 12/25/16 20:45 99.1 100 18 107/59 99 12/25/16 19:50 18 12/25/16 19:50 18 12/25/16 15:59 99.3 101 16 118/57 97 12/25/16 13:55 98 21 12/25/16 11:15 99.8 100 16 109/60 98 12/25/16 08:04 99.8 88 16 105/54 96 I/O 12/25/16 12/25/16 12/25/16 12/26/16 12/26/16 12/26/16 07:00 15:00 23:00 07:00 15:00 23:00 Intake Total 617 ml 960 ml 360 ml Output Total 100 ml 75 ml Balance 517 ml 885 ml 360 ml Intake Oral 240 ml 960 ml 360 ml IV Total 377 ml Drainage Total 100 ml 75 ml # Voids 4 4 3 # Bowel Movements 0 0 1 Imaging Last Impressions Tibia/Fibula X-Ray 12/13/16 0000 Signed Impressions: Service Date/Time: Tuesday, December 13, 2016 11:33 - CONCLUSION: Comminuted mid fibular fractures are not aligned, however tibial fractures are aligned. Abhijit Fernandes MD Clavicle X-Ray 12/13/16 0000 Signed Impressions: Service Date/Time: Tuesday, December 13, 2016 11:29 - CONCLUSION: A/C joint appears aligned. Abhijit Fernandes MD Knee MRI 12/12/16 0000 Signed Impressions: Service Date/Time: November 15:35 - CONCLUSION: Inhomogeneous area of bright signal on T2 sequence in the distal femoral diaphysis probably areas of contusion and possible mild sprain of the ACL involving the femoral attachment site. Abhijit Fernandes MD Abdomen/Pelvis CT 12/03/16 0000 Signed Impressions: Service Date/Time: Saturday, December 03, 2016 16:29 - CONCLUSION: 1. Trace pleural fluid. Mild free fluid in the pelvis. Mild anasarca. 2. No acute traumatic injury identified within the abdomen and pelvis. 3. Moderate constipation. Mild ileus. Marshall Samaniego MD Shoulder X-Ray 11/26/16 0000 Signed Impressions: Service Date/Time: Saturday, November 26, 2016 15:46 - CONCLUSION: 1. Status post plate and screw fixation of right a.c. joint separation in near anatomic alignment without significant fracture. Zackary Piper MD Foot X-Ray 11/23/16 0000 Signed Impressions: Service Date/Time: Wednesday, November 23, 2016 09:01 - CONCLUSION: 1. Nonspecific soft tissue swelling around the foot. 2. Mild irregularity involving the base of the proximal phalanx. Recommend correlation with point tenderness for nondisplaced fracture. Chinmay Leon MD Chest X-Ray 11/21/16 0600 Signed Impressions: Service Date/Time: October 02:25 - CONCLUSION: Mild bibasilar consolidation. Interim extubation and removal of nasogastric tube and right subclavian central venous line. Shane Gonzalez MD Gall Bladder Ultrasound 11/20/16 0000 Signed Impressions: Service Date/Time: Sunday, November 20, 2016 09:42 - CONCLUSION: Distended gallbladder without stones or gallbladder wall thickening. Shane Fernandes MD Head CT 11/19/16 0000 Signed Impressions: Service Date/Time: Saturday, November 19, 2016 16:51 - CONCLUSION: 1. No intracranial abnormality. 2. Scalp injuries. Shane Fernandes MD Chest CT 11/19/16 0000 Signed Impressions: Service Date/Time: Saturday, November 19, 2016 17:02 - CONCLUSION: Areas of consolidation/contusion or atelectasis in the posterior mid and lower lungs. Shane Fernandes MD Cervical Spine CT 11/19/16 0000 Signed Impressions: Service Date/Time: Saturday, November 19, 2016 16:51 - CONCLUSION: Reversal of the normal C-spine lordosis. No acute bony injury is seen. Shane Fernandes MD Pelvis X-Ray 11/17/16 0058 Signed Impressions: Service Date/Time: Thursday, November 17, 2016 00:41 - CONCLUSION: No evidence of fracture. Avery Vaca MD Objective Remarks LLE: Dressing intact, mild swelling foot, Wiggles toes freely, sensation intact, +cap refill, +nvi. RLE: Splint in place, VAC in place. reported blockage. hooked to wall suction Continues to have moderate right foot swelling w mild ecchymosis, Limited sensation, can move toes minimally on todays exam, +cap refill RUE: Dressing/sling in place, Mild swelling hand, Good sensation hand and fingers, median/ulnar nerve distribution fully intact, +motor brachiorad and thumb extension Assessment & Plan Assessment and Plan 1) Left Open Tibial Shaft Fxs with fasciotomies s/p IMN with wound closure - POD 37 2) Right shoulder AC joint separation s/p ORIF - POD 30 3) I&D of open Right Tibia Fx, removal of external fixation, intramedullary nail fixation right tibia, soleus muscle rotational flap - POD 27 4) Irrigation and debridement of right leg, application wound VAC dressing, STSG of partial leg - POD 6 5) Right foot 5th Phalynx fx - nonop 6) Right Tibial Artery injury s/p Repair by Dr Jordan. VAC SETTINGS: 150mmHg, continuous. if malfunctions, connect to wall suction on continuous. maintain right leg short leg splints at all time PT - ROM of knees to prevent contractures/stiffness. NWB RUE. WBAT BLE for transfers. Pain management DVT prophylaxis - Lovenox NPO after MN plan for surgery Friday for final skin grafting Onur Swain Dec 26, 2016 06:33
[2016-12-26] MEDS: LACTATED RINGER'S 1000 ML INJ 1,000 ML IV SCH ×11 (06:34→20:18)
[2016-12-26] MEDS: ceFAZolin 2 GM PREMIX 50 ML IV SCH ×3 (06:34→20:15)
[2016-12-26] MEDS: NYSTATIN 100,000 UNIT/GM CREAM 15 GM TOPICAL SCH ×2 (09:00→20:17)
[2016-12-26] MEDS: MULTIVITAMINS/MINERALS THERAPEUTIC TAB PO SCH ×2 (09:00→20:16)
[2016-12-26] MEDS: LACTOBACILLUS ACIDOPHILUS TAB PO SCH ×2 (09:12→20:16)
[2016-12-26] MEDS: LACTULOSE SYRUP 20 GM/30 ML CUP PO SCH (09:12)
[2016-12-26] MEDS: REMOVE OLD DURAGESIC (FENTANYL) PATCH T-DERMAL SCH (09:13)
[2016-12-26] MEDS: fentaNYL 50 MCG/HR PATCH T-DERMAL SCH (09:13)
[2016-12-26] MEDS: HYDROmorphone HCL 4 MG TAB PO PRN ×4 (09:14→21:56)
[2016-12-26] MEDS: ERGOCALCIFEROL (VIT D2) 50,000 UNIT CAP PO SCH (09:14)
[2016-12-26] MEDS: CITALOPRAM HYDROBROMIDE 20 MG TAB PO SCH ×2 (09:15→20:16)
[2016-12-26] MEDS: DOCUSATE SODIUM 50 MG/SENNA 8.6 MG TAB PO SCH ×2 (09:15→20:15)
[2016-12-26] MEDS: CLOPIDOGREL 75 MG TAB PO SCH (09:15)
[2016-12-26] MEDS: SODIUM CHLORIDE 0.9% FLUSH 10 ML FLUSH IV FLUSH SCH ×2 (09:15→20:16)
[2016-12-26] MEDS: FERROUS SULFATE 325 MG (65 MG ELEMENTAL IRON) TAB PO SCH ×2 (09:15→20:16)
[2016-12-26] MEDS: MAGNESIUM HYDROXIDE SUSP 30 ML CUP PO PRN (20:15)
[2016-12-26] MEDS: traZODone HCL 50 MG TAB PO SCH (20:16)
[2016-12-27] VITALS: BP 98/53; PULSE 90; RESP 18; TEMP 101.1; O2SAT 96
[2016-12-27] MEDS ORDERED: POVIDONE IODINE 5% (ANTISEPSIS KIT) 4 APPLICATIONS EACH NARE PRN (02:00)
[2016-12-27] MEDS ORDERED: CHLORHEXIDINE GLUCONATE 2 % 1 PACK (2 CLOTHS) TOPICAL PRN (02:00)
[2016-12-27] MEDS ORDERED: LACTATED RINGER'S 1000 ML IV PRN (02:00)
[2016-12-27] MEDS ORDERED: INSULIN HUMAN REGULAR 1,000 UNITS/10 ML VIAL SQ PRN (02:00)
[2016-12-27] MEDS: QUEtiapine FUMARATE 25 MG TAB PO SCH ×3 (02:59→17:00)
[2016-12-27] MEDS: METHOCARBAMOL 500 MG TAB PO SCH ×3 (02:59→17:00)
[2016-12-27] MEDS: PREGABALIN 100 MG CAP PO SCH ×3 (02:59→17:01)
[2016-12-27] MEDS: ceFAZolin 2 GM PREMIX 50 ML IV SCH ×3 (05:38→20:08)
[2016-12-27] MEDS ORDERED: WHEEMIS3 (06:48)
[2016-12-27] MEDS ORDERED: WALKER/ADULT/FO1 MIS (06:48)
[2016-12-27] MEDS ORDERED: XARE10TA PO (06:48)
[2016-12-27] MEDS ORDERED: ENDO10TA8 PO (06:48)
--- NOTE | 2016-12-27 07:17 | PD.ORT.PN ---
Subjective Subjective Remarks s/p IMN with partial wound closure left leg - POD 38 s/p right tibia fx with vascular and significant soft tissue injury s/p removal of exfix with IMN and rotation soleus graft right tibia - POD 28 s/p right shoulder AC joint repair - POD 31 s/p I&D right leg with skin grafting partial leg - POD 7 s/p I&D vac Change right leg - POD 3 doing well. states pain at harvest site but improving. vac fixed at bedside yesterday. been running ok with a few alarms overnight. (Onur Swain) Objective Vitals Vital Signs Date Time Temp Pulse Resp B/P Pulse Ox O2 Delivery O2 Flow Rate FiO2 12/27/16 00:00 101.1 90 18 98/53 96 12/26/16 20:00 100.9 96 16 108/57 99 12/26/16 16:00 98.7 99 18 114/74 99 12/26/16 11:40 97.6 96 18 109/57 99 12/26/16 10:03 96 12/26/16 07:42 99.1 93 18 106/57 96 I/O 12/26/16 12/26/16 12/26/16 12/27/16 12/27/16 12/27/16 07:00 15:00 23:00 07:00 15:00 23:00 Intake Total 360 ml 800 ml 960 ml 0 ml Output Total 75 ml Balance 285 ml 800 ml 960 ml 0 ml Intake Oral 360 ml 800 ml 960 ml 0 ml Drainage Total 75 ml # Voids 3 3 3 2 # Bowel Movements 0 0 (Onur Swain) Imaging Last Impressions Tibia/Fibula X-Ray 12/13/16 0000 Signed Impressions: Service Date/Time: Tuesday, December 13, 2016 11:33 - CONCLUSION: Comminuted mid fibular fractures are not aligned, however tibial fractures are aligned. Abhijit Fernandes MD Clavicle X-Ray 12/13/16 0000 Signed Impressions: Service Date/Time: Tuesday, December 13, 2016 11:29 - CONCLUSION: A/C joint appears aligned. Abhijit Fernandes MD Knee MRI 12/12/16 0000 Signed Impressions: Service Date/Time: November 15:35 - CONCLUSION: Inhomogeneous area of bright signal on T2 sequence in the distal femoral diaphysis probably areas of contusion and possible mild sprain of the ACL involving the femoral attachment site. KKrys Fernandes MD Abdomen/Pelvis CT 12/03/16 0000 Signed Impressions: Service Date/Time: Saturday, December 03, 2016 16:29 - CONCLUSION: 1. Trace pleural fluid. Mild free fluid in the pelvis. Mild anasarca. 2. No acute traumatic injury identified within the abdomen and pelvis. 3. Moderate constipation. Mild ileus. Marshall Samaniego MD Shoulder X-Ray 11/26/16 0000 Signed Impressions: Service Date/Time: Saturday, November 26, 2016 15:46 - CONCLUSION: 1. Status post plate and screw fixation of right a.c. joint separation in near anatomic alignment without significant fracture. Zackary Piper MD Foot X-Ray 11/23/16 0000 Signed Impressions: Service Date/Time: Wednesday, November 23, 2016 09:01 - CONCLUSION: 1. Nonspecific soft tissue swelling around the foot. 2. Mild irregularity involving the base of the proximal phalanx. Recommend correlation with point tenderness for nondisplaced fracture. Chinmay Leon MD Chest X-Ray 11/21/16 0600 Signed Impressions: Service Date/Time: October 02:25 - CONCLUSION: Mild bibasilar consolidation. Interim extubation and removal of nasogastric tube and right subclavian central venous line. Shane Gonzalez MD Gall Bladder Ultrasound 11/20/16 0000 Signed Impressions: Service Date/Time: Sunday, November 20, 2016 09:42 - CONCLUSION: Distended gallbladder without stones or gallbladder wall thickening. Shane Fernandes MD Head CT 11/19/16 0000 Signed Impressions: Service Date/Time: Saturday, November 19, 2016 16:51 - CONCLUSION: 1. No intracranial abnormality. 2. Scalp injuries. Shane Fernandes MD Chest CT 11/19/16 0000 Signed Impressions: Service Date/Time: Saturday, November 19, 2016 17:02 - CONCLUSION: Areas of consolidation/contusion or atelectasis in the posterior mid and lower lungs. Shane Fernandes MD Cervical Spine CT 11/19/16 0000 Signed Impressions: Service Date/Time: Saturday, November 19, 2016 16:51 - CONCLUSION: Reversal of the normal C-spine lordosis. No acute bony injury is seen. Shane Fernandes MD Pelvis X-Ray 11/17/16 0058 Signed Impressions: Service Date/Time: Thursday, November 17, 2016 00:41 - CONCLUSION: No evidence of fracture. Avery Vaca MD Objective Remarks LLE: Dressing intact, mild swelling foot, Wiggles toes freely, sensation intact, +cap refill, +nvi. RLE: Splint in place, VAC in place. reported blockage. hooked to wall suction Continues to have moderate right foot swelling w mild ecchymosis, Limited sensation, can move toes minimally on todays exam, +cap refill RUE: Dressing/sling in place, Mild swelling hand, Good sensation hand and fingers, median/ulnar nerve distribution fully intact, +motor brachiorad and thumb extension (Onur Swain) Assessment & Plan Assessment and Plan 1) Left Open Tibial Shaft Fxs with fasciotomies s/p IMN with wound closure - POD 38 2) Right shoulder AC joint separation s/p ORIF - POD 31 3) I&D of open Right Tibia Fx, removal of external fixation, intramedullary nail fixation right tibia, soleus muscle rotational flap - POD 28 4) Irrigation and debridement of right leg, application wound VAC dressing, STSG of partial leg - POD 7 5) Right foot 5th Phalynx fx - nonop 6) Right Tibial Artery injury s/p Repair by Dr Jordan. VAC SETTINGS: 150mmHg, continuous. if malfunctions, connect to wall suction on continuous. maintain right leg short leg splints at all time PT - ROM of knees to prevent contractures/stiffness. NWB RUE. WBAT BLE for transfers. Pain management DVT prophylaxis - Lovenox surgery today for final skin graft of right leg once grafting complete, patient will have vac on right leg x 5 days and will plan for removal of vac friday at bedside by Jani Mohr (Onur Swain) Assessment and Plan Continue VAC dressing continuous 125 mmHg Plan removal of VAC dressing at bedside on Friday--then daily dressing changes with Xeroform 4 x 4's and Alejandro wrap Possible discharge to [facility] on Friday or Continue physical therapy Discontinue Plavix Lovenox 30 mg twice a day (Emery Hidalgo MD) Onur Swian Dec 27, 2016 07:17 Emery Hidalgo MD Dec 27, 2016 10:09
[2016-12-27] MEDS: CITALOPRAM HYDROBROMIDE 20 MG TAB PO SCH ×2 (07:47→20:08)
[2016-12-27 07:53] VITALS: BP 103/61; PULSE 87; RESP 18; TEMP 97.5; O2SAT 94
[2016-12-27] MEDS: LACTATED RINGER'S 1000 ML INJ 1,000 ML IV SCH ×12 (08:00→21:33)
[2016-12-27] MEDS ORDERED: GENTAMICIN SULFATE 80 MG/2 ML VIAL ONE (08:02)
[2016-12-27] MEDS ORDERED: FAMOTIDINE 20 MG/2 ML VIAL ONE (08:35)
[2016-12-27] MEDS: DOCUSATE SODIUM 50 MG/SENNA 8.6 MG TAB PO SCH ×2 (09:00→20:08)
[2016-12-27] MEDS: FERROUS SULFATE 325 MG (65 MG ELEMENTAL IRON) TAB PO SCH ×2 (09:00→20:08)
[2016-12-27] MEDS: LACTOBACILLUS ACIDOPHILUS TAB PO SCH ×2 (09:00→20:08)
[2016-12-27] MEDS: MULTIVITAMINS/MINERALS THERAPEUTIC TAB PO SCH ×2 (09:00→20:08)
[2016-12-27] MEDS: LACTULOSE SYRUP 20 GM/30 ML CUP PO SCH (09:00)
[2016-12-27] MEDS: GENTAMICIN 80 MG PREMIX 100 ML IV SCH ×3 (09:00→23:34)
[2016-12-27] MEDS: SODIUM CHLORIDE 0.9% FLUSH 10 ML FLUSH IV FLUSH SCH ×2 (09:00→20:09)
[2016-12-27] MEDS: NYSTATIN 100,000 UNIT/GM CREAM 15 GM TOPICAL SCH ×2 (09:00→20:09)
[2016-12-27] MEDS ORDERED: LIDOCAINE 2% JELLY 30 ML TUBE ONE (09:14)
[2016-12-27] MEDS ORDERED: MINERAL OIL 10 ML VIAL ONE (09:14)
[2016-12-27] MEDS ORDERED: DILA2TAB2 PO (10:05)
[2016-12-27] MEDS ORDERED: DOXY1CAP91 PO (10:05)
[2016-12-27] MEDS ORDERED: BACT800T5 PO (10:05)
--- NOTE | 2016-12-27 10:07 | PD.OP ---
cc: Emery Llanes MD Operative Report Date of Surgery: Dec 27, 2016 Preoperative Diagnosis: Open right tibia fracture with near amputation Postoperative Diagnosis: Procedure: Irrigation and debridement of right leg wound, split-thickness skin graft 200 cm , application of VAC dressing Anesthesia: Gen. Surgeon: Emery Llanes Swinging Cut Off Saw Operator(s): SALLY Reynoso PA-C The surgical procedure was assisted by my physician assistant art director. My P.A. presence was necessary throughout this case for the manipulation and positioning of the surgical extremity. My P.A. was assisting me throughout the duration of this procedure. The skill set of a physician assistant art director was medically necessary to complete this procedure. During the surgical case the surgical instrument mechanic was working at the back table and the physician assistant art director was directly assisting me. Operation and Findings: Patient brought to operating room and given IV sedation and general anesthesia. Timeout procedure was performed. IV antibiotics were administered. The right leg was prepped with alcohol followed by Hibiclens and draped in usual sterile fashion. Procedure began with irrigation and debridement of the open wound. Skin subcutaneous tissue and fascia were sharply debrided. Areas of the gastrocnemius muscle were excised sharply using scalpel and rongeur. Overall the wound was healthy. A excisional debridement was performed. Muscle appeared be healthy and viable. There significant granulation tissue forming. Wound was now thoroughly irrigated with sterile saline. Next was turned to skin grafting. Using the Geteha dermatome set at 0.015 skin graft was obtained from the thigh. Skin graft was now meshed at a ratio of 1- 2. The skin graft was now placed over the open wound. Skin graft was stapled into position. The open wound was completely covered. Skin graft was now covered with Xeroform. A VAC dressing was cut to fit over the wound. VAC dressing was sealed appropriately. A compressive dressing was applied. VAC dressing was set on continuous. Patient was awakened and transferred to recovery in stable condition. Emery Llanes MD Dec 27, 2016 10:07
[2016-12-27] MEDS ORDERED: *HYDROmorphone PF 1 MG VIAL PERIprocedural Use ONLY ONE ×2 (11:34→11:46)
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
[2016-12-27] MEDS ORDERED: ONDANSETRON HCL 4 MG/2 ML VIAL IV PUSH ONE (12:00)
[2016-12-27] MEDS ORDERED: PROPOFOL 200 MG/20 ML AMP IV ONE (12:00)
[2016-12-27] MEDS ORDERED: LACTATED RINGER'S 1000 ML INJ 1,000 ML IV ONE (12:00)
[2016-12-27] MEDS: HYDROmorphone HCL 4 MG TAB PO PRN ×2 (13:00→16:20)
[2016-12-27 13:07] VITALS: BP 116/73; PULSE 101; RESP 14; TEMP 96.9; O2SAT 97
[2016-12-27] MEDS ORDERED: MIDAZOLAM HCL 2 MG/2 ML VIAL ONE (14:48)
[2016-12-27] MEDS ORDERED: fentaNYL CITRATE 250 MCG/5 ML AMP ONE (14:48)
[2016-12-27 16:00] VITALS: BP 100/16; PULSE 102; RESP 18; TEMP 99.6; O2SAT 99
[2016-12-27] MEDS: traZODone HCL 50 MG TAB PO SCH (20:08)
[2016-12-27 20:40] VITALS: BP 109/65; PULSE 101; RESP 18; TEMP 98.3; O2SAT 96
[2016-12-27 22:58] LABS: MEAN CELL VOLUME 84.4 FL (80.0-100.0); MEAN CORPUSCULAR HEMOGLOBIN 29.3 PG (27.0-34.0); MEAN CORPUSCULAR HGB CONC 34.7 % (32.0-36.0); PLATELET COUNT 393 TH/MM3 (150-450); RED BLOOD COUNT 1.85 MIL/MM3 (4.00-5.30); RED CELL DISTRIBUTION WIDTH 14.5 % (11.6-17.2); WHITE BLOOD COUNT 10.1 TH/MM3 (4.0-11.0)
[2016-12-27 23:09] LABS: REVIEW FLAG FINAL
[2016-12-27 23:11] LABS: HEMATOCRIT 15.6 % (35.0-46.0)
[2016-12-27 23:29] LABS: APTT (PATIENT) 30.3 SEC (24.3-30.1); PROTHROMBIN TIME - PATIENT 11.4 SEC (9.8-11.6)
[2016-12-27] MEDS: ENOXAPARIN SODIUM 30 MG/0.3 ML SYRINGE SQ SCH (23:34)
[2016-12-28] VITALS (12 sets, daily range): BP systolic 100–119; BP diastolic 53–68; PULSE 86–98; RESP 14–19; TEMP 97.7–99.2; O2SAT 95–100
[2016-12-28] MEDS: METHOCARBAMOL 500 MG TAB PO SCH ×3 (03:02→17:22)
[2016-12-28] MEDS: PREGABALIN 100 MG CAP PO SCH ×3 (03:02→17:22)
[2016-12-28] MEDS: QUEtiapine FUMARATE 25 MG TAB PO SCH ×3 (03:02→17:22)
[2016-12-28] MEDS: HYDROmorphone HCL 4 MG TAB PO PRN ×3 (07:33→21:23)
[2016-12-28] MEDS: ceFAZolin 2 GM PREMIX 50 ML IV SCH ×2 (07:37→21:20)
[2016-12-28] MEDS: SODIUM CHLORIDE 0.9% FLUSH 10 ML FLUSH IV FLUSH SCH ×2 (09:00→21:27)
[2016-12-28] MEDS: NYSTATIN 100,000 UNIT/GM CREAM 15 GM TOPICAL SCH ×2 (09:00→21:00)
[2016-12-28] MEDS: LACTATED RINGER'S 1000 ML INJ 1,000 ML IV SCH ×8 (09:01→21:31)
[2016-12-28] MEDS: LACTOBACILLUS ACIDOPHILUS TAB PO SCH ×2 (09:35→21:24)
[2016-12-28] MEDS: CITALOPRAM HYDROBROMIDE 20 MG TAB PO SCH ×2 (09:36→21:20)
[2016-12-28] MEDS: MULTIVITAMINS/MINERALS THERAPEUTIC TAB PO SCH ×2 (09:36→21:24)
[2016-12-28] MEDS: LACTULOSE SYRUP 20 GM/30 ML CUP PO SCH (09:36)
[2016-12-28] MEDS: FERROUS SULFATE 325 MG (65 MG ELEMENTAL IRON) TAB PO SCH ×2 (09:36→21:24)
[2016-12-28] MEDS: DOCUSATE SODIUM 50 MG/SENNA 8.6 MG TAB PO SCH ×2 (09:36→21:24)
[2016-12-28] MEDS: GENTAMICIN 80 MG PREMIX 100 ML IV SCH ×3 (09:40→23:56)
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
[2016-12-28] MEDS: ENOXAPARIN SODIUM 30 MG/0.3 ML SYRINGE SQ SCH ×2 (11:33→23:52)
[2016-12-28 18:56] LABS: HEMATOCRIT 22.5 % (35.0-46.0)
[2016-12-28 18:57] LABS: REVIEW FLAG FINAL
[2016-12-28] MEDS: traZODone HCL 50 MG TAB PO SCH (21:21)
[2016-12-28] MEDS: MAGNESIUM HYDROXIDE SUSP 30 ML CUP PO PRN (21:37)
[2016-12-29] VITALS: BP 109/59; PULSE 87; RESP 16; TEMP 99.4; O2SAT 96
[2016-12-29] MEDS: METHOCARBAMOL 500 MG TAB PO SCH ×3 (02:44→17:26)
[2016-12-29] MEDS: PREGABALIN 100 MG CAP PO SCH ×3 (02:44→17:25)
[2016-12-29] MEDS: QUEtiapine FUMARATE 25 MG TAB PO SCH ×3 (02:44→17:25)
[2016-12-29] MEDS: LACTATED RINGER'S 1000 ML INJ 1,000 ML IV SCH ×12 (03:00→23:00)
[2016-12-29] MEDS: ceFAZolin 2 GM PREMIX 50 ML IV SCH ×3 (05:11→21:27)
[2016-12-29 08:00] VITALS: BP 109/58; PULSE 81; RESP 18; TEMP 98.8; O2SAT 96
[2016-12-29] MEDS: NYSTATIN 100,000 UNIT/GM CREAM 15 GM TOPICAL SCH ×2 (09:00→21:00)
[2016-12-29] MEDS: CITALOPRAM HYDROBROMIDE 20 MG TAB PO SCH ×2 (09:00→21:28)
[2016-12-29] MEDS: DOCUSATE SODIUM 50 MG/SENNA 8.6 MG TAB PO SCH ×2 (10:26→21:27)
[2016-12-29] MEDS: LACTULOSE SYRUP 20 GM/30 ML CUP PO SCH (10:26)
[2016-12-29] MEDS: HYDROmorphone HCL 4 MG TAB PO PRN ×4 (10:26→21:28)
[2016-12-29] MEDS: LACTOBACILLUS ACIDOPHILUS TAB PO SCH ×2 (10:26→21:27)
[2016-12-29] MEDS: FERROUS SULFATE 325 MG (65 MG ELEMENTAL IRON) TAB PO SCH ×2 (10:26→21:28)
[2016-12-29] MEDS: MULTIVITAMINS/MINERALS THERAPEUTIC TAB PO SCH ×2 (10:27→21:28)
[2016-12-29] MEDS: GENTAMICIN 80 MG PREMIX 100 ML IV SCH ×2 (10:28→17:28)
[2016-12-29] MEDS: SODIUM CHLORIDE 0.9% FLUSH 10 ML FLUSH IV FLUSH SCH ×2 (10:28→12:40)
[2016-12-29] MEDS: REMOVE OLD DURAGESIC (FENTANYL) PATCH T-DERMAL SCH (11:00)
[2016-12-29 12:00] VITALS: BP 114/62; PULSE 88; RESP 19; TEMP 98.8; O2SAT 98
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
[2016-12-29] MEDS: ENOXAPARIN SODIUM 30 MG/0.3 ML SYRINGE SQ SCH (12:41)
[2016-12-29] MEDS: fentaNYL 50 MCG/HR PATCH T-DERMAL SCH (12:42)
[2016-12-29 16:00] VITALS: BP 111/62; PULSE 98; RESP 18; TEMP 97.7; O2SAT 99
[2016-12-29 20:20] VITALS: BP 120/56; PULSE 101; RESP 17; TEMP 99.8; O2SAT 96
[2016-12-29] MEDS: MAGNESIUM HYDROXIDE SUSP 30 ML CUP PO PRN (21:27)
[2016-12-29] MEDS: traZODone HCL 50 MG TAB PO SCH (22:43)
[2016-12-30 00:05] VITALS: BP 125/60; PULSE 88; RESP 17; TEMP 99.6; O2SAT 97
[2016-12-30] MEDS: GENTAMICIN 80 MG PREMIX 100 ML IV SCH ×3 (00:10→17:33)
[2016-12-30] MEDS: ENOXAPARIN SODIUM 30 MG/0.3 ML SYRINGE SQ SCH ×3 (00:11→23:13)
[2016-12-30] MEDS: HYDROmorphone HCL 4 MG TAB PO PRN ×3 (00:11→23:13)
[2016-12-30] MEDS: LACTATED RINGER'S 1000 ML INJ 1,000 ML IV SCH ×13 (01:01→23:38)
[2016-12-30] MEDS: METHOCARBAMOL 500 MG TAB PO SCH ×3 (02:00→17:34)
[2016-12-30] MEDS: QUEtiapine FUMARATE 25 MG TAB PO SCH ×3 (02:00→17:34)
[2016-12-30] MEDS: PREGABALIN 100 MG CAP PO SCH ×3 (02:00→17:33)
[2016-12-30] MEDS: ceFAZolin 2 GM PREMIX 50 ML IV SCH ×3 (05:29→21:00)
[2016-12-30 07:57] VITALS: BP 100/59; PULSE 83; RESP 16; TEMP 98.8; O2SAT 96
[2016-12-30] MEDS: HYDROmorphone HCL 2 MG TAB PO PRN ×2 (08:18→19:56)
[2016-12-30] MEDS: SODIUM CHLORIDE 0.9% FLUSH 10 ML FLUSH IV FLUSH SCH ×2 (08:19→21:00)
[2016-12-30] MEDS: CITALOPRAM HYDROBROMIDE 20 MG TAB PO SCH ×2 (08:19→21:00)
[2016-12-30] MEDS: DOCUSATE SODIUM 50 MG/SENNA 8.6 MG TAB PO SCH ×2 (08:20→21:00)
[2016-12-30] MEDS: MULTIVITAMINS/MINERALS THERAPEUTIC TAB PO SCH ×2 (08:20→21:00)
[2016-12-30] MEDS: LACTULOSE SYRUP 20 GM/30 ML CUP PO SCH (08:20)
[2016-12-30] MEDS: LACTOBACILLUS ACIDOPHILUS TAB PO SCH ×2 (08:20→21:00)
[2016-12-30] MEDS: FERROUS SULFATE 325 MG (65 MG ELEMENTAL IRON) TAB PO SCH ×2 (08:20→21:00)
[2016-12-30] MEDS: NYSTATIN 100,000 UNIT/GM CREAM 15 GM TOPICAL SCH ×2 (08:24→21:00)
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
[2016-12-30 11:30] VITALS: BP 106/55; PULSE 84; RESP 18; TEMP 98.8; O2SAT 98
[2016-12-30 16:00] VITALS: BP 128/66; PULSE 88; RESP 16; TEMP 98.8; O2SAT 97
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
[2016-12-30] MEDS: traZODone HCL 50 MG TAB PO SCH (23:13)
[2016-12-31] VITALS (8 sets, daily range): BP systolic 96–112; BP diastolic 57–68; PULSE 84–121; RESP 14–16; TEMP 97–99.3; O2SAT 96–100
[2016-12-31] MEDS: GENTAMICIN 80 MG PREMIX 100 ML IV SCH ×3 (01:00→17:32)
[2016-12-31] MEDS: PREGABALIN 100 MG CAP PO SCH ×3 (01:05→17:30)
[2016-12-31] MEDS: METHOCARBAMOL 500 MG TAB PO SCH ×3 (01:06→17:31)
[2016-12-31] MEDS: QUEtiapine FUMARATE 25 MG TAB PO SCH ×3 (01:06→17:33)
[2016-12-31] MEDS: LACTATED RINGER'S 1000 ML INJ 1,000 ML IV SCH ×10 (02:00→22:00)
[2016-12-31] MEDS: ceFAZolin 2 GM PREMIX 50 ML IV SCH ×3 (05:00→20:58)
[2016-12-31] MEDS: CITALOPRAM HYDROBROMIDE 20 MG TAB PO SCH ×2 (10:10→20:57)
[2016-12-31] MEDS: SODIUM CHLORIDE 0.9% FLUSH 10 ML FLUSH IV FLUSH SCH ×2 (10:10→20:58)
[2016-12-31] MEDS: DOCUSATE SODIUM 50 MG/SENNA 8.6 MG TAB PO SCH ×2 (10:11→20:58)
[2016-12-31] MEDS: MULTIVITAMINS/MINERALS THERAPEUTIC TAB PO SCH ×2 (10:11→20:57)
[2016-12-31] MEDS: LACTULOSE SYRUP 20 GM/30 ML CUP PO SCH (10:11)
[2016-12-31] MEDS: FERROUS SULFATE 325 MG (65 MG ELEMENTAL IRON) TAB PO SCH ×2 (10:11→20:57)
[2016-12-31] MEDS: LACTOBACILLUS ACIDOPHILUS TAB PO SCH ×2 (10:11→20:57)
[2016-12-31] MEDS: NYSTATIN 100,000 UNIT/GM CREAM 15 GM TOPICAL SCH ×2 (10:11→20:59)
[2016-12-31] MEDS: ENOXAPARIN SODIUM 30 MG/0.3 ML SYRINGE SQ SCH (12:39)
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
[2016-12-31 13:50] LABS: HEMATOCRIT 22.8 % (35.0-46.0); REVIEW FLAG FINAL
[2016-12-31] MEDS: HYDROmorphone HCL 2 MG TAB PO PRN ×2 (13:52→18:58)
[2016-12-31] MEDS ORDERED: SODIUM CHLOR 0.9% 250 ML INJ 250 ML IV ONE (15:45)
[2016-12-31] MEDS: traZODone HCL 50 MG TAB PO SCH ×2 (20:59→21:51)
[2016-12-31] MEDS: HYDROmorphone HCL 4 MG TAB PO PRN (21:50)
[2017-01-01] MEDS: ENOXAPARIN SODIUM 30 MG/0.3 ML SYRINGE SQ SCH ×2 (00:21→10:58)
[2017-01-01] MEDS: QUEtiapine FUMARATE 25 MG TAB PO SCH ×3 (00:21→17:18)
[2017-01-01] MEDS: PREGABALIN 100 MG CAP PO SCH ×3 (00:21→17:18)
[2017-01-01] MEDS: GENTAMICIN 80 MG PREMIX 100 ML IV SCH ×3 (00:21→17:18)
[2017-01-01] MEDS: METHOCARBAMOL 500 MG TAB PO SCH ×3 (00:21→17:18)
[2017-01-01 00:25] VITALS: BP 105/55; PULSE 55; RESP 14; TEMP 98.9; O2SAT 99
[2017-01-01] MEDS: LACTATED RINGER'S 1000 ML INJ 1,000 ML IV SCH ×12 (01:00→23:01)
[2017-01-01 03:03] LABS: HEMATOCRIT 26.4 % (35.0-46.0); REVIEW FLAG FINAL
[2017-01-01] MEDS: ceFAZolin 2 GM PREMIX 50 ML IV SCH ×3 (05:00→22:04)
[2017-01-01 08:04] VITALS: BP 104/59; PULSE 88; RESP 16; TEMP 97.9; O2SAT 96
[2017-01-01] MEDS: SODIUM CHLORIDE 0.9% FLUSH 10 ML FLUSH IV FLUSH SCH ×2 (09:00→22:05)
[2017-01-01] MEDS: NYSTATIN 100,000 UNIT/GM CREAM 15 GM TOPICAL SCH ×2 (09:00→22:04)
[2017-01-01] MEDS: LACTULOSE SYRUP 20 GM/30 ML CUP PO SCH (09:10)
[2017-01-01] MEDS: MULTIVITAMINS/MINERALS THERAPEUTIC TAB PO SCH ×2 (09:10→22:05)
[2017-01-01] MEDS: HYDROmorphone HCL 4 MG TAB PO PRN ×3 (09:11→22:02)
[2017-01-01] MEDS: LACTOBACILLUS ACIDOPHILUS TAB PO SCH ×2 (09:11→22:05)
[2017-01-01] MEDS: DOCUSATE SODIUM 50 MG/SENNA 8.6 MG TAB PO SCH ×2 (09:11→22:05)
[2017-01-01] MEDS: FERROUS SULFATE 325 MG (65 MG ELEMENTAL IRON) TAB PO SCH ×2 (09:11→22:05)
[2017-01-01] MEDS: CITALOPRAM HYDROBROMIDE 20 MG TAB PO SCH ×2 (09:11→22:05)
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
[2017-01-01] MEDS: REMOVE OLD DURAGESIC (FENTANYL) PATCH T-DERMAL SCH (10:58)
[2017-01-01] MEDS: fentaNYL 50 MCG/HR PATCH T-DERMAL SCH (10:58)
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
[2017-01-01 16:00] VITALS: BP 114/59; PULSE 82; RESP 16; TEMP 98.9; O2SAT 99
[2017-01-01 20:50] VITALS: BP 107/56; PULSE 91; RESP 16; TEMP 99.6; O2SAT 98
[2017-01-01] MEDS: traZODone HCL 50 MG TAB PO SCH (22:05)
[2017-01-02] MEDS: LACTATED RINGER'S 1000 ML INJ 1,000 ML IV SCH ×12 (00:29→21:38)
[2017-01-02] MEDS: QUEtiapine FUMARATE 25 MG TAB PO SCH ×3 (02:00→18:40)
[2017-01-02] MEDS: PREGABALIN 100 MG CAP PO SCH ×3 (02:00→18:40)
[2017-01-02] MEDS: METHOCARBAMOL 500 MG TAB PO SCH ×3 (02:00→18:40)
[2017-01-02] MEDS: GENTAMICIN 80 MG PREMIX 100 ML IV SCH ×2 (02:01→08:00)
[2017-01-02] MEDS: ENOXAPARIN SODIUM 30 MG/0.3 ML SYRINGE SQ SCH ×2 (02:01→12:25)
[2017-01-02] MEDS: ceFAZolin 2 GM PREMIX 50 ML IV SCH ×3 (05:00→21:59)
[2017-01-02 08:00] VITALS: BP 96/52; PULSE 93; RESP 19; TEMP 98.2; O2SAT 97
[2017-01-02] MEDS: MULTIVITAMINS/MINERALS THERAPEUTIC TAB PO SCH ×2 (08:00→21:59)
[2017-01-02] MEDS: ERGOCALCIFEROL (VIT D2) 50,000 UNIT CAP PO SCH (08:01)
[2017-01-02] MEDS: FERROUS SULFATE 325 MG (65 MG ELEMENTAL IRON) TAB PO SCH ×2 (08:01→21:59)
[2017-01-02] MEDS: LACTOBACILLUS ACIDOPHILUS TAB PO SCH ×2 (08:01→21:59)
[2017-01-02] MEDS: SODIUM CHLORIDE 0.9% FLUSH 10 ML FLUSH IV FLUSH SCH ×2 (08:01→22:00)
[2017-01-02] MEDS: LACTULOSE SYRUP 20 GM/30 ML CUP PO SCH (08:01)
[2017-01-02] MEDS: CITALOPRAM HYDROBROMIDE 20 MG TAB PO SCH ×2 (08:01→21:59)
[2017-01-02] MEDS: HYDROmorphone HCL 4 MG TAB PO PRN ×5 (08:01→21:59)
[2017-01-02] MEDS: DOCUSATE SODIUM 50 MG/SENNA 8.6 MG TAB PO SCH ×2 (08:01→21:59)
[2017-01-02] MEDS: NYSTATIN 100,000 UNIT/GM CREAM 15 GM TOPICAL SCH ×2 (08:02→22:00)
[2017-01-02 12:00] VITALS: BP 115/56; PULSE 78; RESP 20; TEMP 97.1; O2SAT 95
[2017-01-02 16:00] VITALS: BP 97/56; PULSE 84; RESP 19; TEMP 97.1; O2SAT 98
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
[2017-01-02 20:40] VITALS: BP 107/57; PULSE 88; RESP 16; TEMP 97.7; O2SAT 98
[2017-01-02] MEDS: traZODone HCL 50 MG TAB PO SCH (21:59)
[2017-01-03] MEDS: ENOXAPARIN SODIUM 30 MG/0.3 ML SYRINGE SQ SCH ×2 (00:28→12:48)
[2017-01-03] MEDS: LACTATED RINGER'S 1000 ML INJ 1,000 ML IV SCH ×12 (03:00→22:01)
[2017-01-03] MEDS: PREGABALIN 100 MG CAP PO SCH ×3 (03:12→17:17)
[2017-01-03] MEDS: METHOCARBAMOL 500 MG TAB PO SCH ×3 (03:12→17:17)
[2017-01-03] MEDS: QUEtiapine FUMARATE 25 MG TAB PO SCH ×3 (03:12→17:17)
[2017-01-03] MEDS: ceFAZolin 2 GM PREMIX 50 ML IV SCH ×3 (05:28→20:59)
--- NOTE | 2017-01-03 07:14 | PD.ORT.PN ---
Subjective Subjective Remarks no voiced complaints of pain no SOB, no chest pain Objective Vitals Vital Signs Date Time Temp Pulse Resp B/P Pulse Ox O2 Delivery O2 Flow Rate FiO2 01/03/17 04:14 16 01/03/17 02:00 Room Air 01/02/17 22:49 16 01/02/17 20:40 97.7 88 16 107/57 98 01/02/17 16:00 97.1 84 19 97/56 98 01/02/17 12:00 97.1 78 20 115/56 95 01/02/17 08:00 98.2 93 19 96/52 97 I/O 01/02/17 01/02/17 01/02/17 01/03/17 01/03/17 01/03/17 07:00 15:00 23:00 07:00 15:00 23:00 Intake Total 480 ml 1700 ml 480 ml Balance 480 ml 1700 ml 480 ml Intake Oral 480 ml 1700 ml 480 ml # Voids 5 7 3 # Bowel Movements 0 1 0 Result Diagram: 01/01/17 0236 Imaging Last Impressions Tibia/Fibula X-Ray 12/13/16 0000 Signed Impressions: Service Date/Time: Tuesday, December 13, 2016 11:33 - CONCLUSION: Comminuted mid fibular fractures are not aligned, however tibial fractures are aligned. Abhijit Fernandes MD Clavicle X-Ray 12/13/16 0000 Signed Impressions: Service Date/Time: Tuesday, December 13, 2016 11:29 - CONCLUSION: A/C joint appears aligned. Abhijit Fernandes MD Knee MRI 12/12/16 0000 Signed Impressions: Service Date/Time: November 15:35 - CONCLUSION: Inhomogeneous area of bright signal on T2 sequence in the distal femoral diaphysis probably areas of contusion and possible mild sprain of the ACL involving the femoral attachment site. Abhijit Fernandes MD Abdomen/Pelvis CT 12/03/16 0000 Signed Impressions: Service Date/Time: Saturday, December 03, 2016 16:29 - CONCLUSION: 1. Trace pleural fluid. Mild free fluid in the pelvis. Mild anasarca. 2. No acute traumatic injury identified within the abdomen and pelvis. 3. Moderate constipation. Mild ileus. Marshall Samaniego MD Shoulder X-Ray 11/26/16 0000 Signed Impressions: Service Date/Time: Saturday, November 26, 2016 15:46 - CONCLUSION: 1. Status post plate and screw fixation of right a.c. joint separation in near anatomic alignment without significant fracture. Zackary Piper MD Foot X-Ray 11/23/16 0000 Signed Impressions: Service Date/Time: Wednesday, November 23, 2016 09:01 - CONCLUSION: 1. Nonspecific soft tissue swelling around the foot. 2. Mild irregularity involving the base of the proximal phalanx. Recommend correlation with point tenderness for nondisplaced fracture. Chinmay Leon MD Chest X-Ray 11/21/16 0600 Signed Impressions: Service Date/Time: October 02:25 - CONCLUSION: Mild bibasilar consolidation. Interim extubation and removal of nasogastric tube and right subclavian central venous line. Shane Gonzalez MD Gall Bladder Ultrasound 11/20/16 0000 Signed Impressions: Service Date/Time: Sunday, November 20, 2016 09:42 - CONCLUSION: Distended gallbladder without stones or gallbladder wall thickening. Shane Fernandes MD Head CT 11/19/16 0000 Signed Impressions: Service Date/Time: Saturday, November 19, 2016 16:51 - CONCLUSION: 1. No intracranial abnormality. 2. Scalp injuries. Shane Fernandes MD Chest CT 11/19/16 0000 Signed Impressions: Service Date/Time: Saturday, November 19, 2016 17:02 - CONCLUSION: Areas of consolidation/contusion or atelectasis in the posterior mid and lower lungs. Shane Fernandes MD Cervical Spine CT 11/19/16 0000 Signed Impressions: Service Date/Time: Saturday, November 19, 2016 16:51 - CONCLUSION: Reversal of the normal C-spine lordosis. No acute bony injury is seen. Shane Fernandes MD Pelvis X-Ray 11/17/16 0058 Signed Impressions: Service Date/Time: Thursday, November 17, 2016 00:41 - CONCLUSION: No evidence of fracture. Avery Vaca MD Procedures 1) I&D with fasciotomy and application of external fixator left leg 2) Wound closure with removal of exfix and IMN left tibia 3) I&D with Exfix application and vac application right open tibia fracture 4) I&D with removal of exfix and IMN right tibia 5) Serial I&Ds right tibia with vac changes 6) STSG of right tibia 7) Open repair of right AC joint 8) open repair of right posterior tibial artery Objective Remarks seen by Dr. Sheng Adams LLE: Dressing intact, mild swelling foot, Wiggles toes freely, sensation intact, +cap refill, +nvi. RLE: Fracture boot +granulation tissue present. no evidence of necrosis. Continues to have moderate right foot swelling w mild ecchymosis, Good capillary refills. No sensation in toes. Does feel pressure over dorsum of foot RUE: Dressing/sling in place, Mild swelling hand, Good sensation hand and fingers, median/ulnar nerve distribution fully intact, +motor brachiorad and thumb extension Assessment & Plan Problem List: (1) Open fracture of right tibia and fibula (2) Open fracture of left tibia and fibula (3) Posterior tibial artery injury (4) Acromioclavicular joint separation, type 5 Assessment and Plan s/p IMN with partial wound closure left leg - POD 45 s/p right tibia fx with vascular and significant soft tissue injury s/p removal of exfix with IMN and rotation soleus graft right tibia - POD 35 s/p right shoulder AC joint repair - POD 38 s/p I&D right leg with skin grafting partial leg - POD 14 s/p I&D vac Change with STSG remaining leg - POD 7 daily dressing changes with xeroform/4x4 or ABD/ JARRELL wraps placed in fracture boot will plan for DC to [facility] when bed available or authorized, [place] Requesting PT twice a day (BID) ROM of knees to prevent contractures/stiffness. Increase strength of quads/ hamstrings. NWB Rt UE Weight-bear as tolerated bilateral lower extremities for transfers Removed boot from left and right ankles for ankle range of motion. Ramila Miramontes Jan 03, 2017 07:14
[2017-01-03 08:00] VITALS: BP 99/53; PULSE 83; RESP 15; TEMP 97.9; O2SAT 95
[2017-01-03] MEDS: NYSTATIN 100,000 UNIT/GM CREAM 15 GM TOPICAL SCH ×2 (09:00→20:38)
[2017-01-03] MEDS: SODIUM CHLORIDE 0.9% FLUSH 10 ML FLUSH IV FLUSH SCH ×2 (09:00→20:38)
[2017-01-03] MEDS: MULTIVITAMINS/MINERALS THERAPEUTIC TAB PO SCH ×2 (10:28→20:37)
[2017-01-03] MEDS: LACTOBACILLUS ACIDOPHILUS TAB PO SCH ×2 (10:28→20:36)
[2017-01-03] MEDS: FERROUS SULFATE 325 MG (65 MG ELEMENTAL IRON) TAB PO SCH ×2 (10:28→20:38)
[2017-01-03] MEDS: LACTULOSE SYRUP 20 GM/30 ML CUP PO SCH (10:28)
[2017-01-03] MEDS: DOCUSATE SODIUM 50 MG/SENNA 8.6 MG TAB PO SCH ×2 (10:28→20:37)
[2017-01-03] MEDS: CITALOPRAM HYDROBROMIDE 20 MG TAB PO SCH ×2 (10:28→20:37)
[2017-01-03] MEDS: HYDROmorphone HCL 4 MG TAB PO PRN ×4 (10:29→20:36)
[2017-01-03 12:00] VITALS: BP 103/56; PULSE 86; RESP 18; TEMP 96.5; O2SAT 96
[2017-01-03 16:00] VITALS: BP 110/64; PULSE 84; RESP 17; TEMP 99.1; O2SAT 97
[2017-01-03] MEDS: traZODone HCL 50 MG TAB PO SCH (20:37)
[2017-01-03 20:40] VITALS: BP 106/55; PULSE 100; RESP 16; TEMP 99.7; O2SAT 97
[2017-01-04] MEDS: ENOXAPARIN SODIUM 30 MG/0.3 ML SYRINGE SQ SCH ×3 (00:54→23:57)
[2017-01-04] MEDS: LACTATED RINGER'S 1000 ML INJ 1,000 ML IV SCH ×16 (01:01→23:16)
[2017-01-04] MEDS: PREGABALIN 100 MG CAP PO SCH ×3 (02:00→18:27)
[2017-01-04] MEDS: QUEtiapine FUMARATE 25 MG TAB PO SCH ×3 (02:00→18:27)
[2017-01-04] MEDS: METHOCARBAMOL 500 MG TAB PO SCH ×3 (02:00→18:27)
[2017-01-04] MEDS: HYDROmorphone HCL 4 MG TAB PO PRN ×5 (04:14→20:13)
[2017-01-04] MEDS: ceFAZolin 2 GM PREMIX 50 ML IV SCH ×3 (05:55→20:04)
--- NOTE | 2017-01-04 07:51 | PD.ORT.PN ---
Subjective Subjective Remarks patient does state she has soreness involving right shoulder - underwent R AC jt repair no SOB, no chest pain Objective Vitals Vital Signs Date Time Temp Pulse Resp B/P Pulse Ox O2 Delivery O2 Flow Rate FiO2 01/04/17 05:14 18 01/04/17 02:34 Room Air 01/03/17 20:40 99.7 100 16 106/55 97 01/03/17 16:00 99.1 84 17 110/64 97 01/03/17 12:00 96.5 86 18 103/56 96 01/03/17 08:00 97.9 83 15 99/53 95 I/O 01/03/17 01/03/17 01/03/17 01/04/17 01/04/17 01/04/17 07:00 15:00 23:00 07:00 15:00 23:00 Intake Total 480 ml 2160 ml 480 ml 480 ml Output Total 2000 ml Balance 480 ml 160 ml 480 ml 480 ml Intake Oral 480 ml 2160 ml 480 ml 480 ml Output Urine Total 2000 ml # Voids 3 3 1 3 # Bowel Movements 0 0 0 Result Diagram: 01/01/17 0236 Imaging Last Impressions Tibia/Fibula X-Ray 12/13/16 0000 Signed Impressions: Service Date/Time: Tuesday, December 13, 2016 11:33 - CONCLUSION: Comminuted mid fibular fractures are not aligned, however tibial fractures are aligned. Abhijit Fernandes MD Clavicle X-Ray 12/13/16 0000 Signed Impressions: Service Date/Time: Tuesday, December 13, 2016 11:29 - CONCLUSION: A/C joint appears aligned. Abhijit Fernandes MD Knee MRI 12/12/16 0000 Signed Impressions: Service Date/Time: November 15:35 - CONCLUSION: Inhomogeneous area of bright signal on T2 sequence in the distal femoral diaphysis probably areas of contusion and possible mild sprain of the ACL involving the femoral attachment site. Abhijit Fernandes MD Abdomen/Pelvis CT 12/03/16 0000 Signed Impressions: Service Date/Time: Saturday, December 03, 2016 16:29 - CONCLUSION: 1. Trace pleural fluid. Mild free fluid in the pelvis. Mild anasarca. 2. No acute traumatic injury identified within the abdomen and pelvis. 3. Moderate constipation. Mild ileus. Marshall Samaniego MD Shoulder X-Ray 11/26/16 0000 Signed Impressions: Service Date/Time: Saturday, November 26, 2016 15:46 - CONCLUSION: 1. Status post plate and screw fixation of right a.c. joint separation in near anatomic alignment without significant fracture. Zackary Piper MD Foot X-Ray 11/23/16 0000 Signed Impressions: Service Date/Time: Wednesday, November 23, 2016 09:01 - CONCLUSION: 1. Nonspecific soft tissue swelling around the foot. 2. Mild irregularity involving the base of the proximal phalanx. Recommend correlation with point tenderness for nondisplaced fracture. Chinmay Leon MD Chest X-Ray 11/21/16 0600 Signed Impressions: Service Date/Time: October 02:25 - CONCLUSION: Mild bibasilar consolidation. Interim extubation and removal of nasogastric tube and right subclavian central venous line. Shane Gonzalez MD Gall Bladder Ultrasound 11/20/16 0000 Signed Impressions: Service Date/Time: Sunday, November 20, 2016 09:42 - CONCLUSION: Distended gallbladder without stones or gallbladder wall thickening. Shane Fernandes MD Head CT 11/19/16 0000 Signed Impressions: Service Date/Time: Saturday, November 19, 2016 16:51 - CONCLUSION: 1. No intracranial abnormality. 2. Scalp injuries. Shane Fernandes MD Chest CT 11/19/16 0000 Signed Impressions: Service Date/Time: Saturday, November 19, 2016 17:02 - CONCLUSION: Areas of consolidation/contusion or atelectasis in the posterior mid and lower lungs. Shane Fernandes MD Cervical Spine CT 11/19/16 0000 Signed Impressions: Service Date/Time: Saturday, November 19, 2016 16:51 - CONCLUSION: Reversal of the normal C-spine lordosis. No acute bony injury is seen. Shane Fernandes MD Pelvis X-Ray 11/17/16 0058 Signed Impressions: Service Date/Time: Thursday, November 17, 2016 00:41 - CONCLUSION: No evidence of fracture. Avery Vaca MD Procedures 1) I&D with fasciotomy and application of external fixator left leg 2) Wound closure with removal of exfix and IMN left tibia 3) I&D with Exfix application and vac application right open tibia fracture 4) I&D with removal of exfix and IMN right tibia 5) Serial I&Ds right tibia with vac changes 6) STSG of right tibia 7) Open repair of right AC joint 8) open repair of right posterior tibial artery Objective Remarks seen by Dr. Sheng Adams RUE: tenderness to right A/C joint LLE: Dressing intact, mild swelling foot, Wiggles toes freely, sensation intact, +cap refill, +nvi. RLE: Fracture boot +granulation tissue present. no evidence of necrosis. Continues to have moderate right foot swelling w mild ecchymosis, Good capillary refills. No sensation in toes. Does feel pressure over dorsum of foot RUE: Dressing/sling in place, Mild swelling hand, Good sensation hand and fingers, median/ulnar nerve distribution fully intact, +motor brachiorad and thumb extension Assessment & Plan Problem List: (1) Open fracture of right tibia and fibula (2) Open fracture of left tibia and fibula (3) Posterior tibial artery injury (4) Acromioclavicular joint separation, type 5 Assessment and Plan s/p IMN with partial wound closure left leg - POD 46 s/p right tibia fx with vascular and significant soft tissue injury s/p removal of exfix with IMN and rotation soleus graft right tibia - POD 36 s/p right shoulder AC joint repair - POD 39 s/p I&D right leg with skin grafting partial leg - POD 15 s/p I&D vac Change with STSG remaining leg - POD 8 daily dressing changes with xeroform/4x4 or ABD/ JARRELL wraps placed in fracture boot will plan for DC to [facility] when bed available or authorized, [place], may not have auth 01/08 Requesting PT twice a day (BID) ROM of knees to prevent contractures/stiffness. Increase strength of quads/ hamstrings. NWB Rt UE Weight-bear as tolerated bilateral lower extremities for transfers Removed boot from left and right ankles for ankle range of motion. Ramila Miramontes Jan 04, 2017 07:51
[2017-01-04 08:00] VITALS: BP 93/67; PULSE 92; RESP 18; TEMP 99.1; O2SAT 98
[2017-01-04] MEDS: MULTIVITAMINS/MINERALS THERAPEUTIC TAB PO SCH ×2 (08:27→20:06)
[2017-01-04] MEDS: FERROUS SULFATE 325 MG (65 MG ELEMENTAL IRON) TAB PO SCH ×2 (08:27→20:05)
[2017-01-04] MEDS: DOCUSATE SODIUM 50 MG/SENNA 8.6 MG TAB PO SCH ×2 (08:28→20:05)
[2017-01-04] MEDS: LACTOBACILLUS ACIDOPHILUS TAB PO SCH ×2 (08:28→20:04)
[2017-01-04] MEDS: CITALOPRAM HYDROBROMIDE 20 MG TAB PO SCH ×2 (08:28→20:05)
[2017-01-04] MEDS: LACTULOSE SYRUP 20 GM/30 ML CUP PO SCH (08:28)
[2017-01-04] MEDS: SODIUM CHLORIDE 0.9% FLUSH 10 ML FLUSH IV FLUSH SCH ×2 (08:29→20:06)
[2017-01-04] MEDS: NYSTATIN 100,000 UNIT/GM CREAM 15 GM TOPICAL SCH ×2 (08:29→20:06)
[2017-01-04] MEDS: REMOVE OLD DURAGESIC (FENTANYL) PATCH T-DERMAL SCH (11:00)
[2017-01-04 12:00] VITALS: BP 111/61; PULSE 89; RESP 18; TEMP 97.9; O2SAT 100
[2017-01-04] MEDS: fentaNYL 50 MCG/HR PATCH T-DERMAL SCH (12:00)
[2017-01-04 16:00] VITALS: BP 111/61; PULSE 92; RESP 18; TEMP 98.7; O2SAT 98
[2017-01-04 20:00] VITALS: BP 107/65; PULSE 97; RESP 18; TEMP 98.3; O2SAT 100
[2017-01-04] MEDS: MAGNESIUM HYDROXIDE SUSP 30 ML CUP PO PRN (20:05)
[2017-01-04] MEDS: traZODone HCL 50 MG TAB PO SCH (20:05)
[2017-01-05] VITALS: BP 99/69; PULSE 98; RESP 18; TEMP 99.1; O2SAT 99
[2017-01-05] MEDS: PREGABALIN 100 MG CAP PO SCH ×3 (02:00→16:56)
[2017-01-05] MEDS: METHOCARBAMOL 500 MG TAB PO SCH ×3 (02:00→16:55)
[2017-01-05] MEDS: QUEtiapine FUMARATE 25 MG TAB PO SCH ×3 (02:00→16:56)
[2017-01-05] MEDS: HYDROmorphone HCL 4 MG TAB PO PRN ×2 (03:44→12:14)
[2017-01-05] MEDS: ceFAZolin 2 GM PREMIX 50 ML IV SCH ×3 (03:45→20:07)
[2017-01-05 08:00] VITALS: BP 99/52; PULSE 88; RESP 18; TEMP 98.6; O2SAT 98
[2017-01-05] MEDS: LACTATED RINGER'S 1000 ML INJ 1,000 ML IV SCH ×11 (08:29→19:35)
--- NOTE | 2017-01-05 08:31 | PD.ORT.PN ---
Subjective Subjective Remarks pt asked multiple questions about future function of right leg and cosmetic appearance of right leg no SOB, no chest pain Objective Vitals Vital Signs Date Time Temp Pulse Resp B/P Pulse Ox O2 Delivery O2 Flow Rate FiO2 01/05/17 00:00 99.1 98 18 99/69 99 01/04/17 20:00 98.3 97 18 107/65 100 01/04/17 17:00 16 01/04/17 16:00 98.7 92 18 111/61 98 01/04/17 13:06 16 01/04/17 13:06 16 01/04/17 12:00 97.9 89 18 111/61 100 I/O 01/04/17 01/04/17 01/04/17 01/05/17 01/05/17 01/05/17 07:00 15:00 23:00 07:00 15:00 23:00 Intake Total 480 ml 1200 ml 360 ml 360 ml Balance 480 ml 1200 ml 360 ml 360 ml Intake Oral 480 ml 1200 ml 360 ml 360 ml # Voids 3 5 3 2 # Bowel Movements 0 1 Result Diagram: 01/01/17 0236 Imaging Last Impressions Tibia/Fibula X-Ray 12/13/16 0000 Signed Impressions: Service Date/Time: Tuesday, December 13, 2016 11:33 - CONCLUSION: Comminuted mid fibular fractures are not aligned, however tibial fractures are aligned. Abhijit Fernandes MD Clavicle X-Ray 12/13/16 0000 Signed Impressions: Service Date/Time: Tuesday, December 13, 2016 11:29 - CONCLUSION: A/C joint appears aligned. Abhijit Fernandes MD Knee MRI 12/12/16 0000 Signed Impressions: Service Date/Time: November 15:35 - CONCLUSION: Inhomogeneous area of bright signal on T2 sequence in the distal femoral diaphysis probably areas of contusion and possible mild sprain of the ACL involving the femoral attachment site. Abhijit Fernandes MD Abdomen/Pelvis CT 12/03/16 0000 Signed Impressions: Service Date/Time: Saturday, December 03, 2016 16:29 - CONCLUSION: 1. Trace pleural fluid. Mild free fluid in the pelvis. Mild anasarca. 2. No acute traumatic injury identified within the abdomen and pelvis. 3. Moderate constipation. Mild ileus. Marshall Samaniego MD Shoulder X-Ray 11/26/16 0000 Signed Impressions: Service Date/Time: Saturday, November 26, 2016 15:46 - CONCLUSION: 1. Status post plate and screw fixation of right a.c. joint separation in near anatomic alignment without significant fracture. Zackary Piper MD Foot X-Ray 11/23/16 0000 Signed Impressions: Service Date/Time: Wednesday, November 23, 2016 09:01 - CONCLUSION: 1. Nonspecific soft tissue swelling around the foot. 2. Mild irregularity involving the base of the proximal phalanx. Recommend correlation with point tenderness for nondisplaced fracture. Chinmay Leon MD Chest X-Ray 11/21/16 0600 Signed Impressions: Service Date/Time: October 02:25 - CONCLUSION: Mild bibasilar consolidation. Interim extubation and removal of nasogastric tube and right subclavian central venous line. Shane Gonzalez MD Gall Bladder Ultrasound 11/20/16 0000 Signed Impressions: Service Date/Time: Sunday, November 20, 2016 09:42 - CONCLUSION: Distended gallbladder without stones or gallbladder wall thickening. Shane Fernandes MD Head CT 11/19/16 0000 Signed Impressions: Service Date/Time: Saturday, November 19, 2016 16:51 - CONCLUSION: 1. No intracranial abnormality. 2. Scalp injuries. Shane Fernandes MD Chest CT 11/19/16 0000 Signed Impressions: Service Date/Time: Saturday, November 19, 2016 17:02 - CONCLUSION: Areas of consolidation/contusion or atelectasis in the posterior mid and lower lungs. Shane Fernandes MD Cervical Spine CT 11/19/16 0000 Signed Impressions: Service Date/Time: Saturday, November 19, 2016 16:51 - CONCLUSION: Reversal of the normal C-spine lordosis. No acute bony injury is seen. Shane Fernandes MD Pelvis X-Ray 11/17/16 0058 Signed Impressions: Service Date/Time: Thursday, November 17, 2016 00:41 - CONCLUSION: No evidence of fracture. Avery Vaca MD Procedures 1) I&D with fasciotomy and application of external fixator left leg 2) Wound closure with removal of exfix and IMN left tibia 3) I&D with Exfix application and vac application right open tibia fracture 4) I&D with removal of exfix and IMN right tibia 5) Serial I&Ds right tibia with vac changes 6) STSG of right tibia 7) Open repair of right AC joint 8) open repair of right posterior tibial artery Objective Remarks seen by Dr. Sheng Adams RUE: tenderness to right A/C joint LLE: Dressing intact, mild swelling foot, Wiggles toes freely, sensation intact, +cap refill, +nvi. RLE: Fracture boot +granulation tissue present. no evidence of necrosis. Continues to have moderate right foot swelling w mild ecchymosis, Good capillary refills. No sensation in toes. Does feel pressure over dorsum of foot RUE: Mild swelling hand, Good sensation hand and fingers, median/ulnar nerve distribution fully intact, +motor brachiorad and thumb extension Assessment & Plan Problem List: (1) Open fracture of right tibia and fibula (2) Open fracture of left tibia and fibula (3) Posterior tibial artery injury (4) Acromioclavicular joint separation, type 5 Assessment and Plan s/p IMN with partial wound closure left leg - POD 47 s/p right tibia fx with vascular and significant soft tissue injury s/p removal of exfix with IMN and rotation soleus graft right tibia - POD 37 s/p right shoulder AC joint repair - POD 40 s/p I&D right leg with skin grafting partial leg - POD 16 s/p I&D vac Change with STSG remaining leg - POD 9 daily dressing changes with xeroform/4x4 or ABD/ JARRELL wraps placed in fracture boot will plan for DC to [facility] when bed available or authorized, currently awaiting [facility] medicaid authorization, may not have auth 01/08 Requesting PT twice a day (BID) ROM of knees to prevent contractures/stiffness. Increase strength of quads/ hamstrings. NWB Rt UE Weight-bear as tolerated bilateral lower extremities for transfers Removed boot from left and right ankles for ankle range of motion. Lovenox Dr. Adams answered multiple questions regarding current injuries and future care Ramila Pascual Jan 05, 2017 08:31
[2017-01-05] MEDS: FERROUS SULFATE 325 MG (65 MG ELEMENTAL IRON) TAB PO SCH ×2 (08:52→20:08)
[2017-01-05] MEDS: LACTOBACILLUS ACIDOPHILUS TAB PO SCH ×2 (08:52→20:07)
[2017-01-05] MEDS: DOCUSATE SODIUM 50 MG/SENNA 8.6 MG TAB PO SCH ×2 (08:52→20:07)
[2017-01-05] MEDS: CITALOPRAM HYDROBROMIDE 20 MG TAB PO SCH ×2 (08:52→20:07)
[2017-01-05] MEDS: MULTIVITAMINS/MINERALS THERAPEUTIC TAB PO SCH ×2 (08:52→20:08)
[2017-01-05] MEDS: HYDROmorphone HCL 2 MG TAB PO PRN ×2 (08:53→18:35)
[2017-01-05] MEDS: SODIUM CHLORIDE 0.9% FLUSH 10 ML FLUSH IV FLUSH SCH ×2 (08:54→20:08)
[2017-01-05] MEDS: NYSTATIN 100,000 UNIT/GM CREAM 15 GM TOPICAL SCH ×2 (08:54→20:08)
[2017-01-05] MEDS: LACTULOSE SYRUP 20 GM/30 ML CUP PO SCH (09:00)
[2017-01-05 12:00] VITALS: BP 109/67; PULSE 90; RESP 18; TEMP 98.7; O2SAT 97
[2017-01-05] MEDS: ENOXAPARIN SODIUM 30 MG/0.3 ML SYRINGE SQ SCH ×2 (12:15→22:47)
[2017-01-05 16:00] VITALS: BP 111/61; PULSE 90; RESP 18; TEMP 98.9; O2SAT 96
[2017-01-05] MEDS: traZODone HCL 50 MG TAB PO SCH (20:07)
[2017-01-05] MEDS: MAGNESIUM HYDROXIDE SUSP 30 ML CUP PO PRN (20:07)
[2017-01-05 20:55] VITALS: BP 97/60; PULSE 91; RESP 16; TEMP 99.9; O2SAT 97
[2017-01-06] MEDS: LACTATED RINGER'S 1000 ML INJ 1,000 ML IV SCH ×9 (00:38→23:01)
[2017-01-06] MEDS: PREGABALIN 100 MG CAP PO SCH ×3 (02:00→17:19)
[2017-01-06] MEDS: QUEtiapine FUMARATE 25 MG TAB PO SCH ×3 (02:00→17:19)
[2017-01-06] MEDS: METHOCARBAMOL 500 MG TAB PO SCH ×3 (02:00→17:19)
[2017-01-06] MEDS: ceFAZolin 2 GM PREMIX 50 ML IV SCH ×3 (05:39→22:05)
--- NOTE | 2017-01-06 06:37 | PD.ORT.PN ---
Subjective Subjective Remarks s/p IMN with partial wound closure left leg - POD 48 s/p right tibia fx with vascular and significant soft tissue injury s/p removal of exfix with IMN and rotation soleus graft right tibia - POD 38 s/p right shoulder AC joint repair - POD 41 s/p I&D right leg with skin grafting partial leg - POD 17 s/p I&D vac Change with skin grafting of remainder of leg - POD 10 doing well. pain controlled. resting comfortably. insurance issues with getting approval to [facility] Objective Vitals Vital Signs Date Time Temp Pulse Resp B/P Pulse Ox O2 Delivery O2 Flow Rate FiO2 01/05/17 20:55 99.9 91 16 97/60 97 01/05/17 18:00 16 01/05/17 16:00 98.9 90 18 111/61 96 01/05/17 13:49 16 01/05/17 12:00 98.7 90 18 109/67 97 01/05/17 10:00 16 01/05/17 08:00 98.6 88 18 99/52 98 I/O 01/05/17 01/05/17 01/05/17 01/06/17 01/06/17 01/06/17 07:00 15:00 23:00 07:00 15:00 23:00 Intake Total 360 ml 1200 ml 720 ml 240 ml Balance 360 ml 1200 ml 720 ml 240 ml Intake Oral 360 ml 1200 ml 720 ml 240 ml # Voids 2 4 2 2 # Bowel Movements 0 0 0 Imaging Last Impressions Tibia/Fibula X-Ray 12/13/16 0000 Signed Impressions: Service Date/Time: Tuesday, December 13, 2016 11:33 - CONCLUSION: Comminuted mid fibular fractures are not aligned, however tibial fractures are aligned. Abhijit Fernandes MD Clavicle X-Ray 12/13/16 0000 Signed Impressions: Service Date/Time: Tuesday, December 13, 2016 11:29 - CONCLUSION: A/C joint appears aligned. Abhijit Fernandes MD Knee MRI 12/12/16 0000 Signed Impressions: Service Date/Time: November 15:35 - CONCLUSION: Inhomogeneous area of bright signal on T2 sequence in the distal femoral diaphysis probably areas of contusion and possible mild sprain of the ACL involving the femoral attachment site. Abhijit Fernandes MD Abdomen/Pelvis CT 12/03/16 0000 Signed Impressions: Service Date/Time: Saturday, December 03, 2016 16:29 - CONCLUSION: 1. Trace pleural fluid. Mild free fluid in the pelvis. Mild anasarca. 2. No acute traumatic injury identified within the abdomen and pelvis. 3. Moderate constipation. Mild ileus. Marshall Samaniego MD Shoulder X-Ray 11/26/16 0000 Signed Impressions: Service Date/Time: Saturday, November 26, 2016 15:46 - CONCLUSION: 1. Status post plate and screw fixation of right a.c. joint separation in near anatomic alignment without significant fracture. Zackary Piper MD Foot X-Ray 11/23/16 0000 Signed Impressions: Service Date/Time: Wednesday, November 23, 2016 09:01 - CONCLUSION: 1. Nonspecific soft tissue swelling around the foot. 2. Mild irregularity involving the base of the proximal phalanx. Recommend correlation with point tenderness for nondisplaced fracture. Chinmay Leon MD Chest X-Ray 11/21/16 0600 Signed Impressions: Service Date/Time: October 02:25 - CONCLUSION: Mild bibasilar consolidation. Interim extubation and removal of nasogastric tube and right subclavian central venous line. Shane Gonzalez MD Gall Bladder Ultrasound 11/20/16 0000 Signed Impressions: Service Date/Time: Sunday, November 20, 2016 09:42 - CONCLUSION: Distended gallbladder without stones or gallbladder wall thickening. Shane Fernandes MD Head CT 11/19/16 0000 Signed Impressions: Service Date/Time: Saturday, November 19, 2016 16:51 - CONCLUSION: 1. No intracranial abnormality. 2. Scalp injuries. Shane Fernandes MD Chest CT 11/19/16 0000 Signed Impressions: Service Date/Time: Saturday, November 19, 2016 17:02 - CONCLUSION: Areas of consolidation/contusion or atelectasis in the posterior mid and lower lungs. Shane Fernandes MD Cervical Spine CT 11/19/16 0000 Signed Impressions: Service Date/Time: Saturday, November 19, 2016 16:51 - CONCLUSION: Reversal of the normal C-spine lordosis. No acute bony injury is seen. Shane Fernandes MD Pelvis X-Ray 11/17/16 0058 Signed Impressions: Service Date/Time: Thursday, November 17, 2016 00:41 - CONCLUSION: No evidence of fracture. Avery Vaca MD Procedures 1) I&D with fasciotomy and application of external fixator left leg 2) Wound closure with removal of exfix and IMN left tibia 3) I&D with Exfix application and vac application right open tibia fracture 4) I&D with removal of exfix and IMN right tibia 5) Serial I&Ds right tibia with vac changes 6) STSG of right tibia 7) Open repair of right AC joint 8) open repair of right posterior tibial artery Objective Remarks RUE: tenderness to right A/C joint. full motion. incision healed. NVI. LLE: Dressing intact, mild swelling foot, Wiggles toes freely, sensation intact, +cap refill, +nvi. RLE: Fracture boot +granulation tissue present. no evidence of necrosis. Continues to have moderate right foot swelling w mild ecchymosis, Good capillary refills. No sensation in toes. Does feel pressure over dorsum of foot RUE: Mild swelling hand, Good sensation hand and fingers, median/ulnar nerve distribution fully intact, +motor brachiorad and thumb extension Assessment & Plan Problem List: (1) Open fracture of right tibia and fibula (2) Open fracture of left tibia and fibula (3) Posterior tibial artery injury (4) Acromioclavicular joint separation, type 5 Assessment and Plan s/p IMN with partial wound closure left leg - POD 48 s/p right tibia fx with vascular and significant soft tissue injury s/p removal of exfix with IMN and rotation soleus graft right tibia - POD 38 s/p right shoulder AC joint repair - POD 41 s/p I&D right leg with skin grafting partial leg - POD 17 s/p I&D vac Change with STSG remaining leg - POD 10 daily dressing changes with xeroform/4x4 or ABD/ JARRELL wraps placed in fracture boot will plan for DC to [facility] when bed available or authorized, [place], may not have auth til 01/08 Requesting PT twice a day (BID) ROM of knees to prevent contractures/stiffness. Increase strength of quads/ hamstrings. NWB Rt UE Weight-bear as tolerated bilateral lower extremities for transfers Removed boot from left and right ankles for ankle range of motion. Lovenox will get repeat xrays of bilateral tibias and right shoulder today Onur Swain Jan 06, 2017 06:37
[2017-01-06 08:00] VITALS: BP 110/56; PULSE 82; RESP 18; TEMP 99; O2SAT 96
[2017-01-06] MEDS: LACTULOSE SYRUP 20 GM/30 ML CUP PO SCH (08:52)
[2017-01-06] MEDS: MULTIVITAMINS/MINERALS THERAPEUTIC TAB PO SCH ×2 (08:52→22:04)
[2017-01-06] MEDS: CITALOPRAM HYDROBROMIDE 20 MG TAB PO SCH ×2 (08:53→22:05)
[2017-01-06] MEDS: FERROUS SULFATE 325 MG (65 MG ELEMENTAL IRON) TAB PO SCH ×2 (08:53→22:04)
[2017-01-06] MEDS: NYSTATIN 100,000 UNIT/GM CREAM 15 GM TOPICAL SCH ×2 (08:53→21:00)
[2017-01-06] MEDS: DOCUSATE SODIUM 50 MG/SENNA 8.6 MG TAB PO SCH ×2 (08:53→22:05)
[2017-01-06] MEDS: LACTOBACILLUS ACIDOPHILUS TAB PO SCH ×2 (08:53→22:04)
[2017-01-06] MEDS: SODIUM CHLORIDE 0.9% FLUSH 10 ML FLUSH IV FLUSH SCH ×2 (08:53→22:05)
[2017-01-06] MEDS: HYDROmorphone HCL 4 MG TAB PO PRN ×3 (09:04→22:04)
--- NOTE | 2017-01-06 10:23 | RADRPT ---
EXAM DATE/TIME: 01/06/2017 09:32 [facility] COMPARISON: TIBIA/FIBULA LEFT (AP/LAT), December 04, 2016, 8:42. INDICATIONS : Evaluate left lower leg fracture. MEDICAL HISTORY : Left lower leg fracture. SURGICAL HISTORY : ORIF left lower leg. ENCOUNTER: Subsequent ACUITY: 2 months PAIN SCORE: 5/10 LOCATION: Left lower leg. FINDINGS: Two view examination of the left tibia again demonstrates postsurgical changes following open reducti on and internal fixation of a comminuted left tibial fracture. An intramedullary lilliam is in stable pos ition. Slight haziness is noted along the fracture fragments. Mildly displaced and angulated fractures of the fibula are noted. Left knee and ankle appear to be well aligned. CONCLUSION: Satisfactory and stable appearance of the left tibia status post ORIF. Pierce Joyner MD on January 06, 2017 at 10:08 Board Certified Radiologist. This report was verified electronically.
--- NOTE | 2017-01-06 10:28 | RADRPT ---
EXAM DATE/TIME: 01/06/2017 09:34 [facility] COMPARISON: TIBIA/FIBULA RIGHT (AP/LAT), December 13, 2016, 11:33. INDICATIONS : Evaluate right tibia fracture. MEDICAL HISTORY : Right lower leg fracture. SURGICAL HISTORY : ORIF right lower leg. ENCOUNTER: Subsequent ACUITY: 2 months PAIN SCORE: 5/10 LOCATION: Right lower leg. FINDINGS: Two view examination of the right tibia again demonstrates post surgical changes following ORIF. Fracture fragment alignment is stable. Haziness and mild periosteal reaction are noted along the frac ture lines especially along the mid tibial fracture. Wound VACs have been removed. Right knee and ankle are stable. CONCLUSION: Mild periosteal reaction is identified along the mid tibial shaft. Otherwise stable appearance following ORIF. Wound VACs have been removed. Pierce Joyner MD on January 06, 2017 at 10:22 Board Certified Radiologist. This report was verified electronically.
--- NOTE | 2017-01-06 10:30 | RADRPT ---
EXAM DATE/TIME: 01/06/2017 09:46 [facility] COMPARISON: SHOULDER RIGHT LTD (2VWS), November 26, 2016, 15:46. INDICATIONS : Evaluate right shoulder fracture. MEDICAL HISTORY : Right shoulder fracture. SURGICAL HISTORY : ORIF right shoulder. ENCOUNTER: Subsequent ACUITY: 2 months PAIN SCORE: 5/10 LOCATION: Right shoulder. FINDINGS: Two view examination of the right shoulder demonstrates a stable fixation device which extends across the acromioclavicular joint to the clavicle. There is no change in position or widening of the a.c. joint. Glenohumeral joint remains intact. CONCLUSION: Stable acromioclavicular fixation device Intact glenohumeral joint. Pierce Joyner MD on January 06, 2017 at 10:26 Board Certified Radiologist. This report was verified electronically.
[2017-01-06 12:00] VITALS: BP 100/56; PULSE 85; RESP 18; TEMP 98.4; O2SAT 95
[2017-01-06] MEDS: ENOXAPARIN SODIUM 30 MG/0.3 ML SYRINGE SQ SCH ×2 (12:43→22:04)
[2017-01-06 16:09] VITALS: BP 100/58; PULSE 90; RESP 18; O2SAT 100
[2017-01-06 20:00] VITALS: BP 104/65; PULSE 94; RESP 20; TEMP 98.6; O2SAT 99
[2017-01-06] MEDS: traZODone HCL 50 MG TAB PO SCH (22:04)
[2017-01-07] MEDS: LACTATED RINGER'S 1000 ML INJ 1,000 ML IV SCH ×12 (00:29→21:38)
[2017-01-07] MEDS: QUEtiapine FUMARATE 25 MG TAB PO SCH ×3 (00:42→17:22)
[2017-01-07] MEDS: PREGABALIN 100 MG CAP PO SCH ×3 (00:43→17:22)
[2017-01-07] MEDS: METHOCARBAMOL 500 MG TAB PO SCH ×3 (02:00→17:22)
[2017-01-07] MEDS: ceFAZolin 2 GM PREMIX 50 ML IV SCH ×3 (03:59→22:21)
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
[2017-01-07] MEDS: DOCUSATE SODIUM 50 MG/SENNA 8.6 MG TAB PO SCH ×2 (09:00→22:21)
[2017-01-07] MEDS: LACTULOSE SYRUP 20 GM/30 ML CUP PO SCH (09:00)
[2017-01-07] MEDS: NYSTATIN 100,000 UNIT/GM CREAM 15 GM TOPICAL SCH ×2 (09:00→21:00)
[2017-01-07] MEDS: MULTIVITAMINS/MINERALS THERAPEUTIC TAB PO SCH ×2 (09:43→22:21)
[2017-01-07] MEDS: CITALOPRAM HYDROBROMIDE 20 MG TAB PO SCH ×2 (09:43→22:21)
[2017-01-07] MEDS: HYDROmorphone HCL 2 MG TAB PO PRN (09:44)
[2017-01-07] MEDS: LACTOBACILLUS ACIDOPHILUS TAB PO SCH ×2 (09:44→22:21)
[2017-01-07] MEDS: FERROUS SULFATE 325 MG (65 MG ELEMENTAL IRON) TAB PO SCH ×2 (09:44→22:21)
[2017-01-07] MEDS: DOCUSATE SODIUM 100 MG CAP PO SCH ×2 (09:44→22:22)
[2017-01-07] MEDS: REMOVE OLD DURAGESIC (FENTANYL) PATCH T-DERMAL SCH (09:46)
[2017-01-07] MEDS: fentaNYL 50 MCG/HR PATCH T-DERMAL SCH (09:46)
[2017-01-07] MEDS: SODIUM CHLORIDE 0.9% FLUSH 10 ML FLUSH IV FLUSH SCH ×2 (09:54→22:21)
[2017-01-07 12:00] VITALS: BP 112/66; PULSE 97; RESP 17; TEMP 96.6; O2SAT 97
[2017-01-07] MEDS: ENOXAPARIN SODIUM 30 MG/0.3 ML SYRINGE SQ SCH ×2 (14:14→22:20)
[2017-01-07 16:00] VITALS: BP 118/70; PULSE 96; RESP 18; TEMP 97.2; O2SAT 97
[2017-01-07] MEDS: HYDROmorphone HCL 4 MG TAB PO PRN ×2 (17:22→22:20)
[2017-01-07 20:00] VITALS: BP 118/73; PULSE 94; RESP 20; TEMP 98.9; O2SAT 98
[2017-01-07] MEDS: traZODone HCL 50 MG TAB PO SCH (22:21)
[2017-01-07] MEDS: MAGNESIUM HYDROXIDE SUSP 30 ML CUP PO PRN (22:24)
[2017-01-08] MEDS: METHOCARBAMOL 500 MG TAB PO SCH ×3 (02:00→17:58)
[2017-01-08] MEDS: PREGABALIN 100 MG CAP PO SCH ×3 (02:00→17:58)
[2017-01-08] MEDS: QUEtiapine FUMARATE 25 MG TAB PO SCH ×3 (02:00→17:57)
[2017-01-08] MEDS: LACTATED RINGER'S 1000 ML INJ 1,000 ML IV SCH ×12 (03:00→22:59)
[2017-01-08] MEDS: ceFAZolin 2 GM PREMIX 50 ML IV SCH (05:23)
[2017-01-08] MEDS: HYDROmorphone HCL 4 MG TAB PO PRN ×3 (05:52→20:22)
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
[2017-01-08 08:00] VITALS: BP 101/58; PULSE 87; RESP 17; TEMP 98.9; O2SAT 96
[2017-01-08] MEDS: SODIUM CHLORIDE 0.9% FLUSH 10 ML FLUSH IV FLUSH SCH ×2 (09:00→20:24)
[2017-01-08] MEDS: NYSTATIN 100,000 UNIT/GM CREAM 15 GM TOPICAL SCH ×2 (09:00→20:24)
[2017-01-08] MEDS: LACTULOSE SYRUP 20 GM/30 ML CUP PO SCH (09:30)
[2017-01-08] MEDS: DOCUSATE SODIUM 100 MG CAP PO SCH ×2 (09:31→20:19)
[2017-01-08] MEDS: LACTOBACILLUS ACIDOPHILUS TAB PO SCH ×2 (09:31→20:19)
[2017-01-08] MEDS: CITALOPRAM HYDROBROMIDE 20 MG TAB PO SCH ×2 (09:31→20:19)
[2017-01-08] MEDS: FERROUS SULFATE 325 MG (65 MG ELEMENTAL IRON) TAB PO SCH ×2 (09:32→20:19)
[2017-01-08] MEDS: DOCUSATE SODIUM 50 MG/SENNA 8.6 MG TAB PO SCH ×2 (09:32→20:19)
[2017-01-08 12:00] VITALS: BP 109/62; PULSE 98; RESP 17; TEMP 96.6; O2SAT 98
[2017-01-08] MEDS: ENOXAPARIN SODIUM 30 MG/0.3 ML SYRINGE SQ SCH ×2 (12:32→23:03)
[2017-01-08 16:00] VITALS: BP 108/63; PULSE 97; RESP 17; TEMP 99.5; O2SAT 95
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
[2017-01-08 20:00] VITALS: BP 118/60; PULSE 103; RESP 18; TEMP 100.2; O2SAT 100
[2017-01-08] MEDS: SULFAMETHOXAZOLE-TRIMETHOPRIM DS 800-160 MG TAB PO SCH (20:19)
[2017-01-08] MEDS: traZODone HCL 50 MG TAB PO SCH (20:19)
[2017-01-08] MEDS: DOXYCYCLINE HYCLATE 100 MG CAP PO SCH (23:03)
[2017-01-09] MEDS: LACTATED RINGER'S 1000 ML INJ 1,000 ML IV SCH ×14 (01:01→23:53)
[2017-01-09] MEDS: METHOCARBAMOL 500 MG TAB PO SCH ×4 (02:00→23:54)
[2017-01-09] MEDS: QUEtiapine FUMARATE 25 MG TAB PO SCH ×4 (02:00→23:54)
[2017-01-09] MEDS: PREGABALIN 100 MG CAP PO SCH ×4 (02:00→23:53)
[2017-01-09] MEDS: HYDROmorphone HCL 4 MG TAB PO PRN ×4 (05:36→21:19)
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
[2017-01-09 08:00] VITALS: BP 100/62; PULSE 74; RESP 18; TEMP 99.2; O2SAT 93
[2017-01-09] MEDS: NYSTATIN 100,000 UNIT/GM CREAM 15 GM TOPICAL SCH ×2 (09:00→21:00)
[2017-01-09] MEDS: DOCUSATE SODIUM 50 MG/SENNA 8.6 MG TAB PO SCH ×2 (11:28→21:20)
[2017-01-09] MEDS: SULFAMETHOXAZOLE-TRIMETHOPRIM DS 800-160 MG TAB PO SCH ×2 (11:28→21:19)
[2017-01-09] MEDS: LACTULOSE SYRUP 20 GM/30 ML CUP PO SCH (11:28)
[2017-01-09] MEDS: DOCUSATE SODIUM 100 MG CAP PO SCH ×2 (11:28→21:20)
[2017-01-09] MEDS: LACTOBACILLUS ACIDOPHILUS TAB PO SCH ×2 (11:28→21:17)
[2017-01-09] MEDS: FERROUS SULFATE 325 MG (65 MG ELEMENTAL IRON) TAB PO SCH ×2 (11:28→21:17)
[2017-01-09] MEDS: ERGOCALCIFEROL (VIT D2) 50,000 UNIT CAP PO SCH (11:28)
[2017-01-09] MEDS: CITALOPRAM HYDROBROMIDE 20 MG TAB PO SCH ×2 (11:29→21:19)
[2017-01-09] MEDS: DOXYCYCLINE HYCLATE 100 MG CAP PO SCH ×2 (11:49→23:47)
[2017-01-09] MEDS: SODIUM CHLORIDE 0.9% FLUSH 10 ML FLUSH IV FLUSH SCH ×2 (11:54→21:00)
[2017-01-09] MEDS: ENOXAPARIN SODIUM 30 MG/0.3 ML SYRINGE SQ SCH ×2 (11:55→23:47)
[2017-01-09 12:00] VITALS: BP 118/71; PULSE 90; RESP 18; TEMP 99.1; O2SAT 97
[2017-01-09 16:00] VITALS: BP 105/62; PULSE 63; RESP 18; TEMP 97.8; O2SAT 97
[2017-01-09 20:00] VITALS: BP 124/69; PULSE 106; RESP 16; TEMP 98.3; O2SAT 97
[2017-01-09] MEDS: traZODone HCL 50 MG TAB PO SCH (21:00)
[2017-01-10] MEDS: HYDROmorphone HCL 4 MG TAB PO PRN ×4 (01:00→20:35)
[2017-01-10] MEDS: ZOLPIDEM TARTRATE 5 MG TAB PO PRN (01:07)
[2017-01-10] MEDS: LACTATED RINGER'S 1000 ML INJ 1,000 ML IV SCH ×10 (05:00→19:22)
--- NOTE | 2017-01-10 06:51 | PD.ORT.PN ---
Subjective Subjective Remarks s/p IMN with partial wound closure left leg - POD 52 s/p right tibia fx with vascular and significant soft tissue injury s/p removal of exfix with IMN and rotation soleus graft right tibia - POD 42 s/p right shoulder AC joint repair - POD 45 s/p I&D right leg with skin grafting partial leg - POD 21 s/p I&D vac Change with skin grafting of remainder of leg - POD 14 doing well. pain controlled. resting comfortably. patient got out of bed and walked the yesterday. improving Objective Vitals Vital Signs Date Time Temp Pulse Resp B/P Pulse Ox O2 Delivery O2 Flow Rate FiO2 01/10/17 03:00 Room Air 01/10/17 02:04 18 01/09/17 20:00 98.3 106 16 124/69 97 01/09/17 16:00 97.8 63 18 105/62 97 01/09/17 12:00 99.1 90 18 118/71 97 01/09/17 08:00 99.2 74 18 100/62 93 I/O 01/09/17 01/09/17 01/09/17 01/10/17 01/10/17 01/10/17 07:00 15:00 23:00 07:00 15:00 23:00 Intake Total 720 ml 1000 ml 480 ml 720 ml Balance 720 ml 1000 ml 480 ml 720 ml Intake Oral 720 ml 1000 ml 480 ml 720 ml # Voids 3 3 3 4 # Bowel Movements 0 0 0 0 Imaging Last Impressions Tibia/Fibula X-Ray 12/13/16 0000 Signed Impressions: Service Date/Time: Tuesday, December 13, 2016 11:33 - CONCLUSION: Comminuted mid fibular fractures are not aligned, however tibial fractures are aligned. Abhijit Fernandes MD Clavicle X-Ray 12/13/16 0000 Signed Impressions: Service Date/Time: Tuesday, December 13, 2016 11:29 - CONCLUSION: A/C joint appears aligned. Abhijit Fernandes MD Knee MRI 12/12/16 0000 Signed Impressions: Service Date/Time: November 15:35 - CONCLUSION: Inhomogeneous area of bright signal on T2 sequence in the distal femoral diaphysis probably areas of contusion and possible mild sprain of the ACL involving the femoral attachment site. K. Jeremiah Fernandes MD Abdomen/Pelvis CT 12/03/16 0000 Signed Impressions: Service Date/Time: Saturday, December 03, 2016 16:29 - CONCLUSION: 1. Trace pleural fluid. Mild free fluid in the pelvis. Mild anasarca. 2. No acute traumatic injury identified within the abdomen and pelvis. 3. Moderate constipation. Mild ileus. Marshall Samaniego MD Shoulder X-Ray 11/26/16 0000 Signed Impressions: Service Date/Time: Saturday, November 26, 2016 15:46 - CONCLUSION: 1. Status post plate and screw fixation of right a.c. joint separation in near anatomic alignment without significant fracture. Zackary Piper MD Foot X-Ray 11/23/16 0000 Signed Impressions: Service Date/Time: Wednesday, November 23, 2016 09:01 - CONCLUSION: 1. Nonspecific soft tissue swelling around the foot. 2. Mild irregularity involving the base of the proximal phalanx. Recommend correlation with point tenderness for nondisplaced fracture. Chinmay Leon MD Chest X-Ray 11/21/16 0600 Signed Impressions: Service Date/Time: October 02:25 - CONCLUSION: Mild bibasilar consolidation. Interim extubation and removal of nasogastric tube and right subclavian central venous line. Shane Gonzalez MD Gall Bladder Ultrasound 11/20/16 0000 Signed Impressions: Service Date/Time: Sunday, November 20, 2016 09:42 - CONCLUSION: Distended gallbladder without stones or gallbladder wall thickening. Shane Fernandes MD Head CT 11/19/16 0000 Signed Impressions: Service Date/Time: Saturday, November 19, 2016 16:51 - CONCLUSION: 1. No intracranial abnormality. 2. Scalp injuries. Shane Fernandes MD Chest CT 11/19/16 0000 Signed Impressions: Service Date/Time: Saturday, November 19, 2016 17:02 - CONCLUSION: Areas of consolidation/contusion or atelectasis in the posterior mid and lower lungs. Shane Fernandes MD Cervical Spine CT 11/19/16 0000 Signed Impressions: Service Date/Time: Saturday, November 19, 2016 16:51 - CONCLUSION: Reversal of the normal C-spine lordosis. No acute bony injury is seen. Shane Fernandes MD Pelvis X-Ray 11/17/16 0058 Signed Impressions: Service Date/Time: Thursday, November 17, 2016 00:41 - CONCLUSION: No evidence of fracture. Avery Vaca MD Procedures 1) I&D with fasciotomy and application of external fixator left leg 2) Wound closure with removal of exfix and IMN left tibia 3) I&D with Exfix application and vac application right open tibia fracture 4) I&D with removal of exfix and IMN right tibia 5) Serial I&Ds right tibia with vac changes 6) STSG of right tibia 7) Open repair of right AC joint 8) open repair of right posterior tibial artery Objective Remarks RUE: tenderness to right A/C joint. full motion. incision healed. NVI. LLE: Dressing intact, mild swelling foot, Wiggles toes freely, sensation intact, +cap refill, +nvi. RLE: Fracture boot +granulation tissue present. no evidence of necrosis. Continues to have moderate right foot swelling w mild ecchymosis, Good capillary refills. No sensation in toes. Does feel pressure over dorsum of foot RUE: Mild swelling hand, Good sensation hand and fingers, median/ulnar nerve distribution fully intact, +motor brachiorad and thumb extension Assessment & Plan Problem List: (1) Open fracture of right tibia and fibula (2) Open fracture of left tibia and fibula (3) Posterior tibial artery injury (4) Acromioclavicular joint separation, type 5 Assessment and Plan s/p IMN with partial wound closure left leg - POD 52 s/p right tibia fx with vascular and significant soft tissue injury s/p removal of exfix with IMN and rotation soleus graft right tibia - POD 42 s/p right shoulder AC joint repair - POD 45 s/p I&D right leg with skin grafting partial leg - POD 21 s/p I&D vac Change with STSG remaining leg - POD 14 daily dressing changes with xeroform/4x4 or ABD/ JARRELL wraps to RLE. dressings as needed to left leg. may DC dressings to left leg when scabs healed. placed in fracture boot BLE. Requesting PT twice a day (BID) ROM of knees to prevent contractures/stiffness. Increase strength of quads/ hamstrings. WBAT BLE with boots on and RUE. begin gait training and walker training. Remove boot from left and right ankles for ankle range of motion with PT. Enedina continue gait training patient denied melina bed at [facility]. Case mgmt still working on rehab placement in [place]. Patient would benefit greatly from Acute rehab placement in [place]. patient needs extensive physical therapy./ Onur Swain Jan 10, 2017 06:51
[2017-01-10 08:00] VITALS: BP 106/59; PULSE 84; RESP 19; TEMP 98.7; O2SAT 98
[2017-01-10] MEDS: NYSTATIN 100,000 UNIT/GM CREAM 15 GM TOPICAL SCH ×2 (09:00→20:37)
[2017-01-10] MEDS: SODIUM CHLORIDE 0.9% FLUSH 10 ML FLUSH IV FLUSH SCH ×2 (09:00→19:22)
[2017-01-10] MEDS: PREGABALIN 100 MG CAP PO SCH ×2 (09:28→18:02)
[2017-01-10] MEDS: CITALOPRAM HYDROBROMIDE 20 MG TAB PO SCH ×2 (09:28→20:35)
[2017-01-10] MEDS: DOCUSATE SODIUM 50 MG/SENNA 8.6 MG TAB PO SCH ×2 (09:28→20:36)
[2017-01-10] MEDS: DOCUSATE SODIUM 100 MG CAP PO SCH ×2 (09:28→20:35)
[2017-01-10] MEDS: METHOCARBAMOL 500 MG TAB PO SCH ×2 (09:29→18:02)
[2017-01-10] MEDS: LACTOBACILLUS ACIDOPHILUS TAB PO SCH ×2 (09:29→20:35)
[2017-01-10] MEDS: QUEtiapine FUMARATE 25 MG TAB PO SCH ×2 (09:29→18:02)
[2017-01-10] MEDS: FERROUS SULFATE 325 MG (65 MG ELEMENTAL IRON) TAB PO SCH ×2 (09:29→20:35)
[2017-01-10] MEDS: LACTULOSE SYRUP 20 GM/30 ML CUP PO SCH (09:30)
[2017-01-10] MEDS: SULFAMETHOXAZOLE-TRIMETHOPRIM DS 800-160 MG TAB PO SCH ×2 (09:34→20:35)
[2017-01-10] MEDS: REMOVE OLD DURAGESIC (FENTANYL) PATCH T-DERMAL SCH (11:00)
[2017-01-10] MEDS: DOXYCYCLINE HYCLATE 100 MG CAP PO SCH (11:52)
[2017-01-10] MEDS: ENOXAPARIN SODIUM 30 MG/0.3 ML SYRINGE SQ SCH (11:52)
[2017-01-10] MEDS: fentaNYL 50 MCG/HR PATCH T-DERMAL SCH (11:53)
[2017-01-10 12:00] VITALS: BP 101/62; PULSE 92; RESP 19; TEMP 98.1; O2SAT 99
[2017-01-10 16:00] VITALS: BP 127/73; PULSE 98; RESP 18; TEMP 97.7; O2SAT 98
[2017-01-10 20:25] VITALS: BP 94/58; PULSE 96; RESP 18; TEMP 96.8; O2SAT 97
[2017-01-10] MEDS: traZODone HCL 50 MG TAB PO SCH (20:37)
[2017-01-11] MEDS: ENOXAPARIN SODIUM 30 MG/0.3 ML SYRINGE SQ SCH ×3 (00:21→22:49)
[2017-01-11] MEDS: DOXYCYCLINE HYCLATE 100 MG CAP PO SCH ×3 (00:24→22:52)
[2017-01-11] MEDS: LACTATED RINGER'S 1000 ML INJ 1,000 ML IV SCH ×16 (00:25→22:58)
[2017-01-11 00:26] VITALS: BP 98/57; PULSE 90; RESP 18; TEMP 98; O2SAT 98
[2017-01-11] MEDS: QUEtiapine FUMARATE 25 MG TAB PO SCH ×4 (00:28→22:57)
[2017-01-11] MEDS: PREGABALIN 100 MG CAP PO SCH ×4 (00:28→22:57)
[2017-01-11] MEDS: METHOCARBAMOL 500 MG TAB PO SCH ×4 (00:28→22:57)
[2017-01-11] MEDS: HYDROmorphone HCL 4 MG TAB PO PRN ×4 (07:04→22:49)
[2017-01-11 08:00] VITALS: BP 134/65; PULSE 77; RESP 18; TEMP 98; O2SAT 95
[2017-01-11] MEDS: NYSTATIN 100,000 UNIT/GM CREAM 15 GM TOPICAL SCH ×2 (09:00→21:00)
[2017-01-11] MEDS: SODIUM CHLORIDE 0.9% FLUSH 10 ML FLUSH IV FLUSH SCH ×2 (09:00→21:00)
[2017-01-11] MEDS: FERROUS SULFATE 325 MG (65 MG ELEMENTAL IRON) TAB PO SCH ×2 (09:53→22:49)
[2017-01-11] MEDS: SULFAMETHOXAZOLE-TRIMETHOPRIM DS 800-160 MG TAB PO SCH ×2 (09:53→22:48)
[2017-01-11] MEDS: LACTOBACILLUS ACIDOPHILUS TAB PO SCH ×2 (09:53→22:49)
[2017-01-11] MEDS: CITALOPRAM HYDROBROMIDE 20 MG TAB PO SCH ×2 (09:53→22:49)
[2017-01-11] MEDS: LACTULOSE SYRUP 20 GM/30 ML CUP PO SCH (09:54)
[2017-01-11] MEDS: DOCUSATE SODIUM 100 MG CAP PO SCH ×2 (09:54→22:49)
[2017-01-11] MEDS: DOCUSATE SODIUM 50 MG/SENNA 8.6 MG TAB PO SCH ×2 (09:54→22:48)
--- NOTE | 2017-01-11 11:21 | PD.ORT.PN ---
Subjective Subjective Remarks Patient resting in bed with mild to moderate pain to the bilateral lower extremities. Patient is c/o right shoulder and right foot pain. Patient's right shoulder pain gradually improving. Patient had some concerns regarding RLE (foot swelling). Objective Vitals Vital Signs Date Time Temp Pulse Resp B/P Pulse Ox O2 Delivery O2 Flow Rate FiO2 01/11/17 00:26 98.0 90 18 98/57 98 01/10/17 22:30 Room Air 01/10/17 21:37 18 01/10/17 20:25 96.8 96 18 94/58 97 01/10/17 16:00 97.7 98 18 127/73 98 01/10/17 12:00 98.1 92 19 101/62 99 I/O 01/10/17 01/10/17 01/10/17 01/11/17 01/11/17 01/11/17 07:00 15:00 23:00 07:00 15:00 23:00 Intake Total 720 ml 1320 ml 240 ml Balance 720 ml 1320 ml 240 ml Intake Oral 720 ml 1320 ml 240 ml # Voids 4 4 4 # Bowel Movements 0 0 0 Imaging Last Impressions Tibia/Fibula X-Ray 12/13/16 0000 Signed Impressions: Service Date/Time: Tuesday, December 13, 2016 11:33 - CONCLUSION: Comminuted mid fibular fractures are not aligned, however tibial fractures are aligned. Abhijit Fernandes MD Clavicle X-Ray 12/13/16 0000 Signed Impressions: Service Date/Time: Tuesday, December 13, 2016 11:29 - CONCLUSION: A/C joint appears aligned. Abhijit Fernandes MD Knee MRI 12/12/16 0000 Signed Impressions: Service Date/Time: November 15:35 - CONCLUSION: Inhomogeneous area of bright signal on T2 sequence in the distal femoral diaphysis probably areas of contusion and possible mild sprain of the ACL involving the femoral attachment site. Abhijit Fernandes MD Abdomen/Pelvis CT 12/03/16 0000 Signed Impressions: Service Date/Time: Saturday, December 03, 2016 16:29 - CONCLUSION: 1. Trace pleural fluid. Mild free fluid in the pelvis. Mild anasarca. 2. No acute traumatic injury identified within the abdomen and pelvis. 3. Moderate constipation. Mild ileus. Marshall Samaniego MD Shoulder X-Ray 11/26/16 0000 Signed Impressions: Service Date/Time: Saturday, November 26, 2016 15:46 - CONCLUSION: 1. Status post plate and screw fixation of right a.c. joint separation in near anatomic alignment without significant fracture. Zackary Piper MD Foot X-Ray 11/23/16 0000 Signed Impressions: Service Date/Time: Wednesday, November 23, 2016 09:01 - CONCLUSION: 1. Nonspecific soft tissue swelling around the foot. 2. Mild irregularity involving the base of the proximal phalanx. Recommend correlation with point tenderness for nondisplaced fracture. Chinmay Leon MD Chest X-Ray 11/21/16 0600 Signed Impressions: Service Date/Time: October 02:25 - CONCLUSION: Mild bibasilar consolidation. Interim extubation and removal of nasogastric tube and right subclavian central venous line. Shane Gonzalez MD Gall Bladder Ultrasound 11/20/16 0000 Signed Impressions: Service Date/Time: Sunday, November 20, 2016 09:42 - CONCLUSION: Distended gallbladder without stones or gallbladder wall thickening. Shane Fernandes MD Head CT 11/19/16 0000 Signed Impressions: Service Date/Time: Saturday, November 19, 2016 16:51 - CONCLUSION: 1. No intracranial abnormality. 2. Scalp injuries. Shane Fernandes MD Chest CT 11/19/16 0000 Signed Impressions: Service Date/Time: Saturday, November 19, 2016 17:02 - CONCLUSION: Areas of consolidation/contusion or atelectasis in the posterior mid and lower lungs. Shane Fernandes MD Cervical Spine CT 11/19/16 0000 Signed Impressions: Service Date/Time: Saturday, November 19, 2016 16:51 - CONCLUSION: Reversal of the normal C-spine lordosis. No acute bony injury is seen. Shane Fernandes MD Pelvis X-Ray 11/17/16 0058 Signed Impressions: Service Date/Time: Thursday, November 17, 2016 00:41 - CONCLUSION: No evidence of fracture. Avery Vaca MD Procedures 1) I&D with fasciotomy and application of external fixator left leg 2) Wound closure with removal of exfix and IMN left tibia 3) I&D with Exfix application and vac application right open tibia fracture 4) I&D with removal of exfix and IMN right tibia 5) Serial I&Ds right tibia with vac changes 6) STSG of right tibia 7) Open repair of right AC joint 8) open repair of right posterior tibial artery Objective Remarks RUE: mild tenderness to right A/C joint. full motion. incision healed. NVI. LLE: Dressing intact, minimal swelling foot, Wiggles toes freely, sensation intact, +cap refill, +nvi. RLE: Fracture boot +granulation tissue present. no evidence of necrosis. Continues to have moderate right foot swelling w mild ecchymosis, Good capillary refills. No sensation in toes and plantar aspect of foot. Does feel pressure and sensation over dorsum of foot RUE: Mild swelling hand, Good sensation hand and fingers, median/ulnar nerve distribution fully intact, +motor brachiorad and thumb extension Assessment & Plan Problem List: (1) Open fracture of right tibia and fibula (2) Open fracture of left tibia and fibula (3) Posterior tibial artery injury (4) Acromioclavicular joint separation, type 5 Assessment and Plan -s/p IMN with partial wound closure left leg - POD 52 s/p right tibia fx with vascular and significant soft tissue injury s/p removal of exfix with IMN and rotation soleus graft right tibia - POD 42 s/p right shoulder AC joint repair - POD 45 s/p I&D right leg with skin grafting partial leg - POD 21 s/p I&D vac Change with STSG remaining leg - POD 14 daily dressing changes with xeroform/4x4 or ABD/ JARRELL wraps to RLE. dressings as needed to left leg. may DC dressings to left leg when scabs healed. placed in fracture boot BLE. Requesting PT twice a day (BID) ROM of knees to prevent contractures/stiffness. Increase strength of quads/ hamstrings. WBAT BLE with boots on and RUE. begin gait training and walker training. Remove boot from left and right ankles for ankle range of motion with PT. Lovenox continue gait training patient denied melina bed at [facility]. Case mgmt still working on rehab placement in [place]. Patient would benefit greatly from Acute rehab placement in [place]. patient needs extensive physical therapy./ [place] Jan 11, 2017 11:21
[2017-01-11 12:00] VITALS: BP 105/61; PULSE 89; RESP 19; TEMP 98.2; O2SAT 97
[2017-01-11 16:00] VITALS: BP 127/74; PULSE 93; RESP 19; TEMP 98.8; O2SAT 100
[2017-01-11 20:00] VITALS: BP 104/66; PULSE 90; RESP 16; TEMP 98.8; O2SAT 97
[2017-01-11] MEDS: traZODone HCL 50 MG TAB PO SCH (21:00)
[2017-01-11] MEDS: MAGNESIUM HYDROXIDE SUSP 30 ML CUP PO PRN (22:52)
[2017-01-12] VITALS: BP 115/64; PULSE 87; RESP 17; TEMP 99.3; O2SAT 97
[2017-01-12] MEDS: HYDROmorphone HCL 4 MG TAB PO PRN ×4 (07:23→21:23)
[2017-01-12 08:00] VITALS: BP 99/48; PULSE 82; RESP 16; TEMP 99.3; O2SAT 98
[2017-01-12] MEDS: SODIUM CHLORIDE 0.9% FLUSH 10 ML FLUSH IV FLUSH SCH ×2 (09:00→21:00)
[2017-01-12] MEDS: NYSTATIN 100,000 UNIT/GM CREAM 15 GM TOPICAL SCH ×2 (09:00→21:00)
[2017-01-12] MEDS: LACTATED RINGER'S 1000 ML INJ 1,000 ML IV SCH ×7 (09:01→20:29)
[2017-01-12] MEDS: METHOCARBAMOL 500 MG TAB PO SCH ×2 (09:20→17:31)
[2017-01-12] MEDS: SULFAMETHOXAZOLE-TRIMETHOPRIM DS 800-160 MG TAB PO SCH ×2 (09:20→21:22)
[2017-01-12] MEDS: PREGABALIN 100 MG CAP PO SCH ×2 (09:20→17:31)
[2017-01-12] MEDS: FERROUS SULFATE 325 MG (65 MG ELEMENTAL IRON) TAB PO SCH ×2 (09:21→21:21)
[2017-01-12] MEDS: DOCUSATE SODIUM 100 MG CAP PO SCH ×2 (09:21→21:21)
[2017-01-12] MEDS: LACTULOSE SYRUP 20 GM/30 ML CUP PO SCH (09:21)
[2017-01-12] MEDS: DOCUSATE SODIUM 50 MG/SENNA 8.6 MG TAB PO SCH ×2 (09:21→21:00)
[2017-01-12] MEDS: QUEtiapine FUMARATE 25 MG TAB PO SCH ×2 (09:21→17:30)
[2017-01-12] MEDS: CITALOPRAM HYDROBROMIDE 20 MG TAB PO SCH ×2 (09:21→21:23)
[2017-01-12] MEDS: LACTOBACILLUS ACIDOPHILUS TAB PO SCH ×2 (09:21→21:21)
--- NOTE | 2017-01-12 09:34 | PD.ORT.PN ---
Subjective Subjective Remarks complains of left leg weakness Objective Vitals Vital Signs Date Time Temp Pulse Resp B/P Pulse Ox O2 Delivery O2 Flow Rate FiO2 01/12/17 03:05 Room Air 01/12/17 00:00 99.3 87 17 115/64 97 01/11/17 23:49 18 01/11/17 20:09 18 01/11/17 20:00 98.8 90 16 104/66 97 01/11/17 16:00 98.8 93 19 127/74 100 01/11/17 12:00 98.2 89 19 105/61 97 I/O 01/11/17 01/11/17 01/11/17 01/12/17 01/12/17 01/12/17 07:00 15:00 23:00 07:00 15:00 23:00 Intake Total 240 ml 1920 ml 850 ml Balance 240 ml 1920 ml 850 ml Intake Oral 240 ml 1920 ml 850 ml # Voids 4 8 4 # Bowel Movements 0 0 Imaging Last Impressions Tibia/Fibula X-Ray 12/13/16 0000 Signed Impressions: Service Date/Time: Tuesday, December 13, 2016 11:33 - CONCLUSION: Comminuted mid fibular fractures are not aligned, however tibial fractures are aligned. Abhijit Fernandes MD Clavicle X-Ray 12/13/16 0000 Signed Impressions: Service Date/Time: Tuesday, December 13, 2016 11:29 - CONCLUSION: A/C joint appears aligned. Abhijit Fernandes MD Knee MRI 12/12/16 0000 Signed Impressions: Service Date/Time: November 15:35 - CONCLUSION: Inhomogeneous area of bright signal on T2 sequence in the distal femoral diaphysis probably areas of contusion and possible mild sprain of the ACL involving the femoral attachment site. Abhijit Fernandes MD Abdomen/Pelvis CT 12/03/16 0000 Signed Impressions: Service Date/Time: Saturday, December 03, 2016 16:29 - CONCLUSION: 1. Trace pleural fluid. Mild free fluid in the pelvis. Mild anasarca. 2. No acute traumatic injury identified within the abdomen and pelvis. 3. Moderate constipation. Mild ileus. Marshall Samaniego MD Shoulder X-Ray 11/26/16 0000 Signed Impressions: Service Date/Time: Saturday, November 26, 2016 15:46 - CONCLUSION: 1. Status post plate and screw fixation of right a.c. joint separation in near anatomic alignment without significant fracture. Zackary Piper MD Foot X-Ray 11/23/16 0000 Signed Impressions: Service Date/Time: Wednesday, November 23, 2016 09:01 - CONCLUSION: 1. Nonspecific soft tissue swelling around the foot. 2. Mild irregularity involving the base of the proximal phalanx. Recommend correlation with point tenderness for nondisplaced fracture. Chinmay Leon MD Chest X-Ray 11/21/16 0600 Signed Impressions: Service Date/Time: October 02:25 - CONCLUSION: Mild bibasilar consolidation. Interim extubation and removal of nasogastric tube and right subclavian central venous line. Shane Gonzalez MD Gall Bladder Ultrasound 11/20/16 0000 Signed Impressions: Service Date/Time: Sunday, November 20, 2016 09:42 - CONCLUSION: Distended gallbladder without stones or gallbladder wall thickening. Shane Fernandes MD Head CT 11/19/16 0000 Signed Impressions: Service Date/Time: Saturday, November 19, 2016 16:51 - CONCLUSION: 1. No intracranial abnormality. 2. Scalp injuries. Shane Fernandes MD Chest CT 11/19/16 0000 Signed Impressions: Service Date/Time: Saturday, November 19, 2016 17:02 - CONCLUSION: Areas of consolidation/contusion or atelectasis in the posterior mid and lower lungs. Shane Fernandes MD Cervical Spine CT 11/19/16 0000 Signed Impressions: Service Date/Time: Saturday, November 19, 2016 16:51 - CONCLUSION: Reversal of the normal C-spine lordosis. No acute bony injury is seen. Shane Fernandes MD Pelvis X-Ray 11/17/16 0058 Signed Impressions: Service Date/Time: Thursday, November 17, 2016 00:41 - CONCLUSION: No evidence of fracture. Avery Vaca MD Procedures 1) I&D with fasciotomy and application of external fixator left leg 2) Wound closure with removal of exfix and IMN left tibia 3) I&D with Exfix application and vac application right open tibia fracture 4) I&D with removal of exfix and IMN right tibia 5) Serial I&Ds right tibia with vac changes 6) STSG of right tibia 7) Open repair of right AC joint 8) open repair of right posterior tibial artery Objective Remarks LLE: Dressing intact, minimal swelling foot, Wiggles toes freely, sensation intact, +cap refill, +nvi. no effusion of knee, no instability of knee, + quad atrophy and weakness RLE: Fracture boot +granulation tissue present. no evidence of necrosis. Continues to have moderate right foot swelling w mild ecchymosis, Good capillary refills. No sensation in toes and plantar aspect of foot. Does feel pressure and sensation over dorsum of foot Assessment & Plan Problem List: (1) Open fracture of right tibia and fibula (2) Open fracture of left tibia and fibula (3) Posterior tibial artery injury (4) Acromioclavicular joint separation, type 5 Assessment and Plan -s/p IMN with partial wound closure left leg - POD 53 s/p right tibia fx with vascular and significant soft tissue injury s/p removal of exfix with IMN and rotation soleus graft right tibia - POD 43 s/p right shoulder AC joint repair - POD 46 s/p I&D right leg with skin grafting partial leg - POD 22 s/p I&D vac Change with STSG remaining leg - POD 15 daily dressing changes with xeroform/4x4 or ABD/ JARRELL wraps to RLE. dressings as needed to left leg. may DC dressings to left leg when scabs healed. placed in fracture boot BLE. Requesting PT twice a day (BID) I reviewed quad sets and SLR with patient to increase strength ROM of knees to prevent contractures/stiffness. Increase strength of quads/ hamstrings. WBAT BLE with boots on and RUE. begin gait training and walker training. Remove boot from left and right ankles for ankle range of motion with PT. Lovenox continue gait training patient denied melina bed at [facility]. Case mgmt still working on rehab placement in [place]. Patient would benefit greatly from Acute rehab placement in [place]. patient needs extensive physical therapy./ Buck Alvarez MD Jan 12, 2017 09:34
[2017-01-12] MEDS: DOXYCYCLINE HYCLATE 100 MG CAP PO SCH ×2 (11:00→23:46)
[2017-01-12 12:00] VITALS: BP 111/62; PULSE 88; RESP 16; TEMP 96.7; O2SAT 100
[2017-01-12] MEDS: ENOXAPARIN SODIUM 30 MG/0.3 ML SYRINGE SQ SCH ×2 (12:20→23:45)
[2017-01-12 16:00] VITALS: BP 102/58; PULSE 118; RESP 16; TEMP 98.5; O2SAT 98
[2017-01-12 19:00] VITALS: BP 105/96; PULSE 90; RESP 16; TEMP 98.3; O2SAT 97
[2017-01-12] MEDS: traZODone HCL 50 MG TAB PO SCH (21:20)
[2017-01-13] MEDS: QUEtiapine FUMARATE 25 MG TAB PO SCH ×4 (02:00→23:52)
[2017-01-13] MEDS: PREGABALIN 100 MG CAP PO SCH ×4 (02:00→23:51)
[2017-01-13] MEDS: METHOCARBAMOL 500 MG TAB PO SCH ×4 (02:00→23:51)
[2017-01-13] MEDS: LACTATED RINGER'S 1000 ML INJ 1,000 ML IV SCH ×16 (03:00→21:30)
--- NOTE | 2017-01-13 06:39 | PD.ORT.PN ---
Subjective Subjective Remarks s/p IMN with partial wound closure left leg - POD 55 s/p right tibia fx with vascular and significant soft tissue injury s/p removal of exfix with IMN and rotation soleus graft right tibia - POD 45 s/p right shoulder AC joint repair - POD 48 s/p I&D right leg with skin grafting partial leg - POD 24 s/p I&D vac Change with skin grafting of remainder of leg - POD 17 doing well. pain controlled. resting comfortably. patient got out of bed and walked the yesterday. improving Objective Vitals Vital Signs Date Time Temp Pulse Resp B/P Pulse Ox O2 Delivery O2 Flow Rate FiO2 01/12/17 22:23 18 01/12/17 19:00 98.3 90 16 105/96 97 01/12/17 16:00 98.5 118 16 102/58 98 01/12/17 12:00 96.7 88 16 111/62 100 01/12/17 08:00 98 Room Air 01/12/17 08:00 99.3 82 16 99/48 98 I/O 01/12/17 01/12/17 01/12/17 01/13/17 01/13/17 01/13/17 07:00 15:00 23:00 07:00 15:00 23:00 Intake Total 850 ml 1080 ml Balance 850 ml 1080 ml Intake Oral 850 ml 1080 ml # Voids 4 7 # Bowel Movements 1 1 Imaging Last Impressions Tibia/Fibula X-Ray 12/13/16 0000 Signed Impressions: Service Date/Time: Tuesday, December 13, 2016 11:33 - CONCLUSION: Comminuted mid fibular fractures are not aligned, however tibial fractures are aligned. Abhijit Fernandes MD Clavicle X-Ray 12/13/16 0000 Signed Impressions: Service Date/Time: Tuesday, December 13, 2016 11:29 - CONCLUSION: A/C joint appears aligned. Abhijit Fernandes MD Knee MRI 12/12/16 0000 Signed Impressions: Service Date/Time: November 15:35 - CONCLUSION: Inhomogeneous area of bright signal on T2 sequence in the distal femoral diaphysis probably areas of contusion and possible mild sprain of the ACL involving the femoral attachment site. Abhijit Fenrandes MD Abdomen/Pelvis CT 12/03/16 0000 Signed Impressions: Service Date/Time: Saturday, December 03, 2016 16:29 - CONCLUSION: 1. Trace pleural fluid. Mild free fluid in the pelvis. Mild anasarca. 2. No acute traumatic injury identified within the abdomen and pelvis. 3. Moderate constipation. Mild ileus. Marshall Samaniego MD Shoulder X-Ray 11/26/16 0000 Signed Impressions: Service Date/Time: Saturday, November 26, 2016 15:46 - CONCLUSION: 1. Status post plate and screw fixation of right a.c. joint separation in near anatomic alignment without significant fracture. Zackary Piper MD Foot X-Ray 11/23/16 0000 Signed Impressions: Service Date/Time: Wednesday, November 23, 2016 09:01 - CONCLUSION: 1. Nonspecific soft tissue swelling around the foot. 2. Mild irregularity involving the base of the proximal phalanx. Recommend correlation with point tenderness for nondisplaced fracture. Chinmay Leon MD Chest X-Ray 11/21/16 0600 Signed Impressions: Service Date/Time: October 02:25 - CONCLUSION: Mild bibasilar consolidation. Interim extubation and removal of nasogastric tube and right subclavian central venous line. Shane Gonzalez MD Gall Bladder Ultrasound 11/20/16 0000 Signed Impressions: Service Date/Time: Sunday, November 20, 2016 09:42 - CONCLUSION: Distended gallbladder without stones or gallbladder wall thickening. Shane Fernandes MD Head CT 11/19/16 0000 Signed Impressions: Service Date/Time: Saturday, November 19, 2016 16:51 - CONCLUSION: 1. No intracranial abnormality. 2. Scalp injuries. Shane Fernandes MD Chest CT 11/19/16 0000 Signed Impressions: Service Date/Time: Saturday, November 19, 2016 17:02 - CONCLUSION: Areas of consolidation/contusion or atelectasis in the posterior mid and lower lungs. Shane Fernandes MD Cervical Spine CT 11/19/16 0000 Signed Impressions: Service Date/Time: Saturday, November 19, 2016 16:51 - CONCLUSION: Reversal of the normal C-spine lordosis. No acute bony injury is seen. Shane Fernandes MD Pelvis X-Ray 11/17/16 0058 Signed Impressions: Service Date/Time: Thursday, November 17, 2016 00:41 - CONCLUSION: No evidence of fracture. Avery Vaca MD Procedures 1) I&D with fasciotomy and application of external fixator left leg 2) Wound closure with removal of exfix and IMN left tibia 3) I&D with Exfix application and vac application right open tibia fracture 4) I&D with removal of exfix and IMN right tibia 5) Serial I&Ds right tibia with vac changes 6) STSG of right tibia 7) Open repair of right AC joint 8) open repair of right posterior tibial artery Objective Remarks LLE: Dressing intact, minimal swelling foot, Wiggles toes freely, sensation intact, +cap refill, +nvi. no effusion of knee, no instability of knee, + quad atrophy and weakness RLE: Fracture boot +granulation tissue present. no evidence of necrosis. Continues to have moderate right foot swelling w mild ecchymosis, Good capillary refills. No sensation in toes and plantar aspect of foot. Does feel pressure and sensation over dorsum of foot Assessment & Plan Problem List: (1) Open fracture of right tibia and fibula (2) Open fracture of left tibia and fibula (3) Posterior tibial artery injury (4) Acromioclavicular joint separation, type 5 Assessment and Plan -s/p IMN with partial wound closure left leg - POD 55 s/p right tibia fx with vascular and significant soft tissue injury s/p removal of exfix with IMN and rotation soleus graft right tibia - POD 45 s/p right shoulder AC joint repair - POD 48 s/p I&D right leg with skin grafting partial leg - POD 24 s/p I&D vac Change with STSG remaining leg - POD 17 daily dressing changes with xeroform/4x4 or ABD/ JARRELL wraps to RLE. dressings as needed to left leg. may DC dressings to left leg when scabs healed. placed in fracture boot BLE. Requesting PT twice a day (BID) I reviewed quad sets and SLR with patient to increase strength ROM of knees to prevent contractures/stiffness. Increase strength of quads/ hamstrings. WBAT BLE with boots on and RUE. begin gait training and walker training. Remove boot from left and right ankles for ankle range of motion with PT. Enedina continue gait training [facility]. Case mgmt still working on rehab placement in [place]. Patient would benefit greatly from Acute rehab placement in [place]. patient needs extensive physical therapy./ Onur Swain Jan 13, 2017 06:39
[2017-01-13 08:00] VITALS: BP 102/51; PULSE 80; RESP 19; TEMP 98.4; O2SAT 98
[2017-01-13] MEDS: SODIUM CHLORIDE 0.9% FLUSH 10 ML FLUSH IV FLUSH SCH ×2 (09:00→21:39)
[2017-01-13] MEDS: NYSTATIN 100,000 UNIT/GM CREAM 15 GM TOPICAL SCH ×2 (09:00→21:00)
[2017-01-13] MEDS: REMOVE OLD DURAGESIC (FENTANYL) PATCH T-DERMAL SCH (11:00)
[2017-01-13] MEDS: LACTOBACILLUS ACIDOPHILUS TAB PO SCH ×2 (11:20→21:38)
[2017-01-13] MEDS: DOCUSATE SODIUM 100 MG CAP PO SCH ×2 (11:20→21:38)
[2017-01-13] MEDS: FERROUS SULFATE 325 MG (65 MG ELEMENTAL IRON) TAB PO SCH ×2 (11:20→21:38)
[2017-01-13] MEDS: SULFAMETHOXAZOLE-TRIMETHOPRIM DS 800-160 MG TAB PO SCH ×2 (11:21→21:38)
[2017-01-13] MEDS: DOCUSATE SODIUM 50 MG/SENNA 8.6 MG TAB PO SCH ×2 (11:21→21:37)
[2017-01-13] MEDS: CITALOPRAM HYDROBROMIDE 20 MG TAB PO SCH ×2 (11:21→21:38)
[2017-01-13] MEDS: LACTULOSE SYRUP 20 GM/30 ML CUP PO SCH (11:22)
[2017-01-13] MEDS: HYDROmorphone HCL 4 MG TAB PO PRN ×4 (11:23→21:38)
[2017-01-13] MEDS: ENOXAPARIN SODIUM 30 MG/0.3 ML SYRINGE SQ SCH ×2 (11:27→23:51)
[2017-01-13] MEDS: DOXYCYCLINE HYCLATE 100 MG CAP PO SCH ×2 (11:27→23:51)
[2017-01-13] MEDS: fentaNYL 50 MCG/HR PATCH T-DERMAL SCH (11:28)
[2017-01-13 12:00] VITALS: BP 92/55; PULSE 87; RESP 19; TEMP 97.7; O2SAT 97
[2017-01-13 12:10] VITALS: O2SAT 98
[2017-01-13 16:00] VITALS: BP 118/58; PULSE 86; RESP 18; TEMP 98.5; O2SAT 98
[2017-01-13 20:35] VITALS: BP 108/65; PULSE 90; RESP 16; TEMP 98.7; O2SAT 100
[2017-01-13] MEDS: traZODone HCL 50 MG TAB PO SCH (21:37)
[2017-01-14] MEDS: HYDROmorphone HCL 2 MG TAB PO PRN ×3 (05:35→23:46)
--- NOTE | 2017-01-14 06:34 | PD.ORT.PN ---
Subjective Subjective Remarks s/p IMN with partial wound closure left leg - POD 56 s/p right tibia fx with vascular and significant soft tissue injury s/p removal of exfix with IMN and rotation soleus graft right tibia - POD 46 s/p right shoulder AC joint repair - POD 49 s/p I&D right leg with skin grafting partial leg - POD 25 s/p I&D vac Change with skin grafting of remainder of leg - POD 18 doing well. pain controlled. resting comfortably. patient got out of bed and walked the yesterday. improving Objective Vitals Vital Signs Date Time Temp Pulse Resp B/P Pulse Ox O2 Delivery O2 Flow Rate FiO2 01/13/17 20:35 98.7 90 16 108/65 100 01/13/17 16:47 20 01/13/17 16:00 98.5 86 18 118/58 98 01/13/17 13:52 18 01/13/17 13:02 18 01/13/17 12:10 98 01/13/17 12:00 97.7 87 19 92/55 97 01/13/17 08:00 98.4 80 19 102/51 98 I/O 01/13/17 01/13/17 01/13/17 01/14/17 01/14/17 01/14/17 07:00 15:00 23:00 07:00 15:00 23:00 Intake Total 1680 ml Balance 1680 ml Intake Oral 1680 ml # Voids 5 # Bowel Movements 0 Imaging Last Impressions Tibia/Fibula X-Ray 12/13/16 0000 Signed Impressions: Service Date/Time: Tuesday, December 13, 2016 11:33 - CONCLUSION: Comminuted mid fibular fractures are not aligned, however tibial fractures are aligned. Abhijit Fernandes MD Clavicle X-Ray 12/13/16 0000 Signed Impressions: Service Date/Time: Tuesday, December 13, 2016 11:29 - CONCLUSION: A/C joint appears aligned. Abhijit Fernandes MD Knee MRI 12/12/16 0000 Signed Impressions: Service Date/Time: November 15:35 - CONCLUSION: Inhomogeneous area of bright signal on T2 sequence in the distal femoral diaphysis probably areas of contusion and possible mild sprain of the ACL involving the femoral attachment site. Abhijit Fernandes MD Abdomen/Pelvis CT 12/03/16 0000 Signed Impressions: Service Date/Time: Saturday, December 03, 2016 16:29 - CONCLUSION: 1. Trace pleural fluid. Mild free fluid in the pelvis. Mild anasarca. 2. No acute traumatic injury identified within the abdomen and pelvis. 3. Moderate constipation. Mild ileus. Marshall Samaniego MD Shoulder X-Ray 11/26/16 0000 Signed Impressions: Service Date/Time: Saturday, November 26, 2016 15:46 - CONCLUSION: 1. Status post plate and screw fixation of right a.c. joint separation in near anatomic alignment without significant fracture. Zackary Piper MD Foot X-Ray 11/23/16 0000 Signed Impressions: Service Date/Time: Wednesday, November 23, 2016 09:01 - CONCLUSION: 1. Nonspecific soft tissue swelling around the foot. 2. Mild irregularity involving the base of the proximal phalanx. Recommend correlation with point tenderness for nondisplaced fracture. Chinmay Leon MD Chest X-Ray 11/21/16 0600 Signed Impressions: Service Date/Time: October 02:25 - CONCLUSION: Mild bibasilar consolidation. Interim extubation and removal of nasogastric tube and right subclavian central venous line. Shane Gonzalez MD Gall Bladder Ultrasound 11/20/16 0000 Signed Impressions: Service Date/Time: Sunday, November 20, 2016 09:42 - CONCLUSION: Distended gallbladder without stones or gallbladder wall thickening. Shane Fernandes MD Head CT 11/19/16 0000 Signed Impressions: Service Date/Time: Saturday, November 19, 2016 16:51 - CONCLUSION: 1. No intracranial abnormality. 2. Scalp injuries. Shane Fernandes MD Chest CT 11/19/16 0000 Signed Impressions: Service Date/Time: Saturday, November 19, 2016 17:02 - CONCLUSION: Areas of consolidation/contusion or atelectasis in the posterior mid and lower lungs. Shane Fernandes MD Cervical Spine CT 11/19/16 0000 Signed Impressions: Service Date/Time: Saturday, November 19, 2016 16:51 - CONCLUSION: Reversal of the normal C-spine lordosis. No acute bony injury is seen. Shane Fernandes MD Pelvis X-Ray 11/17/16 0058 Signed Impressions: Service Date/Time: Thursday, November 17, 2016 00:41 - CONCLUSION: No evidence of fracture. Avery Vaca MD Procedures 1) I&D with fasciotomy and application of external fixator left leg 2) Wound closure with removal of exfix and IMN left tibia 3) I&D with Exfix application and vac application right open tibia fracture 4) I&D with removal of exfix and IMN right tibia 5) Serial I&Ds right tibia with vac changes 6) STSG of right tibia 7) Open repair of right AC joint 8) open repair of right posterior tibial artery Objective Remarks LLE: Dressing intact, minimal swelling foot, Wiggles toes freely, sensation intact, +cap refill, +nvi. no effusion of knee, no instability of knee, + quad atrophy and weakness RLE: Fracture boot +granulation tissue present. no evidence of necrosis. Continues to have moderate right foot swelling w mild ecchymosis, Good capillary refills. No sensation in toes and plantar aspect of foot. Does feel pressure and sensation over dorsum of foot Assessment & Plan Problem List: (1) Open fracture of right tibia and fibula (2) Open fracture of left tibia and fibula (3) Posterior tibial artery injury (4) Acromioclavicular joint separation, type 5 Assessment and Plan -s/p IMN with partial wound closure left leg - POD 56 s/p right tibia fx with vascular and significant soft tissue injury s/p removal of exfix with IMN and rotation soleus graft right tibia - POD 46 s/p right shoulder AC joint repair - POD 49 s/p I&D right leg with skin grafting partial leg - POD 25 s/p I&D vac Change with STSG remaining leg - POD 18 daily dressing changes with xeroform/4x4 or ABD/ JARRELL wraps to RLE. dressings as needed to left leg. may DC dressings to left leg when scabs healed. placed in fracture boot RLE. Requesting PT twice a day (BID) I reviewed quad sets and SLR with patient to increase strength ROM of knees to prevent contractures/stiffness. Increase strength of quads/ hamstrings. WBAT BLE with boots on and RUE. begin gait training and walker training. Remove boot from left and right ankles for ankle range of motion with PT. Lovenox continue gait training patient denied melina bed at [facility]. Case mgmt still working on rehab placement in [place]. Patient would benefit greatly from Acute rehab placement in [place]. patient needs extensive physical therapy./ DC Fx boot left leg. will work on DC jonathan this AM of skin graft Onur Swain Jan 14, 2017 06:34
[2017-01-14] MEDS: HYDROmorphone HCL 4 MG TAB PO PRN ×3 (07:50→18:35)
[2017-01-14 08:00] VITALS: BP 112/61; PULSE 88; RESP 18; TEMP 98.1; O2SAT 99
[2017-01-14] MEDS: LACTATED RINGER'S 1000 ML INJ 1,000 ML IV SCH ×10 (09:00→23:39)
[2017-01-14] MEDS: SODIUM CHLORIDE 0.9% FLUSH 10 ML FLUSH IV FLUSH SCH ×2 (09:00→21:00)
[2017-01-14] MEDS: NYSTATIN 100,000 UNIT/GM CREAM 15 GM TOPICAL SCH ×2 (09:37→23:39)
[2017-01-14] MEDS: LACTULOSE SYRUP 20 GM/30 ML CUP PO SCH (09:38)
[2017-01-14] MEDS: CITALOPRAM HYDROBROMIDE 20 MG TAB PO SCH ×2 (09:38→23:37)
[2017-01-14] MEDS: QUEtiapine FUMARATE 25 MG TAB PO SCH ×2 (09:38→18:26)
[2017-01-14] MEDS: SULFAMETHOXAZOLE-TRIMETHOPRIM DS 800-160 MG TAB PO SCH ×2 (09:38→23:37)
[2017-01-14] MEDS: FERROUS SULFATE 325 MG (65 MG ELEMENTAL IRON) TAB PO SCH ×2 (09:38→23:38)
[2017-01-14] MEDS: DOCUSATE SODIUM 50 MG/SENNA 8.6 MG TAB PO SCH ×2 (09:38→23:37)
[2017-01-14] MEDS: DOCUSATE SODIUM 100 MG CAP PO SCH ×2 (09:38→23:37)
[2017-01-14] MEDS: PREGABALIN 100 MG CAP PO SCH ×2 (09:38→18:26)
[2017-01-14] MEDS: METHOCARBAMOL 500 MG TAB PO SCH ×2 (09:39→18:26)
[2017-01-14] MEDS: LACTOBACILLUS ACIDOPHILUS TAB PO SCH ×2 (09:39→23:37)
[2017-01-14] MEDS: DOXYCYCLINE HYCLATE 100 MG CAP PO SCH ×2 (11:59→23:38)
[2017-01-14 12:00] VITALS: BP 109/68; PULSE 90; RESP 18; TEMP 98.2; O2SAT 96
[2017-01-14] MEDS: ENOXAPARIN SODIUM 30 MG/0.3 ML SYRINGE SQ SCH ×2 (12:00→23:38)
[2017-01-14 16:00] VITALS: BP 107/63; PULSE 89; RESP 18; TEMP 98.4; O2SAT 97
[2017-01-14 20:45] VITALS: BP 105/56; PULSE 84; RESP 16; TEMP 98.7; O2SAT 96
[2017-01-14] MEDS: traZODone HCL 50 MG TAB PO SCH (23:38)
[2017-01-15] MEDS: METHOCARBAMOL 500 MG TAB PO SCH ×2 (02:00→10:00)
[2017-01-15] MEDS: QUEtiapine FUMARATE 25 MG TAB PO SCH ×2 (02:00→10:00)
[2017-01-15] MEDS: PREGABALIN 100 MG CAP PO SCH ×2 (02:00→10:00)
[2017-01-15] MEDS: LACTATED RINGER'S 1000 ML INJ 1,000 ML IV SCH ×5 (02:55→22:28)
[2017-01-15] MEDS: HYDROmorphone HCL 2 MG TAB PO PRN (06:40)
--- NOTE | 2017-01-15 06:54 | PD.ORT.PN ---
Subjective Subjective Remarks s/p IMN with partial wound closure left leg - POD 57 s/p right tibia fx with vascular and significant soft tissue injury s/p removal of exfix with IMN and rotation soleus graft right tibia - POD 47 s/p right shoulder AC joint repair - POD 50 s/p I&D right leg with skin grafting partial leg - POD 26 s/p I&D vac Change with skin grafting of remainder of leg - POD 19 doing well. pain controlled. resting comfortably. no changes Objective Vitals Vital Signs Date Time Temp Pulse Resp B/P Pulse Ox O2 Delivery O2 Flow Rate FiO2 01/14/17 20:45 98.7 84 16 105/56 96 01/14/17 16:00 98.4 89 18 107/63 97 01/14/17 12:00 98.2 90 18 109/68 96 01/14/17 08:00 98.1 88 18 112/61 99 I/O 01/14/17 01/14/17 01/14/17 01/15/17 01/15/17 01/15/17 07:00 15:00 23:00 07:00 15:00 23:00 Intake Total 480 ml 960 ml 240 ml 240 ml Balance 480 ml 960 ml 240 ml 240 ml Intake Oral 480 ml 960 ml 240 ml 240 ml # Voids 2 3 1 2 # Bowel Movements 0 1 0 0 Imaging Last Impressions Tibia/Fibula X-Ray 12/13/16 0000 Signed Impressions: Service Date/Time: Tuesday, December 13, 2016 11:33 - CONCLUSION: Comminuted mid fibular fractures are not aligned, however tibial fractures are aligned. Abhijit Fernandes MD Clavicle X-Ray 12/13/16 0000 Signed Impressions: Service Date/Time: Tuesday, December 13, 2016 11:29 - CONCLUSION: A/C joint appears aligned. Abhijit Fernandes MD Knee MRI 12/12/16 0000 Signed Impressions: Service Date/Time: November 15:35 - CONCLUSION: Inhomogeneous area of bright signal on T2 sequence in the distal femoral diaphysis probably areas of contusion and possible mild sprain of the ACL involving the femoral attachment site. Abhijit Fernandes MD Abdomen/Pelvis CT 12/03/16 0000 Signed Impressions: Service Date/Time: Saturday, December 03, 2016 16:29 - CONCLUSION: 1. Trace pleural fluid. Mild free fluid in the pelvis. Mild anasarca. 2. No acute traumatic injury identified within the abdomen and pelvis. 3. Moderate constipation. Mild ileus. Marshall Samaniego MD Shoulder X-Ray 11/26/16 0000 Signed Impressions: Service Date/Time: Saturday, November 26, 2016 15:46 - CONCLUSION: 1. Status post plate and screw fixation of right a.c. joint separation in near anatomic alignment without significant fracture. Zackary Piper MD Foot X-Ray 11/23/16 0000 Signed Impressions: Service Date/Time: Wednesday, November 23, 2016 09:01 - CONCLUSION: 1. Nonspecific soft tissue swelling around the foot. 2. Mild irregularity involving the base of the proximal phalanx. Recommend correlation with point tenderness for nondisplaced fracture. Chinmay Leon MD Chest X-Ray 11/21/16 0600 Signed Impressions: Service Date/Time: October 02:25 - CONCLUSION: Mild bibasilar consolidation. Interim extubation and removal of nasogastric tube and right subclavian central venous line. Shane Gonzalez MD Gall Bladder Ultrasound 11/20/16 0000 Signed Impressions: Service Date/Time: Sunday, November 20, 2016 09:42 - CONCLUSION: Distended gallbladder without stones or gallbladder wall thickening. Shane Fernandes MD Head CT 11/19/16 0000 Signed Impressions: Service Date/Time: Saturday, November 19, 2016 16:51 - CONCLUSION: 1. No intracranial abnormality. 2. Scalp injuries. Shane Fernandes MD Chest CT 11/19/16 0000 Signed Impressions: Service Date/Time: Saturday, November 19, 2016 17:02 - CONCLUSION: Areas of consolidation/contusion or atelectasis in the posterior mid and lower lungs. Shane Fernandes MD Cervical Spine CT 11/19/16 0000 Signed Impressions: Service Date/Time: Saturday, November 19, 2016 16:51 - CONCLUSION: Reversal of the normal C-spine lordosis. No acute bony injury is seen. Shane Fernandes MD Pelvis X-Ray 11/17/16 0058 Signed Impressions: Service Date/Time: Thursday, November 17, 2016 00:41 - CONCLUSION: No evidence of fracture. Avery Vaca MD Procedures 1) I&D with fasciotomy and application of external fixator left leg 2) Wound closure with removal of exfix and IMN left tibia 3) I&D with Exfix application and vac application right open tibia fracture 4) I&D with removal of exfix and IMN right tibia 5) Serial I&Ds right tibia with vac changes 6) STSG of right tibia 7) Open repair of right AC joint 8) open repair of right posterior tibial artery Objective Remarks LLE: Dressing intact, minimal swelling foot, Wiggles toes freely, sensation intact, +cap refill, +nvi. no effusion of knee, no instability of knee, + quad atrophy and weakness RLE: Fracture boot +granulation tissue present. no evidence of necrosis. Continues to have moderate right foot swelling w mild ecchymosis, Good capillary refills. No sensation in toes and plantar aspect of foot. Does feel pressure and sensation over dorsum of foot Assessment & Plan Problem List: (1) Open fracture of right tibia and fibula (2) Open fracture of left tibia and fibula (3) Posterior tibial artery injury (4) Acromioclavicular joint separation, type 5 Assessment and Plan s/p IMN with partial wound closure left leg - POD 57 s/p right tibia fx with vascular and significant soft tissue injury s/p removal of exfix with IMN and rotation soleus graft right tibia - POD 47 s/p right shoulder AC joint repair - POD 50 s/p I&D right leg with skin grafting partial leg - POD 26 s/p I&D vac Change with skin grafting of remainder of leg - POD 19 daily dressing changes with xeroform/4x4 or ABD/ JARRELL wraps to RLE. dressings as needed to left leg. may DC dressings to left leg when scabs healed. placed in fracture boot RLE. Requesting PT twice a day (BID) I reviewed quad sets and SLR with patient to increase strength ROM of knees to prevent contractures/stiffness. Increase strength of quads/ hamstrings. WBAT BLE/RUE. RLE with boot on. begin gait training and walker training. Remove boot from left and right ankles for ankle range of motion with PT. Lovenox continue gait training patient denied melina bed at [facility]. Case mgmt still working on rehab placement in [place]. Patient would benefit greatly from Acute rehab placement in [place]. patient needs extensive physical therapy./ DC Fx boot left leg. Patient has sustained multiple orthopedic injuries from her recent trauma. Some of these injuries are potentially limb threatening. She has undergone extensive surgery as well as extensive skin grafting. [facility] for skilled wound care of the right leg, with daily dressing changes and management of her skin graft. She also requires extensive physical therapy for gait training and strengthening. Patient would benefit greatly from, and I do believe it is medically necessary for her to receive, an acute inpatient rehabilitation stay once she returns back to [place]. She has multiple issues that if not cared for properly, or if she does not receive proper therapy, could result in permanent impairment. I'm confident that with a stay in acute rehabilitation, this will give her the best possible outcome for maximal functional outcome in the future. Onur Swain Jan 15, 2017 06:54
[2017-01-15 07:35] VITALS: BP 100/58; PULSE 88; RESP 18; TEMP 97.3; O2SAT 98
[2017-01-15] MEDS: FERROUS SULFATE 325 MG (65 MG ELEMENTAL IRON) TAB PO SCH ×2 (08:31→22:21)
[2017-01-15] MEDS: SULFAMETHOXAZOLE-TRIMETHOPRIM DS 800-160 MG TAB PO SCH ×2 (08:31→22:22)
[2017-01-15] MEDS: LACTOBACILLUS ACIDOPHILUS TAB PO SCH ×2 (08:31→22:21)
[2017-01-15] MEDS: DOCUSATE SODIUM 50 MG/SENNA 8.6 MG TAB PO SCH ×2 (08:31→22:21)
[2017-01-15] MEDS: DOCUSATE SODIUM 100 MG CAP PO SCH ×2 (08:31→22:22)
[2017-01-15] MEDS: CITALOPRAM HYDROBROMIDE 20 MG TAB PO SCH ×2 (08:31→22:22)
[2017-01-15] MEDS: LACTULOSE SYRUP 20 GM/30 ML CUP PO SCH (08:31)
[2017-01-15] MEDS: NYSTATIN 100,000 UNIT/GM CREAM 15 GM TOPICAL SCH ×2 (09:00→22:29)
[2017-01-15] MEDS: SODIUM CHLORIDE 0.9% FLUSH 10 ML FLUSH IV FLUSH SCH ×2 (09:00→21:00)
[2017-01-15] MEDS: DOXYCYCLINE HYCLATE 100 MG CAP PO SCH ×2 (11:00→22:21)
[2017-01-15 11:42] VITALS: BP 102/59; PULSE 84; RESP 18; TEMP 97.5; O2SAT 98
[2017-01-15] MEDS: ENOXAPARIN SODIUM 30 MG/0.3 ML SYRINGE SQ SCH (12:23)
[2017-01-15] MEDS: HYDROmorphone HCL 4 MG TAB PO PRN ×3 (12:24→22:25)
[2017-01-15 16:00] VITALS: BP 102/60; PULSE 89; RESP 18; TEMP 98.9; O2SAT 97
[2017-01-15 20:45] VITALS: BP 108/63; PULSE 94; RESP 18; TEMP 98.3; O2SAT 99
[2017-01-15] MEDS: traZODone HCL 50 MG TAB PO SCH (22:22)
[2017-01-16] MEDS: ENOXAPARIN SODIUM 30 MG/0.3 ML SYRINGE SQ SCH ×2 (00:23→10:40)
[2017-01-16] MEDS: PREGABALIN 100 MG CAP PO SCH ×3 (00:24→18:05)
[2017-01-16] MEDS: QUEtiapine FUMARATE 25 MG TAB PO SCH ×3 (00:24→18:05)
[2017-01-16] MEDS: METHOCARBAMOL 500 MG TAB PO SCH ×3 (00:25→18:05)
[2017-01-16] MEDS: LACTATED RINGER'S 1000 ML INJ 1,000 ML IV SCH ×11 (00:25→23:01)
[2017-01-16 00:36] VITALS: BP 101/55; PULSE 79; RESP 18; TEMP 97.8; O2SAT 99
--- NOTE | 2017-01-16 07:41 | PD.ORT.PN ---
Subjective Subjective Remarks s/p IMN with partial wound closure left leg - POD 58 s/p right tibia fx with vascular and significant soft tissue injury s/p removal of exfix with IMN and rotation soleus graft right tibia - POD 48 s/p right shoulder AC joint repair - POD 51 s/p I&D right leg with skin grafting partial leg - POD 27 s/p I&D vac Change with skin grafting of remainder of leg - POD 20 doing well. pain controlled. resting comfortably. no changes Objective Vitals Vital Signs Date Time Temp Pulse Resp B/P Pulse Ox O2 Delivery O2 Flow Rate FiO2 01/16/17 00:36 97.8 79 18 101/55 99 01/15/17 20:45 98.3 94 18 108/63 99 01/15/17 16:22 18 01/15/17 16:00 98.9 89 18 102/60 97 01/15/17 13:30 18 01/15/17 11:42 97.5 84 18 102/59 98 I/O 01/15/17 01/15/17 01/15/17 01/16/17 01/16/17 01/16/17 06:59 14:59 22:59 06:59 14:59 22:59 Intake Total 240 ml 960 ml 360 ml 120 ml Balance 240 ml 960 ml 360 ml 120 ml Intake Oral 240 ml 960 ml 360 ml 120 ml # Voids 2 4 2 2 # Bowel Movements 0 0 0 0 Imaging Last Impressions Tibia/Fibula X-Ray 12/13/16 0000 Signed Impressions: Service Date/Time: Tuesday, December 13, 2016 11:33 - CONCLUSION: Comminuted mid fibular fractures are not aligned, however tibial fractures are aligned. Abhijit Fernandes MD Clavicle X-Ray 12/13/16 0000 Signed Impressions: Service Date/Time: Tuesday, December 13, 2016 11:29 - CONCLUSION: A/C joint appears aligned. Abhijit Fernandes MD Knee MRI 12/12/16 0000 Signed Impressions: Service Date/Time: November 15:35 - CONCLUSION: Inhomogeneous area of bright signal on T2 sequence in the distal femoral diaphysis probably areas of contusion and possible mild sprain of the ACL involving the femoral attachment site. Abhijit Fernandes MD Abdomen/Pelvis CT 12/03/16 0000 Signed Impressions: Service Date/Time: Saturday, December 03, 2016 16:29 - CONCLUSION: 1. Trace pleural fluid. Mild free fluid in the pelvis. Mild anasarca. 2. No acute traumatic injury identified within the abdomen and pelvis. 3. Moderate constipation. Mild ileus. Marshall Samaniego MD Shoulder X-Ray 11/26/16 0000 Signed Impressions: Service Date/Time: Saturday, November 26, 2016 15:46 - CONCLUSION: 1. Status post plate and screw fixation of right a.c. joint separation in near anatomic alignment without significant fracture. Zackary Piper MD Foot X-Ray 11/23/16 0000 Signed Impressions: Service Date/Time: Wednesday, November 23, 2016 09:01 - CONCLUSION: 1. Nonspecific soft tissue swelling around the foot. 2. Mild irregularity involving the base of the proximal phalanx. Recommend correlation with point tenderness for nondisplaced fracture. Chinmay Leon MD Chest X-Ray 11/21/16 0600 Signed Impressions: Service Date/Time: October 02:25 - CONCLUSION: Mild bibasilar consolidation. Interim extubation and removal of nasogastric tube and right subclavian central venous line. Shane Gonzalez MD Gall Bladder Ultrasound 11/20/16 0000 Signed Impressions: Service Date/Time: Sunday, November 20, 2016 09:42 - CONCLUSION: Distended gallbladder without stones or gallbladder wall thickening. Shane Fernandes MD Head CT 11/19/16 0000 Signed Impressions: Service Date/Time: Saturday, November 19, 2016 16:51 - CONCLUSION: 1. No intracranial abnormality. 2. Scalp injuries. Shane Fernandes MD Chest CT 11/19/16 0000 Signed Impressions: Service Date/Time: Saturday, November 19, 2016 17:02 - CONCLUSION: Areas of consolidation/contusion or atelectasis in the posterior mid and lower lungs. Shane Fernandes MD Cervical Spine CT 11/19/16 0000 Signed Impressions: Service Date/Time: Saturday, November 19, 2016 16:51 - CONCLUSION: Reversal of the normal C-spine lordosis. No acute bony injury is seen. Shane Fernandes MD Pelvis X-Ray 11/17/16 0058 Signed Impressions: Service Date/Time: Thursday, November 17, 2016 00:41 - CONCLUSION: No evidence of fracture. Avery Vaca MD Procedures 1) I&D with fasciotomy and application of external fixator left leg 2) Wound closure with removal of exfix and IMN left tibia 3) I&D with Exfix application and vac application right open tibia fracture 4) I&D with removal of exfix and IMN right tibia 5) Serial I&Ds right tibia with vac changes 6) STSG of right tibia 7) Open repair of right AC joint 8) open repair of right posterior tibial artery Objective Remarks LLE: Dressing intact, minimal swelling foot, Wiggles toes freely, sensation intact, +cap refill, +nvi. no effusion of knee, no instability of knee, + quad atrophy and weakness RLE: Fracture boot +granulation tissue present. no evidence of necrosis. Continues to have moderate right foot swelling w mild ecchymosis, Good capillary refills. No sensation in toes and plantar aspect of foot. Does feel pressure and sensation over dorsum of foot Assessment & Plan Problem List: (1) Open fracture of right tibia and fibula (2) Open fracture of left tibia and fibula (3) Posterior tibial artery injury (4) Acromioclavicular joint separation, type 5 Assessment and Plan s/p IMN with partial wound closure left leg - POD 58 s/p right tibia fx with vascular and significant soft tissue injury s/p removal of exfix with IMN and rotation soleus graft right tibia - POD 48 s/p right shoulder AC joint repair - POD 51 s/p I&D right leg with skin grafting partial leg - POD 27 s/p I&D vac Change with skin grafting of remainder of leg - POD 20 daily dressing changes with xeroform/4x4 or ABD/ JARRELL wraps to RLE. dressings as needed to left leg. may DC dressings to left leg when scabs healed. placed in fracture boot RLE. Requesting PT twice a day (BID) I reviewed quad sets and SLR with patient to increase strength ROM of knees to prevent contractures/stiffness. Increase strength of quads/ hamstrings. WBAT BLE/RUE. RLE with boot on. begin gait training and walker training. Remove boot from left and right ankles for ankle range of motion with PT. [place] continue gait training patient denied melina bed at [facility]. Case mgmt still working on rehab placement in [place]. Patient would benefit greatly from Acute rehab placement in [place]. patient needs extensive physical therapy./ DC Fx boot left leg. Patient has sustained multiple orthopedic injuries from her recent trauma. Some of these injuries are potentially limb threatening. She has undergone extensive surgery as well as extensive skin grafting. She requires alf for skilled wound care of the right leg, with daily dressing changes and management of her skin graft. She also requires extensive physical therapy for gait training and strengthening. Patient would benefit greatly from, and I do believe it is medically necessary for her to receive, an acute inpatient rehabilitation stay once she returns back to [place]. She has multiple issues that if not cared for properly, or if she does not receive proper therapy, could result in permanent impairment. I'm confident that with a stay in acute rehabilitation, this will give her the best possible outcome for maximal functional outcome in the future. Onur Swain Jan 16, 2017 07:41
[2017-01-16 07:42] VITALS: BP 91/53; PULSE 81; RESP 18; TEMP 98.3; O2SAT 95
[2017-01-16] MEDS: LACTULOSE SYRUP 20 GM/30 ML CUP PO SCH (08:13)
[2017-01-16] MEDS: SULFAMETHOXAZOLE-TRIMETHOPRIM DS 800-160 MG TAB PO SCH ×2 (08:13→21:24)
[2017-01-16] MEDS: LACTOBACILLUS ACIDOPHILUS TAB PO SCH ×2 (08:13→21:24)
[2017-01-16] MEDS: CITALOPRAM HYDROBROMIDE 20 MG TAB PO SCH ×2 (08:13→21:24)
[2017-01-16] MEDS: DOCUSATE SODIUM 100 MG CAP PO SCH ×2 (08:13→21:24)
[2017-01-16] MEDS: ERGOCALCIFEROL (VIT D2) 50,000 UNIT CAP PO SCH (08:13)
[2017-01-16] MEDS: DOCUSATE SODIUM 50 MG/SENNA 8.6 MG TAB PO SCH ×2 (08:13→21:24)
[2017-01-16] MEDS: FERROUS SULFATE 325 MG (65 MG ELEMENTAL IRON) TAB PO SCH ×2 (08:13→21:24)
[2017-01-16] MEDS: SODIUM CHLORIDE 0.9% FLUSH 10 ML FLUSH IV FLUSH SCH ×2 (08:27→21:31)
[2017-01-16] MEDS: NYSTATIN 100,000 UNIT/GM CREAM 15 GM TOPICAL SCH ×2 (08:27→21:32)
[2017-01-16] MEDS: REMOVE OLD DURAGESIC (FENTANYL) PATCH T-DERMAL SCH (10:40)
[2017-01-16] MEDS: fentaNYL 50 MCG/HR PATCH T-DERMAL SCH (10:40)
[2017-01-16] MEDS: DOXYCYCLINE HYCLATE 100 MG CAP PO SCH (10:41)
[2017-01-16 12:00] VITALS: BP 109/64; PULSE 93; RESP 18; TEMP 98.5; O2SAT 96
[2017-01-16] MEDS: HYDROmorphone HCL 4 MG TAB PO PRN ×3 (13:48→21:29)
[2017-01-16 16:00] VITALS: BP 105/67; PULSE 100; RESP 18; TEMP 98; O2SAT 97
[2017-01-16 20:36] VITALS: BP 103/65; PULSE 107; RESP 18; TEMP 97.5; O2SAT 97
[2017-01-16] MEDS: traZODone HCL 50 MG TAB PO SCH (21:24)
[2017-01-17] MEDS: DOXYCYCLINE HYCLATE 100 MG CAP PO SCH ×3 (00:01→23:52)
[2017-01-17] MEDS: ENOXAPARIN SODIUM 30 MG/0.3 ML SYRINGE SQ SCH ×3 (00:01→23:52)
[2017-01-17] MEDS: LACTATED RINGER'S 1000 ML INJ 1,000 ML IV SCH ×16 (00:05→19:35)
[2017-01-17 00:46] VITALS: BP 91/51; PULSE 104; RESP 18; TEMP 98.9; O2SAT 96
[2017-01-17] MEDS: QUEtiapine FUMARATE 25 MG TAB PO SCH ×4 (02:00→23:52)
[2017-01-17] MEDS: PREGABALIN 100 MG CAP PO SCH ×4 (02:00→23:52)
[2017-01-17] MEDS: METHOCARBAMOL 500 MG TAB PO SCH ×4 (02:00→23:52)
[2017-01-17] MEDS: ZOLPIDEM TARTRATE 5 MG TAB PO PRN (02:21)
[2017-01-17 08:50] VITALS: BP 95/52; PULSE 82; RESP 20; TEMP 98.6; O2SAT 96
[2017-01-17] MEDS: NYSTATIN 100,000 UNIT/GM CREAM 15 GM TOPICAL SCH ×2 (09:00→19:34)
[2017-01-17] MEDS: SODIUM CHLORIDE 0.9% FLUSH 10 ML FLUSH IV FLUSH SCH ×2 (09:00→19:40)
--- NOTE | 2017-01-17 09:42 | PD.ORT.PN ---
Subjective Subjective Remarks s/p IMN with partial wound closure left leg - POD 59 s/p right tibia fx with vascular and significant soft tissue injury s/p removal of exfix with IMN and rotation soleus graft right tibia - POD 49 s/p right shoulder AC joint repair - POD 52 s/p I&D right leg with skin grafting partial leg - POD 28 s/p I&D vac Change with skin grafting of remainder of leg - POD 21 doing well. pain controlled. resting comfortably. no changes Objective Vitals Vital Signs Date Time Temp Pulse Resp B/P Pulse Ox O2 Delivery O2 Flow Rate FiO2 01/17/17 00:46 98.9 104 18 91/51 96 01/16/17 22:29 18 01/16/17 20:36 97.5 107 18 103/65 97 01/16/17 16:00 98.0 100 18 105/67 97 01/16/17 12:00 98.5 93 18 109/64 96 I/O 01/16/17 01/16/17 01/16/17 01/17/17 01/17/17 01/17/17 07:00 15:00 23:00 07:00 15:00 23:00 Intake Total 120 ml 960 ml 240 ml 240 ml Balance 120 ml 960 ml 240 ml 240 ml Intake Oral 120 ml 960 ml 240 ml 240 ml # Voids 2 4 1 3 # Bowel Movements 0 0 0 0 Imaging Last Impressions Tibia/Fibula X-Ray 12/13/16 0000 Signed Impressions: Service Date/Time: Tuesday, December 13, 2016 11:33 - CONCLUSION: Comminuted mid fibular fractures are not aligned, however tibial fractures are aligned. Abhijit Fernandes MD Clavicle X-Ray 12/13/16 0000 Signed Impressions: Service Date/Time: Tuesday, December 13, 2016 11:29 - CONCLUSION: A/C joint appears aligned. Abhijit Fernandes MD Knee MRI 12/12/16 0000 Signed Impressions: Service Date/Time: November 15:35 - CONCLUSION: Inhomogeneous area of bright signal on T2 sequence in the distal femoral diaphysis probably areas of contusion and possible mild sprain of the ACL involving the femoral attachment site. Abhijit Fernandes MD Abdomen/Pelvis CT 12/03/16 0000 Signed Impressions: Service Date/Time: Saturday, December 03, 2016 16:29 - CONCLUSION: 1. Trace pleural fluid. Mild free fluid in the pelvis. Mild anasarca. 2. No acute traumatic injury identified within the abdomen and pelvis. 3. Moderate constipation. Mild ileus. Marshall Samaniego MD Shoulder X-Ray 11/26/16 0000 Signed Impressions: Service Date/Time: Saturday, November 26, 2016 15:46 - CONCLUSION: 1. Status post plate and screw fixation of right a.c. joint separation in near anatomic alignment without significant fracture. Zackary Piper MD Foot X-Ray 11/23/16 0000 Signed Impressions: Service Date/Time: Wednesday, November 23, 2016 09:01 - CONCLUSION: 1. Nonspecific soft tissue swelling around the foot. 2. Mild irregularity involving the base of the proximal phalanx. Recommend correlation with point tenderness for nondisplaced fracture. Chinmay Leon MD Chest X-Ray 11/21/16 0600 Signed Impressions: Service Date/Time: October 02:25 - CONCLUSION: Mild bibasilar consolidation. Interim extubation and removal of nasogastric tube and right subclavian central venous line. Shane Gonzalez MD Gall Bladder Ultrasound 11/20/16 0000 Signed Impressions: Service Date/Time: Sunday, November 20, 2016 09:42 - CONCLUSION: Distended gallbladder without stones or gallbladder wall thickening. Shane Fernandes MD Head CT 11/19/16 0000 Signed Impressions: Service Date/Time: Saturday, November 19, 2016 16:51 - CONCLUSION: 1. No intracranial abnormality. 2. Scalp injuries. Shane Fernandes MD Chest CT 11/19/16 0000 Signed Impressions: Service Date/Time: Saturday, November 19, 2016 17:02 - CONCLUSION: Areas of consolidation/contusion or atelectasis in the posterior mid and lower lungs. Shane Fernandes MD Cervical Spine CT 11/19/16 0000 Signed Impressions: Service Date/Time: Saturday, November 19, 2016 16:51 - CONCLUSION: Reversal of the normal C-spine lordosis. No acute bony injury is seen. Shane Fernandes MD Pelvis X-Ray 11/17/16 0058 Signed Impressions: Service Date/Time: Thursday, November 17, 2016 00:41 - CONCLUSION: No evidence of fracture. Avery Vaca MD Procedures 1) I&D with fasciotomy and application of external fixator left leg 2) Wound closure with removal of exfix and IMN left tibia 3) I&D with Exfix application and vac application right open tibia fracture 4) I&D with removal of exfix and IMN right tibia 5) Serial I&Ds right tibia with vac changes 6) STSG of right tibia 7) Open repair of right AC joint 8) open repair of right posterior tibial artery Objective Remarks LLE: Dressing intact, minimal swelling foot, Wiggles toes freely, sensation intact, +cap refill, +nvi. no effusion of knee, no instability of knee, + quad atrophy and weakness RLE: Fracture boot +granulation tissue present. no evidence of necrosis. Continues to have moderate right foot swelling w mild ecchymosis, Good capillary refills. No sensation in toes and plantar aspect of foot. Does feel pressure and sensation over dorsum of foot Assessment & Plan Problem List: (1) Open fracture of right tibia and fibula (2) Open fracture of left tibia and fibula (3) Posterior tibial artery injury (4) Acromioclavicular joint separation, type 5 Assessment and Plan s/p IMN with partial wound closure left leg - POD 59 s/p right tibia fx with vascular and significant soft tissue injury s/p removal of exfix with IMN and rotation soleus graft right tibia - POD 49 s/p right shoulder AC joint repair - POD 52 s/p I&D right leg with skin grafting partial leg - POD 28 s/p I&D vac Change with skin grafting of remainder of leg - POD 21 daily dressing changes with xeroform/4x4 or ABD/ JARRELL wraps to RLE. dressings as needed to left leg. may DC dressings to left leg when scabs healed. placed in fracture boot RLE. Requesting PT twice a day (BID) I reviewed quad sets and SLR with patient to increase strength ROM of knees to prevent contractures/stiffness. Increase strength of quads/ hamstrings. WBAT BLE/RUE. RLE with boot on. begin gait training and walker training. Remove boot from left and right ankles for ankle range of motion with PT. Jamiax continue gait training patient denied melina bed at [facility]. Case mgmt still working on rehab placement in [place]. Patient would benefit greatly from Acute rehab placement in [place]. patient needs extensive physical therapy./ DC Fx boot left leg. Patient has sustained multiple orthopedic injuries from her recent trauma. Some of these injuries are potentially limb threatening. She has undergone extensive surgery as well as extensive skin grafting. She [facility] care of the right leg, with daily dressing changes and management of her skin graft. She also requires extensive physical therapy for gait training and strengthening. Patient would benefit greatly from, and I do believe it is medically necessary for her to receive, an acute inpatient rehabilitation stay once she returns back to [place]. She has multiple issues that if not cared for properly, or if she does not receive proper therapy, could result in permanent impairment. I'm confident that with a stay in acute rehabilitation, this will give her the best possible outcome for maximal functional outcome in the future. Onur Swain Jan 17, 2017 09:42
[2017-01-17] MEDS: SULFAMETHOXAZOLE-TRIMETHOPRIM DS 800-160 MG TAB PO SCH ×2 (10:32→19:39)
[2017-01-17] MEDS: CITALOPRAM HYDROBROMIDE 20 MG TAB PO SCH ×2 (10:32→19:39)
[2017-01-17] MEDS: FERROUS SULFATE 325 MG (65 MG ELEMENTAL IRON) TAB PO SCH ×2 (10:32→19:39)
[2017-01-17] MEDS: DOCUSATE SODIUM 50 MG/SENNA 8.6 MG TAB PO SCH ×2 (10:32→19:40)
[2017-01-17] MEDS: LACTOBACILLUS ACIDOPHILUS TAB PO SCH ×2 (10:32→19:39)
[2017-01-17] MEDS: DOCUSATE SODIUM 100 MG CAP PO SCH ×2 (10:33→19:40)
[2017-01-17] MEDS: HYDROmorphone HCL 4 MG TAB PO PRN ×3 (10:33→19:39)
[2017-01-17] MEDS: LACTULOSE SYRUP 20 GM/30 ML CUP PO SCH (10:37)
[2017-01-17 12:00] VITALS: BP 101/57; PULSE 91; RESP 16; TEMP 97.2; O2SAT 96
[2017-01-17 16:00] VITALS: BP 99/58; PULSE 103; RESP 17; TEMP 97.8; O2SAT 97
[2017-01-17 19:00] VITALS: BP_SYST 110; BP_SYST 129; BP_DIAS 57; BP_DIAS 78; PULSE 106; PULSE 94; RESP 16; RESP 17; TEMP 97.3; TEMP 98.2; O2SAT 100; O2SAT 96
[2017-01-17] MEDS: traZODone HCL 50 MG TAB PO SCH (19:40)
[2017-01-17] MEDS: MAGNESIUM HYDROXIDE SUSP 30 ML CUP PO PRN (19:40)
[2017-01-18] MEDS: LACTATED RINGER'S 1000 ML INJ 1,000 ML IV SCH ×12 (07:38→23:02)
[2017-01-18 08:33] VITALS: BP 92/55; PULSE 90; RESP 18; TEMP 97.7; O2SAT 95
[2017-01-18] MEDS: LACTOBACILLUS ACIDOPHILUS TAB PO SCH ×2 (08:34→20:51)
[2017-01-18] MEDS: FERROUS SULFATE 325 MG (65 MG ELEMENTAL IRON) TAB PO SCH ×2 (08:34→20:51)
[2017-01-18] MEDS: DOCUSATE SODIUM 100 MG CAP PO SCH ×2 (08:34→20:51)
[2017-01-18] MEDS: SULFAMETHOXAZOLE-TRIMETHOPRIM DS 800-160 MG TAB PO SCH ×2 (08:34→20:51)
[2017-01-18] MEDS: LACTULOSE SYRUP 20 GM/30 ML CUP PO SCH (08:34)
[2017-01-18] MEDS: DOCUSATE SODIUM 50 MG/SENNA 8.6 MG TAB PO SCH ×2 (08:34→20:51)
[2017-01-18] MEDS: CITALOPRAM HYDROBROMIDE 20 MG TAB PO SCH ×2 (08:34→20:51)
[2017-01-18] MEDS: SODIUM CHLORIDE 0.9% FLUSH 10 ML FLUSH IV FLUSH SCH ×2 (08:36→20:52)
[2017-01-18] MEDS: NYSTATIN 100,000 UNIT/GM CREAM 15 GM TOPICAL SCH ×2 (08:37→20:52)
[2017-01-18] MEDS: METHOCARBAMOL 500 MG TAB PO SCH ×3 (10:01→23:22)
[2017-01-18] MEDS: QUEtiapine FUMARATE 25 MG TAB PO SCH ×3 (10:02→23:22)
[2017-01-18] MEDS: PREGABALIN 100 MG CAP PO SCH ×3 (10:02→23:22)
--- NOTE | 2017-01-18 10:21 | PD.ORT.PN ---
Subjective Subjective Remarks Patient comfortable. Pain controlled. NAD. Objective Vitals Vital Signs Date Time Temp Pulse Resp B/P Pulse Ox O2 Delivery O2 Flow Rate FiO2 01/18/17 08:33 97.7 90 18 92/55 95 01/17/17 19:00 98.2 106 16 110/57 96 01/17/17 19:00 97.3 94 17 129/78 100 01/17/17 16:00 97.8 103 17 99/58 97 01/17/17 12:00 97.2 91 16 101/57 96 I/O 01/17/17 01/17/17 01/17/17 01/18/17 01/18/17 01/18/17 06:59 14:59 22:59 06:59 14:59 22:59 Intake Total 240 ml 480 ml Balance 240 ml 480 ml Intake Oral 240 ml 480 ml # Voids 3 5 # Bowel Movements 0 0 Imaging Last Impressions Tibia/Fibula X-Ray 12/13/16 0000 Signed Impressions: Service Date/Time: Tuesday, December 13, 2016 11:33 - CONCLUSION: Comminuted mid fibular fractures are not aligned, however tibial fractures are aligned. Ahbijit Fernandes MD Clavicle X-Ray 12/13/16 0000 Signed Impressions: Service Date/Time: Tuesday, December 13, 2016 11:29 - CONCLUSION: A/C joint appears aligned. Abhijit Fernandes MD Knee MRI 12/12/16 0000 Signed Impressions: Service Date/Time: November 15:35 - CONCLUSION: Inhomogeneous area of bright signal on T2 sequence in the distal femoral diaphysis probably areas of contusion and possible mild sprain of the ACL involving the femoral attachment site. Abhijit Fernandes MD Abdomen/Pelvis CT 12/03/16 0000 Signed Impressions: Service Date/Time: Saturday, December 03, 2016 16:29 - CONCLUSION: 1. Trace pleural fluid. Mild free fluid in the pelvis. Mild anasarca. 2. No acute traumatic injury identified within the abdomen and pelvis. 3. Moderate constipation. Mild ileus. Marshall Samaniego MD Shoulder X-Ray 11/26/16 0000 Signed Impressions: Service Date/Time: Saturday, November 26, 2016 15:46 - CONCLUSION: 1. Status post plate and screw fixation of right a.c. joint separation in near anatomic alignment without significant fracture. Zackary Piper MD Foot X-Ray 11/23/16 0000 Signed Impressions: Service Date/Time: Wednesday, November 23, 2016 09:01 - CONCLUSION: 1. Nonspecific soft tissue swelling around the foot. 2. Mild irregularity involving the base of the proximal phalanx. Recommend correlation with point tenderness for nondisplaced fracture. Chinmay Leon MD Chest X-Ray 11/21/16 0600 Signed Impressions: Service Date/Time: October 02:25 - CONCLUSION: Mild bibasilar consolidation. Interim extubation and removal of nasogastric tube and right subclavian central venous line. Shane Gonzalez MD Gall Bladder Ultrasound 11/20/16 0000 Signed Impressions: Service Date/Time: Sunday, November 20, 2016 09:42 - CONCLUSION: Distended gallbladder without stones or gallbladder wall thickening. Shane Fernandes MD Head CT 11/19/16 0000 Signed Impressions: Service Date/Time: Saturday, November 19, 2016 16:51 - CONCLUSION: 1. No intracranial abnormality. 2. Scalp injuries. Shane Fernandes MD Chest CT 11/19/16 0000 Signed Impressions: Service Date/Time: Saturday, November 19, 2016 17:02 - CONCLUSION: Areas of consolidation/contusion or atelectasis in the posterior mid and lower lungs. Shane Fernandes MD Cervical Spine CT 11/19/16 0000 Signed Impressions: Service Date/Time: Saturday, November 19, 2016 16:51 - CONCLUSION: Reversal of the normal C-spine lordosis. No acute bony injury is seen. Shane Fernandes MD Pelvis X-Ray 11/17/16 0058 Signed Impressions: Service Date/Time: Thursday, November 17, 2016 00:41 - CONCLUSION: No evidence of fracture. Avery Vaca MD Procedures 1) I&D with fasciotomy and application of external fixator left leg 2) Wound closure with removal of exfix and IMN left tibia 3) I&D with Exfix application and vac application right open tibia fracture 4) I&D with removal of exfix and IMN right tibia 5) Serial I&Ds right tibia with vac changes 6) STSG of right tibia 7) Open repair of right AC joint 8) open repair of right posterior tibial artery Objective Remarks LLE: Dressing intact, minimal swelling foot, Wiggles toes freely, sensation intact, +cap refill, +nvi. no effusion of knee, no instability of knee, + quad atrophy and weakness RLE: Fracture boot +granulation tissue present. no evidence of necrosis. Continues to have moderate right foot swelling w mild ecchymosis, Good capillary refills. No sensation in toes and plantar aspect of foot. Does feel pressure and sensation over dorsum of foot Assessment & Plan Problem List: (1) Open fracture of right tibia and fibula (2) Open fracture of left tibia and fibula (3) Posterior tibial artery injury (4) Acromioclavicular joint separation, type 5 Assessment and Plan s/p IMN with partial wound closure left leg - POD 60 s/p right tibia fx with vascular and significant soft tissue injury s/p removal of exfix with IMN and rotation soleus graft right tibia - POD 50 s/p right shoulder AC joint repair - POD 53 s/p I&D right leg with skin grafting partial leg - POD 29 s/p I&D vac Change with skin grafting of remainder of leg - POD 22 beta hcg level ordered. patient states she has not had her period for 2 months. daily dressing changes with xeroform/4x4 or ABD/ JARRELL wraps to RLE. dressings as needed to left leg. may DC dressings to left leg when scabs healed. placed in fracture boot RLE. Requesting PT twice a day (BID) I reviewed quad sets and SLR with patient to increase strength ROM of knees to prevent contractures/stiffness. Increase strength of quads/ hamstrings. WBAT BLE/RUE. RLE with boot on. begin gait training and walker training. Remove boot from left and right ankles for ankle range of motion with PT. Lovenox continue gait training patient denied [facility] bed at [facility]. Case mgmt still working on rehab placement in [place]. Patient would benefit greatly from Acute rehab placement in [place]. patient needs extensive physical therapy./ DC Fx boot left leg. Patient has sustained multiple orthopedic injuries from her recent trauma. Some of these injuries are potentially limb threatening. She has undergone extensive surgery as well as extensive skin grafting. [facility] requires [facility] of the right leg, with daily dressing changes and management of her skin graft. She also requires extensive physical therapy for gait training and strengthening. Patient would benefit greatly from, and I do believe it is medically necessary for her to receive, an acute inpatient rehabilitation stay once she returns back to [place]. She has multiple issues that if not cared for properly, or if she does not receive proper therapy, could result in permanent impairment. I'm confident that with a stay in acute rehabilitation, this will give her the best possible outcome for maximal functional outcome in the future. Sonido Juarez Jan 18, 2017 10:21
[2017-01-18] MEDS: DOXYCYCLINE HYCLATE 100 MG CAP PO SCH ×2 (11:54→23:21)
[2017-01-18] MEDS: ENOXAPARIN SODIUM 30 MG/0.3 ML SYRINGE SQ SCH ×2 (11:54→23:21)
[2017-01-18 12:00] VITALS: BP 106/58; PULSE 86; RESP 18; TEMP 98.6; O2SAT 98
[2017-01-18] MEDS: HYDROmorphone HCL 4 MG TAB PO PRN ×2 (13:03→16:55)
[2017-01-18 16:00] VITALS: BP 111/95; PULSE 106; RESP 18; TEMP 97.4; O2SAT 99
[2017-01-18 20:32] VITALS: BP 115/83; PULSE 93; RESP 19; TEMP 98.4; O2SAT 99
[2017-01-18] MEDS: MAGNESIUM HYDROXIDE SUSP 30 ML CUP PO PRN (20:51)
[2017-01-18] MEDS: traZODone HCL 50 MG TAB PO SCH (20:52)
[2017-01-19] VITALS (8 sets, daily range): BP systolic 86–132; BP diastolic 52–78; PULSE 86–107; RESP 16–19; TEMP 97.4–99; O2SAT 96–100
[2017-01-19 00:57] LABS: BETA HCG QUANT LESS THAN 1 MIU/ML (0-5)
[2017-01-19] MEDS: LACTATED RINGER'S 1000 ML INJ 1,000 ML IV SCH ×11 (09:00→20:34)
[2017-01-19] MEDS: SODIUM CHLORIDE 0.9% FLUSH 10 ML FLUSH IV FLUSH SCH ×2 (09:00→20:32)
[2017-01-19] MEDS: SULFAMETHOXAZOLE-TRIMETHOPRIM DS 800-160 MG TAB PO SCH ×2 (09:09→20:33)
[2017-01-19] MEDS: DOCUSATE SODIUM 50 MG/SENNA 8.6 MG TAB PO SCH ×2 (09:09→20:32)
[2017-01-19] MEDS: LACTOBACILLUS ACIDOPHILUS TAB PO SCH ×2 (09:09→20:33)
[2017-01-19] MEDS: DOCUSATE SODIUM 100 MG CAP PO SCH ×2 (09:09→20:32)
[2017-01-19] MEDS: CITALOPRAM HYDROBROMIDE 20 MG TAB PO SCH ×2 (09:09→20:32)
[2017-01-19] MEDS: FERROUS SULFATE 325 MG (65 MG ELEMENTAL IRON) TAB PO SCH ×2 (09:09→20:32)
[2017-01-19] MEDS: LACTULOSE SYRUP 20 GM/30 ML CUP PO SCH (09:09)
[2017-01-19] MEDS: NYSTATIN 100,000 UNIT/GM CREAM 15 GM TOPICAL SCH ×2 (09:09→20:33)
[2017-01-19] MEDS: PREGABALIN 100 MG CAP PO SCH ×3 (10:05→22:23)
[2017-01-19] MEDS: QUEtiapine FUMARATE 25 MG TAB PO SCH ×3 (10:05→22:23)
[2017-01-19] MEDS: METHOCARBAMOL 500 MG TAB PO SCH ×3 (10:05→22:23)
[2017-01-19] MEDS: DOXYCYCLINE HYCLATE 100 MG CAP PO SCH ×2 (11:32→23:58)
[2017-01-19] MEDS: REMOVE OLD DURAGESIC (FENTANYL) PATCH T-DERMAL SCH (11:32)
[2017-01-19] MEDS: fentaNYL 50 MCG/HR PATCH T-DERMAL SCH (11:32)
[2017-01-19] MEDS: ENOXAPARIN SODIUM 30 MG/0.3 ML SYRINGE SQ SCH ×2 (11:32→23:58)
[2017-01-19] MEDS: HYDROmorphone HCL 4 MG TAB PO PRN ×3 (12:45→20:33)
--- NOTE | 2017-01-19 14:20 | PD.ORT.PN ---
Subjective Subjective Remarks Patient comfortable. Pain controlled. NAD. Objective Vitals Vital Signs Date Time Temp Pulse Resp B/P (MAP) Pulse Ox O2 Delivery O2 Flow Rate FiO2 01/19/17 11:32 96/56 (69) 01/19/17 07:47 97.6 86 16 86/52 (63) 96 01/19/17 00:08 98.6 89 18 109/57 (74) 99 01/18/17 20:32 98.4 93 19 115/83 (94) 99 01/18/17 16:00 97.4 106 18 111/95 (100) 99 I/O 01/18/17 01/18/17 01/18/17 01/19/17 01/19/17 01/19/17 07:00 15:00 23:00 07:00 15:00 23:00 Intake Total 960 ml 720 ml 720 ml Balance 960 ml 720 ml 720 ml Intake Oral 960 ml 720 ml 720 ml # Voids 4 6 5 # Bowel Movements 1 0 0 Imaging Last Impressions Tibia/Fibula X-Ray 12/13/16 0000 Signed Impressions: Service Date/Time: Tuesday, December 13, 2016 11:33 - CONCLUSION: Comminuted mid fibular fractures are not aligned, however tibial fractures are aligned. Abhijit Fernandes MD Clavicle X-Ray 12/13/16 0000 Signed Impressions: Service Date/Time: Tuesday, December 13, 2016 11:29 - CONCLUSION: A/C joint appears aligned. Abhijit Fernandes MD Knee MRI 12/12/16 0000 Signed Impressions: Service Date/Time: November 15:35 - CONCLUSION: Inhomogeneous area of bright signal on T2 sequence in the distal femoral diaphysis probably areas of contusion and possible mild sprain of the ACL involving the femoral attachment site. Abhijit Fernandes MD Abdomen/Pelvis CT 12/03/16 0000 Signed Impressions: Service Date/Time: Saturday, December 03, 2016 16:29 - CONCLUSION: 1. Trace pleural fluid. Mild free fluid in the pelvis. Mild anasarca. 2. No acute traumatic injury identified within the abdomen and pelvis. 3. Moderate constipation. Mild ileus. Marshall Samaniego MD Shoulder X-Ray 11/26/16 0000 Signed Impressions: Service Date/Time: Saturday, November 26, 2016 15:46 - CONCLUSION: 1. Status post plate and screw fixation of right a.c. joint separation in near anatomic alignment without significant fracture. Zackary Piper MD Foot X-Ray 11/23/16 0000 Signed Impressions: Service Date/Time: Wednesday, November 23, 2016 09:01 - CONCLUSION: 1. Nonspecific soft tissue swelling around the foot. 2. Mild irregularity involving the base of the proximal phalanx. Recommend correlation with point tenderness for nondisplaced fracture. Chinmay Leon MD Chest X-Ray 11/21/16 0600 Signed Impressions: Service Date/Time: October 02:25 - CONCLUSION: Mild bibasilar consolidation. Interim extubation and removal of nasogastric tube and right subclavian central venous line. Shane Gonzalez MD Gall Bladder Ultrasound 11/20/16 0000 Signed Impressions: Service Date/Time: Sunday, November 20, 2016 09:42 - CONCLUSION: Distended gallbladder without stones or gallbladder wall thickening. Shane Fernandes MD Head CT 11/19/16 0000 Signed Impressions: Service Date/Time: Saturday, November 19, 2016 16:51 - CONCLUSION: 1. No intracranial abnormality. 2. Scalp injuries. Shane Fernandes MD Chest CT 11/19/16 0000 Signed Impressions: Service Date/Time: Saturday, November 19, 2016 17:02 - CONCLUSION: Areas of consolidation/contusion or atelectasis in the posterior mid and lower lungs. Shane Fernandes MD Cervical Spine CT 11/19/16 0000 Signed Impressions: Service Date/Time: Saturday, November 19, 2016 16:51 - CONCLUSION: Reversal of the normal C-spine lordosis. No acute bony injury is seen. Shane Fernandes MD Pelvis X-Ray 11/17/16 0058 Signed Impressions: Service Date/Time: Thursday, November 17, 2016 00:41 - CONCLUSION: No evidence of fracture. Avery Vaca MD Procedures 1) I&D with fasciotomy and application of external fixator left leg 2) Wound closure with removal of exfix and IMN left tibia 3) I&D with Exfix application and vac application right open tibia fracture 4) I&D with removal of exfix and IMN right tibia 5) Serial I&Ds right tibia with vac changes 6) STSG of right tibia 7) Open repair of right AC joint 8) open repair of right posterior tibial artery Objective Remarks LLE: Dressing intact, minimal swelling foot, Wiggles toes freely, sensation intact, +cap refill, +nvi. no effusion of knee, no instability of knee, + quad atrophy and weakness RLE: Fracture boot +granulation tissue present. no evidence of necrosis. Continues to have moderate right foot swelling w mild ecchymosis, Good capillary refills. No sensation in toes and plantar aspect of foot. Does feel pressure and sensation over dorsum of foot Assessment & Plan Problem List: (1) Open fracture of left tibia and fibula ICD Codes: S82.402B - Unspecified fracture of shaft of left fibula, initial encounter for open fracture type I or II; S82.202B - Unspecified fracture of shaft of left tibia, initial encounter for open fracture type I or II Status: Acute Qualifiers: (2) Acromioclavicular joint separation, type 5 ICD Codes: S43.109A - Unspecified dislocation of unspecified acromioclavicular joint, initial encounter Status: Acute (3) Open fracture of right tibia and fibula ICD Codes: S82.201B - Unspecified fracture of shaft of right tibia, initial encounter for open fracture type I or II; S82.401B - Unspecified fracture of shaft of right fibula, initial encounter for open fracture type I or II Status: Acute Qualifiers: (4) Posterior tibial artery injury ICD Codes: S85.169A - Unspecified injury of posterior tibial artery, unspecified leg, initial encounter Status: Acute Assessment and Plan s/p IMN with partial wound closure left leg - POD 61 s/p right tibia fx with vascular and significant soft tissue injury s/p removal of exfix with IMN and rotation soleus graft right tibia - POD 51 s/p right shoulder AC joint repair - POD 54 s/p I&D right leg with skin grafting partial leg - POD 30 s/p I&D vac Change with skin grafting of remainder of leg - POD 23 Quantitative HCG- negative daily dressing changes with xeroform/4x4 or ABD/ JARRELL wraps to RLE. dressings as needed to left leg. may DC dressings to left leg when scabs healed. placed in fracture boot RLE. Requesting PT twice a day (BID) I reviewed quad sets and SLR with patient to increase strength ROM of knees to prevent contractures/stiffness. Increase strength of quads/ hamstrings. WBAT BLE/RUE. RLE with boot on. begin gait training and walker training. Remove boot from left and right ankles for ankle range of motion with PT. Lovenox continue gait training patient denied melina bed at [facility]. Case mgmt still working on rehab placement in [place]. Patient would benefit greatly from Acute rehab placement in [place]. patient needs extensive physical therapy./ DC Fx boot left leg. Patient has sustained multiple orthopedic injuries from her recent trauma. Some of these injuries are potentially limb threatening. She has undergone extensive surgery as well as extensive skin grafting. She requires [facility] for [facility] wound care of the right leg, with daily dressing changes and management of her skin graft. She also requires extensive physical therapy for gait training and strengthening. Patient would benefit greatly from, and I do believe it is medically necessary for her to receive, an acute inpatient rehabilitation stay once she returns back to [place]. She has multiple issues that if not cared for properly, or if she does not receive proper therapy, could result in permanent impairment. I'm confident that with a stay in acute rehabilitation, this will give her the best possible outcome for maximal functional outcome in the future. Sonido Juarez Jan 19, 2017 14:20
[2017-01-19] MEDS: MAGNESIUM HYDROXIDE SUSP 30 ML CUP PO PRN (20:32)
[2017-01-19] MEDS: traZODone HCL 50 MG TAB PO SCH (20:33)
[2017-01-20] VITALS (11 sets, daily range): BP systolic 90–119; BP diastolic 45–73; PULSE 75–105; RESP 17–18; TEMP 96.1–102; O2SAT 93–99
--- NOTE | 2017-01-20 06:56 | PD.ORT.PN ---
Subjective Subjective Remarks s/p IMN with partial wound closure left leg - POD 62 s/p right tibia fx with vascular and significant soft tissue injury s/p removal of exfix with IMN and rotation soleus graft right tibia - POD 52 s/p right shoulder AC joint repair - POD 55 s/p I&D right leg with skin grafting partial leg - POD 31 s/p I&D vac Change with skin grafting of remainder of leg - POD 24 doing well. pain controlled. resting comfortably. no changes. had fall last night while using walker. reported right hip pain but improving Objective Vitals Vital Signs Date Time Temp Pulse Resp B/P (MAP) Pulse Ox O2 Delivery O2 Flow Rate FiO2 01/20/17 02:40 98.2 84 18 114/55 (74) 98 01/20/17 00:40 97.1 90 18 118/64 (82) 99 01/19/17 23:40 98.1 86 18 114/67 (83) 99 01/19/17 22:40 99.0 107 19 117/78 (91) 97 01/19/17 19:19 97.8 94 19 132/72 (92) 99 01/19/17 16:00 98.5 92 18 110/62 (78) 100 01/19/17 12:00 97.4 93 18 111/61 (78) 97 01/19/17 11:32 96/56 (69) 01/19/17 07:47 97.6 86 16 86/52 (63) 96 I/O 01/19/17 01/19/17 01/19/17 01/20/17 01/20/17 01/20/17 07:00 15:00 23:00 07:00 15:00 23:00 Intake Total 720 ml 960 ml 720 ml Balance 720 ml 960 ml 720 ml Intake Oral 720 ml 960 ml 720 ml # Voids 5 4 5 # Bowel Movements 0 0 0 Imaging Last Impressions Tibia/Fibula X-Ray 12/13/16 0000 Signed Impressions: Service Date/Time: Tuesday, December 13, 2016 11:33 - CONCLUSION: Comminuted mid fibular fractures are not aligned, however tibial fractures are aligned. Abhijit Fernandes MD Clavicle X-Ray 12/13/16 0000 Signed Impressions: Service Date/Time: Tuesday, December 13, 2016 11:29 - CONCLUSION: A/C joint appears aligned. Abhijit Fernandes MD Knee MRI 12/12/16 0000 Signed Impressions: Service Date/Time: November 15:35 - CONCLUSION: Inhomogeneous area of bright signal on T2 sequence in the distal femoral diaphysis probably areas of contusion and possible mild sprain of the ACL involving the femoral attachment site. Abhijit Fernandes MD Abdomen/Pelvis CT 12/03/16 0000 Signed Impressions: Service Date/Time: Saturday, December 03, 2016 16:29 - CONCLUSION: 1. Trace pleural fluid. Mild free fluid in the pelvis. Mild anasarca. 2. No acute traumatic injury identified within the abdomen and pelvis. 3. Moderate constipation. Mild ileus. Marshall Samaniego MD Shoulder X-Ray 11/26/16 0000 Signed Impressions: Service Date/Time: Saturday, November 26, 2016 15:46 - CONCLUSION: 1. Status post plate and screw fixation of right a.c. joint separation in near anatomic alignment without significant fracture. Zackary Piper MD Foot X-Ray 11/23/16 0000 Signed Impressions: Service Date/Time: Wednesday, November 23, 2016 09:01 - CONCLUSION: 1. Nonspecific soft tissue swelling around the foot. 2. Mild irregularity involving the base of the proximal phalanx. Recommend correlation with point tenderness for nondisplaced fracture. Chinmay Leon MD Chest X-Ray 11/21/16 0600 Signed Impressions: Service Date/Time: October 02:25 - CONCLUSION: Mild bibasilar consolidation. Interim extubation and removal of nasogastric tube and right subclavian central venous line. Shane Gonzalez MD Gall Bladder Ultrasound 11/20/16 0000 Signed Impressions: Service Date/Time: Sunday, November 20, 2016 09:42 - CONCLUSION: Distended gallbladder without stones or gallbladder wall thickening. Shane Fernandes MD Head CT 11/19/16 0000 Signed Impressions: Service Date/Time: Saturday, November 19, 2016 16:51 - CONCLUSION: 1. No intracranial abnormality. 2. Scalp injuries. Shane Fernandes MD Chest CT 11/19/16 0000 Signed Impressions: Service Date/Time: Saturday, November 19, 2016 17:02 - CONCLUSION: Areas of consolidation/contusion or atelectasis in the posterior mid and lower lungs. Shane Fernandes MD Cervical Spine CT 11/19/16 0000 Signed Impressions: Service Date/Time: Saturday, November 19, 2016 16:51 - CONCLUSION: Reversal of the normal C-spine lordosis. No acute bony injury is seen. Shane Fernandes MD Pelvis X-Ray 11/17/16 0058 Signed Impressions: Service Date/Time: Thursday, November 17, 2016 00:41 - CONCLUSION: No evidence of fracture. Avery Vaca MD Procedures 1) I&D with fasciotomy and application of external fixator left leg 2) Wound closure with removal of exfix and IMN left tibia 3) I&D with Exfix application and vac application right open tibia fracture 4) I&D with removal of exfix and IMN right tibia 5) Serial I&Ds right tibia with vac changes 6) STSG of right tibia 7) Open repair of right AC joint 8) open repair of right posterior tibial artery Objective Remarks LLE: Dressing intact, minimal swelling foot, Wiggles toes freely, sensation intact, +cap refill, +nvi. no effusion of knee, no instability of knee, + quad atrophy and weakness RLE: Fracture boot +granulation tissue present. no evidence of necrosis. Continues to have moderate right foot swelling w mild ecchymosis, Good capillary refills. No sensation in toes and plantar aspect of foot. Does feel pressure and sensation over dorsum of foot Assessment & Plan Problem List: (1) Open fracture of left tibia and fibula ICD Codes: S82.402B - Unspecified fracture of shaft of left fibula, initial encounter for open fracture type I or II; S82.202B - Unspecified fracture of shaft of left tibia, initial encounter for open fracture type I or II Status: Acute Qualifiers: (2) Acromioclavicular joint separation, type 5 ICD Codes: S43.109A - Unspecified dislocation of unspecified acromioclavicular joint, initial encounter Status: Acute (3) Open fracture of right tibia and fibula ICD Codes: S82.201B - Unspecified fracture of shaft of right tibia, initial encounter for open fracture type I or II; S82.401B - Unspecified fracture of shaft of right fibula, initial encounter for open fracture type I or II Status: Acute Qualifiers: (4) Posterior tibial artery injury ICD Codes: S85.169A - Unspecified injury of posterior tibial artery, unspecified leg, initial encounter Status: Acute Assessment and Plan s/p IMN with partial wound closure left leg - POD 62 s/p right tibia fx with vascular and significant soft tissue injury s/p removal of exfix with IMN and rotation soleus graft right tibia - POD 52 s/p right shoulder AC joint repair - POD 55 s/p I&D right leg with skin grafting partial leg - POD 31 s/p I&D vac Change with skin grafting of remainder of leg - POD 24 Quantitative HCG- negative daily dressing changes with xeroform/4x4 or ABD/ JARRELL wraps to RLE. dressings as needed to left leg. may DC dressings to left leg when scabs healed. placed in fracture boot RLE. Requesting PT twice a day (BID) I reviewed quad sets and SLR with patient to increase strength ROM of knees to prevent contractures/stiffness. Increase strength of quads/ hamstrings. WBAT BLE/RUE. RLE with boot on. begin gait training and walker training. Remove boot from left and right ankles for ankle range of motion with PT. Lovenox continue gait training patient [facility]. Case mgmt still working on rehab placement in [place]. Patient would benefit greatly from Acute rehab placement in [place]. patient needs extensive physical therapy./ DC Fx boot left leg. ok for PT to have patient ambulated outside. Patient has sustained multiple orthopedic injuries from her recent trauma. Some of these injuries are potentially limb threatening. She has undergone extensive surgery as well as extensive skin grafting. She requires m[facility] for skilled wound care of the right leg, with daily dressing changes and management of her skin graft. She also requires extensive physical therapy for gait training and strengthening. Patient would benefit greatly from, and I do believe it is medically necessary for her to receive, an acute inpatient rehabilitation stay once she returns back to [place]. She has multiple issues that if not cared for properly, or if she does not receive proper therapy, could result in permanent impairment. I'm confident that with a stay in acute rehabilitation, this will give her the best possible outcome for maximal functional outcome in the future. Her most recent fall while attempting to ambulate unassisted is further evidence that patient would benefit from acute rehab placement. Onur Swain Jan 20, 2017 06:56
[2017-01-20] MEDS: LACTATED RINGER'S 1000 ML INJ 1,000 ML IV SCH ×7 (07:01→23:43)
[2017-01-20] MEDS: LACTULOSE SYRUP 20 GM/30 ML CUP PO SCH (09:00)
[2017-01-20] MEDS: NYSTATIN 100,000 UNIT/GM CREAM 15 GM TOPICAL SCH ×2 (09:00→23:43)
[2017-01-20] MEDS: SULFAMETHOXAZOLE-TRIMETHOPRIM DS 800-160 MG TAB PO SCH ×2 (09:00→21:40)
[2017-01-20] MEDS: SODIUM CHLORIDE 0.9% FLUSH 10 ML FLUSH IV FLUSH SCH ×2 (09:00→21:00)
[2017-01-20] MEDS: DOCUSATE SODIUM 100 MG CAP PO SCH ×2 (09:41→21:41)
[2017-01-20] MEDS: CITALOPRAM HYDROBROMIDE 20 MG TAB PO SCH ×2 (09:41→21:41)
[2017-01-20] MEDS: DOCUSATE SODIUM 50 MG/SENNA 8.6 MG TAB PO SCH ×2 (09:42→21:41)
[2017-01-20] MEDS: FERROUS SULFATE 325 MG (65 MG ELEMENTAL IRON) TAB PO SCH ×2 (09:42→21:41)
[2017-01-20] MEDS: HYDROmorphone HCL 4 MG TAB PO PRN ×2 (09:42→15:47)
[2017-01-20] MEDS: LACTOBACILLUS ACIDOPHILUS TAB PO SCH ×2 (09:42→21:41)
[2017-01-20] MEDS: PREGABALIN 100 MG CAP PO SCH ×3 (10:00→18:33)
[2017-01-20] MEDS: QUEtiapine FUMARATE 25 MG TAB PO SCH ×3 (10:00→23:44)
[2017-01-20] MEDS: METHOCARBAMOL 500 MG TAB PO SCH ×3 (10:00→23:43)
--- NOTE | 2017-01-20 10:07 | RADRPT ---
EXAM DATE/TIME: 01/20/2017 09:56 [facility] COMPARISON: No previous studies available for comparison. INDICATIONS : Right hip pain after fall last night. MEDICAL HISTORY : Right tibia fracture. SURGICAL HISTORY : ORIF right lower leg. ENCOUNTER: Subsequent ACUITY: 2 weeks PAIN SCORE: 5/10 LOCATION: Right hip. FINDINGS: A two view examination of the right hip was performed. The primary and secondary trabecular pattern of the femoral neck is intact. The hip joint is of normal width without significant sclerosis or bon y hypertrophy. The acetabulum is grossly intact. CONCLUSION: No acute fracture. Fantasma Vargas MD on January 20, 2017 at 10:04 Board Certified Radiologist. This report was verified electronically.
[2017-01-20] MEDS: DOXYCYCLINE HYCLATE 100 MG CAP PO SCH ×2 (11:00→23:38)
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
[2017-01-20] MEDS: ENOXAPARIN SODIUM 30 MG/0.3 ML SYRINGE SQ SCH ×2 (12:00→23:40)
[2017-01-20] MEDS: traZODone HCL 50 MG TAB PO SCH (21:41)
[2017-01-20] MEDS: HYDROmorphone HCL 2 MG TAB PO PRN (23:39)
[2017-01-21] MEDS: LACTATED RINGER'S 1000 ML INJ 1,000 ML IV SCH ×11 (03:01→23:01)
[2017-01-21 04:00] VITALS: BP 90/45; PULSE 88; RESP 17; TEMP 97.4; O2SAT 93
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
--- NOTE | 2017-01-21 06:44 | HHI.FF ---
Face to Face Verification Diagnosis: (1) Open fracture of right tibia and fibula (2) Open fracture of left tibia and fibula Physical Therapy Gait training Right LE Weight Bearing: WB as tolerated (while wearing boot) Left LE Weight Bearing: WB as tolerated Occupational Therapy Right UE Weight Bearing: WB as tolerated Nursing Dressing Changes: Daily dressing change (to right leg), Alejandro wrap, 4x4s, Xeroform I have seen patient Inessa Bowser on 01/21/17. My clinical findings support the need for the requested home health care services because: Ltd mobility - disease progression I certify that my clinical findings support that this patient is homebound because: Post-op weakness Onur Swain Jan 21, 2017 06:44
[2017-01-21 07:44] VITALS: BP 99/55; PULSE 70; RESP 17; TEMP 96.5; O2SAT 98
[2017-01-21] MEDS: SODIUM CHLORIDE 0.9% FLUSH 10 ML FLUSH IV FLUSH SCH ×2 (09:00→21:52)
[2017-01-21] MEDS: NYSTATIN 100,000 UNIT/GM CREAM 15 GM TOPICAL SCH ×2 (09:00→21:55)
--- NOTE | 2017-01-21 10:05 | RADRPT ---
EXAM DATE/TIME: 01/21/2017 09:47 [facility] COMPARISON: TIBIA/FIBULA LEFT (AP/LAT), January 06, 2017, 9:32. INDICATIONS : Fracture. MEDICAL HISTORY : left lower leg fracture SURGICAL HISTORY : orif left lower leg ENCOUNTER: Initial ACUITY: 2 months PAIN SCORE: 4/10 LOCATION: Left tib fib FINDINGS: Antegrade intramedullary lilliam fixation of the tibia is again seen with 2 proximal interlocking screws and 3 distal interlocking screws. Comminuted fracturing of the mid and distal tibia again noted as we ll as the proximal and distal fibular diaphysis. Overall there is minimal callus formation at the fra cture sites since the previous study. CONCLUSION: Minimal callus formation is seen with otherwise stable appearance of the tibia and fibula. Sesar Howell MD on January 21, 2017 at 10:02 Board Certified Radiologist. This report was verified electronically.
--- NOTE | 2017-01-21 10:06 | RADRPT ---
EXAM DATE/TIME: 01/21/2017 09:51 [facility] COMPARISON: TIBIA/FIBULA RIGHT (AP/LAT), January 06, 2017, 9:34. INDICATIONS : Fracture MEDICAL HISTORY : right lower leg fracture SURGICAL HISTORY : orif right lower leg ENCOUNTER: Initial ACUITY: 2 months PAIN SCORE: 4/10 LOCATION: Right tib/fib FINDINGS: Comminuted mid shaft fibular and tibial fractures are again seen with lilliam and screw fixation across t he tibia. There are skin jonathan identified soft tissue swelling. Numerous skin jonathan have been rem jessi since the previous study. There is some periosteal reaction along the midshaft of the tibia iden tified, slightly increased in prominence of the previous study. Fibular fracture fragments are unchan ged. CONCLUSION: Postoperative and posttraumatic changes are again seen. Sesar Howell MD on January 21, 2017 at 10:04 Board Certified Radiologist. This report was verified electronically.
[2017-01-21] MEDS: LACTOBACILLUS ACIDOPHILUS TAB PO SCH ×2 (10:12→21:49)
[2017-01-21] MEDS: PREGABALIN 100 MG CAP PO SCH ×2 (10:12→17:55)
[2017-01-21] MEDS: LACTULOSE SYRUP 20 GM/30 ML CUP PO SCH (10:12)
[2017-01-21] MEDS: QUEtiapine FUMARATE 25 MG TAB PO SCH ×2 (10:13→17:55)
[2017-01-21] MEDS: METHOCARBAMOL 500 MG TAB PO SCH ×2 (10:13→17:55)
[2017-01-21] MEDS: FERROUS SULFATE 325 MG (65 MG ELEMENTAL IRON) TAB PO SCH ×2 (10:13→21:48)
[2017-01-21] MEDS: SULFAMETHOXAZOLE-TRIMETHOPRIM DS 800-160 MG TAB PO SCH ×2 (10:13→21:49)
[2017-01-21] MEDS: DOCUSATE SODIUM 100 MG CAP PO SCH ×2 (10:13→21:48)
[2017-01-21] MEDS: CITALOPRAM HYDROBROMIDE 20 MG TAB PO SCH ×2 (10:13→21:49)
[2017-01-21] MEDS: DOCUSATE SODIUM 50 MG/SENNA 8.6 MG TAB PO SCH ×2 (10:13→21:49)
[2017-01-21] MEDS: HYDROmorphone HCL 2 MG TAB PO PRN ×2 (10:17→10:22)
[2017-01-21] MEDS: ENOXAPARIN SODIUM 30 MG/0.3 ML SYRINGE SQ SCH (10:23)
[2017-01-21 11:27] VITALS: BP 128/55; PULSE 81; RESP 17; TEMP 96.7; O2SAT 96
[2017-01-21] MEDS: DOXYCYCLINE HYCLATE 100 MG CAP PO SCH (12:13)
[2017-01-21] MEDS: HYDROmorphone HCL 4 MG TAB PO PRN ×2 (14:59→17:55)
[2017-01-21 15:50] VITALS: BP 105/60; PULSE 100; RESP 18; TEMP 96.8; O2SAT 95
[2017-01-21 20:55] VITALS: BP 125/86; PULSE 90; RESP 18; TEMP 96.7; O2SAT 99
[2017-01-21] MEDS: traZODone HCL 50 MG TAB PO SCH (21:48)
[2017-01-21 23:29] VITALS: BP 101/54; PULSE 94; RESP 18; TEMP 96; O2SAT 98
[2017-01-22] VITALS (8 sets, daily range): BP systolic 79–109; BP diastolic 41–61; PULSE 73–93; RESP 17–18; TEMP 97.2–98.8; O2SAT 93–98
[2017-01-22] MEDS: ENOXAPARIN SODIUM 30 MG/0.3 ML SYRINGE SQ SCH ×3 (00:12→23:54)
[2017-01-22] MEDS: DOXYCYCLINE HYCLATE 100 MG CAP PO SCH ×3 (00:12→23:54)
[2017-01-22] MEDS: LACTATED RINGER'S 1000 ML INJ 1,000 ML IV SCH ×12 (00:15→21:38)
[2017-01-22] MEDS: PREGABALIN 100 MG CAP PO SCH ×4 (00:15→23:53)
[2017-01-22] MEDS: METHOCARBAMOL 500 MG TAB PO SCH ×4 (00:15→23:54)
[2017-01-22] MEDS: QUEtiapine FUMARATE 25 MG TAB PO SCH ×4 (00:16→23:54)
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
[2017-01-22] MEDS: SODIUM CHLORIDE 0.9% FLUSH 10 ML FLUSH IV FLUSH SCH ×2 (09:00→22:03)
[2017-01-22] MEDS: NYSTATIN 100,000 UNIT/GM CREAM 15 GM TOPICAL SCH ×2 (09:00→21:00)
[2017-01-22] MEDS: CITALOPRAM HYDROBROMIDE 20 MG TAB PO SCH ×2 (10:02→22:05)
[2017-01-22] MEDS: LACTULOSE SYRUP 20 GM/30 ML CUP PO SCH (10:02)
[2017-01-22] MEDS: FERROUS SULFATE 325 MG (65 MG ELEMENTAL IRON) TAB PO SCH ×2 (10:02→22:04)
[2017-01-22] MEDS: DOCUSATE SODIUM 50 MG/SENNA 8.6 MG TAB PO SCH ×2 (10:02→22:05)
[2017-01-22] MEDS: DOCUSATE SODIUM 100 MG CAP PO SCH ×2 (10:03→22:05)
[2017-01-22] MEDS: HYDROmorphone HCL 4 MG TAB PO PRN ×3 (10:03→22:04)
[2017-01-22] MEDS: LACTOBACILLUS ACIDOPHILUS TAB PO SCH ×2 (10:03→22:04)
[2017-01-22] MEDS: BACITRACIN TOP OINT 15 GM TUBE TOPICAL SCH (10:04)
[2017-01-22] MEDS: REMOVE OLD DURAGESIC (FENTANYL) PATCH T-DERMAL SCH (11:00)
[2017-01-22] MEDS: fentaNYL 50 MCG/HR PATCH T-DERMAL SCH (11:00)
[2017-01-22] MEDS ORDERED: SODIUM CHLOR 0.9% 1000 ML INJ 1,000 ML IV ONE (13:15)
[2017-01-22] MEDS: SULFAMETHOXAZOLE-TRIMETHOPRIM DS 800-160 MG TAB PO SCH ×2 (13:38→22:05)
[2017-01-22] MEDS ORDERED: CELE20TA PO (14:45)
[2017-01-22] MEDS ORDERED: LYRI100C PO (14:45)
[2017-01-22] MEDS ORDERED: QUET1TAB7 PO (14:45)
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
[2017-01-22 15:28] LABS: HEMATOCRIT 27.6 % (35.0-46.0); REVIEW FLAG FINAL
[2017-01-22] MEDS: traZODone HCL 50 MG TAB PO SCH (22:05)
[2017-01-22] MEDS: MAGNESIUM HYDROXIDE SUSP 30 ML CUP PO PRN (23:55)
[2017-01-23] VITALS: BP 116/60; PULSE 84; RESP 20; TEMP 97.9; O2SAT 98
[2017-01-23] MEDS: LACTATED RINGER'S 1000 ML INJ 1,000 ML IV SCH ×17 (00:47→23:06)
[2017-01-23 03:10] VITALS: BP 108/59
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
[2017-01-23 08:00] VITALS: BP 93/54; PULSE 78; RESP 16; TEMP 97.4; O2SAT 95
[2017-01-23] MEDS: LACTULOSE SYRUP 20 GM/30 ML CUP PO SCH (09:51)
[2017-01-23] MEDS: SULFAMETHOXAZOLE-TRIMETHOPRIM DS 800-160 MG TAB PO SCH ×2 (09:52→21:01)
[2017-01-23] MEDS: DOCUSATE SODIUM 100 MG CAP PO SCH ×2 (09:52→21:01)
[2017-01-23] MEDS: FERROUS SULFATE 325 MG (65 MG ELEMENTAL IRON) TAB PO SCH ×2 (09:52→21:01)
[2017-01-23] MEDS: DOCUSATE SODIUM 50 MG/SENNA 8.6 MG TAB PO SCH ×2 (09:52→21:01)
[2017-01-23] MEDS: LACTOBACILLUS ACIDOPHILUS TAB PO SCH ×2 (09:52→21:01)
[2017-01-23] MEDS: CITALOPRAM HYDROBROMIDE 20 MG TAB PO SCH ×2 (09:52→21:01)
[2017-01-23] MEDS: ERGOCALCIFEROL (VIT D2) 50,000 UNIT CAP PO SCH (09:53)
[2017-01-23] MEDS: SODIUM CHLORIDE 0.9% FLUSH 10 ML FLUSH IV FLUSH SCH ×2 (09:53→21:00)
[2017-01-23] MEDS: NYSTATIN 100,000 UNIT/GM CREAM 15 GM TOPICAL SCH ×2 (09:54→20:56)
[2017-01-23] MEDS: BACITRACIN TOP OINT 15 GM TUBE TOPICAL SCH (09:54)
[2017-01-23 11:15] VITALS: BP 97/51; PULSE 82; RESP 15; TEMP 97.6; O2SAT 96
[2017-01-23] MEDS: DOXYCYCLINE HYCLATE 100 MG CAP PO SCH ×2 (11:22→23:04)
[2017-01-23] MEDS: METHOCARBAMOL 500 MG TAB PO SCH ×2 (11:23→18:31)
[2017-01-23] MEDS: QUEtiapine FUMARATE 25 MG TAB PO SCH ×2 (11:24→18:31)
[2017-01-23] MEDS: PREGABALIN 100 MG CAP PO SCH ×2 (11:24→18:30)
[2017-01-23] MEDS: ENOXAPARIN SODIUM 30 MG/0.3 ML SYRINGE SQ SCH ×2 (11:25→23:04)
--- NOTE | 2017-01-23 13:36 | HHI.PR ---
Subjective Remarks Follow-up hypotension Although BP soft, patient is asymptomatic and resting. Objective Vitals Vital Signs Date Time Temp Pulse Resp B/P (MAP) Pulse Ox O2 Delivery O2 Flow Rate FiO2 01/23/17 08:00 97.4 78 16 93/54 (67) 95 01/23/17 03:10 108/59 (75) 01/22/17 23:50 97.9 88 18 100/61 (74) 98 01/22/17 21:40 109/58 (75) 01/22/17 20:20 98.8 91 17 98/60 (73) 98 01/22/17 16:00 98.3 93 18 82/52 (62) 98 I/O 01/22/17 01/22/17 01/22/17 01/23/17 01/23/17 01/23/17 07:00 15:00 23:00 07:00 15:00 23:00 Intake Total 480 ml 1460 ml 720 ml 720 ml Output Total 1650 ml Balance 480 ml 1460 ml 720 ml -930 ml Intake Oral 480 ml 960 ml 720 ml 720 ml IV Total 500 ml Output Urine Total 1650 ml # Voids 4 5 6 # Bowel Movements 0 1 2 0 Result Diagram: 01/22/17 1500 Imaging Last Impressions Tibia/Fibula X-Ray 01/21/17 0000 Signed Impressions: Service Date/Time: Saturday, January 21, 2017 09:47 - CONCLUSION: Minimal callus formation is seen with otherwise stable appearance of the tibia and fibula. Sesar Howell MD Hip X-Ray 01/20/17 0000 Signed Impressions: Service Date/Time: Friday, January 20, 2017 09:56 - CONCLUSION: No acute fracture. Fantasma Vargas MD Shoulder X-Ray 01/06/17 0000 Signed Impressions: Service Date/Time: Friday, January 06, 2017 09:46 - CONCLUSION: Stable acromioclavicular fixation device Intact glenohumeral joint. Pierce Joyner MD Clavicle X-Ray 12/13/16 0000 Signed Impressions: Service Date/Time: Tuesday, December 13, 2016 11:29 - CONCLUSION: A/C joint appears aligned. Abhijit Fernandes MD Knee MRI 12/12/16 0000 Signed Impressions: Service Date/Time: November 15:35 - CONCLUSION: Inhomogeneous area of bright signal on T2 sequence in the distal femoral diaphysis probably areas of contusion and possible mild sprain of the ACL involving the femoral attachment site. Abhijit Fernandes MD Abdomen/Pelvis CT 12/03/16 0000 Signed Impressions: Service Date/Time: Saturday, December 03, 2016 16:29 - CONCLUSION: 1. Trace pleural fluid. Mild free fluid in the pelvis. Mild anasarca. 2. No acute traumatic injury identified within the abdomen and pelvis. 3. Moderate constipation. Mild ileus. Marshall Samaniego MD Foot X-Ray 11/23/16 0000 Signed Impressions: Service Date/Time: Wednesday, November 23, 2016 09:01 - CONCLUSION: 1. Nonspecific soft tissue swelling around the foot. 2. Mild irregularity involving the base of the proximal phalanx. Recommend correlation with point tenderness for nondisplaced fracture. Chinmay Leon MD Chest X-Ray 11/21/16 0600 Signed Impressions: Service Date/Time: October 02:25 - CONCLUSION: Mild bibasilar consolidation. Interim extubation and removal of nasogastric tube and right subclavian central venous line. Shane Gonzalez MD Gall Bladder Ultrasound 11/20/16 0000 Signed Impressions: Service Date/Time: Sunday, November 20, 2016 09:42 - CONCLUSION: Distended gallbladder without stones or gallbladder wall thickening. Shane Fernandes MD Head CT 11/19/16 0000 Signed Impressions: Service Date/Time: Saturday, November 19, 2016 16:51 - CONCLUSION: 1. No intracranial abnormality. 2. Scalp injuries. Shane Fernandes MD Chest CT 11/19/16 0000 Signed Impressions: Service Date/Time: Saturday, November 19, 2016 17:02 - CONCLUSION: Areas of consolidation/contusion or atelectasis in the posterior mid and lower lungs. Shane Fernandes MD Cervical Spine CT 11/19/16 0000 Signed Impressions: Service Date/Time: Saturday, November 19, 2016 16:51 - CONCLUSION: Reversal of the normal C-spine lordosis. No acute bony injury is seen. Shane Fernandes MD Pelvis X-Ray 11/17/16 0058 Signed Impressions: Service Date/Time: Thursday, November 17, 2016 00:41 - CONCLUSION: No evidence of fracture. Avery Vaca MD Objective Remarks GENERAL: NAD and resting SKIN: Warm and dry. HEAD: Normocephalic. EYES: No scleral icterus. No injection or drainage. NECK: Supple, trachea midline. No JVD or lymphadenopathy. CARDIOVASCULAR: Regular rate and rhythm without murmurs, gallops, or rubs. RESPIRATORY: Breath sounds equal bilaterally. No accessory muscle use. GASTROINTESTINAL: Abdomen soft, non-tender, nondistended. MUSCULOSKELETAL: No cyanosis, or edema. BACK: Nontender without obvious deformity. No CVA tenderness. A/P Assessment and Plan 21-year-old female with Hypotension BP soft H&H stable Hold all narcotics and PURSE SEINING HAND depressant medications Consider 500cc NS bolus Monitor BP Multiple trauma, status post fractures Management per orthopedic surgery Fantasma Schmitz MD Jan 23, 2017 13:36
[2017-01-23] MEDS ORDERED: fentaNYL 50 MCG/HR PATCH T-DERMAL SCH (14:00)
[2017-01-23] MEDS ORDERED: REMOVE OLD DURAGESIC (FENTANYL) PATCH T-DERMAL SCH (14:00)
[2017-01-23 16:00] VITALS: BP 102/56; PULSE 106; RESP 16; TEMP 98.1; O2SAT 100
[2017-01-23 20:00] VITALS: BP 106/71; PULSE 92; RESP 16; TEMP 98.5; O2SAT 97
[2017-01-23] MEDS: HYDROmorphone HCL 2 MG TAB PO PRN (21:00)
[2017-01-23] MEDS: traZODone HCL 50 MG TAB PO SCH (21:01)
[2017-01-23] MEDS: MAGNESIUM HYDROXIDE SUSP 30 ML CUP PO PRN (23:04)
[2017-01-24] MEDS: PREGABALIN 100 MG CAP PO SCH ×4 (02:37→23:45)
[2017-01-24] MEDS: METHOCARBAMOL 500 MG TAB PO SCH ×4 (02:37→23:45)
[2017-01-24] MEDS: QUEtiapine FUMARATE 25 MG TAB PO SCH ×4 (02:37→23:45)
[2017-01-24] MEDS ORDERED: DILA2TAB2 PO (06:25)
[2017-01-24] MEDS ORDERED: PERC10TA27 PO (06:25)
[2017-01-24] MEDS ORDERED: DOXY100C PO (06:25)
[2017-01-24] MEDS ORDERED: BACT800T5 PO (06:25)
[2017-01-24] MEDS ORDERED: XARE10TA PO (06:26)
[2017-01-24] MEDS ORDERED: SENN8.6T15 PO (06:55)
[2017-01-24] MEDS ORDERED: DOCU1CAP39 PO (06:55)
--- NOTE | 2017-01-24 07:04 | PD.ORT.PN ---
Subjective Subjective Remarks s/p IMN with partial wound closure left leg - POD 66 s/p right tibia fx with vascular and significant soft tissue injury s/p removal of exfix with IMN and rotation soleus graft right tibia - POD 56 s/p right shoulder AC joint repair - POD 57 s/p I&D right leg with skin grafting partial leg - POD 35 s/p I&D vac Change with skin grafting of remainder of leg - POD 28 doing well. pain controlled. resting comfortably.no changes. planning for heading home to [place] friday Objective Vitals Vital Signs Date Time Temp Pulse Resp B/P (MAP) Pulse Ox O2 Delivery O2 Flow Rate FiO2 01/23/17 20:00 98.5 92 16 106/71 (83) 97 01/23/17 16:00 98.1 106 16 102/56 (71) 100 01/23/17 11:15 97.6 82 15 97/51 (66) 96 01/23/17 08:00 97.4 78 16 93/54 (67) 95 I/O 01/23/17 01/23/17 01/23/17 01/24/17 01/24/17 01/24/17 07:00 15:00 23:00 07:00 15:00 23:00 Intake Total 720 ml 720 ml 960 ml 960 ml Output Total 1650 ml 1850 ml Balance -930 ml 720 ml 960 ml -890 ml Intake Oral 720 ml 720 ml 960 ml 960 ml Output Urine Total 1650 ml 1850 ml # Voids 3 3 # Bowel Movements 0 0 Result Diagram: 01/22/17 1500 Imaging Last Impressions Tibia/Fibula X-Ray 12/13/16 0000 Signed Impressions: Service Date/Time: Tuesday, December 13, 2016 11:33 - CONCLUSION: Comminuted mid fibular fractures are not aligned, however tibial fractures are aligned. Abhijit Fernandes MD Clavicle X-Ray 12/13/16 0000 Signed Impressions: Service Date/Time: Tuesday, December 13, 2016 11:29 - CONCLUSION: A/C joint appears aligned. Abhijit Fernandes MD Knee MRI 12/12/16 0000 Signed Impressions: Service Date/Time: November 15:35 - CONCLUSION: Inhomogeneous area of bright signal on T2 sequence in the distal femoral diaphysis probably areas of contusion and possible mild sprain of the ACL involving the femoral attachment site. K. Jeremiah Fernandes MD Abdomen/Pelvis CT 12/03/16 0000 Signed Impressions: Service Date/Time: Saturday, December 03, 2016 16:29 - CONCLUSION: 1. Trace pleural fluid. Mild free fluid in the pelvis. Mild anasarca. 2. No acute traumatic injury identified within the abdomen and pelvis. 3. Moderate constipation. Mild ileus. Marshall Samaniego MD Shoulder X-Ray 11/26/16 0000 Signed Impressions: Service Date/Time: Saturday, November 26, 2016 15:46 - CONCLUSION: 1. Status post plate and screw fixation of right a.c. joint separation in near anatomic alignment without significant fracture. Zackary Piper MD Foot X-Ray 11/23/16 0000 Signed Impressions: Service Date/Time: Wednesday, November 23, 2016 09:01 - CONCLUSION: 1. Nonspecific soft tissue swelling around the foot. 2. Mild irregularity involving the base of the proximal phalanx. Recommend correlation with point tenderness for nondisplaced fracture. Chinmay Leon MD Chest X-Ray 11/21/16 0600 Signed Impressions: Service Date/Time: October 02:25 - CONCLUSION: Mild bibasilar consolidation. Interim extubation and removal of nasogastric tube and right subclavian central venous line. Shane Gonzalez MD Gall Bladder Ultrasound 11/20/16 0000 Signed Impressions: Service Date/Time: Sunday, November 20, 2016 09:42 - CONCLUSION: Distended gallbladder without stones or gallbladder wall thickening. Shane Fernandes MD Head CT 11/19/16 0000 Signed Impressions: Service Date/Time: Saturday, November 19, 2016 16:51 - CONCLUSION: 1. No intracranial abnormality. 2. Scalp injuries. Shane Fernandes MD Chest CT 11/19/16 0000 Signed Impressions: Service Date/Time: Saturday, November 19, 2016 17:02 - CONCLUSION: Areas of consolidation/contusion or atelectasis in the posterior mid and lower lungs. Shane Fernandes MD Cervical Spine CT 11/19/16 0000 Signed Impressions: Service Date/Time: Saturday, November 19, 2016 16:51 - CONCLUSION: Reversal of the normal C-spine lordosis. No acute bony injury is seen. Shane Fernandes MD Pelvis X-Ray 11/17/16 0058 Signed Impressions: Service Date/Time: Thursday, November 17, 2016 00:41 - CONCLUSION: No evidence of fracture. Avery Vaca MD Procedures 1) I&D with fasciotomy and application of external fixator left leg 2) Wound closure with removal of exfix and IMN left tibia 3) I&D with Exfix application and vac application right open tibia fracture 4) I&D with removal of exfix and IMN right tibia 5) Serial I&Ds right tibia with vac changes 6) STSG of right tibia 7) Open repair of right AC joint 8) open repair of right posterior tibial artery Objective Remarks LLE: Dressing intact, minimal swelling foot, Wiggles toes freely, sensation intact, +cap refill, +nvi. no effusion of knee, no instability of knee, + quad atrophy and weakness RLE: Fracture boot +granulation tissue present. no evidence of necrosis. Continues to have moderate right foot swelling w mild ecchymosis, Good capillary refills. No sensation in toes and plantar aspect of foot. Does feel pressure and sensation over dorsum of foot Assessment & Plan Problem List: (1) Open fracture of left tibia and fibula ICD Codes: S82.402B - Unspecified fracture of shaft of left fibula, initial encounter for open fracture type I or II; S82.202B - Unspecified fracture of shaft of left tibia, initial encounter for open fracture type I or II Status: Acute Qualifiers: (2) Acromioclavicular joint separation, type 5 ICD Codes: S43.109A - Unspecified dislocation of unspecified acromioclavicular joint, initial encounter Status: Acute (3) Open fracture of right tibia and fibula ICD Codes: S82.201B - Unspecified fracture of shaft of right tibia, initial encounter for open fracture type I or II; S82.401B - Unspecified fracture of shaft of right fibula, initial encounter for open fracture type I or II Status: Acute Qualifiers: (4) Posterior tibial artery injury ICD Codes: S85.169A - Unspecified injury of posterior tibial artery, unspecified leg, initial encounter Status: Acute Assessment and Plan s/p IMN with partial wound closure left leg - POD 66 s/p right tibia fx with vascular and significant soft tissue injury s/p removal of exfix with IMN and rotation soleus graft right tibia - POD 56 s/p right shoulder AC joint repair - POD 57 s/p I&D right leg with skin grafting partial leg - POD 35 s/p I&D vac Change with skin grafting of remainder of leg - POD 28 Quantitative HCG- negative daily dressing changes with xeroform/4x4 or ABD/ JARRELL wraps to RLE. dressings as needed to left leg. may DC dressings to left leg when scabs healed. placed in fracture boot RLE. Requesting PT twice a day (BID) I reviewed quad sets and SLR with patient to increase strength ROM of knees to prevent contractures/stiffness. Increase strength of quads/ hamstrings. WBAT BLE/RUE. RLE with boot on. begin gait training and walker training. Remove boot from left and right ankles for ankle range of motion with PT. Lovenox continue gait training patient denied melina bed at [facility]. Case mgmt still working on rehab placement in [place]. Patient would benefit greatly from Acute rehab placement in [place]. patient needs extensive physical therapy./ DC Fx boot left leg. ok for PT to have patient ambulate outside. will plan for DC home friday begin adding bacitracin to wound on anteromedial right leg. ok for OT or PT to wrap trashbag around right leg and begin shower training. keep right lower leg dry at all times. plan for discharge Friday. follow up with ortho in [place] Onur Swain Jan 24, 2017 07:04
[2017-01-24 07:12] VITALS: BP 98/54; PULSE 79; RESP 16; TEMP 97; O2SAT 96
[2017-01-24] MEDS: SODIUM CHLORIDE 0.9% FLUSH 10 ML FLUSH IV FLUSH SCH ×2 (09:00→20:51)
[2017-01-24] MEDS: NYSTATIN 100,000 UNIT/GM CREAM 15 GM TOPICAL SCH ×2 (09:00→20:51)
[2017-01-24] MEDS: BACITRACIN TOP OINT 15 GM TUBE TOPICAL SCH (09:00)
[2017-01-24] MEDS: FERROUS SULFATE 325 MG (65 MG ELEMENTAL IRON) TAB PO SCH ×2 (09:56→20:51)
[2017-01-24] MEDS: SULFAMETHOXAZOLE-TRIMETHOPRIM DS 800-160 MG TAB PO SCH ×2 (09:56→20:51)
[2017-01-24] MEDS: DOCUSATE SODIUM 100 MG CAP PO SCH ×2 (09:56→20:50)
[2017-01-24] MEDS: DOCUSATE SODIUM 50 MG/SENNA 8.6 MG TAB PO SCH ×2 (09:57→20:51)
[2017-01-24] MEDS: CITALOPRAM HYDROBROMIDE 20 MG TAB PO SCH ×2 (09:57→20:51)
[2017-01-24] MEDS: DOXYCYCLINE HYCLATE 100 MG CAP PO SCH ×2 (09:57→23:45)
[2017-01-24] MEDS: LACTULOSE SYRUP 20 GM/30 ML CUP PO SCH (09:57)
[2017-01-24] MEDS: LACTOBACILLUS ACIDOPHILUS TAB PO SCH ×2 (09:57→20:51)
[2017-01-24] MEDS: LACTATED RINGER'S 1000 ML INJ 1,000 ML IV SCH ×9 (11:00→23:45)
[2017-01-24 11:20] VITALS: BP 107/58; PULSE 81; RESP 16; TEMP 96.4; O2SAT 95
[2017-01-24] MEDS ORDERED: NEUR100C PO (12:07)
--- NOTE | 2017-01-24 12:08 | HHI.PR ---
Subjective Remarks Patient seen and examined Stable and no acute event overnight BP soft however patient is asymptomatic Objective Vitals Vital Signs Date Time Temp Pulse Resp B/P (MAP) Pulse Ox O2 Delivery O2 Flow Rate FiO2 01/24/17 11:20 96.4 81 16 107/58 (74) 95 01/24/17 07:12 97.0 79 16 98/54 (69) 96 01/23/17 20:00 98.5 92 16 106/71 (83) 97 01/23/17 16:00 98.1 106 16 102/56 (71) 100 I/O 01/23/17 01/23/17 01/23/17 01/24/17 01/24/17 01/24/17 07:00 15:00 23:00 07:00 15:00 23:00 Intake Total 720 ml 720 ml 960 ml 960 ml Output Total 1650 ml 1850 ml Balance -930 ml 720 ml 960 ml -890 ml Intake Oral 720 ml 720 ml 960 ml 960 ml Output Urine Total 1650 ml 1850 ml # Voids 3 3 # Bowel Movements 0 0 Result Diagram: 01/22/17 1500 Objective Remarks GENERAL: NAD and resting SKIN: Warm and dry. HEAD: Normocephalic. EYES: No scleral icterus. No injection or drainage. NECK: Supple, trachea midline. No JVD or lymphadenopathy. CARDIOVASCULAR: Regular rate and rhythm without murmurs, gallops, or rubs. RESPIRATORY: Breath sounds equal bilaterally. No accessory muscle use. GASTROINTESTINAL: Abdomen soft, non-tender, nondistended. MUSCULOSKELETAL: No cyanosis, or edema. BACK: Nontender without obvious deformity. No CVA tenderness. A/P Assessment and Plan 21-year-old female with Hypotension BP soft however patient is asymptomatic H&H stable Monitor BP Multiple trauma, status post fractures Management per orthopedic surgery Fantasma Schmitz MD Jan 24, 2017 12:08
[2017-01-24] MEDS: ENOXAPARIN SODIUM 30 MG/0.3 ML SYRINGE SQ SCH ×2 (13:35→23:46)
[2017-01-24] MEDS: HYDROmorphone HCL 2 MG TAB PO PRN (13:36)
[2017-01-24 16:00] VITALS: BP 122/64; PULSE 82; RESP 16; TEMP 97.3; O2SAT 96
[2017-01-24 20:00] VITALS: BP 106/56; PULSE 71; RESP 17; TEMP 97.6; O2SAT 99
[2017-01-24] MEDS: traZODone HCL 50 MG TAB PO SCH (20:51)
[2017-01-25 00:23] VITALS: BP 97/54; PULSE 81; RESP 16; TEMP 98; O2SAT 95
[2017-01-25] MEDS: LACTATED RINGER'S 1000 ML INJ 1,000 ML IV SCH ×2 (03:15→03:16)
[2017-01-25] MEDS: DOCUSATE SODIUM 50 MG/SENNA 8.6 MG TAB PO SCH (08:14)
[2017-01-25] MEDS: LACTOBACILLUS ACIDOPHILUS TAB PO SCH (08:14)
[2017-01-25] MEDS: DOCUSATE SODIUM 100 MG CAP PO SCH (08:14)
[2017-01-25] MEDS: FERROUS SULFATE 325 MG (65 MG ELEMENTAL IRON) TAB PO SCH (08:14)
[2017-01-25] MEDS: PREGABALIN 100 MG CAP PO SCH (08:14)
[2017-01-25] MEDS: QUEtiapine FUMARATE 25 MG TAB PO SCH (08:15)
[2017-01-25] MEDS: SULFAMETHOXAZOLE-TRIMETHOPRIM DS 800-160 MG TAB PO SCH (08:15)
[2017-01-25] MEDS: HYDROmorphone HCL 4 MG TAB PO PRN (08:15)
[2017-01-25] MEDS: METHOCARBAMOL 500 MG TAB PO SCH (08:16)
[2017-01-25] MEDS: DOXYCYCLINE HYCLATE 100 MG CAP PO SCH (08:16)
[2017-01-25] MEDS: CITALOPRAM HYDROBROMIDE 20 MG TAB PO SCH (08:16)
== END 2017-01-25 09:08 | disposition home health service (06) | DRG 463 ==
LOC: NEPI 00:47 → EDBD 01:09 → NEDA 01:09 → N03B 04:10 → N06B 11-21 12:14 → N06A 11-21 18:24
PROVIDERS: ADMIT Surgery; ATTEND Orthopaedic Surgery Orthopaedic Trauma
PROC: 04L Lower Arteries, Occlusion (ICD-10-PCS; 2016-11-17)
PROC: 04L Lower Arteries, Occlusion (ICD-10-PCS; 2016-11-17)
PROC: 0KNS0ZZ Release Right Lower Leg Muscle, Open Approach (ICD-10-PCS; 2016-11-17)
PROC: 0QSH35Z Reposition Left Tibia with External Fixation Device, Percutaneous Approach (ICD-10-PCS; 2016-11-17)
PROC: 0KNT0ZZ Release Left Lower Leg Muscle, Open Approach (ICD-10-PCS; 2016-11-17)
PROC: 04L Lower Arteries, Occlusion (ICD-10-PCS; 2016-11-17)
PROC: 0JBN0ZZ Excision of Right Lower Leg Subcutaneous Tissue and Fascia, Open Approach (ICD-10-PCS; 2016-11-17)
PROC: 5A1945Z Respiratory Ventilation, 24-96 Consecutive Hours (ICD-10-PCS; 2016-11-17)
PROC: 30233N1 Transfusion of Nonautologous Red Blood Cells into Peripheral Vein, Percutaneous Approach (ICD-10-PCS; 2016-11-17)
PROC: 0JBP0ZZ Excision of Left Lower Leg Subcutaneous Tissue and Fascia, Open Approach (ICD-10-PCS; principal; 2016-11-17 01:04)
PROC: 0QSG35Z Reposition Right Tibia with External Fixation Device, Percutaneous Approach (ICD-10-PCS; 2016-11-17 01:04)
PROC: 0JQP0ZZ Repair Left Lower Leg Subcutaneous Tissue and Fascia, Open Approach (ICD-10-PCS; 2016-11-19)
PROC: 0QSH06Z Reposition Left Tibia with Intramedullary Internal Fixation Device, Open Approach (ICD-10-PCS; 2016-11-19)
PROC: 0JDP0ZZ Extraction of Left Lower Leg Subcutaneous Tissue and Fascia, Open Approach (ICD-10-PCS; 2016-11-19)
PROC: 0JDN0ZZ Extraction of Right Lower Leg Subcutaneous Tissue and Fascia, Open Approach (ICD-10-PCS; 2016-11-19)
PROC: 0QPHX5Z Removal of External Fixation Device from Left Tibia, External Approach (ICD-10-PCS; 2016-11-19)
PROC: 0JQP3ZZ Repair Left Lower Leg Subcutaneous Tissue and Fascia, Percutaneous Approach (ICD-10-PCS; 2016-11-22)
PROC: 0QW Lower Bones, Revision (ICD-10-PCS; 2016-11-22)
PROC: 2W0LX6Z Change Pressure Dressing on Right Lower Extremity (ICD-10-PCS; 2016-11-22)
PROC: 0QSGXZZ Reposition Right Tibia, External Approach (ICD-10-PCS; 2016-11-22)
PROC: 0RSG04Z Reposition Right Acromioclavicular Joint with Internal Fixation Device, Open Approach (ICD-10-PCS; 2016-11-26)
PROC: 0KBS0ZZ Excision of Right Lower Leg Muscle, Open Approach (ICD-10-PCS; 2016-11-26)
PROC: 0QSG05Z Reposition Right Tibia with External Fixation Device, Open Approach (ICD-10-PCS; 2016-11-26)
PROC: 0QSG36Z Reposition Right Tibia with Intramedullary Internal Fixation Device, Percutaneous Approach (ICD-10-PCS; 2016-11-29)
PROC: 0KXS0ZZ Transfer Right Lower Leg Muscle, Open Approach (ICD-10-PCS; 2016-11-29)
PROC: 0JDN0ZZ Extraction of Right Lower Leg Subcutaneous Tissue and Fascia, Open Approach (ICD-10-PCS; 2016-11-29)
PROC: 2W0QX6Z Change Pressure Dressing on Right Lower Leg (ICD-10-PCS; 2016-11-29)
PROC: 0QPGX5Z Removal of External Fixation Device from Right Tibia, External Approach (ICD-10-PCS; 2016-11-29)
PROC: 0JDN3ZZ Extraction of Right Lower Leg Subcutaneous Tissue and Fascia, Percutaneous Approach (ICD-10-PCS; 2016-12-02)
PROC: 2W0LX6Z Change Pressure Dressing on Right Lower Extremity (ICD-10-PCS; 2016-12-02)
PROC: 0JDN3ZZ Extraction of Right Lower Leg Subcutaneous Tissue and Fascia, Percutaneous Approach (ICD-10-PCS; 2016-12-05)
PROC: 2W0LX6Z Change Pressure Dressing on Right Lower Extremity (ICD-10-PCS; 2016-12-05)
PROC: 0JDN0ZZ Extraction of Right Lower Leg Subcutaneous Tissue and Fascia, Open Approach (ICD-10-PCS; 2016-12-12)
PROC: 0JDN0ZZ Extraction of Right Lower Leg Subcutaneous Tissue and Fascia, Open Approach (ICD-10-PCS; 2016-12-16)
PROC: 0HRKX74 Replacement of Right Lower Leg Skin with Autologous Tissue Substitute, Partial Thickness, External Approach (ICD-10-PCS; 2016-12-20)
PROC: 0JDN0ZZ Extraction of Right Lower Leg Subcutaneous Tissue and Fascia, Open Approach (ICD-10-PCS; 2016-12-20)
PROC: 0JBN0ZZ Excision of Right Lower Leg Subcutaneous Tissue and Fascia, Open Approach (ICD-10-PCS; 2016-12-24)
PROC: 2W0LX6Z Change Pressure Dressing on Right Lower Extremity (ICD-10-PCS; 2016-12-24)
PROC: 0HRKX74 Replacement of Right Lower Leg Skin with Autologous Tissue Substitute, Partial Thickness, External Approach (ICD-10-PCS; 2016-12-27)
PROC: 0KBS0ZZ Excision of Right Lower Leg Muscle, Open Approach (ICD-10-PCS; 2016-12-27)
DX: S82.251C Displaced comminuted fracture of shaft of right tibia, initial encounter for open fracture type IIIA, IIIB, or IIIC (principal); J96.00 Acute respiratory failure, unspecified whether with hypoxia or hypercapnia; T79.4XXA Traumatic shock, initial encounter; M62.82 Rhabdomyolysis; I95.9 Hypotension, unspecified; R65.10 Systemic inflammatory response syndrome (SIRS) of non-infectious origin without acute organ dysfunction; D62 Acute posthemorrhagic anemia; S85.142A Laceration of anterior tibial artery, left leg, initial encounter; S85.171A Laceration of posterior tibial artery, right leg, initial encounter; T79.A22A Traumatic compartment syndrome of left lower extremity, initial encounter; T79.A21A Traumatic compartment syndrome of right lower extremity, initial encounter; S85.2 Injury of peroneal artery; S82.452C Displaced comminuted fracture of shaft of left fibula, initial encounter for open fracture type IIIA, IIIB, or IIIC; S82.451C Displaced comminuted fracture of shaft of right fibula, initial encounter for open fracture type IIIA, IIIB, or IIIC; S92.911A Unspecified fracture of right toe(s), initial encounter for closed fracture; S43.131A Dislocation of right acromioclavicular joint, greater than 200% displacement, initial encounter; S82.252C Displaced comminuted fracture of shaft of left tibia, initial encounter for open fracture type IIIA, IIIB, or IIIC; S43.101A Unspecified dislocation of right acromioclavicular joint, initial encounter; E87.6 Hypokalemia; F43.23 Adjustment disorder with mixed anxiety and depressed mood; G47.00 Insomnia, unspecified; S83.512A Sprain of anterior cruciate ligament of left knee, initial encounter; S81.802A Unspecified open wound, left lower leg, initial encounter; S81.801A Unspecified open wound, right lower leg, initial encounter; K82.8 Other specified diseases of gallbladder; V03.10XA Pedestrian on foot injured in collision with car, pick-up truck or van in traffic accident, initial encounter; Z75.1 Person awaiting admission to adequate facility elsewhere
CPT/HCPCS: 36430; 36556; 36600; 70450; 71010; 71260; 72125; 72170; 73000; 73030; 73502; 73590; 73620; 73721; 74177; 76000; 76705; 76937; 80048; 80053; 80076; 80170; 80307; 81003; 82435; 82550; 82552; 82565; 82570; 82805; 82947; 83735; 83874; 83930; 83935; 84100; 84132; 84155; 84295; 84520; 84702; 85007; 85014; 85018; 85025; 85027; 85049; 85384; 85610; 85730; 86077; 86850; 86870; 86900; 86901; 86902; 86920; 86922; 87641; 90471; 94002; 94003; 94150; 94667; 96374; 96375; 99291; C1713; C1757; C1769; C9113; G0390; J0131; J0690; J1100; J1170; J1580; J1630; J1650; J1885; J1940; J2060; J2175; J2250; J2270; J2370; J2405; J2710; J3010; J3370; J3475; J3480; J7030; J7040; J7050; J7120; L0150; L0172; L2114; L3260; L8699; P9016; P9021; P9045; P9047; Q0177; Q4081; Q9967